=== PATIENT | male | born 1995 | race African-American/Black ===

== ENCOUNTER 2016-05-05 15:04 | Emergency (ER) | payer OTHER ==
[~2016-05-05] VITALS: Ht 172.7 cm; Wt 68.0 kg
[~2016-05-05 15:04] MED LIST: ALBU0.08 NEB; FOLI5CAP PO; HYDR500C2 PO; LORA-474 PO; NEBULIZER/ADULT1 KIT; PERC10TA27 PO; VENTAER INH; ZOLO100T PO
[2016-05-05 15:12] VITALS: BP 153/87; PULSE 63; RESP 15; TEMP 98.1; O2SAT 96
[2016-05-06] MEDS ORDERED: EXJA500T (00:07)
[2016-06-08] MEDS ORDERED: ZOLO100T PO (09:10)
[2016-06-08] MEDS ORDERED: EXJA500T PO (09:10)
[2016-06-08] MEDS ORDERED: ADVA250A INH (09:11)
[2016-06-08] MEDS ORDERED: [UNRECOGNIZED DRUG - REMARK] (14:04)
[2016-06-23] MEDS ORDERED: KETO60IN6 IM (14:56)
[2016-06-23] MEDS ORDERED: DIPH25CA PO (14:56)
[2016-06-23] MEDS ORDERED: DEXA4INJ9 IM (14:56)
[2016-07-07] MEDS ORDERED: [UNRECOGNIZED DRUG - REMARK] (16:24)
[2016-07-07] MEDS ORDERED: LIDO1PAD52 TOPICAL (16:25)
[2016-07-07] MEDS ORDERED: CYCL1TAB29 PO (16:28)
[2016-10-04] MEDS ORDERED: CYCL5TAB PO (15:50)
[2016-10-04] MEDS ORDERED: LIDO1PAD52 TOPICAL (15:50)
[2016-10-04] MEDS ORDERED: LORA-474 PO (15:57)
== END 2016-05-05 16:43 | disposition left against medical advice (07) ==
LOC: NED 15:04
DX: D57.1 Sickle-cell disease without crisis (principal)
CPT/HCPCS: 99281

== ENCOUNTER 2016-05-05 17:06 | Emergency (ER) | payer OTHER ==
[~2016-05-05] VITALS: Ht 172.7 cm; Wt 68.0 kg
[2016-05-05 17:50] VITALS: BP 141/88; PULSE 64; RESP 15; TEMP 98.2; O2SAT 96
[2016-05-06] MEDS ORDERED: EXJA500T (00:07)
[2016-05-06] MEDS ORDERED: SODIUM CHLOR 0.9% 1000 ML INJ 1,000 ML IV ONE ×2 (00:09→00:15)
[2016-05-06] MEDS ORDERED: SODIUM CHLORIDE 0.9% FLUSH 5 ML FLUSH IVF PRN (00:15)
[2016-05-06] MEDS ORDERED: HYDROmorphone HCL PF 1 MG/ML VIAL IVS ONE (00:15)
[2016-05-06] MEDS ORDERED: ONDANSETRON HCL 4 MG/2 ML VIAL IVP ONE (00:15)
--- NOTE | 2016-05-06 00:37 | PD ---
HPI Chief Complaint: Sickle Cell Time Seen by Provider: 00:04 Travel History International Travel<30 days: No Contact w/Intl Traveler<30days: No Traveled to known affect area: No History of Present Illness HPI Patient is a 20-year-old male with history of sickle cell disease, presents to emergency room with complaints of sickle cell crisis. Patient reports the pain started today, reports pain to his arm and his leg. Reports that his pain feels similar to his sickle cell pain the past. Patient reports cramping feeling, denies any trauma. Patient denies any chest pain or shortness of breath. Patient does follow-up with button machine operator at [place], reports that he is taking hydroxyurea as well as folic acid and exjade for his sickle cell disease. Reports that he has been complaint with his medications. Reports no fever/chills. Denies chest pain/sob. Reports that his pain is typical for his sickle cell crisis. NO other c/o. PFSH Past Medical History ADD: Yes ADHD: Yes Asthma: Yes Autoimmune Disease: No Blood Disorders: No Anxiety: No Depression: No Heart Rhythm Problems: No Cancer: No Cardiovascular Problems: Yes (sickle cell) Chemotherapy: No Chest Pain: Yes COPD: No Cerebrovascular Accident: Yes (TIA AT AGE 4) Cystic Fibrosis: No Developmental Delay: No Diminished Hearing: No Endocrine: No Gastrointestinal Disorders: Yes Genitourinary: No Headaches: Yes Hiatal Hernia: No Immune Disorder: No Implanted Vascular Access Dvce: Yes (RUC) Musculoskeletal: No Neurologic: Yes Psychiatric: No Reproductive: No Respiratory: Yes (ASTHMA) Immunizations Current: Yes Migraines: Yes Radiation Therapy: No Seizures: No Sickle Cell Disease: Yes Sleep Apnea: No Ulcer: No PNEUMOCCOCAL Vaccine (Year): 2 Past Surgical History Abdominal Surgery: Yes (hernia sx, splenectomy) AICD: No Appendectomy: No Arteriovenous Shunt: Yes Cardiac Surgery: No Cholecystectomy: Yes Ear Surgery: No Endocrine Surgery: No Eye Surgery: No Genitourinary Surgery: No Gynecologic Surgery: No Insulin Pump: No Joint Replacement: No Neurologic Surgery: No Oral Surgery: No Pacemaker: No Thoracic Surgery: No Tonsillectomy: Yes (adnoids) Tympanostomy Tube: Yes Other Surgery: Yes (PORT PLACEMENT AND REMOVAL) Social History Alcohol Use: No Tobacco Use: No Substance Use: No Allergies-Medications (Allergen,Severity, Reaction): Coded Allergies: No Known Allergies (Verified , 05/06/16) Reported Meds & Prescriptions Reported Meds & Active Scripts Active Percocet (Oxycodone-Acetaminophen) 10-325 mg Tab 1 Tab PO Q6H PRN Ventolin Hfa 18 GM Inh (Albuterol Sulfate) 90 Mcg/Act Aer 2 Puff INH Q6H PRN Albuterol Neb (Albuterol Sulfate) 2.5 Mg/3 Ml Neb 2.5 Mg NEB TID NEB PRN Reported Exjade (Deferasirox) 500 Mg Tab DAILY Do not chew/swallow tablets whole. Completely disperse tablets in water, orange or apple juice (use 3.5 ounces for total doses <1 g; 7 ounces for doses =1 g). Ativan (Lorazepam) 1 Mg Tab 1 Mg PO DAILY PRN Hydroxyurea 500 Mg Cap 1,000 Mg PO DAILY Folic Acid 5 Mg Cap 5 Mg PO DAILY Zoloft (Sertraline HCl) 100 Mg Tab 100 Mg PO DAILY Review of Systems General / Constitutional: No: Fever Eyes: No: Visual changes HENT: No: Headaches Cardiovascular: No: Chest Pain or Discomfort Respiratory: No: Shortness of Breath Gastrointestinal: No: Abdominal Pain Genitourinary: No: Dysuria Musculoskeletal: No: Pain Skin: No Rash Neurologic: No: Weakness Psychiatric: No: Depression Endocrine: No: Polydipsia Hematologic/Lymphatic: No: Easy Bruising Physical Exam Narrative GENERAL: No acute disease, nontoxic SKIN: Warm and dry. HEAD: Atraumatic. Normocephalic. EYES: Pupils equal and round. No scleral icterus. No injection or drainage. ENT: No nasal bleeding or discharge. Mucous membranes pink and moist. NECK: Trachea midline. No JVD. CARDIOVASCULAR: Regular rate and rhythm. No murmur appreciated. RESPIRATORY: No accessory muscle use. Clear to auscultation. Breath sounds equal bilaterally. GASTROINTESTINAL: Abdomen soft, non-tender, nondistended. Hepatic and splenic margins not palpable. MUSCULOSKELETAL: No obvious deformities. No clubbing. No cyanosis. No edema. NEUROLOGICAL: Awake and alert. No obvious cranial nerve deficits. Motor grossly within normal limits. Normal speech. PSYCHIATRIC: Appropriate mood and affect; insight and judgment normal. Data Data Last Documented VS Vital Signs Date Time Temp Pulse Resp B/P Pulse Ox O2 Delivery O2 Flow Rate FiO2 05/06/16 03:38 61 12 128/66 99 Room Air 05/05/16 17:50 98.2 Orders Complete Blood Count With Diff (05/06/16 00:09) Comprehensive Metabolic Panel (05/06/16 00:09) Retic Count (05/06/16 00:09) Urinalysis - C+S If Indicated (05/06/16 00:09) Ecg Monitoring (05/06/16 00:09) Iv Access Insert/Monitor (05/06/16 00:09) Oximetry (05/06/16 00:09) Ondansetron Inj (Zofran Inj) (05/06/16 00:15) Sodium Chloride 0.9% Flush (Ns Flush) (05/06/16 00:15) Sodium Chlor 0.9% 1000 Ml Inj (Ns 1000 M (05/06/16 00:09) Hydromorphone Pf Inj (Dilaudid Pf Inj) (05/06/16 00:15) Sodium Chlor 0.9% 1000 Ml Inj (Ns 1000 M (05/06/16 00:15) Diphenhydramine Inj (Benadryl Inj) (05/06/16 01:15) Hydromorphone Pf Inj (Dilaudid Pf Inj) (05/06/16 01:15) Diphenhydramine Inj (Benadryl Inj) (05/06/16 02:15) Hydromorphone Pf Inj (Dilaudid Pf Inj) (05/06/16 02:30) Labs Laboratory Tests Test 05/06/16 00:27 White Blood Count 13.9 TH/MM3 Red Blood Count 2.69 MIL/MM3 Hemoglobin 8.7 GM/DL Hematocrit 24.4 % Mean Corpuscular Volume 90.9 FL Mean Corpuscular Hemoglobin 32.3 PG Mean Corpuscular Hemoglobin 35.5 % Concent Red Cell Distribution Width 21.9 % Platelet Count 446 TH/MM3 Mean Platelet Volume 7.3 FL Neutrophils (%) (Auto) 58.4 % Lymphocytes (%) (Auto) 29.6 % Monocytes (%) (Auto) 10.5 % Eosinophils (%) (Auto) 1.0 % Basophils (%) (Auto) 0.5 % Neutrophils # (Auto) 8.1 TH/MM3 Lymphocytes # (Auto) 4.1 TH/MM3 Monocytes # (Auto) 1.5 TH/MM3 Eosinophils # (Auto) 0.1 TH/MM3 Basophils # (Auto) 0.1 TH/MM3 CBC Comment AUTO DIFF Reticulocyte Count 5.5 % Absolute Reticulocyte Count 146.7 MIL/L Sodium Level 141 MEQ/L Potassium Level 3.9 MEQ/L Chloride Level 108 MEQ/L Carbon Dioxide Level 26.5 MEQ/L Anion Gap 7 MEQ/L Blood Urea Nitrogen 6 MG/DL Creatinine 0.64 MG/DL Estimat Glomerular Filtration 190 ML/MIN Rate Random Glucose 89 MG/DL Calcium Level 9.0 MG/DL Total Bilirubin 5.8 MG/DL Aspartate Amino Transf 33 U/L (AST/SGOT) Alanine Aminotransferase 29 U/L (ALT/SGPT) Alkaline Phosphatase 85 U/L Total Protein 6.8 GM/DL Albumin 4.0 GM/DL MDM Medical Decision Making Medical Screen Exam Complete: Yes Emergency Medical Condition: Yes Interpretation(s) Vital Signs Date Time Temp Pulse Resp B/P Pulse Ox O2 Delivery O2 Flow Rate FiO2 05/05/16 17:50 98.2 64 15 141/88 96 Differential Diagnosis Sickle cell crisis Narrative Course 20-year-old male who presents to emergency room with sickle cell disease, presents to emergency room with complaints of sickle crisis. Patient reports pain to his arm and his leg, reports that this pain is typical for sickle cell disease. Patient with no chest pain or shortness of breath at this time. Plan to obtain IV, will obtain CBC, reticulocyte count, BMP, will give patient IV fluids as well as pain medication. Pt re-evaluated, pt reports pain now a 7/10 instead of an 8/10, plan to remedicate pt reviewed all studies with pt in detail Patient reevaluated, patient reports that he is feeling much better and would like to be discharged. Patient will follow up with his button machine operator return to ER as needed Diagnosis Primary Impression: Sickle cell anemia Qualified Code: D57.00 - Hb-SS disease with crisis Additional Impression: Vaso-occlusive sickle cell crisis Patient Instructions: Narcotic given in the ED, General Instructions Additional Instructions: Please follow-up with your primary care doctor as soon as possible Please stop the button machine operator as soon as possible Return to ER as needed Disposition: 01 DISCHARGE HOME Condition: Stable HuyLauren Payton DO May 06, 2016 00:37
[2016-05-06 00:41] LABS: AUTOMATED NEUTROPHIL # 8.1 TH/MM3 (1.8-7.7); BASOPHIL # 0.1 TH/MM3 (0-0.2); BASOPHIL % 0.5 % (0.0-2.0); EOSINOPHIL # 0.1 TH/MM3 (0-0.4); HEMATOCRIT 24.4 % (39.0-51.0); LYMPH % 29.6 % (9.0-44.0); LYMPHOCYTE # 4.1 TH/MM3 (1.0-4.8); MEAN CELL VOLUME 90.9 FL (80.0-100.0); MEAN CORPUSCULAR HEMOGLOBIN 32.3 PG (27.0-34.0); MEAN CORPUSCULAR HGB CONC 35.5 % (32.0-36.0); MONO % 10.5 % (0.0-8.0); NEUT % 58.4 % (16.0-70.0); PLATELET COUNT 446 TH/MM3 (150-450); RED BLOOD COUNT 2.69 MIL/MM3 (4.50-5.90); RED CELL DISTRIBUTION WIDTH 21.9 % (11.6-17.2); RETIC % 5.5 % (0.4-3.0); WHITE BLOOD COUNT 13.9 TH/MM3 (4.0-11.0)
[2016-05-06 00:44] LABS: HEMO FLAGS AUTO DIFF; REVIEW FLAG AUTO DIFF
[2016-05-06 01:09] LABS: ALKALINE PHOSPHATASE 85 U/L (45-117); ALT (GPT) 29 U/L (12-78); TOTAL BILIRUBIN ADULT 5.8 MG/DL (0.2-1.0)
[2016-05-06] MEDS ORDERED: HYDROmorphone HCL PF 1 MG/ML VIAL IV PUSH ONE ×2 (01:15→02:30)
[2016-05-06] MEDS ORDERED: diphenhydrAMINE HCL 50 MG/ML VIAL IV PUSH ONE (01:15)
[2016-05-06 01:27] LABS: ANION GAP 7 MEQ/L (5-15); AST (GOT) 33 U/L (15-37); BICARBONATE 26.5 MEQ/L (21.0-32.0); BLOOD UREA NITROGEN 6 MG/DL (7-18); CHLORIDE 108 MEQ/L (98-107); GLOMERULAR FILTRATION RATE 190 ML/MIN (>89); POTASSIUM 3.9 MEQ/L (3.5-5.1); SODIUM (NA) 141 MEQ/L (136-145)
[2016-05-06 01:30] VITALS: BP 128/74; PULSE 68; RESP 12; O2SAT 99
[2016-05-06] MEDS ORDERED: diphenhydrAMINE HCL 50 MG/ML VIAL IVP ONE (02:15)
[2016-05-06 02:22] VITALS: BP 134/78; PULSE 66; RESP 14; O2SAT 98
[2016-05-06 03:31] VITALS: BP 130/76; PULSE 62; RESP 12; O2SAT 99
[2016-05-06 03:38] VITALS: BP_SYST 128; BP_SYST 98; BP_DIAS 54; BP_DIAS 66; PULSE 61; RESP 12; O2SAT 99
[2016-05-06 04:30] VITALS: BP 133/68; PULSE 64; RESP 12; O2SAT 99
[2016-05-06] MEDS ORDERED: FAMOTIDINE 20 MG/2 ML VIAL IV PUSH SCH (04:30)
[2016-05-06 06:11] LABS: PLATELET ESTIMATE SMEAR HIGH (NORMAL); PLATELET MORPHOLOGY NORMAL (NORMAL); SCAN/DIFF AUTO DIFF CONFIRMED; SICKLE CELLS 1+ (NORMAL); TARGET CELLS 1+ (NORMAL)
[2016-06-08] MEDS ORDERED: EXJA500T PO (09:10)
[2016-06-08] MEDS ORDERED: ZOLO100T PO (09:10)
[2016-06-08] MEDS ORDERED: ADVA250A INH (09:11)
[2016-06-08] MEDS ORDERED: [UNRECOGNIZED DRUG - REMARK] (14:04)
[2016-06-23] MEDS ORDERED: DEXA4INJ9 IM (14:56)
[2016-06-23] MEDS ORDERED: KETO60IN6 IM (14:56)
[2016-06-23] MEDS ORDERED: DIPH25CA PO (14:56)
[2016-07-07] MEDS ORDERED: [UNRECOGNIZED DRUG - REMARK] (16:24)
[2016-07-07] MEDS ORDERED: LIDO1PAD52 TOPICAL (16:25)
[2016-07-07] MEDS ORDERED: CYCL1TAB29 PO (16:28)
[2016-10-04] MEDS ORDERED: CYCL5TAB PO (15:50)
[2016-10-04] MEDS ORDERED: LIDO1PAD52 TOPICAL (15:50)
[2016-10-04] MEDS ORDERED: LORA-474 PO (15:57)
== END 2016-05-06 04:49 | disposition home or self-care (01) ==
LOC: NEPE 17:06
DX: D57.1 Sickle-cell disease without crisis (principal); J45.909 Unspecified asthma, uncomplicated; Z86.73 Personal history of transient ischemic attack (TIA), and cerebral infarction without residual deficits
CPT/HCPCS: 80053; 85025; 85044; 96361; 96374; 96375; 96376; 99284; J1170; J1200; J2405; J7030

== ENCOUNTER 2016-06-23 15:40 | Emergency (ER) | payer OTHER ==
[~2016-06-23] VITALS: Ht 172.7 cm; Wt 68.0 kg
[~2016-06-23 15:40] MED LIST changes: +ADVA250A INH; +DEXA4INJ9 IM; +DIPH25CA PO; +EXJA500T PO; +KETO60IN6 IM; -NEBULIZER/ADULT1 KIT; +[UNRECOGNIZED DRUG - REMARK]
[2016-06-23 15:42] VITALS: BP 124/74; PULSE 75; RESP 18; TEMP 98.1; O2SAT 98
[2016-06-23] MEDS ORDERED: diphenhydrAMINE HCL 50 MG/ML VIAL IV PUSH ONE (17:00)
[2016-06-23] MEDS ORDERED: HYDROmorphone HCL PF 1 MG/ML VIAL IV PUSH ONE ×2 (17:00→18:15)
[2016-06-23] MEDS ORDERED: SODIUM CHLOR 0.9% 1000 ML INJ 1,000 ML IV ONE ×2 (17:00→20:45)
--- NOTE | 2016-06-23 17:09 | PD ---
HPI Chief Complaint: Sickle Cell Time Seen by Provider: 16:44 Travel History International Travel<30 days: No Contact w/Intl Traveler<30days: No Traveled to known affect area: No History of Present Illness HPI This is a 20-year-old gentleman with history of sickle cell disease, who presents today with complaints of sickle cell crisis. Patient reports pain in his back and his right leg. Patient also reports nausea vomiting. Patient denies any diarrhea. He does report that he's been urinating normally however he notes his urine may have been darker than normal. There is no ill contacts at home. He denies any fevers, chills. He states his symptoms started about 2 days ago. PFSH Past Medical History ADD: Yes ADHD: Yes Asthma: Yes Autoimmune Disease: No Blood Disorders: No Anxiety: No Depression: No Heart Rhythm Problems: No Cancer: No Cardiovascular Problems: Yes (sickle cell) Chemotherapy: No Chest Pain: Yes COPD: No Cerebrovascular Accident: Yes (TIA AT AGE 4) Cystic Fibrosis: No Developmental Delay: No Diminished Hearing: No Endocrine: No Gastrointestinal Disorders: Yes Genitourinary: No Headaches: Yes Hiatal Hernia: No Immune Disorder: No Implanted Vascular Access Dvce: Yes (RUC) Musculoskeletal: No Neurologic: Yes Psychiatric: No Reproductive: No Respiratory: Yes (ASTHMA) Immunizations Current: Yes Migraines: Yes Radiation Therapy: No Seizures: No Sickle Cell Disease: Yes Sleep Apnea: No Ulcer: No Tetanus Vaccination: < 5 Years PNEUMOCCOCAL Vaccine (Year): 2 Past Surgical History Abdominal Surgery: Yes (hernia sx, splenectomy) AICD: No Appendectomy: No Arteriovenous Shunt: Yes Cardiac Surgery: No Cholecystectomy: Yes Ear Surgery: No Endocrine Surgery: No Eye Surgery: No Genitourinary Surgery: No Gynecologic Surgery: No Insulin Pump: No Joint Replacement: No Neurologic Surgery: No Oral Surgery: No Pacemaker: No Thoracic Surgery: No Tonsillectomy: Yes (adnoids) Tympanostomy Tube: Yes Other Surgery: Yes (PORT PLACEMENT AND REMOVAL) Social History Alcohol Use: No Tobacco Use: No Substance Use: No Allergies-Medications (Allergen,Severity, Reaction): Coded Allergies: No Known Allergies (Verified , 06/23/16) Reported Meds & Prescriptions Reported Meds & Active Scripts Active [chiropractor] Advair Diskus Inh (Fluticasone-Salmeterol Inh) 250-50 Mcg/Blist Aer 1 Puff INH BID Rinse mouth after use. Exjade (Deferasirox) 500 Mg Tab 500 Mg PO DAILY Completely disperse tablets in water, orange or apple juice (use 3.5 ounces for total doses <1 g; 7 ounces for doses =1 g). Zoloft (Sertraline HCl) 100 Mg Tab 100 Mg PO DAILY Percocet (Oxycodone-Acetaminophen) 10-325 mg Tab 1 Tab PO Q6H PRN Ventolin Hfa 18 GM Inh (Albuterol Sulfate) 90 Mcg/Act Aer 2 Puff INH Q6H PRN Albuterol Neb (Albuterol Sulfate) 2.5 Mg/3 Ml Neb 2.5 Mg NEB TID NEB PRN Reported Ativan (Lorazepam) 1 Mg Tab 1 Mg PO DAILY PRN Hydroxyurea 500 Mg Cap 1,000 Mg PO DAILY Folic Acid 5 Mg Cap 5 Mg PO DAILY Review of Systems Except as stated in HPI: all other systems reviewed are Neg General / Constitutional: No: Fever, Chills HENT: No: Headaches, Lightheadedness Cardiovascular: No: Chest Pain or Discomfort, Palpitations Respiratory: No: Cough, Shortness of Breath Gastrointestinal: Positive: Nausea, Vomiting, No: Diarrhea, Abdominal Pain Genitourinary: Positive: Other (darker urine than normal.) Musculoskeletal: Positive: Pain (back pain and right leg pain) Neurologic: No: Weakness, Dizziness Physical Exam Narrative GENERAL: Developed well-nourished gentleman in no acute respiratory distress. SKIN: Warm and dry. HEAD: Atraumatic. Normocephalic. EYES: Pupils equal and round. No scleral icterus. No injection or drainage. ENT: [place] mucous membranes that are slightly dry. NECK: Trachea midline. Supple. CARDIOVASCULAR: Regular rate and rhythm. No murmur appreciated. RESPIRATORY: No accessory muscle use. Clear to auscultation. Breath sounds equal bilaterally. GASTROINTESTINAL: Abdomen soft, non-tender, nondistended. No rebound or guarding. MUSCULOSKELETAL: No obvious deformities. No edema. NEUROLOGICAL: Awake and alert. No obvious cranial nerve deficits. Motor grossly within normal limits. Normal speech. Data Data Last Documented VS Vital Signs Date Time Temp Pulse Resp B/P Pulse Ox O2 Delivery O2 Flow Rate FiO2 06/23/16 15:42 98.1 75 18 124/74 98 Orders Complete Blood Count With Diff (06/23/16 16:46) Comprehensive Metabolic Panel (06/23/16 16:46) Sodium Chlor 0.9% 1000 Ml Inj (Ns 1000 M (06/23/16 17:00) Diphenhydramine Inj (Benadryl Inj) (06/23/16 17:00) Hydromorphone Pf Inj (Dilaudid Pf Inj) (06/23/16 17:00) Retic Count (06/23/16 17:09) Urinalysis - C+S If Indicated (06/23/16 17:09) Chest, Single Ap (06/23/16 17:09) Hydromorphone Pf Inj (Dilaudid Pf Inj) (06/23/16 18:15) Ondansetron Inj (Zofran Inj) (06/23/16 18:15) Labs Laboratory Tests Test 06/23/16 18:00 White Blood Count 23.0 TH/MM3 Red Blood Count 2.73 MIL/MM3 Hemoglobin 8.5 GM/DL Hematocrit 24.4 % Mean Corpuscular Volume 89.6 FL Mean Corpuscular Hemoglobin 31.3 PG Mean Corpuscular Hemoglobin 34.9 % Concent Red Cell Distribution Width 20.8 % Platelet Count 347 TH/MM3 Mean Platelet Volume 7.5 FL Neutrophils (%) (Auto) 88.8 % Lymphocytes (%) (Auto) 4.9 % Monocytes (%) (Auto) 5.7 % Eosinophils (%) (Auto) 0.1 % Basophils (%) (Auto) 0.5 % Neutrophils # (Auto) 20.4 TH/MM3 Lymphocytes # (Auto) 1.1 TH/MM3 Monocytes # (Auto) 1.3 TH/MM3 Eosinophils # (Auto) 0.0 TH/MM3 Basophils # (Auto) 0.1 TH/MM3 CBC Comment AUTO DIFF Reticulocyte Count 9.5 % Absolute Reticulocyte Count 255.7 MIL/L Sodium Level 142 MEQ/L Potassium Level 4.6 MEQ/L Chloride Level 109 MEQ/L Carbon Dioxide Level 25.9 MEQ/L Anion Gap 7 MEQ/L Blood Urea Nitrogen 13 MG/DL Creatinine 1.13 MG/DL Estimat Glomerular Filtration 98 ML/MIN Rate Random Glucose 97 MG/DL Calcium Level 9.0 MG/DL Total Bilirubin 7.4 MG/DL Aspartate Amino Transf 93 U/L (AST/SGOT) Alanine Aminotransferase 37 U/L (ALT/SGPT) Alkaline Phosphatase 117 U/L Total Protein 7.6 GM/DL Albumin 4.8 GM/DL MDM Medical Decision Making Medical Screen Exam Complete: Yes Emergency Medical Condition: Yes Differential Diagnosis Sickle cell crisis versus pneumonia versus cystitis Narrative Course 20-year-old gentleman with a history of sickle cell disease, who presents here with reported sickle cell crisis. The patient is afebrile. He reports back and leg pain. He's been given 2 doses of IV pain medication. He's also been given one dose of Benadryl and 1 L of fluid. Laboratory tests show a hemoglobin of 8.5 with positive reticulocytes. Chest x-rays negative for acute process. Urine is pending at this time. He was signed out to Dr. Abram Leslie, physician replacing this physician, who will reevaluate and if he needs further medication will provide as needed. I anticipate he'll be discharged. Diagnosis Primary Impression: Sickle cell pain crisis Fabrice Zamudio MD Jun 23, 2016 17:08
--- NOTE | 2016-06-23 18:09 | RADRPT ---
EXAM DATE/TIME: 06/23/2016 17:24 [facility] COMPARISON: CHEST PA & LAT, March 11, 2016, 10:25. INDICATIONS : Sickle cell related chest pain and shortness of breath. MEDICAL HISTORY : Sickle Cell disease. SURGICAL HISTORY : None. ENCOUNTER: Initial ACUITY: 1 day PAIN SCORE: 10/10 LOCATION: Bilateral chest FINDINGS: No infiltrate, effusion or pneumothorax. Heart size stable, upper limits of normal. CONCLUSION: No evidence of acute cardiopulmonary disease. Borderline cardiomegaly. Twan Avila MD on June 23, 2016 at 18:07 Board Certified Radiologist. This report was verified electronically.
[2016-06-23] MEDS ORDERED: ONDANSETRON HCL 4 MG/2 ML VIAL IV PUSH ONE (18:15)
[2016-06-23 18:16] LABS: AUTOMATED NEUTROPHIL # 20.4 TH/MM3 (1.8-7.7); BASOPHIL # 0.1 TH/MM3 (0-0.2); BASOPHIL % 0.5 % (0.0-2.0); EOSINOPHIL % 0.1 % (0.0-4.0); HEMATOCRIT 24.4 % (39.0-51.0); LYMPH % 4.9 % (9.0-44.0); LYMPHOCYTE # 1.1 TH/MM3 (1.0-4.8); MEAN CELL VOLUME 89.6 FL (80.0-100.0); MEAN CORPUSCULAR HEMOGLOBIN 31.3 PG (27.0-34.0); MEAN CORPUSCULAR HGB CONC 34.9 % (32.0-36.0); MONO % 5.7 % (0.0-8.0); NEUT % 88.8 % (16.0-70.0); PLATELET COUNT 347 TH/MM3 (150-450); RED BLOOD COUNT 2.73 MIL/MM3 (4.50-5.90); RED CELL DISTRIBUTION WIDTH 20.8 % (11.6-17.2)
[2016-06-23 18:30] LABS: HEMO FLAGS AUTO DIFF
[2016-06-23 18:39] LABS: ALKALINE PHOSPHATASE 117 U/L (45-117); ALT (GPT) 37 U/L (12-78); ANION GAP 7 MEQ/L (5-15); AST (GOT) 93 U/L (15-37); BICARBONATE 25.9 MEQ/L (21.0-32.0); BLOOD UREA NITROGEN 13 MG/DL (7-18); CHLORIDE 109 MEQ/L (98-107); GLOMERULAR FILTRATION RATE 98 ML/MIN (>89); POTASSIUM 4.6 MEQ/L (3.5-5.1); SODIUM (NA) 142 MEQ/L (136-145); TOTAL BILIRUBIN ADULT 7.4 MG/DL (0.2-1.0)
[2016-06-23 18:40] LABS: RETIC % 9.5 % (0.4-3.0)
[2016-06-23 18:41] LABS: REVIEW FLAG FINAL
--- NOTE | 2016-06-23 19:06 | PD ---
Physical Exam Date Seen by Provider: Jun 23, 2016 Time Seen by Provider: 19:04 Narrative The patient is a 20-year-old male was initially evaluate by the previous physician, Dr. Zamudio. Please refer to the initial history, physical, diagnostic evaluation, and treatment modality plan. The patient was signed out at 7 PM with laboratory evaluation pending reevaluation for pain. Data Data Last Documented VS Vital Signs Date Time Temp Pulse Resp B/P Pulse Ox O2 Delivery O2 Flow Rate FiO2 06/23/16 19:13 98.5 72 16 136/74 97 Room Air Orders Complete Blood Count With Diff (06/23/16 16:46) Comprehensive Metabolic Panel (06/23/16 16:46) Sodium Chlor 0.9% 1000 Ml Inj (Ns 1000 M (06/23/16 17:00) Diphenhydramine Inj (Benadryl Inj) (06/23/16 17:00) Hydromorphone Pf Inj (Dilaudid Pf Inj) (06/23/16 17:00) Retic Count (06/23/16 17:09) Urinalysis - C+S If Indicated (06/23/16 17:09) Chest, Single Ap (06/23/16 17:09) Hydromorphone Pf Inj (Dilaudid Pf Inj) (06/23/16 18:15) Ondansetron Inj (Zofran Inj) (06/23/16 18:15) Hydromorphone Pf Inj (Dilaudid Pf Inj) (06/23/16 20:45) Ns (Bolus) Inj (06/23/16 20:45) Labs Laboratory Tests Test 06/23/16 06/23/16 18:00 19:20 White Blood Count 23.0 TH/MM3 Red Blood Count 2.73 MIL/MM3 Hemoglobin 8.5 GM/DL Hematocrit 24.4 % Mean Corpuscular Volume 89.6 FL Mean Corpuscular Hemoglobin 31.3 PG Mean Corpuscular Hemoglobin 34.9 % Concent Red Cell Distribution Width 20.8 % Platelet Count 347 TH/MM3 Mean Platelet Volume 7.5 FL Neutrophils (%) (Auto) 88.8 % Lymphocytes (%) (Auto) 4.9 % Monocytes (%) (Auto) 5.7 % Eosinophils (%) (Auto) 0.1 % Basophils (%) (Auto) 0.5 % Neutrophils # (Auto) 20.4 TH/MM3 Lymphocytes # (Auto) 1.1 TH/MM3 Monocytes # (Auto) 1.3 TH/MM3 Eosinophils # (Auto) 0.0 TH/MM3 Basophils # (Auto) 0.1 TH/MM3 CBC Comment AUTO DIFF Differential Total Cells 100 Counted Neutrophils % (Manual) 84 % Band Neutrophils % 1 % Lymphocytes % 10 % Monocytes % 3 % Basophils % 1 % Neutrophils # (Manual) 19.8 TH/MM3 Metamyelocytes 1 % Nucleated Red Blood Cells 4 /100 WBC Differential Comment FINAL DIFF MANUAL Platelet Estimate NORMAL Platelet Morphology Comment NORMAL Sickle Cells 2+ Tear Drop Cells 1+ Ovalocytes 1+ Keratocytes 1+ Reticulocyte Count 9.5 % Absolute Reticulocyte Count 255.7 MIL/L Sodium Level 142 MEQ/L Potassium Level 4.6 MEQ/L Chloride Level 109 MEQ/L Carbon Dioxide Level 25.9 MEQ/L Anion Gap 7 MEQ/L Blood Urea Nitrogen 13 MG/DL Creatinine 1.13 MG/DL Estimat Glomerular Filtration 98 ML/MIN Rate Random Glucose 97 MG/DL Calcium Level 9.0 MG/DL Total Bilirubin 7.4 MG/DL Aspartate Amino Transf 93 U/L (AST/SGOT) Alanine Aminotransferase 37 U/L (ALT/SGPT) Alkaline Phosphatase 117 U/L Total Protein 7.6 GM/DL Albumin 4.8 GM/DL Urine Color YELLOW Urine Turbidity CLEAR Urine pH 6.0 Urine Specific [place] 1.010 Urine Protein 100 mg/dL Urine Glucose (UA) NEG mg/dL Urine Ketones NEG mg/dL Urine Occult Blood SMALL Urine Nitrite NEG Urine Bilirubin NEG Urine Urobilinogen LESS THAN 2.0 MG/DL Urine Leukocyte Esterase NEG Urine WBC 1 /hpf Urine Squamous Epithelial <1 /hpf Cells Urine Hyaline Casts 1 /lpf Urine Granular Casts 9 /lpf Urine Mucus FEW /lpf Microscopic Urinalysis Comment CULT NOT INDICATED MDM Medical Record Reviewed: Yes Supervised Visit with RAQUEL: No Interpretation(s) Last Impressions Chest X-Ray 06/23/16 3468 Signed Impressions: Service Date/Time: Thursday, June 23, 2016 17:24 - CONCLUSION: No evidence of acute cardiopulmonary disease. Borderline cardiomegaly. Twan Avila MD Laboratory Tests Test 06/23/16 06/23/16 18:00 19:20 White Blood Count 23.0 TH/MM3 Red Blood Count 2.73 MIL/MM3 Hemoglobin 8.5 GM/DL Hematocrit 24.4 % Mean Corpuscular Volume 89.6 FL Mean Corpuscular Hemoglobin 31.3 PG Mean Corpuscular Hemoglobin 34.9 % Concent Red Cell Distribution Width 20.8 % Platelet Count 347 TH/MM3 Mean Platelet Volume 7.5 FL Neutrophils (%) (Auto) 88.8 % Lymphocytes (%) (Auto) 4.9 % Monocytes (%) (Auto) 5.7 % Eosinophils (%) (Auto) 0.1 % Basophils (%) (Auto) 0.5 % Neutrophils # (Auto) 20.4 TH/MM3 Lymphocytes # (Auto) 1.1 TH/MM3 Monocytes # (Auto) 1.3 TH/MM3 Eosinophils # (Auto) 0.0 TH/MM3 Basophils # (Auto) 0.1 TH/MM3 CBC Comment AUTO DIFF Differential Total Cells 100 Counted Neutrophils % (Manual) 84 % Band Neutrophils % 1 % Lymphocytes % 10 % Monocytes % 3 % Basophils % 1 % Neutrophils # (Manual) 19.8 TH/MM3 Metamyelocytes 1 % Nucleated Red Blood Cells 4 /100 WBC Differential Comment FINAL DIFF MANUAL Platelet Estimate NORMAL Platelet Morphology Comment NORMAL Sickle Cells 2+ Tear Drop Cells 1+ Ovalocytes 1+ Keratocytes 1+ Reticulocyte Count 9.5 % Absolute Reticulocyte Count 255.7 MIL/L Sodium Level 142 MEQ/L Potassium Level 4.6 MEQ/L Chloride Level 109 MEQ/L Carbon Dioxide Level 25.9 MEQ/L Anion Gap 7 MEQ/L Blood Urea Nitrogen 13 MG/DL Creatinine 1.13 MG/DL Estimat Glomerular Filtration 98 ML/MIN Rate Random Glucose 97 MG/DL Calcium Level 9.0 MG/DL Total Bilirubin 7.4 MG/DL Aspartate Amino Transf 93 U/L (AST/SGOT) Alanine Aminotransferase 37 U/L (ALT/SGPT) Alkaline Phosphatase 117 U/L Total Protein 7.6 GM/DL Albumin 4.8 GM/DL Urine Color YELLOW Urine Turbidity CLEAR Urine pH 6.0 Urine Specific [place] 1.010 Urine Protein 100 mg/dL Urine Glucose (UA) NEG mg/dL Urine Ketones NEG mg/dL Urine Occult Blood SMALL Urine Nitrite NEG Urine Bilirubin NEG Urine Urobilinogen LESS THAN 2.0 MG/DL Urine Leukocyte Esterase NEG Urine WBC 1 /hpf Urine Squamous Epithelial <1 /hpf Cells Urine Hyaline Casts 1 /lpf Urine Granular Casts 9 /lpf Urine Mucus FEW /lpf Microscopic Urinalysis Comment CULT NOT INDICATED Differential Diagnosis Differential diagnosis includes vaso-occlusive crisis, aplastic anemia, acute chest syndrome, sepsis, viral syndrome, influenza, dehydration, which led abnormality. Narrative Course The patient is a 20-year-old male was initially evaluated by Dr. Zamudio. Please refer to the initial history, physical, diagnostic evaluation, and treatment modality plan. The patient was signed out at 7 PM laboratory evaluation and reevaluation of pain pending. The patient's hemoglobin is at baseline, white count is elevated and retake count is elevated, but no evidence of infection. UA is negative. Chest x-rays negative. Patient is afebrile. Patient is reevaluated 8:30 PM, he was sleeping. I had to wake the patient up, he is requesting more pain medications and is requesting to be admitted. The patient states that his trades helper, Dr. Bell, right his Lortab, however, is unable to get his Lortab filled because it is too early. The patient is requesting to be admitted for the next week until he can fill his pain medications. The patient is resting comfortably, was sleeping when I came into the room, his heart rate is in the 70s. He is not tachycardic and appears comfortable. The patient was given 1 more dose of pain medications and IV fluids, and is advised to follow-up with his trades helper. There is no evidence of aplastic anemia, acute chest syndrome, or indications for acute transfusion therapy. Diagnosis Primary Impression: Vaso-occlusive sickle cell crisis Patient Instructions: General Instructions Additional Instruction: Follow-up with your trades helper. Fluids to stay hydrated. Disposition: 01 DISCHARGE HOME Condition: Stable Abram Leslie MD Jun 23, 2016 19:06
[2016-06-23 19:13] VITALS: BP 136/74; PULSE 72; RESP 16; TEMP 98.5; O2SAT 97
[2016-06-23 19:14] LABS: BANDS 1 % (0-6); BASOPHILS 1 % (0-2); CORRECTED NUCLEATED RBC 4 /100 WBC (0-0); METAMYELOCYTES 1 % (0-1); NEUTROPHIL # MANUAL DIFF 19.8 TH/MM3 (1.8-7.7); OVALOCYTES 1+ (NORMAL); POLYS (SEG NEUTROPHILS) 84 % (16-70); SICKLE CELLS 2+ (NORMAL); TEARDROP RBCS 1+ (NORMAL); WBC DIFF SAMPLE 100
[2016-06-23 19:17] LABS: PLATELET ESTIMATE SMEAR NORMAL (NORMAL); PLATELET MORPHOLOGY NORMAL (NORMAL)
[2016-06-23 19:18] LABS: KERATOCYTES 1+ (NORMAL); SCAN/DIFF FINAL DIFF MANUAL
[2016-06-23 19:41] LABS: BLOOD, URINE SMALL (NEG); COMMENT (UR) CULT NOT INDICATED; CULTURE IF INDICATED CULT NOT INDICATED; GLUCOSE,URINE NEG (NEG); GRANULAR CAST, URINE 9 /lpf; HYALINE CAST, URINE 1 /lpf (RARE); KETONE, URINE NEG (NEG); MUCUS URINE FEW /lpf (OCC); NITRITE,URINE NEG (NEG); SQUAMOUS EPITHELIAL CELL URINE <1 /hpf (0-5); URINE COLOR YELLOW (YELLW/STRAW)
[2016-06-23] MEDS ORDERED: HYDROmorphone HCL PF 2 MG/ML VIAL IV PUSH ONE (20:45)
[2016-06-23] MEDS ORDERED: DILA4TAB2 PO (21:09)
[2016-06-23 21:57] VITALS: BP 154/67; RESP 16; TEMP 98.6
[2016-07-07] MEDS ORDERED: [UNRECOGNIZED DRUG - REMARK] (16:24)
[2016-07-07] MEDS ORDERED: LIDO1PAD52 TOPICAL (16:25)
[2016-07-07] MEDS ORDERED: CYCL1TAB29 PO (16:28)
[2016-10-04] MEDS ORDERED: LIDO1PAD52 TOPICAL (15:50)
[2016-10-04] MEDS ORDERED: CYCL5TAB PO (15:50)
[2016-10-04] MEDS ORDERED: LORA-474 PO (15:57)
== END 2016-06-23 22:04 | disposition home or self-care (01) ==
LOC: NEPE 15:40
DX: D57.00 Hb-SS disease with crisis, unspecified (principal); R06.02 Shortness of breath
CPT/HCPCS: 71010; 80053; 81001; 85007; 85027; 85044; 96361; 96374; 96375; 96376; 99284; J1170; J1200; J2405; J7030

== ENCOUNTER 2016-08-31 11:41 | Emergency (ER) | payer OTHER ==
[~2016-08-31] VITALS: Ht 172.7 cm; Wt 71.0 kg
[~2016-08-31 11:41] MED LIST changes: +CYCL1TAB29 PO; -DEXA4INJ9 IM; +DILA4TAB2 PO; -DIPH25CA PO; -KETO60IN6 IM; +LIDO1PAD52 TOPICAL; -[UNRECOGNIZED DRUG - REMARK]
[2016-08-31 11:45] VITALS: BP 125/74; PULSE 91; RESP 17; TEMP 98.2; O2SAT 99
--- NOTE | 2016-08-31 11:50 | PD ---
Physical Exam Date Seen by Provider: August 31, 2016 Time Seen by Provider: 11:48 Narrative Pt is a 20 y/o male presenting to the ED with cc of sickle cell crisis. He c/o right leg pain that started this morning. Pain is a 7/10. Pt denies any N/V, fevers. Pt reports frequent crisis events. VSS. Awaiting bed placement. Data Data Last Documented VS Vital Signs Date Time Temp Pulse Resp B/P Pulse Ox O2 Delivery O2 Flow Rate FiO2 08/31/16 11:45 98.2 91 17 125/74 99 MDM Supervised Visit with RAQUEL: No Condition: Stable Laurie Elaine August 31, 2016 11:50
[2016-08-31] MEDS ORDERED: HYDR-3535 PO (12:04)
[2016-08-31] MEDS ORDERED: SODIUM CHLOR 0.9% 1000 ML INJ 1,000 ML IV ONE (12:05)
[2016-08-31] MEDS ORDERED: diphenhydrAMINE HCL 50 MG/ML VIAL IV ONE (12:15)
[2016-08-31] MEDS ORDERED: ONDANSETRON HCL 4 MG/2 ML VIAL IVP ONE (12:15)
[2016-08-31] MEDS ORDERED: HYDROmorphone HCL PF 1 MG/ML VIAL IVS ONE (12:15)
[2016-08-31 12:23] VITALS: O2SAT 99
[2016-08-31 12:24] LABS: AUTOMATED NEUTROPHIL # 9.5 TH/MM3 (1.8-7.7); BASOPHIL # 0.2 TH/MM3 (0-0.2); BASOPHIL % 1.3 % (0.0-2.0); EOSINOPHIL % 0.4 % (0.0-4.0); HEMATOCRIT 25.5 % (39.0-51.0); LYMPH % 16.4 % (9.0-44.0); LYMPHOCYTE # 2.1 TH/MM3 (1.0-4.8); MEAN CELL VOLUME 89.7 FL (80.0-100.0); MEAN CORPUSCULAR HEMOGLOBIN 31.3 PG (27.0-34.0); MEAN CORPUSCULAR HGB CONC 34.9 % (32.0-36.0); MONO % 9.3 % (0.0-8.0); NEUT % 72.6 % (16.0-70.0); PLATELET COUNT 323 TH/MM3 (150-450); RED BLOOD COUNT 2.84 MIL/MM3 (4.50-5.90); RED CELL DISTRIBUTION WIDTH 21.3 % (11.6-17.2); RETIC % 7.3 % (0.4-3.0); WHITE BLOOD COUNT 13.1 TH/MM3 (4.0-11.0)
[2016-08-31 12:25] LABS: HEMO FLAGS AUTO DIFF; REVIEW FLAG FINAL
[2016-08-31 12:40] LABS: ALT (GPT) 47 U/L (12-78); ANION GAP 6 MEQ/L (5-15); AST (GOT) 42 U/L (15-37); BLOOD UREA NITROGEN 11 MG/DL (7-18); CHLORIDE 108 MEQ/L (98-107); GLOMERULAR FILTRATION RATE 155 ML/MIN (>89); POTASSIUM 4.2 MEQ/L (3.5-5.1); SODIUM (NA) 140 MEQ/L (136-145)
--- NOTE | 2016-08-31 12:40 | PD ---
HPI Chief Complaint: Sickle Cell Time Seen by Provider: 12:37 Travel History International Travel<30 days: No Contact w/Intl Traveler<30days: No Traveled to known affect area: No History of Present Illness HPI 20-year-old male that presents to the ED for evaluation of sickle-cell pain. Per patient she's had pain in his right medial foot for the past day. Per patient he woke up with this. He denies any injuries or falls. Patient points to the medial aspect of the ankle and foot at the area of pain. He states that yesterday he had no symptoms. He has a history of sickle cell follows with Dr. Lim. He denies any recent fevers chills or sweats. No chest pain or shortness of breath. No allergies to medication. Per patient's his pain is 8 out of 10. Per patient he took Lortab for pain with minimal relief. Denies any headache. No cough or runny nose. No urinary or bowel movement issues. Pain does not radiate but stays in the medial aspect of the right ankle. PFSH Past Medical History ADD: Yes ADHD: Yes Asthma: Yes Autoimmune Disease: No Blood Disorders: No Anxiety: No Depression: No Heart Rhythm Problems: No Cancer: No Cardiovascular Problems: Yes (sickle cell) Chemotherapy: No Chest Pain: Yes COPD: No Cerebrovascular Accident: Yes (TIA AT AGE 4) Cystic Fibrosis: No Developmental Delay: No Diminished Hearing: No Endocrine: No Gastrointestinal Disorders: Yes Genitourinary: No Headaches: Yes Hiatal Hernia: No Immune Disorder: No Implanted Vascular Access Dvce: Yes (RUC) Musculoskeletal: No Neurologic: Yes Psychiatric: No Reproductive: No Respiratory: Yes (ASTHMA) Immunizations Current: Yes Migraines: Yes Radiation Therapy: No Seizures: No Sickle Cell Disease: Yes Sleep Apnea: No Ulcer: No PNEUMOCCOCAL Vaccine (Year): 2 Past Surgical History Abdominal Surgery: Yes (hernia sx, splenectomy) AICD: No Appendectomy: No Arteriovenous Shunt: Yes Cardiac Surgery: No Cholecystectomy: Yes Ear Surgery: No Endocrine Surgery: No Eye Surgery: No Genitourinary Surgery: No Gynecologic Surgery: No Insulin Pump: No Joint Replacement: No Neurologic Surgery: No Oral Surgery: No Pacemaker: No Thoracic Surgery: No Tonsillectomy: Yes (adnoids) Tympanostomy Tube: Yes Other Surgery: Yes (PORT PLACEMENT AND REMOVAL) Social History Alcohol Use: No Tobacco Use: No Substance Use: Yes Allergies-Medications (Allergen,Severity, Reaction): Coded Allergies: No Known Allergies (Verified , 08/31/16) Reported Meds & Prescriptions Reported Meds & Active Scripts Active Advair Diskus Inh (Fluticasone-Salmeterol Inh) 250-50 Mcg/Blist Aer 1 Puff INH BID Rinse mouth after use. Ventolin Hfa 18 GM Inh (Albuterol Sulfate) 90 Mcg/Act Aer 2 Puff INH Q6H PRN Albuterol Neb (Albuterol Sulfate) 2.5 Mg/3 Ml Neb 2.5 Mg NEB TID NEB PRN Reported Lortab (Hydrocodone-Acetaminophen) 10-325 Mg Tab 1 Tab PO Q4H PRN Ativan (Lorazepam) 1 Mg Tab 1 Mg PO DAILY PRN Hydroxyurea 500 Mg Cap 1,000 Mg PO DAILY Folic Acid 5 Mg Cap 5 Mg PO DAILY Review of Systems Except as stated in HPI: all other systems reviewed are Neg Physical Exam Narrative GENERAL: SKIN: Warm and dry. HEAD: Atraumatic. Normocephalic. EYES: Pupils equal and round. No scleral icterus. No injection or drainage. ENT: No nasal bleeding or discharge. Mucous membranes pink and moist. Tongue is midline. No uvula deviation. NECK: Trachea midline. No JVD. CARDIOVASCULAR: Regular rate and rhythm. No murmurs, S3, S4. RESPIRATORY: No accessory muscle use. Clear to auscultation. Breath sounds equal bilaterally. GASTROINTESTINAL: Abdomen soft, non-tender, nondistended. Hepatic and splenic margins not palpable. MUSCULOSKELETAL: Extremities without clubbing, cyanosis, or edema. No obvious deformities. Full range of motion of the upper and lower extremities bilaterally. 2+ pulses bilaterally. NEUROLOGICAL: Awake and alert. No obvious cranial nerve deficits. Motor grossly within normal limits. Five out of 5 muscle strength in the arms and legs. Normal speech. PSYCHIATRIC: Appropriate mood and affect; insight and judgment normal. Data Data Last Documented VS Vital Signs Date Time Temp Pulse Resp B/P Pulse Ox O2 Delivery O2 Flow Rate FiO2 08/31/16 12:23 99 Nasal Cannula 2 08/31/16 11:45 98.2 91 17 125/74 Orders Complete Blood Count With Diff (08/31/16 12:05) Comprehensive Metabolic Panel (08/31/16 12:05) Retic Count (08/31/16 12:05) Urinalysis - C+S If Indicated (08/31/16 12:05) Ecg Monitoring (08/31/16 12:05) Iv Access Insert/Monitor (08/31/16 12:05) Oximetry (08/31/16 12:05) Ondansetron Inj (Zofran Inj) (08/31/16 12:15) Sodium Chlor 0.9% 1000 Ml Inj (Ns 1000 M (08/31/16 12:05) Hydromorphone Pf Inj (Dilaudid Pf Inj) (08/31/16 12:15) Diphenhydramine Inj (Benadryl Inj) (08/31/16 12:15) Foot, Complete ([id number]) (08/31/16 ) Hydromorphone Pf Inj (Dilaudid Pf Inj) (08/31/16 13:45) Labs Laboratory Tests Test 08/31/16 12:09 White Blood Count 13.1 TH/MM3 Red Blood Count 2.84 MIL/MM3 Hemoglobin 8.9 GM/DL Hematocrit 25.5 % Mean Corpuscular Volume 89.7 FL Mean Corpuscular Hemoglobin 31.3 PG Mean Corpuscular Hemoglobin 34.9 % Concent Red Cell Distribution Width 21.3 % Platelet Count 323 TH/MM3 Mean Platelet Volume 7.5 FL Neutrophils (%) (Auto) 72.6 % Lymphocytes (%) (Auto) 16.4 % Monocytes (%) (Auto) 9.3 % Eosinophils (%) (Auto) 0.4 % Basophils (%) (Auto) 1.3 % Neutrophils # (Auto) 9.5 TH/MM3 Lymphocytes # (Auto) 2.1 TH/MM3 Monocytes # (Auto) 1.2 TH/MM3 Eosinophils # (Auto) 0.0 TH/MM3 Basophils # (Auto) 0.2 TH/MM3 CBC Comment AUTO DIFF Differential Total Cells 100 Counted Neutrophils % (Manual) 75 % Band Neutrophils % 1 % Lymphocytes % 15 % Monocytes % 9 % Neutrophils # (Manual) 10.0 TH/MM3 Nucleated Red Blood Cells 8 /100 WBC Differential Comment FINAL DIFF MANUAL Platelet Estimate NORMAL Platelet Morphology Comment NORMAL Polychromasia 2.0 % Sickle Cells 1+ Target Cells 1+ Red Cell Morphology Comment Reticulocyte Count 7.3 % Absolute Reticulocyte Count 206.1 MIL/L Sodium Level 140 MEQ/L Potassium Level 4.2 MEQ/L Chloride Level 108 MEQ/L Carbon Dioxide Level 26.0 MEQ/L Anion Gap 6 MEQ/L Blood Urea Nitrogen 11 MG/DL Creatinine 0.76 MG/DL Estimat Glomerular Filtration 155 ML/MIN Rate Random Glucose 103 MG/DL Calcium Level 9.0 MG/DL Total Bilirubin 7.4 MG/DL Aspartate Amino Transf 42 U/L (AST/SGOT) Alanine Aminotransferase 47 U/L (ALT/SGPT) Alkaline Phosphatase 120 U/L Total Protein 7.1 GM/DL Albumin 4.3 GM/DL [facility] Medical Decision Making Medical Screen Exam Complete: Yes Emergency Medical Condition: Yes Medical Record Reviewed: Yes Interpretation(s) CBC & BMP Diagram 08/31/16 12:09 Reticular count in the 200s LFTs within normal limits. xray of the right foot showed some possible bone infarcts but no acute disease Differential Diagnosis Foot pain versus chronic pain versus acute pain versus sickle cell crisis versus sickle cell anemia Narrative Course 20-year-old male that presents to the ED for evaluation of foot pain and possible sickle cell. Patient was properly examined and was found to have signs and symptoms consistent appears to be foot pain. Possible sickle cell pain. Labs were drawn. X-ray was done. Labs and x-rays were essentially unremarkable. At this time patient was given IV pain medications with some relief. Labs and imaging were essentially unremarkable. Patient did complain of more pain. Patient was given 1 more dose of pain medication here. Patient was told results. At this time case was discussed in my attending Dr. Elizabeth who agrees with plan. 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 Unfortunately there is not much we can do for the bone infarcts that he will have to follow with an orthopedic surgeon if needed. Follow with PCP. See ED worsening symptoms. He will be given a short prescription for pain medication. Diagnosis Primary Impression: Vaso-occlusive sickle cell crisis Patient Instructions: General Instructions, Narcotic given in the ED Departure Forms: Tests/Procedures, Work Release Enter return to work date: September 04, 2016 Additional Instructions: Take medications as prescribed. Follow-up with PCP. See ED for any worsening symptoms. Do not drink or drive while taking pain medication. Apply ice or heat as needed for pain Med/Other Pt SpecificInfo: Prescription(s) given Scripts Oxycodone-Acetaminophen (Percocet)5-325 mg Tab1 Tab PO Q6H PRN (PAIN) #10 TAB Ref 0 Prov:Genaro Elizabeth MD 08/31/16 Disposition: 01 DISCHARGE HOME Condition: Stable Joaquin Deleon August 31, 2016 12:40
[2016-08-31 12:42] LABS: ALKALINE PHOSPHATASE 120 U/L (45-117); TOTAL BILIRUBIN ADULT 7.4 MG/DL (0.2-1.0)
[2016-08-31 13:08] LABS: BANDS 1 % (0-6); CORRECTED NUCLEATED RBC 8 /100 WBC (0-0); PLATELET ESTIMATE SMEAR NORMAL (NORMAL); PLATELET MORPHOLOGY NORMAL (NORMAL); POLYS (SEG NEUTROPHILS) 75 % (16-70); SCAN/DIFF FINAL DIFF MANUAL; SICKLE CELLS 1+ (NORMAL); WBC DIFF SAMPLE 100
[2016-08-31 13:10] LABS: TARGET CELLS 1+ (NORMAL)
--- NOTE | 2016-08-31 13:39 | RADRPT ---
EXAM DATE/TIME: 08/31/2016 12:22 [facility] COMPARISON: No previous studies available for comparison. INDICATIONS : Right posterior foot pain, denies injury MEDICAL HISTORY : Sickle Cell disease. SURGICAL HISTORY : None. ENCOUNTER: Initial ACUITY: 1 day PAIN SCORE: 7/10 LOCATION: Right Foot FINDINGS: Three view examination of the right foot demonstrates no soft tissue swelling, dislocation, or fractu re. The tarsal bones appear intact. The interphalangeal and metatarsophalangeal joints are intact. The calcaneus is intact. Bony mineralization is normal. The ankle is partly included on the study. There appears to be some patchy sclerosis in the medullary space of the distal tibia, especially in the region of the physeal scar. CONCLUSION: Radiographic appearance of the right foot within normal limits. At the ankle, patchy sclerosis seen i n the distal tibia and small chronic bone infarcts would be conceivable. Twan Avila MD on August 31, 2016 at 13:35 Board Certified Radiologist. This report was verified electronically.
[2016-08-31] MEDS ORDERED: PERC5TAB12 PO (13:42)
[2016-08-31] MEDS ORDERED: HYDROmorphone HCL PF 1 MG/ML VIAL IV PUSH ONE (13:45)
[2016-08-31 15:30] VITALS: BP 120/72; PULSE 88; RESP 18; O2SAT 99
[2016-08-31] MEDS ORDERED: oxyCODONE/ACETAMINOPHEN 5 MG/325 MG TAB PO ONE (15:30)
[2016-10-04] MEDS ORDERED: CYCL5TAB PO (15:50)
[2016-10-04] MEDS ORDERED: LIDO1PAD52 TOPICAL (15:50)
[2016-10-04] MEDS ORDERED: LORA-474 PO (15:57)
== END 2016-08-31 16:12 | disposition home or self-care (01) ==
LOC: NEPE 11:41
DX: D57.00 Hb-SS disease with crisis, unspecified (principal); M25.571 Pain in right ankle and joints of right foot; Z86.73 Personal history of transient ischemic attack (TIA), and cerebral infarction without residual deficits; J45.909 Unspecified asthma, uncomplicated
CPT/HCPCS: 73630; 80053; 85007; 85027; 85044; 96361; 96374; 96375; 96376; 99284; J1170; J1200; J2405; J7030

== ENCOUNTER 2016-10-08 10:52 | Inpatient (IN) | payer OTHER ==
[~2016-10-08] VITALS: Ht 170.2 cm; Wt 70.1 kg
[~2016-10-08 10:52] MED LIST changes: -CYCL1TAB29 PO; +CYCL5TAB PO; -DILA4TAB2 PO; -EXJA500T PO; +HYDR-3535 PO; -PERC10TA27 PO; +PERC5TAB12 PO; -ZOLO100T PO
[2016-10-08 11:03] VITALS: O2SAT 97
[2016-10-08 11:05] VITALS: BP 132/75; PULSE 96; RESP 14; TEMP 98.1; O2SAT 97
[2016-10-08] MEDS ORDERED: HYDR500C PO (11:07)
--- NOTE | 2016-10-08 11:18 | PD ---
HPI Chief Complaint: Sickle Cell Time Seen by Provider: 11:17 Travel History International Travel<30 days: No Contact w/Intl Traveler<30days: No Traveled to known affect area: No History of Present Illness HPI 20 YO M with PMH of sickle cell disease presents to the ED for evaluation of ~ 12 hour history of low back pain. Gradual onset. Rated 10/10, described as tight , constant, worsened by certain movements. Patient can identify no acute injury. He denies fevers, chills, CP, palpitations, SOB, N/V, dysuria. He states that he treated with ibuprofen and 10 mg Lortab with no relief of symptoms. Last dose ~4AM. Followed by Dr. Bell, last visit "in August." [facility] Past Medical History ADD: Yes ADHD: Yes Asthma: Yes Autoimmune Disease: No Blood Disorders: No Anxiety: No Depression: No Heart Rhythm Problems: No Cancer: No Cardiovascular Problems: Yes (sickle cell) Chemotherapy: No Chest Pain: Yes COPD: No Cerebrovascular Accident: Yes (TIA AT AGE 4) Cystic Fibrosis: No Developmental Delay: No Diminished Hearing: No Endocrine: No Gastrointestinal Disorders: Yes Genitourinary: No Headaches: Yes Hiatal Hernia: No Immune Disorder: No Implanted Vascular Access Dvce: Yes (RUC) Musculoskeletal: No Neurologic: Yes Psychiatric: No Reproductive: No Respiratory: Yes (ASTHMA) Immunizations Current: Yes Migraines: Yes Radiation Therapy: No Seizures: No Sickle Cell Disease: Yes Sleep Apnea: No Ulcer: No PNEUMOCCOCAL Vaccine (Year): 2 Past Surgical History Abdominal Surgery: Yes (hernia sx, splenectomy) AICD: No Appendectomy: No Arteriovenous Shunt: Yes Cardiac Surgery: No Cholecystectomy: Yes Ear Surgery: No Endocrine Surgery: No Eye Surgery: No Genitourinary Surgery: No Gynecologic Surgery: No Insulin Pump: No Joint Replacement: No Neurologic Surgery: No Oral Surgery: No Pacemaker: No Thoracic Surgery: No Tonsillectomy: Yes (adnoids) Tympanostomy Tube: Yes Other Surgery: Yes (PORT PLACEMENT AND REMOVAL) Social History Alcohol Use: No Tobacco Use: No Substance Use: Yes Allergies-Medications (Allergen,Severity, Reaction): Coded Allergies: No Known Allergies (Verified , 10/04/16) Reported Meds & Prescriptions Reported Meds & Active Scripts Active Ativan (Lorazepam) 1 Mg Tab 1 Mg PO DAILY PRN Lidocaine Patch 12 HR (Lidocaine) 5 % Patch 1 Patch TOPICAL DAILY Remove patch after 12 hours Advair Diskus Inh (Fluticasone-Salmeterol Inh) 250-50 Mcg/Blist Aer 1 Puff INH BID Rinse mouth after use. Ventolin Hfa 18 GM Inh (Albuterol Sulfate) 90 Mcg/Act Aer 2 Puff INH Q6H PRN Albuterol Neb (Albuterol Sulfate) 2.5 Mg/3 Ml Neb 2.5 Mg NEB TID NEB PRN Reported Hydrea (Hydroxyurea) 500 Mg Cap 1,500 Mg PO DAILY Lortab (Hydrocodone-Acetaminophen) 10-325 Mg Tab 1 Tab PO Q4H PRN Review of Systems Except as stated in HPI: all other systems reviewed are Neg Physical Exam Narrative GENERAL: Well-nourished, well-developed thin black male in no acute distress. SKIN: Focused skin assessment warm/dry. HEAD: Normocephalic. EYES: No scleral icterus. No injection or drainage. NECK: Supple, trachea midline. No JVD or lymphadenopathy. CARDIOVASCULAR: Regular rate and rhythm without murmurs, gallops, or rubs. RESPIRATORY: Breath sounds clear and equal bilaterally. No accessory muscle use. GASTROINTESTINAL: Abdomen soft, non-tender, nondistended. Active bowel sounds MUSCULOSKELETAL: No cyanosis, or edema. Patient moves the extremities spontaneously. BACK: No obvious deformity. ++ Midline TTP in the lumbar area. ++ TTP of the lumbar paraspinal musculature. ++ CVA tenderness. Data Data Last Documented VS Vital Signs Date Time Temp Pulse Resp B/P Pulse Ox O2 Delivery O2 Flow Rate FiO2 10/08/16 11:05 98.1 96 14 132/75 97 Room Air 10/08/16 11:03 2 Orders Complete Blood Count With Diff (10/08/16 11:25) Comprehensive Metabolic Panel (10/08/16 11:25) Retic Count (10/08/16 11:25) Urinalysis - C+S If Indicated (10/08/16 11:25) Chest, Single Ap (10/08/16 11:25) Ecg Monitoring (10/08/16 11:25) Iv Access Insert/Monitor (10/08/16 11:25) Oximetry (10/08/16 11:25) Hydromorphone Pf Inj (Dilaudid Pf Inj) (10/08/16 11:30) Ondansetron Inj (Zofran Inj) (10/08/16 11:30) Sodium Chloride 0.9% Flush (Ns Flush) (10/08/16 11:30) Sodium Chlor 0.9% 1000 Ml Inj (Ns 1000 M (10/08/16 11:25) Diphenhydramine Inj (Benadryl Inj) (10/08/16 11:30) Spine, Lumbar - Ltd (Ap & Lat) (10/08/16 11:25) Type And Screen (10/08/16 13:09) Admit Order (Ed Use Only) (10/08/16 13:14) Hydromorphone Pf Inj (Dilaudid Pf Inj) (10/08/16 13:30) Labs Laboratory Tests Test 10/08/16 12:10 White Blood Count 18.7 TH/MM3 Red Blood Count 2.44 MIL/MM3 Hemoglobin 7.6 GM/DL Hematocrit 22.5 % Mean Corpuscular Volume 92.4 FL Mean Corpuscular Hemoglobin 31.3 PG Mean Corpuscular Hemoglobin 33.8 % Concent Red Cell Distribution Width 23.5 % Platelet Count 412 TH/MM3 Mean Platelet Volume 7.8 FL Neutrophils (%) (Auto) 67.7 % Lymphocytes (%) (Auto) 23.3 % Monocytes (%) (Auto) 8.0 % Eosinophils (%) (Auto) 0.4 % Basophils (%) (Auto) 0.6 % Neutrophils # (Auto) 12.7 TH/MM3 Lymphocytes # (Auto) 4.3 TH/MM3 Monocytes # (Auto) 1.5 TH/MM3 Eosinophils # (Auto) 0.1 TH/MM3 Basophils # (Auto) 0.1 TH/MM3 CBC Comment AUTO DIFF Reticulocyte Count 11.2 % Absolute Reticulocyte Count 272.5 MIL/L Sodium Level 142 MEQ/L Potassium Level 4.0 MEQ/L Chloride Level 111 MEQ/L Carbon Dioxide Level 23.1 MEQ/L Anion Gap 8 MEQ/L Blood Urea Nitrogen 8 MG/DL Creatinine 0.80 MG/DL Estimat Glomerular Filtration 147 ML/MIN Rate Random Glucose 84 MG/DL Calcium Level 8.8 MG/DL Total Bilirubin 4.3 MG/DL Aspartate Amino Transf 50 U/L (AST/SGOT) Alanine Aminotransferase 41 U/L (ALT/SGPT) Alkaline Phosphatase 105 U/L Total Protein 7.0 GM/DL Albumin 4.0 GM/DL [facility] Medical Decision Making Medical Screen Exam Complete: Yes Emergency Medical Condition: Yes Differential Diagnosis Vaso-occlusive crisis versus musculoskeletal pain versus aplastic anemia versus intractable pain versus other Narrative Course 20 YO M with PMH of sickle cell disease presents to the ED for evaluation of ~ 12 hour history of 10/10 tight, constant low back pain. Gradual onset, worsened by certain movements. He denies acute injury, fevers, chills, CP, palpitations, SOB, N/V, dysuria. He treated with ibuprofen and 10 mg Lortab x 2 with no relief. Last dose ~4AM. Followed by Dr. Bell, last visit "in August." Patient is afebrile, respiratory rate 14, O2 saturation 97% on room air on presentation. Physical exam reveals a thin black male in NAD. Chest CTAB, no extra work of breathing. Abdomen soft, nontender, active bowel sounds. Positive midline and paraspinal muscular tenderness in the lumbar area. ++ CVA tenderness. Patient was administered 1LNS, 1mg Dilaudid, 4mg Zofran, 25mg Benadryl IV. CBC: WBC 18.7. RBCs 2.44. Hemoglobin 7.6. Hematocrit 22.5 CMP: Bilirubin 4.3, AST 50 Retic count: 11.2 absolute count: 272.5 UA: Pending CXR: Prominent cardiac silhouette, otherwise normal per radiology read. Lumbar spine XR: Negative for acute process per radiology read. On recheck the patient reports his pain 7/10. He was administered 0.5mg Dilaudid IV. Discussed the results of the workup with the patient who is agreeable to admission. Patient was discussed with Dr. Zamudio. We'll admit the patient to the medicine service for further evaluation and treatment of hemolytic anemia secondary to sickle cell crisis. Please see medicine notes for disposition. Bernie Culver Oct 08, 2016 11:18
[2016-10-08] MEDS ORDERED: SODIUM CHLOR 0.9% 1000 ML INJ 1,000 ML IV ONE (11:25)
[2016-10-08] MEDS ORDERED: SODIUM CHLORIDE 0.9% FLUSH 10 ML FLUSH IVF PRN (11:30)
[2016-10-08] MEDS ORDERED: HYDROmorphone HCL PF 2 MG/ML VIAL IVS ONE (11:30)
[2016-10-08] MEDS ORDERED: ONDANSETRON HCL 4 MG/2 ML VIAL IVP ONE (11:30)
[2016-10-08] MEDS ORDERED: diphenhydrAMINE HCL 50 MG/ML VIAL IV ONE (11:30)
--- NOTE | 2016-10-08 12:01 | RADRPT ---
EXAM DATE/TIME: 10/08/2016 11:40 [facility] COMPARISON: SPINE LUMBAR LTD (AP & LAT), March 11, 2016, 10:08. INDICATIONS : Lower pain. MEDICAL HISTORY : Sickle Cell disease. SURGICAL HISTORY : None. ENCOUNTER: Initial ACUITY: 1 day PAIN SCORE: 7/10 LOCATION: lumbar spine. FINDINGS: Sclerosis and endplate deformity consistent with sickle cell disease. Two view examination was perfo rmed. There are five non-rib bearing vertebral bodies. The vertebral bodies are in normal alignment without evidence of subluxation or scoliosis. The disc spaces are maintained. The pedicles are int act. Bony mineralization is normal. No fracture is identified. CONCLUSION: Negative for an acute process. Norberto Kerns MD FACR on October 08, 2016 at 11:56 Board Certified Radiologist. This report was verified electronically.
--- NOTE | 2016-10-08 12:02 | RADRPT ---
EXAM DATE/TIME: 10/08/2016 11:41 [facility] COMPARISON: CHEST SINGLE AP, June 23, 2016, 17:24. INDICATIONS : Pain. MEDICAL HISTORY : Sickle Cell disease. SURGICAL HISTORY : None. ENCOUNTER: Initial ACUITY: 1 day PAIN SCORE: 7/10 LOCATION: Bilateral chest FINDINGS: The heart is minimally enlarged consistent with sickle cell. There is no alveolar consolidation, ple ural effusion or pneumothorax. Portion of bony skeleton visualized is unremarkable. CONCLUSION: Prominent cardiac silhouette. Otherwise, negative. Norberto Kerns MD FACR on October 08, 2016 at 11:59 Board Certified Radiologist. This report was verified electronically.
[2016-10-08 12:30] LABS: AUTOMATED NEUTROPHIL # 12.7 TH/MM3 (1.8-7.7); BASOPHIL # 0.1 TH/MM3 (0-0.2); BASOPHIL % 0.6 % (0.0-2.0); EOSINOPHIL # 0.1 TH/MM3 (0-0.4); EOSINOPHIL % 0.4 % (0.0-4.0); HEMATOCRIT 22.5 % (39.0-51.0); LYMPH % 23.3 % (9.0-44.0); LYMPHOCYTE # 4.3 TH/MM3 (1.0-4.8); MEAN CELL VOLUME 92.4 FL (80.0-100.0); MEAN CORPUSCULAR HEMOGLOBIN 31.3 PG (27.0-34.0); MEAN CORPUSCULAR HGB CONC 33.8 % (32.0-36.0); NEUT % 67.7 % (16.0-70.0); PLATELET COUNT 412 TH/MM3 (150-450); RED BLOOD COUNT 2.44 MIL/MM3 (4.50-5.90); RED CELL DISTRIBUTION WIDTH 23.5 % (11.6-17.2); RETIC % 11.2 % (0.4-3.0); WHITE BLOOD COUNT 18.7 TH/MM3 (4.0-11.0)
[2016-10-08 12:31] LABS: HEMO FLAGS AUTO DIFF; REVIEW FLAG FINAL
[2016-10-08 12:53] LABS: ALKALINE PHOSPHATASE 105 U/L (45-117); TOTAL BILIRUBIN ADULT 4.3 MG/DL (0.2-1.0)
[2016-10-08 12:54] LABS: ALT (GPT) 41 U/L (12-78); ANION GAP 8 MEQ/L (5-15); AST (GOT) 50 U/L (15-37); BICARBONATE 23.1 MEQ/L (21.0-32.0); BLOOD UREA NITROGEN 8 MG/DL (7-18); CHLORIDE 111 MEQ/L (98-107); GLOMERULAR FILTRATION RATE 147 ML/MIN (>89); SODIUM (NA) 142 MEQ/L (136-145)
[2016-10-08 13:26] LABS: BANDS 3 % (0-6); CORRECTED NUCLEATED RBC 16 /100 WBC (0-0); POLYS (SEG NEUTROPHILS) 61 % (16-70); SICKLE CELLS 1+ (NORMAL); TARGET CELLS 1+ (NORMAL); WBC DIFF SAMPLE 100
[2016-10-08 13:27] LABS: PLATELET ESTIMATE SMEAR NORMAL (NORMAL); PLATELET MORPHOLOGY NORMAL (NORMAL); POLYCHROMASIA 3.3 % (0.0-1.9); SCAN/DIFF FINAL DIFF MANUAL
[2016-10-08] MEDS ORDERED: HYDROmorphone HCL PF 1 MG/ML VIAL IV PUSH ONE (13:30)
--- NOTE | 2016-10-08 13:31 | HHI.HP ---
[facility] Service Family Medicine Primary Care Physician Scottie Orellana MD Admission Diagnosis sickle cell crisis Diagnoses: International Travel<30 Days: No Contact w/Intl Traveler<30days: No Known Affected Area: No History of Present Illness 20 year old male here with sickle cell pain crisis. Symptoms started yesterday and are located in his lower back and legs. The pain is 8/10 currently. He had some chest tightness last night. He has some mild coughing. No fevers or chills. No nausea or vomiting. No abdominal pain. He is followed by Dr. Bell, radiographer mammographer. (Kristian Bautista MD R2) Review of Systems Constitutional: DENIES: Diaphoretic episodes, Fatigue, Fever, Weight gain, Weight loss, Chills, Change in appetite Endocrine: DENIES: Polyuria, Polyphagia Eyes: DENIES: Blurred vision, Double Vision Ears, nose, mouth, throat: DENIES: Vertigo, Throat pain, Running Nose Respiratory: COMPLAINS OF: Cough, Sputum production, DENIES: Wheezing, Hemoptysis, Shortness of breath Cardiovascular: COMPLAINS OF: Chest pain, DENIES: Palpitations, Syncope, Lower Extremity Edema Gastrointestinal: DENIES: Abdominal pain, Black stools, Bloody stools, Diarrhea , Nausea, Vomiting Genitourinary: DENIES: Testicular Pain, Testicular Swelling Musculoskeletal: COMPLAINS OF: Stiffness, Back pain, DENIES: Joint Swelling, Neck pain Integumentary: DENIES: Rash Hematologic/lymphatic: DENIES: Lymphadenopathy Immunologic/allergic: DENIES: Eczema Neurologic: DENIES: Headache Psychiatric: DENIES: Confusion (Kristian Bautista MD R2) Past Family Social History Past Medical History Past Medical History Sickle Cell disease Asthma Past Surgical History Splenectomy Cholecystectomy Tonsillectomy Bone removed in right foot Left chest port insertion and removal Allergies: Coded Allergies: No Known Allergies (Verified , 03/10/16) Family History Mom - Asthma, sickle cell trait Dad - Sickle cell trait Siblings - 2 older sisters have trait Social History Prefers being addressed as "AJ". Lives with mother. Working 2 jobs. 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 Smoking - Denies Alcohol - Denies Drugs - Marijuana Sexually active. A few partners. H/o Chlamydia infection. (Kristian Bautista MD R2 ) Allergies: Coded Allergies: No Known Allergies (Verified , 10/04/16) Physical Exam Vital Signs Vital Signs Date Time Temp Pulse Resp B/P Pulse Ox O2 Delivery O2 Flow Rate FiO2 10/08/16 11:05 98.1 96 14 132/75 97 Room Air 10/08/16 11:03 97 Nasal Cannula 2 10/08/16 11:03 17 Room Air Physical Exam GENERAL: In obvious pain, holding his lower back SKIN: No rashes or lesions HEAD: Atraumatic. Normocephalic. No temporal or scalp tenderness. EYES: Pupils equal round and reactive. Extraocular motions intact. No scleral icterus. No injection or drainage. ENT: Nose without bleeding, purulent drainage or septal hematoma. Throat without erythema, tonsillar hypertrophy or exudate. Uvula midline. Airway patent. NECK: Trachea midline. No JVD or lymphadenopathy. Supple, nontender, no meningeal signs. CARDIOVASCULAR: Systolic flow murmur, regular rate and rhythm. RESPIRATORY: Clear to auscultation. Breath sounds equal bilaterally. No wheezes , rales, or rhonchi. GASTROINTESTINAL: Abdomen soft, non-tender, nondistended. No hepato-splenomegaly , or palpable masses. No guarding. MUSCULOSKELETAL: Lower back and thighs tender to palpation. NEUROLOGICAL: Awake and alert. Cranial nerves II through XII intact. Motor and sensory grossly within normal limits. Five out of 5 muscle strength in all muscle groups. Normal speech. Laboratory Laboratory Tests Test 10/08/16 12:10 White Blood Count 18.7 Red Blood Count 2.44 Hemoglobin 7.6 Hematocrit 22.5 Mean Corpuscular Volume 92.4 Mean Corpuscular Hemoglobin 31.3 Mean Corpuscular Hemoglobin 33.8 Concent Red Cell Distribution Width 23.5 Platelet Count 412 Mean Platelet Volume 7.8 Neutrophils (%) (Auto) 67.7 Lymphocytes (%) (Auto) 23.3 Monocytes (%) (Auto) 8.0 Eosinophils (%) (Auto) 0.4 Basophils (%) (Auto) 0.6 Neutrophils # (Auto) 12.7 Lymphocytes # (Auto) 4.3 Monocytes # (Auto) 1.5 Eosinophils # (Auto) 0.1 Basophils # (Auto) 0.1 CBC Comment AUTO DIFF Differential Total Cells 100 Counted Neutrophils % (Manual) 61 Band Neutrophils % 3 Lymphocytes % 27 Monocytes % 9 Neutrophils # (Manual) 12.0 Nucleated Red Blood Cells 16 Differential Comment FINAL DIFF MANUAL Platelet Estimate NORMAL Platelet Morphology Comment NORMAL Polychromasia 3.3 Sickle Cells 1+ Target Cells 1+ Reticulocyte Count 11.2 Absolute Reticulocyte Count 272.5 Sodium Level 142 Potassium Level 4.0 Chloride Level 111 Carbon Dioxide Level 23.1 Anion Gap 8 Blood Urea Nitrogen 8 Creatinine 0.80 Estimat Glomerular Filtration 147 Rate Random Glucose 84 Calcium Level 8.8 Total Bilirubin 4.3 Aspartate Amino Transf 50 (AST/SGOT) Alanine Aminotransferase 41 (ALT/SGPT) Alkaline Phosphatase 105 Total Protein 7.0 Albumin 4.0 (Kristian Bautista MD R2) Result Diagram: 10/08/16 1210 10/08/16 1210 Imaging Last 72 hours Impressions Lumbar Spine X-Ray 10/08/16 1125 Signed Impressions: Service Date/Time: Saturday, October 08, 2016 11:40 - CONCLUSION: Negative for an acute process. Norberto Kerns MD FACR (Kristian Bautista MD R2) Septic Shock Reassessment Heart: Regular rate and rhythm Lungs: Clear Skin: Warm Capillary Refill: <2 seconds (Kristian Bautista MD R2) Assessment and Plan Assessment and Plan 20 year old male here with sickle cell pain crisis. Code Status FULL CODE Discussed Condition With Seen and discussed with Dr. Isidro Ramos (Kristian Bautista MD R2) Attending Attestation Patient seen and examined. Case reviewed and discussed with the resident team. Agree with plan of care as discussed with me and documented in the resident note. (Neli Palomares MD) Problem List: (1) Sickle cell crisis Status: Acute Plan: Hgb 7.6, about his baseline. Retic count elevated. T. bili 4.3. Pain in thighs in lower back, 8/10 pain, appears uncomfortable. Chest x-ray negative, has some mild coughing. No fevers. - IVF with D5 1/2 NS at 110 mls/hr with 20 meQ potassium - Dilaudid 2 mg every 4 hours, titrate as needed. If not effective, consider SOX ANALYST pump. - Continue folic acid, hydroxyurea - Aspirin 81 mg daily - Monitor closely for acute chest syndrome - Consult hematology (2) Asthma, chronic Status: Chronic Plan: - Continue albuterol PRN, symbicort (3) No contraindication to deep vein thrombosis (DVT) prophylaxis Status: Acute Plan: Lovenox 40 mg daily (4) Nutrition, metabolism, and development symptoms Status: Acute Plan: - IVF with D5 1/2 NS at 110 mls/hr with 20 meQ potassium - Regular diet (Kristian Bautista MD R2) Physician Certification 2 Midnight Certification Type: Admission for Inpatient Services Order for Inpatient Services The services are ordered in accordance with Medicare regulations or non- Medicare payer requirements, as applicable. In the case of services not specified as inpatient-only, they are appropriately provided as inpatient services in accordance with the 2-midnight benchmark. Estimated LOS (days): 3 days is the estimated time the patient will need to remain in the hospital, assuming treatment plan goals are met and no additional complications. Post-Hospital Plan: Home (Kristian Bautista MD R2) Kristian Bautista MD R2 Oct 08, 2016 13:30 Neli Palomares MD Oct 08, 2016 14:41
--- NOTE | 2016-10-08 13:38 | HHI.FPPN ---
Subjective Remarks Pt. seen, examined and discussed with Drs. Bautista and Isidro. Objective Vitals Vital Signs Date Time Temp Pulse Resp B/P Pulse Ox O2 Delivery O2 Flow Rate FiO2 10/08/16 11:05 98.1 96 14 132/75 97 Room Air 10/08/16 11:03 97 Nasal Cannula 2 10/08/16 11:03 17 Room Air Result Diagram: 10/08/16 1210 10/08/16 1210 Neli Palomares MD Oct 08, 2016 13:38
[2016-10-08] MEDS ORDERED: ALBUTEROL SULFATE 90 MCG/ACT HFA 8 GM INHALER INH PRN (13:45)
[2016-10-08] MEDS ORDERED: RESP: ALBUTEROL 2.5 MG/3 ML NEB (PRN) NEB (13:45)
[2016-10-08] MEDS ORDERED: HEPARIN SODIUM - SQ 10,000 UNITS/ML VIAL SQ SCH (14:00)
--- NOTE | 2016-10-08 14:35 | HHI.FPPN ---
Subjective Remarks Patient seen, examined and discussed with the medicine team. This is a 20 year-old -[place] male with known sickle cell disease who is here with severe lumbar pain. He reports his pain is 7 or 8 out of 10 at this point. He normally takes Dilaudid from a range of 0.5-2 mg while he is hospitalized every 4 hours. He has had multiple previous hospitalizations for this condition. Please see history and physical examination for this admission for additional historical details including past, family and social history. Review of systems is difficult to obtain today because of his level of pain but he reports pain primarily in his low back, a little bit of shortness of breath and a cough which is productive of white sputum, occasional leg pain but no other headache, vomiting, or abdominal pain. Objective Vitals Vital Signs Date Time Temp Pulse Resp B/P Pulse Ox O2 Delivery O2 Flow Rate FiO2 10/08/16 11:05 98.1 96 14 132/75 97 Room Air 10/08/16 11:03 97 Nasal Cannula 2 10/08/16 11:03 17 Room Air Result Diagram: 10/08/16 1210 10/08/16 1210 Other Results Laboratory Tests Test 10/08/16 12:10 White Blood Count 18.7 TH/MM3 Red Blood Count 2.44 MIL/MM3 Hemoglobin 7.6 GM/DL Hematocrit 22.5 % Red Cell Distribution Width 23.5 % Neutrophils # (Auto) 12.7 TH/MM3 Monocytes # (Auto) 1.5 TH/MM3 Monocytes % 9 % Neutrophils # (Manual) 12.0 TH/MM3 Nucleated Red Blood Cells 16 /100 WBC Polychromasia 3.3 % Sickle Cells 1+ Target Cells 1+ Reticulocyte Count 11.2 % Absolute Reticulocyte Count 272.5 MIL/L Chloride Level 111 MEQ/L Total Bilirubin 4.3 MG/DL Aspartate Amino Transf 50 U/L (AST/SGOT) Imaging Last Impressions Lumbar Spine X-Ray 10/08/16 1125 Signed Impressions: Service Date/Time: Saturday, October 08, 2016 11:40 - CONCLUSION: Negative for an acute process. Norberto Kerns MD FACR Chest X-Ray 10/08/16 1125 Signed Impressions: Service Date/Time: Saturday, October 08, 2016 11:41 - CONCLUSION: Prominent cardiac silhouette. Otherwise, negative. Norberto Kerns MD FACR Objective Remarks O. CONSTITUTIONAL/GEN: normally nourished, in acute distress with back pain, writhing with discomfort.. EYES: conjunctiva normal, PERRLA, EOMI. ENT: Mouth and pharynx normal. NECK: No mass LUNGS: clear A-P, respiratory effort is normal. CARDIOVASCULAR: RR without murmur or gallop. No significant edema. GI/ABD: soft without masses, without organomegaly. NEURO: No focal deficits. SKIN: color normal, no rashes noted. Multiple tattoos HEME/LYMPH: no bruising, petechia or significant adenopathy MUSC: back is normal in appearance. Extremities are normal in appearance. PSYCH/MENTAL STATUS: Alert and oriented x 3. A/P Assessment and Plan 20 year old male here with sickle cell pain crisis. Attending Attestation Patient seen and examined. Case reviewed and discussed with the resident team. Agree with plan of care as discussed with me and documented in the resident note. Problem List: (1) Sickle cell crisis Status: Acute Plan: Hgb 7.6, about his baseline. Retic count elevated. T. bili 4.3. Pain in thighs in lower back, 8/10 pain, appears uncomfortable. Chest x-ray negative, has some mild coughing. No fevers. - IVF with D5 1/2 NS at 110 mls/hr with 20 meQ potassium - Dilaudid 2 mg every 4 hours, titrate as needed. If not effective, consider ROBOTICS TECHNOLOGIST pump. - Continue folic acid, hydroxyurea - Aspirin 81 mg daily - Monitor closely for acute chest syndrome - Consult hematology (2) Asthma, chronic Status: Chronic Plan: - Continue albuterol PRN, symbicort (3) No contraindication to deep vein thrombosis (DVT) prophylaxis Status: Acute Plan: Lovenox 40 mg daily (4) Nutrition, metabolism, and development symptoms Status: Acute Plan: - IVF with D5 1/2 NS at 110 mls/hr with 20 meQ potassium - Regular diet Neli Palomares MD Oct 08, 2016 14:35
[2016-10-08 14:55] VITALS: BP 113/65; PULSE 84; RESP 19; TEMP 98.3; O2SAT 94
[2016-10-08] MEDS: D5-1/2 NS + KCL 20 MEQ INJ 1,000 ML IV SCH ×2 (15:08→19:44)
[2016-10-08] MEDS: ENOXAPARIN SODIUM 40 MG/0.4 ML SYRINGE SQ SCH (15:08)
[2016-10-08] MEDS: HYDROmorphone HCL PF 1 MG/ML VIAL IV PUSH SCH ×2 (15:37→19:43)
[2016-10-08] MEDS: BUDESONIDE-FORMOTEROL 160/4.5 MCG INHALER INH SCH ×2 (18:44→19:44)
[2016-10-08] MEDS: DOCUSATE SODIUM 50 MG/SENNA 8.6 MG TAB PO SCH (19:44)
[2016-10-08 20:00] VITALS: BP 124/57; PULSE 85; RESP 18; TEMP 98.4; O2SAT 96
[2016-10-08] MEDS: LORazepam 1 MG TAB PO PRN (21:30)
[2016-10-08] MEDS ORDERED: HYDROmorphone HCL PF 1 MG/ML VIAL IV PUSH PRN (22:45)
[2016-10-08] MEDS: KETOROLAC TROMETHAMINE 30 MG/ML (IVP) VIAL IV PUSH PRN (22:57)
[2016-10-09] VITALS (9 sets, daily range): BP systolic 113–125; BP diastolic 57–73; PULSE 84–113; RESP 17–20; TEMP 98.2–99.7; O2SAT 92–97
[2016-10-09] MEDS: HYDROmorphone HCL PF 1 MG/ML VIAL IV PUSH SCH ×3 (00:07→08:15)
[2016-10-09 04:41] LABS: BLOOD, URINE NEG (NEG); GLUCOSE,URINE NEG (NEG); KETONE, URINE NEG (NEG); MUCUS URINE FEW /lpf (OCC); NITRITE,URINE NEG (NEG); PH, URINE 5.5 (5.0-8.5); SQUAMOUS EPITHELIAL CELL URINE <1 /hpf (0-5); URINE COLOR YELLOW (YELLW/STRAW)
[2016-10-09 04:45] LABS: COMMENT (UR) CULT NOT INDICATED; CULTURE IF INDICATED CULT NOT INDICATED
[2016-10-09 06:43] LABS: AUTOMATED NEUTROPHIL # 9.9 TH/MM3 (1.8-7.7); BASOPHIL # 0.1 TH/MM3 (0-0.2); BASOPHIL % 0.5 % (0.0-2.0); EOSINOPHIL # 0.1 TH/MM3 (0-0.4); EOSINOPHIL % 0.8 % (0.0-4.0); LYMPH % 15.9 % (9.0-44.0); LYMPHOCYTE # 2.3 TH/MM3 (1.0-4.8); MEAN CELL VOLUME 90.8 FL (80.0-100.0); MEAN CORPUSCULAR HEMOGLOBIN 32.3 PG (27.0-34.0); MEAN CORPUSCULAR HGB CONC 35.5 % (32.0-36.0); MONO % 12.9 % (0.0-8.0); NEUT % 69.9 % (16.0-70.0); PLATELET COUNT 375 TH/MM3 (150-450); RED BLOOD COUNT 2.17 MIL/MM3 (4.50-5.90); WHITE BLOOD COUNT 14.1 TH/MM3 (4.0-11.0)
[2016-10-09 06:46] LABS: RETIC % 9.4 % (0.4-3.0)
--- NOTE | 2016-10-09 06:50 | MB ---
cc: ELIJAH SHAW M.D. DATE OF CONSULTATION 10/08/2016 REASON FOR CONSULTATION Consult requested by family practice resident for evaluation of sickle cell painful crisis. HISTORY OF PRESENT ILLNESS Carmine is a pleasant 20-year-old male. He has sickle-cell disease with multiple painful crises. He is under the care of my associate Dr. Bell. The patient came to the emergency room complaining of severe back pain and leg pain. He has been taking Lortab as an outpatient. It was not able to control his pain. He is now admitted to the hospital. I have been asked to see him for further evaluation. The patient has been complaining of severe back pain and leg pains. He thinks that this is one of his painful crises. He denies any fevers. He denies any nausea or vomiting. His appetite is good. The rest of the review of system is not reliable as the patient does not want to participate in questioning as she is in severe pain. PAST MEDICAL HISTORY Sickle-cell disease with multiple painful crises. PAST SURGICAL HISTORY 1. Splenectomy. 2. Cholecystectomy. 3. Tonsillectomy. 4. [id number] placement and subsequently it was removed. ALLERGIES None. MEDICATIONS Please see EMR. FAMILY HISTORY Both his parents have sickle-cell trait. He has two sisters both have trait as well. SOCIAL HISTORY The patient does not smoke cigarettes, does not drink alcohol. 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 PHYSICAL EXAMINATION GENERAL: This is a well-developed, well-nourished, Afro-[place] male in moderate distress due to the pain. VITAL SIGNS: Temperature 98.3, heart rate is 84, blood pressure 113/65. HEENT: PERRLA, EOMI. Sclerae deeply icteric. Oral mucosa is dry. NECK: No lymphadenopathy noted. LUNGS: Clear. No wheezing, rhonchi or rales. HEART: Regular rate and rhythm. ABDOMEN: Soft, nontender. No hepatosplenomegaly. EXTREMITIES: No pedal edema. NEUROLOGY: Awake, alert, oriented x 3. SKIN: No significant lesions noted. ASSESSMENT 1. Sickle cell painful crisis. 2. No evidence of acute chest syndrome. PLAN I have reviewed his available records and I have discussed with the patient regarding his painful crisis. He denies any chest pains or shortness of breath. He is complaining of severe low back pain and leg pain. His pain he states is on pain scale 8/10. The patient has been getting narcotic, Dilaudid 2 mg every 4 hours. He is also getting Toradol p.r.n. q. 6. The patient's hemoglobin is 7.6 and he does not require any blood transfusion. Recommend to monitor the CBC and if the hemoglobin drops below 6.5, then recommend to give him 1 unit of blood transfusion. The patient does not have any fevers so he does not require any antibiotics. I recommend to continue Hydrea and folic acid. He is also on Lovenox 40 mg once a day for prophylaxis. Continue hydration and oxygen. There is no evidence of acute chest syndrome noted. I will have his toggle press operator, Dr. Bell, to see him tomorrow. Further recommendations based on his hospital stay. Thank you for asking my opinion. Salima Shaw MD /SSB /2:06 AM /6:43 AM
[2016-10-09 06:53] LABS: HEMO FLAGS AUTO DIFF; REVIEW FLAG FINAL
[2016-10-09 06:55] LABS: HEMATOCRIT 19.7 % (39.0-51.0)
[2016-10-09 07:03] LABS: ALKALINE PHOSPHATASE 104 U/L (45-117); ALT (GPT) 32 U/L (12-78); ANION GAP 9 MEQ/L (5-15); AST (GOT) 47 U/L (15-37); BICARBONATE 24.1 MEQ/L (21.0-32.0); BLOOD UREA NITROGEN 5 MG/DL (7-18); CHLORIDE 107 MEQ/L (98-107); GLOMERULAR FILTRATION RATE 208 ML/MIN (>89); POTASSIUM 3.8 MEQ/L (3.5-5.1); SODIUM (NA) 140 MEQ/L (136-145); TOTAL BILIRUBIN ADULT 5.3 MG/DL (0.2-1.0)
[2016-10-09 08:09] LABS: BASOPHILS 1 % (0-2); CORRECTED NUCLEATED RBC 16 /100 WBC (0-0); METAMYELOCYTES 3 % (0-1); MYELOCYTES 2 % (0-0); NEUTROPHIL # MANUAL DIFF 9.4 TH/MM3 (1.8-7.7); POLYS (SEG NEUTROPHILS) 62 % (16-70); WBC DIFF SAMPLE 100
[2016-10-09 08:12] LABS: KERATOCYTES 1+ (NORMAL); SICKLE CELLS 2+ (NORMAL)
[2016-10-09 08:14] LABS: ACANTHOCYTES OCC (NORMAL); TOXIC GRANULATION 1+ (NORMAL); TOXIC VACUOLATION PRESENT (NONE SEEN)
[2016-10-09] MEDS: DOCUSATE SODIUM 50 MG/SENNA 8.6 MG TAB PO SCH ×2 (08:14→21:09)
[2016-10-09] MEDS: ASPIRIN 81 MG CHEW TAB CHEW SCH (08:14)
[2016-10-09] MEDS: FOLIC ACID 1 MG TAB PO SCH (08:14)
[2016-10-09 08:15] LABS: TARGET CELLS 1+ (NORMAL)
[2016-10-09 08:16] LABS: SCAN/DIFF FINAL DIFF MANUAL
[2016-10-09] MEDS: BUDESONIDE-FORMOTEROL 160/4.5 MCG INHALER INH SCH ×2 (08:18→21:10)
[2016-10-09 08:19] LABS: PLATELET ESTIMATE SMEAR NORMAL (NORMAL); PLATELET MORPHOLOGY NORMAL (NORMAL)
[2016-10-09] MEDS: D5-1/2 NS + KCL 20 MEQ INJ 1,000 ML IV SCH (08:22)
[2016-10-09] MEDS: KETOROLAC TROMETHAMINE 30 MG/ML (IVP) VIAL IV PUSH PRN (08:23)
--- NOTE | 2016-10-09 08:41 | PD.ONC.PN ---
Subjective Subjective Remarks Patient seen and examined, the Bence of the week and review, labs, medications and imaging studies also reviewed. Subjectively: Patient reports pain in his lower back with radiation down his legs. He tells me the most effective pain medication is the hydromorphone which he gets every 4 hours. Objective Data Date Time Temp Pulse Resp B/P Pulse Ox O2 Delivery O2 Flow Rate FiO2 10/09/16 07:30 98.8 96 20 118/73 97 10/09/16 04:00 99.1 85 20 125/67 92 10/09/16 00:00 99.7 84 19 121/64 92 10/08/16 20:00 98.4 85 18 124/57 96 10/08/16 19:42 96 Nasal Cannula 2.00 10/08/16 14:55 98.3 84 19 113/65 94 10/08/16 11:05 98.1 96 14 132/75 97 Room Air 10/08/16 11:03 97 Nasal Cannula 2 10/08/16 11:03 17 Room Air Result Diagram: 10/09/16 0533 10/09/16 0533 Laboratory Results Laboratory Tests Test 10/08/16 10/08/16 10/09/16 10/09/16 12:10 13:30 04:20 05:33 White Blood Count 18.7 TH/MM3 14.1 TH/MM3 Red Blood Count 2.44 MIL/MM3 2.17 MIL/MM3 Hemoglobin 7.6 GM/DL 7.0 GM/DL Hematocrit 22.5 % 19.7 % Mean Corpuscular Volume 92.4 FL 90.8 FL Mean Corpuscular Hemoglobin 31.3 PG 32.3 PG Mean Corpuscular Hemoglobin 33.8 % 35.5 % Concent Red Cell Distribution Width 23.5 % 23.0 % Platelet Count 412 TH/MM3 375 TH/MM3 Mean Platelet Volume 7.8 FL 7.6 FL Neutrophils (%) (Auto) 67.7 % 69.9 % Lymphocytes (%) (Auto) 23.3 % 15.9 % Monocytes (%) (Auto) 8.0 % 12.9 % Eosinophils (%) (Auto) 0.4 % 0.8 % Basophils (%) (Auto) 0.6 % 0.5 % Neutrophils # (Auto) 12.7 TH/MM3 9.9 TH/MM3 Lymphocytes # (Auto) 4.3 TH/MM3 2.3 TH/MM3 Monocytes # (Auto) 1.5 TH/MM3 1.8 TH/MM3 Eosinophils # (Auto) 0.1 TH/MM3 0.1 TH/MM3 Basophils # (Auto) 0.1 TH/MM3 0.1 TH/MM3 CBC Comment AUTO DIFF AUTO DIFF Differential Total Cells 100 100 Counted Neutrophils % (Manual) 61 % 62 % Band Neutrophils % 3 % Lymphocytes % 27 % 23 % Monocytes % 9 % 9 % Neutrophils # (Manual) 12.0 TH/MM3 9.4 TH/MM3 Nucleated Red Blood Cells 16 /100 WBC 16 /100 WBC Differential Comment FINAL DIFF FINAL DIFF MANUAL MANUAL Platelet Estimate NORMAL NORMAL Platelet Morphology Comment NORMAL NORMAL Polychromasia 3.3 % Sickle Cells 1+ 2+ Target Cells 1+ 1+ Reticulocyte Count 11.2 % 9.4 % Absolute Reticulocyte Count 272.5 MIL/L 202.2 MIL/L Sodium Level 142 MEQ/L 140 MEQ/L Potassium Level 4.0 MEQ/L 3.8 MEQ/L Chloride Level 111 MEQ/L 107 MEQ/L Carbon Dioxide Level 23.1 MEQ/L 24.1 MEQ/L Anion Gap 8 MEQ/L 9 MEQ/L Blood Urea Nitrogen 8 MG/DL 5 MG/DL Creatinine 0.80 MG/DL 0.59 MG/DL Estimat Glomerular Filtration 147 ML/MIN 208 ML/MIN Rate Random Glucose 84 MG/DL 102 MG/DL Calcium Level 8.8 MG/DL 8.3 MG/DL Total Bilirubin 4.3 MG/DL 5.3 MG/DL Aspartate Amino Transf 50 U/L 47 U/L (AST/SGOT) Alanine Aminotransferase 41 U/L 32 U/L (ALT/SGPT) Alkaline Phosphatase 105 U/L 104 U/L Total Protein 7.0 GM/DL 6.1 GM/DL Albumin 4.0 GM/DL 3.4 GM/DL Blood Type O NEGATIVE Antibody Screen NEGATIVE Urine Color YELLOW Urine Turbidity CLEAR Urine pH 5.5 Urine Specific [place] 1.009 Urine Protein TRACE mg/dL Urine Glucose (UA) NEG mg/dL Urine Ketones NEG mg/dL Urine Occult Blood NEG Urine Nitrite NEG Urine Bilirubin NEG Urine Urobilinogen LESS THAN 2.0 MG/DL Urine Leukocyte Esterase NEG Urine RBC LESS THAN 1 /hpf Urine WBC 1 /hpf Urine Squamous Epithelial <1 /hpf Cells Urine Mucus FEW /lpf Microscopic Urinalysis Comment CULT NOT INDICATED Basophils % 1 % Metamyelocytes 3 % Myelocytes 2 % Toxic Granulation 1+ Toxic Vacuolation PRESENT Acanthocytes OCC Keratocytes 1+ Culture Results Microbiology Date/Time Procedure Status Source Growth 10/08/16 16:30 Aerobic Blood Culture Received Blood Peripheral Pending 10/08/16 16:30 Anaerobic Blood Culture Received Blood Peripheral Pending 10/08/16 16:38 Aerobic Blood Culture Received Blood Peripheral Pending 10/08/16 16:38 Anaerobic Blood Culture Received Blood Peripheral Pending Imaging Studies Last 24 hours Impressions Lumbar Spine X-Ray 10/08/16 1125 Signed Impressions: Service Date/Time: Saturday, October 08, 2016 11:40 - CONCLUSION: Negative for an acute process. Norberto Kerns MD FACR Chest X-Ray 10/08/161124 Signed Impressions: Service Date/Time: Saturday, October 08, 2016 11:41 - CONCLUSION: Prominent cardiac silhouette. Otherwise, negative. Norberto Kerns MD FACR Administered Medications Medications (Trade) Dose Ordered Sig/Kerri Route PRN Reason Start Time Stop Time Status Last Admin Dose Admin Aspirin (Aspirin Chew) 81 mg DAILY CHEW 10/09/16 09:00 10/09/16 08:14 Enoxaparin Sodium (Lovenox Inj) 40 mg Q24H SQ 10/08/16 14:00 10/08/16 15:08 Lorazepam (Ativan) 1 mg DAILY PRN PO ANXIETY AND/OR AGITATION 10/08/16 13:45 10/08/16 21:30 Budesonide/ Formoterol Fumarate (Symbicort 160-4.5 Inh) 2 puff BID INH 10/08/16 14:00 10/09/16 08:18 Hydromorphone HCl (Dilaudid Pf Inj) 2 mg Q4HR IV PUSH 10/08/16 16:00 10/09/16 08:15 Senna/Docusate Sodium (Hayde-Colace) 2 tab BID PO 10/08/16 21:00 10/09/16 08:14 Ketorolac Tromethamine (Toradol Inj) 30 mg Q6H PRN IV PUSH PAIN SCALE 7 TO 10 10/08/16 22:45 10/13/16 22:44 10/09/16 08:23 Folic Acid (Folate) 1 mg DAILY PO 10/09/16 09:00 10/09/16 08:14 Objective Remarks GENERAL: Young male, laying in bed, appears to be in pain. SKIN: Warm and dry. HEAD: Normocephalic. EYES: Have scleral icterus and conjunctival pallor. No injection or drainage. NECK: Supple, trachea midline. No JVD or lymphadenopathy. LYMPHATIC: No adenopathy. CARDIOVASCULAR: Tachycardic, regular, S1 and S2. RESPIRATORY: Good air movement bilaterally without any added breath sounds. GASTROINTESTINAL: Abdomen soft, non-tender, nondistended. No organ enlargement noted, voluntary guarding. EXTREMITIES: No cyanosis, or edema. MUSCULOSKELETAL: Adequate muscle tone. NEUROLOGICAL: No obvious focal deficit. Awake, alert, and oriented x3. PSYCHIATRIC: Appropriate mood and affect; insight and judgment normal. 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 At baseline however he takes very little opioids or pain medications. His managed in the outpatient setting with hydroxyurea between 1500 - 2000 mg daily. Presents with an uncomplicated pain crisis ( uncomplicated by acute chest syndrome, acute stroke, venous embolism, priapism, hypoxic respiratory failure). Would recommend continued supportive care with hydration using a hypotonic formulation such as half-normal saline. Incentive spirometry. Opioid analgesics with nonsteroidal anti-inflammatories. Heating pad for back pain. Hold Red cell transfusion at this point unless his hemoglobin drops down farther or should he develop one of the above-noted complications relating to the sickle cell crisis. Marco A Bell MD Oct 09, 2016 08:41
[2016-10-09] MEDS: SODIUM CHLOR 0.45% 1000 ML INJ 1,000 ML IV SCH ×2 (09:00→18:07)
[2016-10-09] MEDS ORDERED: HYDROXYUREA 500 MG CAP PO SCH (09:00)
[2016-10-09] MEDS: HYDROmorphone HCL PF 2 MG/ML VIAL IV PUSH SCH ×4 (11:58→21:09)
--- NOTE | 2016-10-09 12:21 | HHI.FPPN ---
Subjective Remarks Patient seen and examined this morning by medical team. No acute events overnight with vital signs stable. Patient reports pain has been mildly reduced stating that the pain was more generalized yesterday and today he is more focused on his lower back. He states that the Dilaudid and Toradol have helped, however he is unable to go the full 4 hours between the Dilaudid medication before needing another dose. We discussed increasing the frequency of the medication which the patient was agreeable to. He also reports that he had difficulty sleeping last night likely secondary to pain. Otherwise he denies any fevers, chills, shortness of breath, chest pain, NVD, abdominal pain, or calf tenderness. (Brian Felix MD R1) Objective Vitals Vital Signs Date Time Temp Pulse Resp B/P Pulse Ox O2 Delivery O2 Flow Rate FiO2 10/09/16 08:10 Nasal Cannula 2.00 10/09/16 07:30 98.8 96 20 118/73 97 10/09/16 04:00 99.1 85 20 125/67 92 10/09/16 00:00 99.7 84 19 121/64 92 10/08/16 20:00 98.4 85 18 124/57 96 10/08/16 19:42 96 Nasal Cannula 2.00 10/08/16 14:55 98.3 84 19 113/65 94 I/O 10/08/16 10/08/16 10/08/16 10/09/16 10/09/16 10/09/16 06:59 14:59 22:59 06:59 14:59 22:59 Intake Total 712 ml 1116 ml Output Total 950 ml 1200 ml Balance -238 ml -84 ml Intake Oral 240 ml 240 ml IV Total 472 ml 876 ml Output Urine Total 950 ml 1200 ml # Bowel Movements 0 0 (Brian Felix MD R1) Result Diagram: 10/09/1653210/09/16532 Objective Remarks GENERAL: Well-nourished, well-developed patient 20-year-old male lying in bed in mild distress from pain. SKIN: Warm and dry. No rash. HEENT: Atraumatic, normocephalic with EOMI. No scleral icterus. MMM. No JVD or LAD appreciated. No rhinorrhea. CARDIOVASCULAR: Regular rate and rhythm without obvious murmurs, gallops, or rubs. RESPIRATORY: Clear to auscultation bilaterally with no CRW. No increased work of breathing. GASTROINTESTINAL: Abdomen soft, non-tender, nondistended with positive bowel sounds. No masses appreciated. MUSCULOSKELETAL: No cyanosis or edema. Strength grossly WNL. BACK: Nontender without obvious deformity. No CVA tenderness. NEURO/PSYCH: Afocal. Awake, alert, and oriented x3. Normal speech with appropriate interaction with examiners. (Brian Felix MD R1) A/P Assessment and Plan Mr. Breaux is a 20-year-old male presenting with sickle cell pain crisis. Discharge Planning Pending pain control and hydration status. (Brian Felix MD R1) Attending Attestation Patient seen and examined. Case reviewed and discussed with the resident team. Agree with plan of care as discussed with me and documented in the resident note. (Neli Palomares MD) Problem List: (1) Sickle cell crisis Status: Acute Plan: Hgb 7.6, about his baseline on admission. Retic count elevated. T. bili 4.3. Pain in thighs in lower back, 8/10 pain, appears uncomfortable. Chest x- ray negative, has some mild coughing. No fevers. - IVF with D5 1/2 NS at 110 mls/hr with 20 meQ potassium - Increase to Dilaudid 2 mg every 3 hours, titrate as needed. If not effective, consider RESOURCE ECONOMIST pump. - Toradol 30 mg every 6 hours - Continue folic acid, hydroxyurea - Aspirin 81 mg daily - Monitor closely for acute chest syndrome - Consult hematology Transfuse 1 unit PRBC if hemoglobin less than 6.5 Continue further medical management (2) Asthma, chronic Status: Chronic Plan: - Continue albuterol PRN, symbicort (3) No contraindication to deep vein thrombosis (DVT) prophylaxis Status: Acute Plan: Lovenox 40 mg daily (4) Nutrition, metabolism, and development symptoms Status: Acute Plan: - IVF with D5 1/2 NS at 110 mls/hr with 20 meQ potassium - Regular diet with orders for Gatorade - Prophylaxis: Hydroxyzine 50 mg daily at bedtime for insomnia, Ativan 1 mg daily when necessary anxiety/agitation, K thermia pads and ice packs when necessary for pain (Brian Felix MD R1) Brian Felix MD R1 Oct 09, 2016 12:21 Neli Palomares MD Oct 09, 2016 13:48
[2016-10-09] MEDS: KETOROLAC TROMETHAMINE 30 MG/ML (IVP) VIAL IV PUSH SCH ×2 (14:57→21:09)
[2016-10-09] MEDS: ENOXAPARIN SODIUM 40 MG/0.4 ML SYRINGE SQ SCH (14:58)
[2016-10-09] MEDS: ONDANSETRON HCL 4 MG/2 ML VIAL IV PUSH PRN (18:03)
[2016-10-10] VITALS (11 sets, daily range): BP systolic 103–121; BP diastolic 45–79; PULSE 80–100; RESP 16–18; TEMP 97.1–100.5; O2SAT 93–100
[2016-10-10] MEDS: HYDROmorphone HCL PF 2 MG/ML VIAL IV PUSH SCH ×8 (00:07→21:12)
[2016-10-10] MEDS: ONDANSETRON HCL 4 MG/2 ML VIAL IV PUSH PRN ×4 (00:07→18:23)
[2016-10-10] MEDS: CARBOXYMETHYLCELLULOSE EACH EYE PRN ×2 (00:36→06:22)
[2016-10-10] MEDS: KETOROLAC TROMETHAMINE 30 MG/ML (IVP) VIAL IV PUSH SCH ×4 (03:14→21:11)
[2016-10-10 04:56] LABS: BICARBONATE 23.7 MEQ/L (21.0-32.0); POTASSIUM 3.8 MEQ/L (3.5-5.1)
[2016-10-10 05:03] LABS: AUTOMATED NEUTROPHIL # 6.7 TH/MM3 (1.8-7.7); BASOPHIL # 0.1 TH/MM3 (0-0.2); BASOPHIL % 0.7 % (0.0-2.0); EOSINOPHIL # 0.1 TH/MM3 (0-0.4); EOSINOPHIL % 0.6 % (0.0-4.0); LYMPH % 19.1 % (9.0-44.0); LYMPHOCYTE # 1.9 TH/MM3 (1.0-4.8); MEAN CELL VOLUME 92.3 FL (80.0-100.0); MEAN CORPUSCULAR HEMOGLOBIN 31.2 PG (27.0-34.0); MEAN CORPUSCULAR HGB CONC 33.9 % (32.0-36.0); MONO % 14.2 % (0.0-8.0); NEUT % 65.4 % (16.0-70.0); PLATELET COUNT 341 TH/MM3 (150-450); RED BLOOD COUNT 1.94 MIL/MM3 (4.50-5.90); RED CELL DISTRIBUTION WIDTH 20.3 % (11.6-17.2); RETIC % 7.3 % (0.4-3.0); WHITE BLOOD COUNT 10.2 TH/MM3 (4.0-11.0)
[2016-10-10 05:05] LABS: HEMO FLAGS AUTO DIFF; REVIEW FLAG AUTO DIFF
[2016-10-10 05:07] LABS: HEMATOCRIT 17.9 % (39.0-51.0)
[2016-10-10] MEDS: SODIUM CHLOR 0.45% 1000 ML INJ 1,000 ML IV SCH (06:27)
[2016-10-10] MEDS ORDERED: diphenhydrAMINE HCL 25 MG CAP PO PRN (06:30)
[2016-10-10] MEDS ORDERED: ACETAMINOPHEN 325 MG TAB PO PRN ×2 (06:30→22:30)
[2016-10-10] MEDS ORDERED: SODIUM CHLOR 0.9% 250 ML INJ 250 ML IV ONE (06:30)
[2016-10-10 06:45] LABS: BANDS 6 % (0-6); CORRECTED NUCLEATED RBC 20 /100 WBC (0-0); EOSINOPHILS 1 % (0-4); NEUTROPHIL # MANUAL DIFF 7.4 TH/MM3 (1.8-7.7); POLYS (SEG NEUTROPHILS) 67 % (16-70); WBC DIFF SAMPLE 100
[2016-10-10 06:47] LABS: POLYCHROMASIA 2.2 % (0.0-1.9)
[2016-10-10 06:48] LABS: SICKLE CELLS 1+ (NORMAL); TARGET CELLS 1+ (NORMAL)
[2016-10-10 06:49] LABS: KERATOCYTES OCC (NORMAL); PLATELET ESTIMATE SMEAR NORMAL (NORMAL); PLATELET MORPHOLOGY NORMAL (NORMAL)
[2016-10-10 06:51] LABS: HOWELL-JOLLY BODIES PRESENT (NONE SEEN); SCAN/DIFF FINAL DIFF MANUAL
--- NOTE | 2016-10-10 08:36 | PD.ONC.PN ---
Subjective Subjective Remarks Patient seen and examined, vital signs, blood work, medications reviewed. Subjectively; he feels better today than he did yesterday. He specifically feels the pain is less today. Hemoglobin down from 7.1 g/dL down to 6 g/dL over the past 24 hours. Complaining of dryness and discharge from the eyes. Asking for Gatorade with his meal trays for extra hydration. Objective Data Date Time Temp Pulse Resp B/P Pulse Ox O2 Delivery O2 Flow Rate FiO2 10/10/16 04:00 97.1 86 17 103/79 93 10/10/16 00:13 99.6 100 18 118/47 100 10/09/16 20:35 95 Nasal Cannula 2.00 10/09/16 19:00 99.4 113 17 119/58 95 10/09/16 15:55 98.9 86 20 118/64 95 10/09/16 11:05 98.2 84 20 113/57 94 10/09/16 09:08 93 Nasal Cannula 2.00 10/10/16 10/10/16 10/10/16 07:00 15:00 23:00 Intake Total 1325 ml Balance 1325 ml Result Diagram: 10/10/16 0410 10/10/16 0410 Laboratory Results Laboratory Tests Test 10/10/16 10/10/16 04:10 06:53 White Blood Count 10.2 TH/MM3 Red Blood Count 1.94 MIL/MM3 Hemoglobin 6.1 GM/DL Hematocrit 17.9 % Mean Corpuscular Volume 92.3 FL Mean Corpuscular Hemoglobin 31.2 PG Mean Corpuscular Hemoglobin 33.9 % Concent Red Cell Distribution Width 20.3 % Platelet Count 341 TH/MM3 Mean Platelet Volume 7.6 FL Neutrophils (%) (Auto) 65.4 % Lymphocytes (%) (Auto) 19.1 % Monocytes (%) (Auto) 14.2 % Eosinophils (%) (Auto) 0.6 % Basophils (%) (Auto) 0.7 % Neutrophils # (Auto) 6.7 TH/MM3 Lymphocytes # (Auto) 1.9 TH/MM3 Monocytes # (Auto) 1.4 TH/MM3 Eosinophils # (Auto) 0.1 TH/MM3 Basophils # (Auto) 0.1 TH/MM3 CBC Comment AUTO DIFF Differential Total Cells 100 Counted Neutrophils % (Manual) 67 % Band Neutrophils % 6 % Lymphocytes % 22 % Monocytes % 4 % Eosinophils % 1 % Neutrophils # (Manual) 7.4 TH/MM3 Nucleated Red Blood Cells 20 /100 WBC Differential Comment FINAL DIFF MANUAL Platelet Estimate NORMAL Platelet Morphology Comment NORMAL Polychromasia 2.2 % Sickle Cells 1+ Target Cells 1+ Bee-Onley Bodies PRESENT Keratocytes OCC Reticulocyte Count 7.3 % Absolute Reticulocyte Count 141.2 MIL/L Sodium Level 139 MEQ/L Potassium Level 3.8 MEQ/L Chloride Level 106 MEQ/L Carbon Dioxide Level 23.7 MEQ/L Anion Gap 9 MEQ/L Blood Urea Nitrogen 7 MG/DL Creatinine 0.60 MG/DL Estimat Glomerular Filtration 204 ML/MIN Rate Random Glucose 93 MG/DL Calcium Level 8.3 MG/DL Blood Type O NEGATIVE Crossmatch Leukocyte-Reduced Red Blood Cells Blood Bank Comment Culture Results Microbiology Date/Time Procedure Status Source Growth 10/08/16 16:30 Aerobic Blood Culture - Preliminary Resulted Blood Peripheral NO GROWTH IN 1 DAY 10/08/16 16:30 Anaerobic Blood Culture - Preliminary Resulted Blood Peripheral NO GROWTH IN 1 DAY 10/08/16 16:38 Aerobic Blood Culture - Preliminary Resulted Blood Peripheral NO GROWTH IN 1 DAY 10/08/16 16:38 Anaerobic Blood Culture - Preliminary Resulted Blood Peripheral NO GROWTH IN 1 DAY Administered Medications Medications (Trade) Dose Ordered Sig/Kerri Route PRN Reason Start Time Stop Time Status Last Admin Dose Admin Aspirin (Aspirin Chew) 81 mg DAILY CHEW 10/09/16 09:00 10/09/16 08:14 Enoxaparin Sodium (Lovenox Inj) 40 mg Q24H SQ 10/08/16 14:00 10/09/16 14:58 Lorazepam (Ativan) 1 mg DAILY PRN PO ANXIETY AND/OR AGITATION 10/08/16 13:45 10/08/16 21:30 Budesonide/ Formoterol Fumarate (Symbicort 160-4.5 Inh) 2 puff BID INH 10/08/16 14:00 10/09/16 08:18 Senna/Docusate Sodium (Hayde-Colace) 2 tab BID PO 10/08/16 21:00 10/09/16 21:09 Folic Acid 1 mg 1 mg DAILY PO 10/09/16 09:00 10/09/16 08:14 Sodium Chloride (1/2 NS 1000 ml Inj) 1,000 ml @ 100 mls/hr Q10H IV 10/09/16 09:00 10/10/16 06:27 Ketorolac Tromethamine (Toradol Inj) 30 mg Q6H IV PUSH 10/09/16 14:30 10/13/16 22:00 10/10/16 03:14 Hydroxyzine Pamoate (Vistaril) 50 mg HS PO 10/09/16 21:00 10/09/16 21:09 Ondansetron HCl (Zofran Inj) 4 mg Q6HR PRN IV PUSH NAUSEA/VOMITING 10/09/16 17:45 10/10/16 06:21 Carboxymethylcellulose Sodium (Genteal Gel Drops) 1 drop QID PRN EACH EYE DRY EYES 10/09/16 18:45 10/10/16 06:22 Hydromorphone HCl (Dilaudid Pf Inj) 2 mg Q3H IV PUSH 10/10/16 00:00 10/10/16 06:22 Objective Remarks GENERAL: Young male, laying in bed, appears to be in pain. SKIN: Warm and dry. HEAD: Normocephalic. EYES: Have scleral icterus and conjunctival pallor. No injection or drainage. NECK: Supple, trachea midline. No JVD or lymphadenopathy. LYMPHATIC: No adenopathy. CARDIOVASCULAR: Tachycardic, regular, S1 and S2. RESPIRATORY: Good air movement bilaterally without any added breath sounds. GASTROINTESTINAL: Abdomen soft, non-tender, nondistended. No organ enlargement noted, voluntary guarding. EXTREMITIES: No cyanosis, or edema. MUSCULOSKELETAL: Adequate muscle tone. NEUROLOGICAL: No obvious focal deficit. Awake, alert, and oriented x3. PSYCHIATRIC: Appropriate mood and affect; insight and judgment normal. 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 At baseline however he takes very little opioids or pain medications. His managed in the outpatient setting with hydroxyurea between 1500 - 2000 mg daily (he alternates the dosing based on how he feels). Presents with an uncomplicated pain crisis (uncomplicated at present by acute chest syndrome, acute stroke, venous embolism, priapism, hypoxic respiratory failure). Would recommend continued supportive care with hydration using a hypotonic formulation such as half-normal saline. Incentive spirometry. Opioid analgesics with nonsteroidal anti-inflammatories. Heating pad for back pain. Hold Red cell transfusion at this point unless his hemoglobin drops down farther or should he develop one of the above-noted complications relating to the sickle cell crisis, monitor clinically, if his pain worsens I would advise transfusing him 1 unit packed red blood cells. Marco A Bell MD Oct 10, 2016 08:36
[2016-10-10] MEDS ORDERED: HYPROMELLOSE 0.3 % OPTH GEL 10 GM (0.34 FL OZ) TUBE EACH EYE PRN (08:45)
[2016-10-10] MEDS: DOCUSATE SODIUM 50 MG/SENNA 8.6 MG TAB PO SCH ×2 (09:15→21:11)
[2016-10-10] MEDS: ASPIRIN 81 MG CHEW TAB CHEW SCH (09:15)
[2016-10-10] MEDS: FOLIC ACID 1 MG TAB PO SCH (09:15)
[2016-10-10] MEDS: BUDESONIDE-FORMOTEROL 160/4.5 MCG INHALER INH SCH ×2 (09:16→21:12)
--- NOTE | 2016-10-10 09:27 | HHI.FPPN ---
Subjective Remarks No acute events. Hemoglobin dropped from 7.0 to 6.1, retic count 7.3, abs retic 141.2. Feels a lot better. Pain is much improved. Does not feel lightheaded. He is complaining of dry eyes. Minimal chest pain, no shortness of breath. No fevers recorded overnight. No abdominal pain. Has not had a bowel movement. Getting PeriColace 2 tabs bid. (Kristian Bautista MD R2) Objective Vitals Vital Signs Date Time Temp Pulse Resp B/P Pulse Ox O2 Delivery O2 Flow Rate FiO2 10/10/16 07:29 99.6 89 16 121/45 93 10/10/16 04:00 97.1 86 17 103/79 93 10/10/16 00:13 99.6 100 18 118/47 100 10/09/16 20:35 95 Nasal Cannula 2.00 10/09/16 19:00 99.4 113 17 119/58 95 10/09/16 15:55 98.9 86 20 118/64 95 10/09/16 11:05 98.2 84 20 113/57 94 I/O 10/09/16 10/09/16 10/09/16 10/10/16 10/10/16 10/10/16 07:00 15:00 23:00 07:00 15:00 23:00 Intake Total 1116 ml 1585 ml 1132 ml 1325 ml Output Total 1200 ml Balance -84 ml 1585 ml 1132 ml 1325 ml Intake Oral 240 ml 480 ml 480 ml 480 ml IV Total 876 ml 1105 ml 652 ml 845 ml Output Urine Total 1200 ml # Voids 2 2 2 # Bowel Movements 0 0 0 0 (Kristian Bautista MD R2) Result Diagram: 10/10/16 0410 10/10/16 0410 Imaging Last 72 hours Impressions Lumbar Spine X-Ray 10/08/16 1125 Signed Impressions: Service Date/Time: Saturday, October 08, 2016 11:40 - CONCLUSION: Negative for an acute process. Norberto Kerns MD FACR Chest X-Ray 10/08/16 1125 Signed Impressions: Service Date/Time: Saturday, October 08, 2016 11:41 - CONCLUSION: Prominent cardiac silhouette. Otherwise, negative. Norberto Kerns MD FACR Objective Remarks GENERAL: No distress, comfortable, appears much better. SKIN: Warm and dry. No rash. HEENT: Atraumatic, normocephalic with EOMI. Significant scleral icterus. MMM. No JVD or LAD appreciated. No rhinorrhea. Pale mucosa. Eyes dry, mildly erythematous, no purulent discharge. CARDIOVASCULAR: Regular rate and rhythm with flow murmur present RESPIRATORY: Clear to auscultation bilaterally with no CRW. No increased work of breathing. GASTROINTESTINAL: Abdomen soft, non-tender, nondistended with positive bowel sounds. No masses appreciated. MUSCULOSKELETAL: No cyanosis or edema. Strength grossly WNL. BACK: Nontender without obvious deformity. No CVA tenderness. HEME: scleral icterus, pale palms and mucosa, pale conjunctiva NEURO/PSYCH: Afocal. Awake, alert, and oriented x3. Normal speech with appropriate interaction with examiners. (Kristian Bautista MD R2) A/P Assessment and Plan Mr. Breaux is a 20-year-old male presenting with sickle cell pain crisis. Discharge Planning Pending pain control and hydration status. (Kristian Bautista MD R2) Attending Attestation Patient seen and examined. Case reviewed and discussed with the resident team. Agree with plan of care as discussed with me and documented in the resident note. (Neli Palomares MD) Problem List: (1) Sickle cell crisis Status: Acute Plan: Hgb 6.1, baseline of 7-8. Retic count 7.3, abs retic 141. Pain improving. Chest x-ray negative. No fevers. - IVF with D5 1/2 NS at 100 mls/hr with 20 meQ potassium - Dilaudid 2 mg every 3 hours, wean as tolerated. If not effective, consider INFERTILITY MEDICAL ASSISTANT pump. - Toradol 30 mg every 6 hours - Continue folic acid, hydroxyurea - Aspirin 81 mg daily - Monitor closely for acute chest syndrome - Hematology on board - Transfuse for symptomatic anemia, acute chest, neurological changes, priapism , or precipitous drop in hemoglobin. (2) Asthma, chronic Status: Chronic Plan: - Continue albuterol PRN, symbicort (3) No contraindication to deep vein thrombosis (DVT) prophylaxis Status: Acute Plan: Lovenox 40 mg daily (4) Nutrition, metabolism, and development symptoms Status: Acute Plan: - IVF with D5 1/2 NS at 100 mls/hr with 20 meQ potassium - Regular diet with orders for Gatorade - Prophylaxis: Hydroxyzine 50 mg daily at bedtime for insomnia, Ativan 1 mg daily when necessary anxiety/agitation, K thermia pads and ice packs when necessary for pain (Kristian Bautista MD R2) Kristian Bautista MD R2 Oct 10, 2016 09:27 Neli Palomares MD Oct 10, 2016 16:25
[2016-10-10] MEDS: D5-1/2 NS + KCL 20 MEQ INJ 1,000 ML IV SCH ×2 (09:49→18:26)
[2016-10-10] MEDS: ENOXAPARIN SODIUM 40 MG/0.4 ML SYRINGE SQ SCH (15:16)
[2016-10-10] MEDS: HYPROMELLOSE 0.3 % OPTH GEL 10 GM (0.34 FL OZ) TUBE EACH EYE SCH ×2 (15:17→21:13)
--- NOTE | 2016-10-10 19:22 | RADRPT ---
EXAM DATE/TIME: 10/10/2016 18:28 [facility] COMPARISON: CHEST SINGLE AP, October 08, 2016, 11:41. INDICATIONS : Shortness of breath and fever. MEDICAL HISTORY : Sickle Cell disease. Asthma. TIA. SURGICAL HISTORY : Tonsillectomy. ENCOUNTER: Subsequent ACUITY: 2 days PAIN SCORE: 0/10 LOCATION: Bilateral chest FINDINGS: Mild infiltrates seen medial left lung base, appears to be in the lower lobe. Right lung clear. No pl eural effusion or pneumothorax. Heart size stable, upper limits of normal. CONCLUSION: Mild left base infiltrate. Twan Avila MD on October 10, 2016 at 19:19 Board Certified Radiologist. This report was verified electronically.
--- NOTE | 2016-10-10 22:42 | HHI.FPPN ---
Addendum to progress note ADDENDUM Reason for addendum: Additonal documentation Additional information Paged regarding patient having a fever of 100.5F. Per RN report, patient had no complaints of chest pain, SOB, increasing O2 requirement, worsening cough, or worsening or new pain. CXR was ordered which shows a mild left base infiltrate. Patient was seen and examined. Patient was in NAD, lying comfortably in bed. POx was obtained which read 95% with patient on room air. Patient denied any SOB or worsening cough. He did state he had had a cough for about one week prior to admission that has sometimes been productive of phlegm which has remained unchanged. Denies chest pain. GENERAL: NAD, comfortable SKIN: Warm and dry CARDIOVASCULAR: Regular rate and rhythm with flow murmur present RESPIRATORY: Faint bibasilar crackles. Upper and mid lung reina are clear bilaterally. No rhonchi or wheezing. No increased work of breathing. MUSCULOSKELETAL: No cyanosis or edema. Strength grossly WNL. BACK: Nontender without obvious deformity. NEURO/PSYCH: Afocal. Awake, alert, and oriented x3. Normal speech. A/P: 20 year old male admitted with sickle cell pain crisis. Patient having low- grade fevers and CXR showing a mild left base infiltrate. - Suspect this may be due to atelectasis as patient has faint bibasilar crackles without any SOB, worsening cough, or increasing oxygen requirement - Patient O2 sats at 95% on room air - Fever may be related to vasoocclusive pain episodes - Will treat empirically with Rocephin 1gm IV q24h and azithromycin 500mg po daily until reevaluated in the AM - Continue with current pain control regimen and IVF hydration - Encouraged use of IS - Will reevaluate patient if any report from RN especially of worsening fever, desaturations, SOB, CP Malik Vora MD R1 Oct 10, 2016 22:42
[2016-10-10] MEDS: cefTRIAXone INJ 1,000 MG in SODIUM CHLORIDE 0.9% INJ 100 ML IV SCH (22:50)
[2016-10-10] MEDS: AZITHROMYCIN 250 MG TAB PO SCH (22:50)
[2016-10-11] VITALS (12 sets, daily range): BP systolic 108–127; BP diastolic 55–60; PULSE 65–87; RESP 14–18; TEMP 97.6–99.7; O2SAT 93–98
[2016-10-11] MEDS: HYDROmorphone HCL PF 2 MG/ML VIAL IV PUSH SCH ×8 (00:18→21:15)
[2016-10-11] MEDS: LORazepam 1 MG TAB PO PRN (00:49)
[2016-10-11] MEDS: KETOROLAC TROMETHAMINE 30 MG/ML (IVP) VIAL IV PUSH SCH ×4 (03:34→20:01)
[2016-10-11] MEDS: HYPROMELLOSE 0.3 % OPTH GEL 10 GM (0.34 FL OZ) TUBE EACH EYE SCH ×3 (03:41→08:00)
[2016-10-11] MEDS: D5-1/2 NS + KCL 20 MEQ INJ 1,000 ML IV SCH ×3 (06:15→20:06)
[2016-10-11] MEDS ORDERED: SODIUM CHLOR 0.9% 250 ML INJ 250 ML IV ONE ×2 (07:00→11:15)
[2016-10-11] MEDS ORDERED: diphenhydrAMINE HCL 25 MG CAP PO PRN ×2 (07:00→10:45)
[2016-10-11] MEDS ORDERED: ACETAMINOPHEN 325 MG TAB PO PRN (07:00)
[2016-10-11 07:24] LABS: AUTOMATED NEUTROPHIL # 4.9 TH/MM3 (1.8-7.7); BASOPHIL % 0.4 % (0.0-2.0); EOSINOPHIL # 0.1 TH/MM3 (0-0.4); EOSINOPHIL % 1.1 % (0.0-4.0); LYMPH % 34.5 % (9.0-44.0); LYMPHOCYTE # 3.2 TH/MM3 (1.0-4.8); MEAN CELL VOLUME 89.8 FL (80.0-100.0); MEAN CORPUSCULAR HEMOGLOBIN 31.2 PG (27.0-34.0); MEAN CORPUSCULAR HGB CONC 34.7 % (32.0-36.0); MONO % 12.3 % (0.0-8.0); NEUT % 51.7 % (16.0-70.0); PLATELET COUNT 387 TH/MM3 (150-450); RED BLOOD COUNT 1.86 MIL/MM3 (4.50-5.90); RED CELL DISTRIBUTION WIDTH 20.9 % (11.6-17.2); RETIC % 6.2 % (0.4-3.0); WHITE BLOOD COUNT 9.4 TH/MM3 (4.0-11.0)
[2016-10-11 07:28] LABS: HEMO FLAGS AUTO DIFF; REVIEW FLAG FINAL
[2016-10-11 07:30] LABS: HEMATOCRIT 16.7 % (39.0-51.0)
[2016-10-11 07:46] LABS: ANION GAP 8 MEQ/L (5-15); AST (GOT) 61 U/L (15-37); BICARBONATE 24.4 MEQ/L (21.0-32.0); BLOOD UREA NITROGEN 5 MG/DL (7-18); CHLORIDE 108 MEQ/L (98-107); GLOMERULAR FILTRATION RATE 212 ML/MIN (>89); POTASSIUM 3.8 MEQ/L (3.5-5.1); SODIUM (NA) 140 MEQ/L (136-145)
[2016-10-11 07:47] LABS: ALT (GPT) 58 U/L (12-78)
[2016-10-11 08:03] LABS: ALKALINE PHOSPHATASE 133 U/L (45-117); FERRITIN 3278 NG/ML (26-388); TOTAL BILIRUBIN ADULT 6.7 MG/DL (0.2-1.0)
--- NOTE | 2016-10-11 08:05 | PD.ONC.PN ---
Subjective Subjective Remarks Patient seen and examined, vital signs, labs and x-ray images from last night were reviewed. Medications ulcer reviewed. He had a temperature of 100.4F last night, was started on azithromycin and ceftriaxone and a chest x-ray was also done. Hemoglobin is down to 5.8 g/dL today, 1 unit packed red blood cells as been ordered. Subjectively: Patient reports less pain today, tells me his breathing is better, but continues to complain of dryness in the eyes as well as discharge. Objective Data Date Time Temp Pulse Resp B/P Pulse Ox O2 Delivery O2 Flow Rate FiO2 10/11/16 06:19 98.3 10/11/16 04:16 97.6 72 16 112/59 94 10/11/16 02:16 98.1 10/11/16 00:16 99.7 84 18 108/59 94 10/10/16 22:16 99.3 10/10/16 20:42 100.4 10/10/16 20:15 100.4 80 18 106/56 95 10/10/16 18:21 99.3 10/10/16 17:41 96 Nasal Cannula 1.00 10/10/16 16:01 100.5 85 16 109/45 94 10/10/16 11:35 100.0 83 16 105/50 93 10/10/16 10:08 93 Nasal Cannula 2.00 10/10/16 09:10 Room Air 10/11/16 10/11/16 10/11/16 07:00 15:00 23:00 Intake Total 1241 ml Balance 1241 ml Result Diagram: 10/11/16 0640 10/11/16 0640 Laboratory Results Laboratory Tests Test 10/11/16 06:40 White Blood Count 9.4 TH/MM3 Red Blood Count 1.86 MIL/MM3 Hemoglobin 5.8 GM/DL Hematocrit 16.7 % Mean Corpuscular Volume 89.8 FL Mean Corpuscular Hemoglobin 31.2 PG Mean Corpuscular Hemoglobin 34.7 % Concent Red Cell Distribution Width 20.9 % Platelet Count 387 TH/MM3 Mean Platelet Volume 7.7 FL Neutrophils (%) (Auto) 51.7 % Lymphocytes (%) (Auto) 34.5 % Monocytes (%) (Auto) 12.3 % Eosinophils (%) (Auto) 1.1 % Basophils (%) (Auto) 0.4 % Neutrophils # (Auto) 4.9 TH/MM3 Lymphocytes # (Auto) 3.2 TH/MM3 Monocytes # (Auto) 1.2 TH/MM3 Eosinophils # (Auto) 0.1 TH/MM3 Basophils # (Auto) 0.0 TH/MM3 CBC Comment AUTO DIFF Reticulocyte Count 6.2 % Absolute Reticulocyte Count 115.8 MIL/L Sodium Level 140 MEQ/L Potassium Level 3.8 MEQ/L Chloride Level 108 MEQ/L Carbon Dioxide Level 24.4 MEQ/L Anion Gap 8 MEQ/L Blood Urea Nitrogen 5 MG/DL Creatinine 0.58 MG/DL Estimat Glomerular Filtration 212 ML/MIN Rate Random Glucose 96 MG/DL Calcium Level 8.3 MG/DL Aspartate Amino Transf 61 U/L (AST/SGOT) Alanine Aminotransferase 58 U/L (ALT/SGPT) Albumin 3.1 GM/DL Culture Results Microbiology Date/Time Procedure Status Source Growth 10/08/16 16:30 Aerobic Blood Culture - Preliminary Resulted Blood Peripheral NO GROWTH IN 2 DAYS 10/08/16 16:30 Anaerobic Blood Culture - Preliminary Resulted Blood Peripheral NO GROWTH IN 2 DAYS 10/08/16 16:38 Aerobic Blood Culture - Preliminary Resulted Blood Peripheral NO GROWTH IN 2 DAYS 10/08/16 16:38 Anaerobic Blood Culture - Preliminary Resulted Blood Peripheral NO GROWTH IN 2 DAYS Administered Medications Medications (Trade) Dose Ordered Sig/Kerri Route PRN Reason Start Time Stop Time Status Last Admin Dose Admin Aspirin (Aspirin Chew) 81 mg DAILY CHEW 10/09/16 09:00 10/10/16 09:15 Enoxaparin Sodium (Lovenox Inj) 40 mg Q24H SQ 10/08/16 14:00 10/10/16 15:16 Lorazepam (Ativan) 1 mg DAILY PRN PO ANXIETY AND/OR AGITATION 10/08/16 13:45 10/11/16 00:49 Budesonide/ Formoterol Fumarate (Symbicort 160-4.5 Inh) 2 puff BID INH 10/08/16 14:00 10/10/16 09:16 Senna/Docusate Sodium (Hayde-Colace) 2 tab BID PO 10/08/16 21:00 10/10/16 21:11 Folic Acid (Folate) 1 mg DAILY PO 10/09/16 09:00 10/10/16 09:15 Ketorolac Tromethamine (Toradol Inj) 30 mg Q6H IV PUSH 10/09/16 14:30 10/13/16 22:00 10/11/16 03:34 Hydroxyzine Pamoate (Vistaril) 50 mg HS PO 10/09/16 21:00 10/10/16 21:11 Ondansetron HCl (Zofran Inj) 4 mg Q6HR PRN IV PUSH NAUSEA/VOMITING 10/09/16 17:45 10/10/16 18:23 Hydromorphone HCl 2 mg 2 mg Q3H IV PUSH 10/10/16 00:00 10/11/16 06:16 Potassium Chloride/Dextrose/ Sod Cl (D5-1/2 NS + KCl 20 Meq Inj) 1,000 ml @ 100 mls/hr Q10H IV 10/10/16 09:30 10/11/16 06:15 Hypromellose 2 drop 2 drop Q4HR EACH EYE 10/10/16 16:00 10/11/16 03:41 Ceftriaxone Sodium/Sodium Chloride (Rocephin Inj/NS Inj) 100 ml @ 200 mls/hr Q24H IV 10/10/16 22:30 10/10/16 22:50 Azithromycin (Zithromax) 500 mg DAILY PO 10/10/16 22:30 10/10/16 22:50 Objective Remarks GENERAL: Young male, laying in bed, appears to be in pain. SKIN: Warm and dry. HEAD: Normocephalic. EYES: Have scleral icterus and conjunctival pallor. Purulent drainage from both eyes. NECK: Supple, trachea midline. No JVD or lymphadenopathy. LYMPHATIC: No adenopathy. CARDIOVASCULAR: Tachycardic, regular, S1 and S2. RESPIRATORY: Good air movement bilaterally without any added breath sounds. GASTROINTESTINAL: Abdomen soft, non-tender, nondistended. No organ enlargement noted, voluntary guarding. EXTREMITIES: No cyanosis, or edema. MUSCULOSKELETAL: Adequate muscle tone. NEUROLOGICAL: No obvious focal deficit. Awake, alert, and oriented x3. PSYCHIATRIC: Appropriate mood and affect; insight and judgment normal. 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 At baseline however he takes very little opioids or pain medications. His managed in the outpatient setting with hydroxyurea between 1500 - 2000 mg daily (he alternates the dosing based on how he feels). Presents with an uncomplicated pain crisis (uncomplicated at present by acute chest syndrome, acute stroke, venous embolism, priapism, hypoxic respiratory failure). Would recommend continued supportive care with hydration using a hypotonic formulation such as half-normal saline. Incentive spirometry. Opioid analgesics with nonsteroidal anti-inflammatories. Heating pad for back pain. Agree with 1 unit packed red blood cell transfusion today. Empiric antibiotics are reasonable at this point. I will start him on an antibiotic/corticosteroid eyedrops for what I suspect his conjunctivitis. Marco A Bell MD Oct 11, 2016 08:05
[2016-10-11 08:10] LABS: CORRECTED NUCLEATED RBC 7 /100 WBC (0-0); EOSINOPHILS 1 % (0-4); NEUTROPHIL # MANUAL DIFF 5.5 TH/MM3 (1.8-7.7); POLYS (SEG NEUTROPHILS) 58 % (16-70); SICKLE CELLS 1+ (NORMAL); TARGET CELLS 1+ (NORMAL); WBC DIFF SAMPLE 100
[2016-10-11 08:11] LABS: HOWELL-JOLLY BODIES PRESENT (NONE SEEN); SCAN/DIFF FINAL DIFF MANUAL
[2016-10-11] MEDS: AZITHROMYCIN 250 MG TAB PO SCH (08:28)
[2016-10-11] MEDS: ASPIRIN 81 MG CHEW TAB CHEW SCH (08:28)
[2016-10-11] MEDS: FOLIC ACID 1 MG TAB PO SCH (08:28)
[2016-10-11] MEDS: DOCUSATE SODIUM 50 MG/SENNA 8.6 MG TAB PO SCH ×2 (08:29→20:05)
[2016-10-11] MEDS: BUDESONIDE-FORMOTEROL 160/4.5 MCG INHALER INH SCH ×2 (08:29→20:06)
[2016-10-11] MEDS: CIPROFLOXACIN 0.3% OPTH SOLN 2.5 ML BTL EACH EYE SCH ×4 (09:00→20:05)
--- NOTE | 2016-10-11 10:44 | HHI.FPPN ---
Subjective Remarks Patient with 100.5 temperature overnight with mild left base infiltrate. Maintaining good O2 saturation, on 1L O2 currently. Has had mild coughing since admission, no increase in coughing. Did not feel feverish. Pain symptoms much improved since admission. Hgb is 5.8 from 6.1 yesterday. Getting more jaundiced , dark urine. No neurological complaints. Continues to have dry red eyes bilaterally. Had one bowel movement. (Kristian Bautista MD R2) Objective Vitals Vital Signs Date Time Temp Pulse Resp B/P Pulse Ox O2 Delivery O2 Flow Rate FiO2 10/11/16 10:00 98.6 10/11/16 08:00 98.8 75 15 116/56 98 10/11/16 06:19 98.3 10/11/16 04:16 97.6 72 16 112/59 94 10/11/16 02:16 98.1 10/11/16 00:16 99.7 84 18 108/59 94 10/10/16 22:16 99.3 10/10/16 20:42 100.4 10/10/16 20:15 100.4 80 18 106/56 95 10/10/16 18:21 99.3 10/10/16 17:41 96 Nasal Cannula 1.00 10/10/16 16:01 100.5 85 16 109/45 94 10/10/16 11:35 100.0 83 16 105/50 93 I/O 10/10/16 10/10/16 10/10/16 10/11/16 10/11/16 10/11/16 07:00 15:00 23:00 07:00 15:00 23:00 Intake Total 1325 ml 1699 ml 722 ml 1241 ml Balance 1325 ml 1699 ml 722 ml 1241 ml Intake Oral 480 ml 960 ml 480 ml IV Total 845 ml 739 ml 722 ml 761 ml # Voids 2 4 1 # Bowel Movements 0 1 0 (Kristian Bautista MD R2) Result Diagram: 10/11/16 0640 10/11/16 0640 Objective Remarks GENERAL: No distress, comfortable, appears much better. SKIN: Warm and dry. No rash. HEENT: Atraumatic, normocephalic with EOMI. Significant scleral icterus. MMM. No JVD or LAD appreciated. No rhinorrhea. Pale mucosa. Eyes dry, mildly erythematous, no purulent discharge. CARDIOVASCULAR: Regular rate and rhythm with flow murmur present RESPIRATORY: Clear to auscultation bilaterally with no CRW. No increased work of breathing. 1L nasal cannula. GASTROINTESTINAL: Abdomen soft, non-tender, nondistended with positive bowel sounds. No masses appreciated. MUSCULOSKELETAL: No cyanosis or edema. Strength grossly WNL. BACK: Nontender without obvious deformity. No CVA tenderness. HEME: scleral icterus, pale palms and mucosa, pale conjunctiva NEURO/PSYCH: Afocal. Awake, alert, and oriented x3. Normal speech with appropriate interaction with examiners. (Kristian Bautista MD R2) A/P Assessment and Plan Mr. Breaux is a 20-year-old male presenting with sickle cell pain crisis. Discharge Planning Pending pain control and hydration status. (Kristian Bautista MD R2) Attending Attestation Patient seen and examined. Case reviewed and discussed with the resident team. Agree with plan of care as discussed with me and documented in the resident note. (Neli Palomares MD) Problem List: (1) Sickle cell crisis Status: Acute Plan: Hgb 5.8, baseline of 7-8. Retic count 6.2, abs retic 116. Pain improving. - IVF with D5 1/2 NS at 100 mls/hr with 20 meQ potassium - Dilaudid 2 mg every 3 hours, wean as tolerated. - Toradol 30 mg every 6 hours - Continue folic acid, hydroxyurea - Aspirin 81 mg daily - Hematology on board (2) Lung infiltrate Status: Acute Plan: Mild left base lung infiltrate with temperature of 100.5 overnight. No increase in oxygen requirements. No respiratory difficulties. Chest pain improving from admission. Has mild cough and sputum production since admission. Unlikely to be acute chest syndrome but want to be cautious. - Started on Ceftriaxone and Azithromycin 10/10/16 - Transfuse one unit hemoglobin today - Continue IV fluids and pain management - Encourage incentive spirometry - Breathing treatments as needed - Continue supplemental oxygen - Discussed above plan with Dr. Bell, site safety coordinator (3) Asthma, chronic Status: Chronic Plan: - Continue albuterol PRN, symbicort (4) No contraindication to deep vein thrombosis (DVT) prophylaxis Status: Acute Plan: Lovenox 40 mg daily (5) Nutrition, metabolism, and development symptoms Status: Acute Plan: - IVF with D5 1/2 NS at 100 mls/hr with 20 meQ potassium - Regular diet with orders for Gatorade - Prophylaxis: Hydroxyzine 50 mg daily at bedtime for insomnia, Ativan 1 mg daily when necessary anxiety/agitation, K thermia pads and ice packs when necessary for pain (Kristian Bautista MD R2) Kristian Bautista MD R2 Oct 11, 2016 10:44 Neli Palomares MD Oct 11, 2016 11:57
[2016-10-11] MEDS ORDERED: HYPROMELLOSE 0.3 % OPTH GEL 10 GM (0.34 FL OZ) TUBE EACH EYE PRN (12:00)
[2016-10-11] MEDS: ENOXAPARIN SODIUM 40 MG/0.4 ML SYRINGE SQ SCH (14:20)
[2016-10-11] MEDS: ONDANSETRON HCL 4 MG/2 ML VIAL IV PUSH PRN (20:01)
[2016-10-11] MEDS: cefTRIAXone INJ 1,000 MG in SODIUM CHLORIDE 0.9% INJ 100 ML IV SCH (21:14)
[2016-10-12] MEDS: HYDROmorphone HCL PF 2 MG/ML VIAL IV PUSH SCH ×6 (00:05→15:22)
[2016-10-12] MEDS: CIPROFLOXACIN 0.3% OPTH SOLN 2.5 ML BTL EACH EYE SCH ×4 (00:05→12:28)
[2016-10-12] MEDS: LORazepam 1 MG TAB PO PRN (00:06)
[2016-10-12 00:19] LABS: REVIEW FLAG FINAL
[2016-10-12 00:20] VITALS: BP 116/56; PULSE 74; RESP 17; TEMP 99.4; O2SAT 96
[2016-10-12 00:22] LABS: HEMATOCRIT 18.8 % (39.0-51.0)
[2016-10-12 02:00] VITALS: TEMP 98.9
[2016-10-12] MEDS: KETOROLAC TROMETHAMINE 30 MG/ML (IVP) VIAL IV PUSH SCH ×3 (02:04→15:23)
[2016-10-12 04:00] VITALS: BP 128/61; PULSE 77; RESP 16; TEMP 98.8; O2SAT 98
[2016-10-12 07:00] VITALS: BP 135/54; PULSE 74; RESP 20; TEMP 98.8; O2SAT 93
[2016-10-12 08:05] LABS: REVIEW FLAG FINAL
[2016-10-12 08:09] LABS: MEAN CELL VOLUME 87.6 FL (80.0-100.0); MEAN CORPUSCULAR HGB CONC 35.4 % (32.0-36.0); PLATELET COUNT 404 TH/MM3 (150-450); RED BLOOD COUNT 2.05 MIL/MM3 (4.50-5.90); WHITE BLOOD COUNT 7.7 TH/MM3 (4.0-11.0)
[2016-10-12 08:11] LABS: REVIEW FLAG FINAL
[2016-10-12] MEDS: AZITHROMYCIN 250 MG TAB PO SCH (08:44)
[2016-10-12] MEDS: DOCUSATE SODIUM 50 MG/SENNA 8.6 MG TAB PO SCH (08:44)
[2016-10-12] MEDS: ASPIRIN 81 MG CHEW TAB CHEW SCH (08:44)
[2016-10-12] MEDS: FOLIC ACID 1 MG TAB PO SCH (08:44)
[2016-10-12] MEDS: BUDESONIDE-FORMOTEROL 160/4.5 MCG INHALER INH SCH (08:45)
--- NOTE | 2016-10-12 10:50 | HHI.FPPN ---
Subjective Remarks Pt seen and examined this morning. No acute events overnight. Pt has been afebrile. He denies chest pain, shortness of breath, abdominal pain, lower extremity pain. Pain has been well controlled. He is concerned about eye dryness and discharge. Pt frequently rubbing eyes and applied eye ointment several times during exam. He feels significantly improved compared to when he was admitted. He has no other acute complaints at this time. (Tona Carmona MD R2) Objective Vitals Vital Signs Date Time Temp Pulse Resp B/P Pulse Ox O2 Delivery O2 Flow Rate FiO2 10/12/16 10:26 1.00 10/12/16 07:00 98.8 74 20 135/54 93 10/12/16 04:00 98.8 77 16 128/61 98 10/12/16 02:00 98.9 10/12/16 00:20 99.4 74 17 116/56 96 10/11/16 21:00 98.9 10/11/16 19:00 98.9 65 18 127/60 97 10/11/16 15:30 98.7 87 15 116/55 93 10/11/16 15:30 99.4 80 16 116/55 96 10/11/16 15:15 99.4 80 16 116/55 96 10/11/16 15:15 99.5 81 17 115/57 97 10/11/16 15:00 99.3 72 14 117/56 96 10/11/16 15:00 99.3 72 14 117/56 96 10/11/16 12:00 98.1 83 16 113/60 97 I/O 10/11/16 10/11/16 10/11/16 10/12/16 10/12/16 10/12/16 07:00 15:00 23:00 07:00 15:00 23:00 Intake Total 1241 ml 1440 ml 748 ml 2254 ml Output Total 1600 ml Balance 1241 ml -160 ml 748 ml 2254 ml Intake Oral 480 ml 1440 ml 1230 ml IV Total 761 ml 748 ml 1024 ml Output Urine Total 1600 ml # Voids 1 4 6 # Bowel Movements 0 1 0 (Tona Carmona MD R2) Result Diagram: 10/12/16 0718 10/11/16 0640 Objective Remarks GENERAL: WN, WD patient, in no distress, comfortably resting in bed. SKIN: Warm and dry. No rash, multiple tattoos. HEENT: Atraumatic, normocephalic with EOMI. Significant scleral icterus. MMM. No JVD or LAD appreciated. No rhinorrhea. Pale mucosa. Eyes dry, mildly muddy sclera, no purulent discharge. Dry skin surrounding eyes. CARDIOVASCULAR: Regular rate and rhythm with flow murmur present RESPIRATORY: Clear to auscultation bilaterally with no wheezes, rales or rhonchi. No increased work of breathing. 1L nasal cannula. GASTROINTESTINAL: Abdomen soft, non-tender, nondistended with positive bowel sounds. No masses appreciated. MUSCULOSKELETAL: No cyanosis or edema. Strength grossly WNL. BACK: Nontender without obvious deformity. No CVA tenderness. HEME: mild scleral icterus, slightly pale palms and mucosa, pale conjunctiva NEURO/PSYCH: Afocal. Awake, alert, and oriented x3. Normal speech with appropriate interaction with examiners. (Tona Carmona MD R2) A/P Assessment and Plan Mr. Breaux is a 20-year-old male presenting with sickle cell pain crisis. Discharge Planning Pending pain control and hydration status, clearance from hematology. Likely later today or tomorrow. sdw Dr. Felix wdw Dr. Palomares (Tona Carmona MD R2) Attending Attestation Patient seen and examined. Case reviewed and discussed with the resident team. Agree with plan of care as discussed with me and documented in the resident note. (Neli Palomares MD) Problem List: (1) Sickle cell crisis Status: Acute Plan: Hgb 6.4 this morning, baseline of 7-8. Retic count 4.0, abs retic 83.9. Pain improving. - Hematology consulted, pt known to Dr. Bell, appreciate recommendations - IVF with D5 1/2 NS at 100 mls/hr with 20 meQ potassium - Dilaudid 2 mg every 3 hours, wean as tolerated. - Toradol 30 mg every 6 hours - Will transition to oral pain medications at time of discharge. - Continue folic acid, hydroxyurea - Aspirin 81 mg daily (2) Lung infiltrate Status: Acute Plan: Mild left base lung infiltrate on CXR, pt has been afebrile overnight. No increase in oxygen requirements. No respiratory difficulties. Chest pain improving from admission. Has mild cough and sputum production since admission. Unlikely to be acute chest syndrome based on clinical presentation, but will be cautious and treat with antibiotics. - Continue Ceftriaxone and Azithromycin (10/10- ) - Encourage incentive spirometry - Breathing treatments as needed - Continue supplemental oxygen (3) Asthma, chronic Status: Chronic Plan: - Continue albuterol PRN, symbicort (4) No contraindication to deep vein thrombosis (DVT) prophylaxis Status: Acute Plan: Lovenox 40 mg daily, to be discontinued at time of discharge (5) Nutrition, metabolism, and development symptoms Status: Acute Plan: - IVF with D5 1/2 NS at 100 mls/hr with 20 meQ potassium - Regular diet with orders for Gatorade - Hydroxyzine 50 mg daily at bedtime for insomnia - Ativan 1 mg daily when necessary anxiety/agitation - K thermia pads and ice packs when necessary for pain (Tona Carmona MD R2) Tona Carmona MD R2 Oct 12, 2016 10:50 Neli Palomares MD Oct 13, 2016 08:08
[2016-10-12 12:00] VITALS: BP 126/59; PULSE 63; RESP 20; TEMP 99.3; O2SAT 99
[2016-10-12] MEDS: ENOXAPARIN SODIUM 40 MG/0.4 ML SYRINGE SQ SCH (12:27)
[2016-10-12] MEDS: D5-1/2 NS + KCL 20 MEQ INJ 1,000 ML IV SCH (12:28)
[2016-10-12 13:40] LABS: BICARBONATE 25.2 MEQ/L (21.0-32.0); POTASSIUM 4.1 MEQ/L (3.5-5.1)
[2016-10-12] MEDS: ONDANSETRON HCL 4 MG/2 ML VIAL IV PUSH PRN (15:22)
--- NOTE | 2016-10-12 15:49 | HHI.DCPOC ---
Discharge Care Plan Diagnosis: (1) Sickle cell pain crisis Goals to Promote Your Health * To prevent worsening of your condition and complications * To maintain your health at the optimal level Directions to Meet Your Goals Take your medications as prescribed Follow your dietary instruction Follow activity as directed Keep your appointments as scheduled Take your immunizations and boosters as scheduled If your symptoms worsen call your PCP, if no PCP go to Urgent Care Center or Emergency Room Smoking is Dangerous to Your Health. Avoid second hand smoke Call the 24-hour hour crisis hotline for domestic abuse at Brian Felix MD R1 Oct 12, 2016 15:49
[2016-10-12] MEDS ORDERED: ARTIDRO EACH EYE (16:12)
--- NOTE | 2016-10-19 13:44 | HHI.DS ---
Discharge Summary Admission Date Oct 08, 2016 at 13:18 Discharge Date: Oct 13, 2016 Admitting Diagnosis sickle cell crisis (1) Sickle cell crisis Diagnosis: Principal Plan: Hgb 6.4 this morning, baseline of 7-8. Retic count 4.0, abs retic 83.9. Pain improving. - Hematology consulted, pt known to Dr. Bell, appreciate recommendations - IVF with D5 1/2 NS at 100 mls/hr with 20 meQ potassium - Dilaudid 2 mg every 3 hours, wean as tolerated. - Toradol 30 mg every 6 hours - Will transition to oral pain medications at time of discharge. - Continue folic acid, hydroxyurea - Aspirin 81 mg daily (2) Lung infiltrate Diagnosis: Principal Plan: Mild left base lung infiltrate on CXR, pt has been afebrile overnight. No increase in oxygen requirements. No respiratory difficulties. Chest pain improving from admission. Has mild cough and sputum production since admission. Unlikely to be acute chest syndrome based on clinical presentation, but will be cautious and treat with antibiotics. - Continue Ceftriaxone and Azithromycin (10/10- ) - Encourage incentive spirometry - Breathing treatments as needed - Continue supplemental oxygen (3) Asthma, chronic Diagnosis: Secondary Plan: - Continue albuterol PRN, symbicort (4) No contraindication to deep vein thrombosis (DVT) prophylaxis Diagnosis: Principal Plan: Lovenox 40 mg daily, to be discontinued at time of discharge (5) Nutrition, metabolism, and development symptoms Diagnosis: Principal Plan: - IVF with D5 1/2 NS at 100 mls/hr with 20 meQ potassium - Regular diet with orders for Gatorade - Hydroxyzine 50 mg daily at bedtime for insomnia - Ativan 1 mg daily when necessary anxiety/agitation - K thermia pads and ice packs when necessary for pain Brief History 20 year old male here with sickle cell pain crisis. Symptoms started yesterday and are located in his lower back and legs. The pain is 8/10 currently. He had some chest tightness last night. He has some mild coughing. No fevers or chills. No nausea or vomiting. No abdominal pain. He is followed by Dr. Bell, senior education specialist. PE at Discharge GENERAL: WN, WD patient, in no distress, comfortably resting in bed. SKIN: Warm and dry. No rash, multiple tattoos. HEENT: Atraumatic, normocephalic with EOMI. Significant scleral icterus. MMM. No JVD or LAD appreciated. No rhinorrhea. Pale mucosa. Eyes dry, mildly muddy sclera, no purulent discharge. Dry skin surrounding eyes. CARDIOVASCULAR: Regular rate and rhythm with flow murmur present RESPIRATORY: Clear to auscultation bilaterally with no wheezes, rales or rhonchi. No increased work of breathing. 1L nasal cannula. GASTROINTESTINAL: Abdomen soft, non-tender, nondistended with positive bowel sounds. No masses appreciated. MUSCULOSKELETAL: No cyanosis or edema. Strength grossly WNL. BACK: Nontender without obvious deformity. No CVA tenderness. HEME: mild scleral icterus, slightly pale palms and mucosa, pale conjunctiva NEURO/PSYCH: Afocal. Awake, alert, and oriented x3. Normal speech with appropriate interaction with examiners. Hospital Course Patient was admitted for sickle cell pain crisis. He was given IV fluids at maintenance with Dilaudid and Toradol for pain control. His home medications of folic acid and hydroxyurea were continued and hematology was consulted. On hospital day, patient's hemoglobin dropped to 6.1 and was then transfused 2 units. Later that evening patient ran a fever of 100.5 with chest x-ray showing possible left basilar infiltrate. At that time he was started on ceftriaxone and azithromycin for possible pneumonia. The patient also complained of bilateral eye irritation and was started on artificial tears and ciprofloxacin eyedrops for possible conjunctivitis. On hospital day 4 the patient's hemoglobin was stable at 6.4. After discussion with hematology, the patient was discharged home without antibiotics as the possible infiltrate on x- ray was most likely atelectasis due to poor inspiratory effort. The patient was discharged home on his home medications of Lortab, Ativan, lidocaine patch, and hydroxyurea. He was given a prescription for artificial tears due to continued iron patient. He was advised to follow-up with hematology and his primary care doctor within 1 week. Pt Condition on Discharge: Stable Discharge Disposition: Discharge Home Discharge Instructions DIET: Follow Instructions for: As Tolerated, No Restrictions Activities you can perform: Regular-No Restrictions Follow up Referrals: Hematology - 1 Week PCP Follow-up - 1 Week New Medications: Propylene Glycol-Glycerin Opth Drops (Artificial Tears Opth Drops) 1-0.3% Drops 1-2 DROP EACH EYE PRN PRN DRY EYE #15 Ref 0 ML Continued Medications: Albuterol 18 GM Inh (Ventolin Hfa 18 GM Inh) 90 Mcg/Act Aer 2 PUFF INH Q6H PRN SHORTNESS OF BREATH #1 Ref 6 INHALER Albuterol Neb (Albuterol Neb) 2.5 Mg/3 Ml Neb 2.5 MG NEB TID NEB PRN SHORTNESS OF BREATH #25 Ref 6 ML Fluticasone-Salmeterol Inh (Advair Diskus Inh) 250-50 Mcg/Blist Aer 1 PUFF INH BID Rinse mouth after use. #1 Ref 5 INHALER Hydrocodone-Acetaminophen (Lortab) 10-325 Mg Tab 1 TAB PO Q4H PRN PAIN Ref 0 TAB Hydroxyurea (Hydrea) 500 Mg Cap 1500 MG PO DAILY Ref 0 CAP Lidocaine Patch 12 HR (Lidocaine Patch 12 HR) 5 % Patch 1 PATCH TOPICAL DAILY Remove patch after 12 hours Pain Management #1 Ref 5 BOX Lorazepam (Ativan) 1 Mg Tab 1 MG PO DAILY PRN ANXIETY AND/OR AGITATION #30 Ref 2 TAB Brian Felix MD R1 Oct 19, 2016 13:44
== END 2016-10-12 17:14 | disposition home or self-care (01) | DRG 812 ==
LOC: NEPE 10:52 → NEDA 13:18 → N06B 14:19
PROVIDERS: ADMIT Family Medicine; ATTEND Family Medicine
PROC: 30233N1 Transfusion of Nonautologous Red Blood Cells into Peripheral Vein, Percutaneous Approach (ICD-10-PCS; principal; 2016-10-11)
DX: D57.00 Hb-SS disease with crisis, unspecified (principal); F90.9 Attention-deficit hyperactivity disorder, unspecified type; J45.909 Unspecified asthma, uncomplicated; Z86.73 Personal history of transient ischemic attack (TIA), and cerebral infarction without residual deficits; Z79.82 Long term (current) use of aspirin
CPT/HCPCS: 36430; 71010; 72100; 80048; 80053; 81001; 82728; 85007; 85014; 85018; 85027; 85044; 85660; 86850; 86900; 86901; 86920; 87040; 94150; 96361; 96374; 96375; J0696; J1170; J1200; J1650; J1885; J2405; J3480; J7030; J7050; P9016

== ENCOUNTER 2016-10-29 07:35 | Emergency (ER) | payer OTHER ==
[~2016-10-29] VITALS: Ht 170.2 cm; Wt 68.0 kg
[~2016-10-29 07:35] MED LIST changes: +ARTIDRO EACH EYE; -CYCL5TAB PO; -FOLI5CAP PO; +HYDR500C PO; -HYDR500C2 PO; -PERC5TAB12 PO
[2016-10-29 07:38] VITALS: BP 139/94; PULSE 72; RESP 20; TEMP 97.8; O2SAT 97
[2016-10-29 08:01] VITALS: BP 138/81; PULSE 66; RESP 18; O2SAT 98
[2016-10-29] MEDS ORDERED: SODIUM CHLORIDE 0.9% FLUSH 10 ML FLUSH IVF PRN (09:15)
[2016-10-29] MEDS ORDERED: HYDROmorphone HCL PF 2 MG/ML VIAL IVS ONE ×2 (09:15→10:30)
[2016-10-29] MEDS ORDERED: ONDANSETRON HCL 4 MG/2 ML VIAL IVP ONE (09:15)
[2016-10-29] MEDS ORDERED: SODIUM CHLOR 0.9% 1000 ML INJ 1,000 ML IV ONE (09:15)
--- NOTE | 2016-10-29 09:15 | PD ---
HPI Chief Complaint: Sickle Cell Time Seen by Provider: 09:02 Travel History International Travel<30 days: No Contact w/Intl Traveler<30days: No Traveled to known affect area: No History of Present Illness HPI This patient complains of sickle pain. Primarily complains of pain in the right arm. No injury to it. No fever. Symptoms severity is moderate. No alleviating factors. Duration one day. Patient is belligerent and yelling and swearing and demanding immediate attention. PFSH Past Medical History ADD: Yes ADHD: Yes Asthma: Yes Autoimmune Disease: No Blood Disorders: No Anxiety: No Depression: No Heart Rhythm Problems: No Cancer: No Cardiovascular Problems: Yes (sickle cell) Chemotherapy: No Chest Pain: Yes COPD: No Cerebrovascular Accident: Yes (TIA AT AGE 4) Cystic Fibrosis: No Developmental Delay: No Diabetes: No Diminished Hearing: No Endocrine: No Gastrointestinal Disorders: Yes Genitourinary: No Headaches: Yes Hiatal Hernia: No Immune Disorder: No Implanted Vascular Access Dvce: Yes (RUC) Musculoskeletal: No Neurologic: Yes Psychiatric: No Reproductive: No Respiratory: Yes (ASTHMA) Immunizations Current: Yes Migraines: Yes Radiation Therapy: No Seizures: No Sickle Cell Disease: Yes Sleep Apnea: No Ulcer: No Tetanus Vaccination: < 5 Years Influenza Vaccination: Yes PNEUMOCCOCAL Vaccine (Year): 2 Past Surgical History Abdominal Surgery: Yes (hernia sx, splenectomy) AICD: No Appendectomy: No Arteriovenous Shunt: Yes Cardiac Surgery: No Cholecystectomy: Yes Ear Surgery: No Endocrine Surgery: No Eye Surgery: No Genitourinary Surgery: No Gynecologic Surgery: No Insulin Pump: No Joint Replacement: No Neurologic Surgery: No Oral Surgery: No Pacemaker: No Thoracic Surgery: No Tonsillectomy: Yes (adnoids) Tympanostomy Tube: Yes Other Surgery: Yes (PORT PLACEMENT AND REMOVAL) Social History Alcohol Use: No Tobacco Use: No Substance Use: No Allergies-Medications (Allergen,Severity, Reaction): Coded Allergies: No Known Allergies (Verified , 10/04/16) Reported Meds & Prescriptions Reported Meds & Active Scripts Active Artificial Tears Opth Drops (Propylene Glycol-Glycerin Opth Drops) 1-0.3% Drops 1-2 Drop EACH EYE PRN PRN Ativan (Lorazepam) 1 Mg Tab 1 Mg PO DAILY PRN Lidocaine Patch 12 HR (Lidocaine) 5 % Patch 1 Patch TOPICAL DAILY Remove patch after 12 hours Advair Diskus Inh (Fluticasone-Salmeterol Inh) 250-50 Mcg/Blist Aer 1 Puff INH BID Rinse mouth after use. Ventolin Hfa 18 GM Inh (Albuterol Sulfate) 90 Mcg/Act Aer 2 Puff INH Q6H PRN Albuterol Neb (Albuterol Sulfate) 2.5 Mg/3 Ml Neb 2.5 Mg NEB TID NEB PRN Reported Hydrea (Hydroxyurea) 500 Mg Cap 1,500 Mg PO DAILY Lortab (Hydrocodone-Acetaminophen) 10-325 Mg Tab 1 Tab PO Q4H PRN Review of Systems General / Constitutional: No: Fever Eyes: No: Visual changes HENT: No: Headaches Cardiovascular: No: Chest Pain or Discomfort Respiratory: No: Shortness of Breath Gastrointestinal: No: Abdominal Pain Genitourinary: No: Dysuria Musculoskeletal: Positive: Pain Skin: No Rash Neurologic: No: Weakness Psychiatric: No: Depression Endocrine: No: Polydipsia Hematologic/Lymphatic: No: Easy Bruising Physical Exam Narrative GENERAL: Well-nourished, well-developed patient complaining of sickle pain . SKIN: Focused skin assessment reveals no rash and nodules. Skin is Warm and dry. HEAD: Atraumatic. Normocephalic. EYES: Pupils equal and round. No scleral icterus. No injection or drainage. ENT: No nasal bleeding or discharge. Mucous membranes pink and moist. NECK: Trachea midline. No JVD. CARDIOVASCULAR: Regular rate and rhythm. No murmur appreciated. RESPIRATORY: No accessory muscle use. Clear to auscultation. Breath sounds equal bilaterally. GASTROINTESTINAL: Abdomen soft, non-tender, nondistended. Hepatic and splenic margins not palpable. MUSCULOSKELETAL: No obvious deformities. No clubbing. No cyanosis. No edema. Right arm neurovascularly intact without any objective findings NEUROLOGICAL: Awake and alert. No obvious cranial nerve deficits. Motor grossly within normal limits. Normal speech. PSYCHIATRIC: Appropriate mood and affect; insight and judgment normal. Data Data Last Documented VS Vital Signs Date Time Temp Pulse Resp B/P Pulse Ox O2 Delivery O2 Flow Rate FiO2 10/29/16 10:45 18 10/29/16 08:01 66 138/81 98 Room Air 10/29/16 07:38 97.8 Orders Basic Metabolic Panel (Bmp) (10/29/16 09:09) Complete Blood Count With Diff (10/29/16 09:09) Iv Access Insert/Monitor (10/29/16 09:09) Hydromorphone Pf Inj (Dilaudid Pf Inj) (10/29/16 09:15) Ondansetron Inj (Zofran Inj) (10/29/16 09:15) Sodium Chloride 0.9% Flush (Ns Flush) (10/29/16 09:15) Sodium Chlor 0.9% 1000 Ml Inj (Ns 1000 M (10/29/16 09:15) Ketorolac Inj (Toradol Inj) (10/29/16 10:00) Hydromorphone Pf Inj (Dilaudid Pf Inj) (10/29/16 10:30) Sodium Chlorid 0.9% 500 Ml Inj (Ns 500 M (10/29/16 10:30) Labs Laboratory Tests Test 10/29/16 08:00 White Blood Count 11.4 TH/MM3 Red Blood Count 3.14 MIL/MM3 Hemoglobin 9.3 GM/DL Hematocrit 26.8 % Mean Corpuscular Volume 85.2 FL Mean Corpuscular Hemoglobin 29.5 PG Mean Corpuscular Hemoglobin 34.6 % Concent Red Cell Distribution Width 23.2 % Platelet Count 632 TH/MM3 Mean Platelet Volume 7.6 FL Neutrophils (%) (Auto) 54.2 % Lymphocytes (%) (Auto) 31.9 % Monocytes (%) (Auto) 9.7 % Eosinophils (%) (Auto) 2.8 % Basophils (%) (Auto) 1.4 % Neutrophils # (Auto) 6.2 TH/MM3 Lymphocytes # (Auto) 3.6 TH/MM3 Monocytes # (Auto) 1.1 TH/MM3 Eosinophils # (Auto) 0.3 TH/MM3 Basophils # (Auto) 0.2 TH/MM3 CBC Comment AUTO DIFF Differential Total Cells 100 Counted Neutrophils % (Manual) 49 % Lymphocytes % 36 % Monocytes % 10 % Eosinophils % 3 % Basophils % 2 % Neutrophils # (Manual) 5.6 TH/MM3 Nucleated Red Blood Cells 3 /100 WBC Differential Comment FINAL DIFF MANUAL Platelet Estimate HIGH Platelet Morphology Comment NORMAL Polychromasia 2.5 % Sickle Cells 1+ Target Cells 1+ Ovalocytes Sodium Level 139 MEQ/L Potassium Level 4.1 MEQ/L Chloride Level 107 MEQ/L Carbon Dioxide Level 26.0 MEQ/L Anion Gap 6 MEQ/L Blood Urea Nitrogen 9 MG/DL Creatinine 0.63 MG/DL Estimat Glomerular Filtration 193 ML/MIN Rate Random Glucose 96 MG/DL Calcium Level 9.0 MG/DL MDM Medical Decision Making Medical Screen Exam Complete: Yes Emergency Medical Condition: Yes Medical Record Reviewed: Yes Differential Diagnosis Sickle cell pain, sickle crisis, narcotic seeking behavior, narcotic withdrawal Narrative Course I have reviewed the patient's electronic medical record. Reviewed his discharge summary from September 2016 as well as hematology consultation IV placed I gave him a dose of IV Dilaudid and IV Zofran and 1 L normal saline IV Vital signs are normal No objective findings on exam CBC shows hemoglobin of 9.3 which is the highest he's had in the last full year Metabolic profile is normal I gave him a second dose of IV pain medicine in addition to some Toradol that he had requested Is now stable for outpatient hematology follow-up Diagnosis Primary Impression: Sickle cell anemia with pain Additional Instructions: The patient was advised to follow up with their physician and return if they worsen. Med/Other Pt SpecificInfo: Other Disposition: 01 DISCHARGE HOME Condition: Stable Georges Jaramillo MD Oct 29, 2016 09:15
[2016-10-29 09:30] LABS: AUTOMATED NEUTROPHIL # 6.2 TH/MM3 (1.8-7.7); BASOPHIL # 0.2 TH/MM3 (0-0.2); BASOPHIL % 1.4 % (0.0-2.0); EOSINOPHIL # 0.3 TH/MM3 (0-0.4); EOSINOPHIL % 2.8 % (0.0-4.0); HEMATOCRIT 26.8 % (39.0-51.0); LYMPH % 31.9 % (9.0-44.0); LYMPHOCYTE # 3.6 TH/MM3 (1.0-4.8); MEAN CELL VOLUME 85.2 FL (80.0-100.0); MEAN CORPUSCULAR HEMOGLOBIN 29.5 PG (27.0-34.0); MEAN CORPUSCULAR HGB CONC 34.6 % (32.0-36.0); MONO % 9.7 % (0.0-8.0); NEUT % 54.2 % (16.0-70.0); PLATELET COUNT 632 TH/MM3 (150-450); RED BLOOD COUNT 3.14 MIL/MM3 (4.50-5.90); RED CELL DISTRIBUTION WIDTH 23.2 % (11.6-17.2); WHITE BLOOD COUNT 11.4 TH/MM3 (4.0-11.0)
[2016-10-29 09:37] LABS: HEMO FLAGS AUTO DIFF
[2016-10-29 09:49] LABS: POTASSIUM 4.1 MEQ/L (3.5-5.1)
[2016-10-29] MEDS ORDERED: KETOROLAC TROMETHAMINE 30 MG/ML (IVP) VIAL IVP ONE (10:00)
[2016-10-29 10:14] LABS: BASOPHILS 2 % (0-2); CORRECTED NUCLEATED RBC 3 /100 WBC (0-0); EOSINOPHILS 3 % (0-4); NEUTROPHIL # MANUAL DIFF 5.6 TH/MM3 (1.8-7.7); POLYCHROMASIA 2.5 % (0.0-1.9); POLYS (SEG NEUTROPHILS) 49 % (16-70); WBC DIFF SAMPLE 100
[2016-10-29 10:15] LABS: PLATELET ESTIMATE SMEAR HIGH (NORMAL); PLATELET MORPHOLOGY NORMAL (NORMAL); SCAN/DIFF FINAL DIFF MANUAL; SICKLE CELLS 1+ (NORMAL); TARGET CELLS 1+ (NORMAL)
[2016-10-29] MEDS ORDERED: SODIUM CHLORID 0.9% 500 ML INJ 500 ML IV SCH (10:30)
[2016-10-29 10:45] VITALS: RESP 18
== END 2016-10-29 11:39 | disposition home or self-care (01) ==
LOC: NEPC 07:35
DX: D57.00 Hb-SS disease with crisis, unspecified (principal)
CPT/HCPCS: 80048; 85007; 85027; 96361; 96374; 96375; 99284; J1170; J1885; J2405; J7030; J7040

== ENCOUNTER 2016-12-31 18:42 | Inpatient (IN) | payer OTHER ==
[~2016-12-31] VITALS: Ht 172.7 cm; Wt 67.6 kg
[~2016-12-31 18:42] MED LIST changes: +CYCL1TAB29 PO
[2016-12-31 18:47] VITALS: BP 109/59; PULSE 97; RESP 16; TEMP 98.4; O2SAT 99
[2016-12-31] MEDS ORDERED: SODIUM CHLOR 0.9% 1000 ML INJ 1,000 ML IV ONE ×2 (19:19→20:30)
--- NOTE | 2016-12-31 19:24 | PD ---
HPI Chief Complaint: Sickle Cell Time Seen by Provider: 19:17 Travel History International Travel<30 days: No Contact w/Intl Traveler<30days: No Traveled to known affect area: No History of Present Illness HPI 21-year-old Afro-[place] male with history of sickle cell anemia and frequent crisis comes in with complaints of pain in the lower extremities, upper extremities, and back. He denies shortness of breath or chest pain. He denies abdominal pain at this time. Patient states his symptoms started a couple of days ago. Patient was last seen here on October 29 of this past year. He denies fever or other symptoms. Pain is 10 out of 10 in the lower extremities. He has no open wounds. He has no known drug allergies. PFS Past Medical History ADD: Yes ADHD: Yes Asthma: Yes Autoimmune Disease: No Blood Disorders: No Anxiety: No Depression: No Heart Rhythm Problems: No Cancer: No Cardiovascular Problems: Yes (sickle cell) Chemotherapy: No Chest Pain: Yes COPD: No Cerebrovascular Accident: Yes (TIA AT AGE 4) Cystic Fibrosis: No Developmental Delay: No Diabetes: No Diminished Hearing: No Endocrine: No Gastrointestinal Disorders: Yes Genitourinary: No Headaches: Yes Hiatal Hernia: No Immune Disorder: No Implanted Vascular Access Dvce: Yes (RUC) Musculoskeletal: No Neurologic: Yes Psychiatric: No Reproductive: No Respiratory: Yes (ASTHMA) Immunizations Current: Yes Migraines: Yes Radiation Therapy: No Seizures: No Sickle Cell Disease: Yes Sleep Apnea: No Ulcer: No PNEUMOCCOCAL Vaccine (Year): 2 Past Surgical History Abdominal Surgery: Yes (hernia sx, splenectomy) AICD: No Appendectomy: No Arteriovenous Shunt: Yes Cardiac Surgery: No Cholecystectomy: Yes Ear Surgery: No Endocrine Surgery: No Eye Surgery: No Genitourinary Surgery: No Gynecologic Surgery: No Insulin Pump: No Joint Replacement: No Neurologic Surgery: No Oral Surgery: No Pacemaker: No Thoracic Surgery: No Tonsillectomy: Yes (adnoids) Tympanostomy Tube: Yes Other Surgery: Yes (PORT PLACEMENT AND REMOVAL) Social History Alcohol Use: No Tobacco Use: No Substance Use: No Allergies-Medications (Allergen,Severity, Reaction): Coded Allergies: No Known Allergies (Verified , 12/31/16) Reported Meds & Prescriptions Reported Meds & Active Scripts Active Hydrea (Hydroxyurea) 500 Mg Cap 1,500 Mg PO DAILY Flexeril (Cyclobenzaprine HCl) 10 Mg Tab 10 Mg PO TID Artificial Tears Opth Drops (Propylene Glycol-Glycerin Opth Drops) 1-0.3% Drops 1-2 Drop EACH EYE PRN PRN Ativan (Lorazepam) 1 Mg Tab 1 Mg PO DAILY PRN Lidocaine Patch 12 HR (Lidocaine) 5 % Patch 1 Patch TOPICAL DAILY Remove patch after 12 hours Advair Diskus Inh (Fluticasone-Salmeterol Inh) 250-50 Mcg/Blist Aer 1 Puff INH BID Rinse mouth after use. Ventolin Hfa 18 GM Inh (Albuterol Sulfate) 90 Mcg/Act Aer 2 Puff INH Q6H PRN Albuterol Neb (Albuterol Sulfate) 2.5 Mg/3 Ml Neb 2.5 Mg NEB TID NEB PRN Reported Lortab (Hydrocodone-Acetaminophen) 10-325 Mg Tab 1 Tab PO Q4H PRN Review of Systems Except as stated in HPI: all other systems reviewed are Neg General / Constitutional: No: Fever Eyes: No: Visual changes HENT: No: Headaches Cardiovascular: No: Chest Pain or Discomfort Respiratory: No: Shortness of Breath Gastrointestinal: No: Abdominal Pain Genitourinary: No: Dysuria Musculoskeletal: Positive: Myalgias, Pain (see history present illness.) Skin: No Rash Neurologic: No: Weakness Psychiatric: No: Depression Endocrine: No: Polydipsia Hematologic/Lymphatic: No: Easy Bruising Physical Exam Narrative GENERAL: Patient appears in moderate distress. SKIN: Warm and dry. Normal color. Normal turgor. No wounds or rash HEAD: Atraumatic. Normocephalic. EYES: Pupils equal and round. No scleral icterus. No injection or drainage. ENT: No nasal bleeding or discharge. Mucous membranes pink and moist. Pharynx is clear. Airway is patent. NECK: Trachea midline. Supple nontender. CARDIOVASCULAR: Tachycardic rate and normal rhythm. No murmurs gallops or rubs appreciated. RESPIRATORY: No accessory muscle use. Clear to auscultation. Breath sounds equal bilaterally. GASTROINTESTINAL: Abdomen soft, non-tender, nondistended. Hepatic and splenic margins not palpable. MUSCULOSKELETAL: Extremities without clubbing, cyanosis, or edema. No obvious deformities. Patient has pain with palpation of both the upper and lower extremities in the soft tissues. There is otherwise no significant findings. NEUROLOGICAL: Awake and alert. No obvious cranial nerve deficits. Motor grossly within normal limits. Five out of 5 muscle strength in the arms and legs. Normal speech. PSYCHIATRIC: Appropriate mood and affect; insight and judgment normal. Data Data Last Documented VS Vital Signs Date Time Temp Pulse Resp B/P (MAP) Pulse Ox O2 Delivery O2 Flow Rate FiO2 12/31/16 21:59 Nasal Cannula 2.00 12/31/16 20:04 83 20 115/52 (73) 99 12/31/16 18:47 98.4 Orders Orders Complete Blood Count With Diff (12/31/16 19:19) Comprehensive Metabolic Panel (12/31/16 19:19) Retic Count (12/31/16 19:19) Ecg Monitoring (12/31/16 19:19) Iv Access Insert/Monitor (12/31/16 19:19) Oximetry (12/31/16 19:19) Ketorolac Inj (Toradol Inj) (12/31/16 19:30) Sodium Chloride 0.9% Flush (Ns Flush) (12/31/16 19:30) Sodium Chlor 0.9% 1000 Ml Inj (Ns 1000 M (12/31/16 19:19) Hydromorphone Pf Inj (Dilaudid Pf Inj) (12/31/16 19:30) Hydromorphone Pf Inj (Dilaudid Pf Inj) (12/31/16 19:45) Urinalysis - C+S If Indicated (12/31/16 20:29) Chest, Single Ap (12/31/16 20:29) Sodium Chlor 0.9% 1000 Ml Inj (Ns 1000 M (12/31/16 20:30) Electrocardiogram (12/31/16 19:20) Hydromorphone Pf Inj (Dilaudid Pf Inj) (12/31/16 21:45) Admit Order (Ed Use Only) (12/31/16 22:11) Labs Laboratory Tests Test 12/31/16 19:30 12/31/16 20:50 White Blood Count 19.7 TH/MM3 Red Blood Count 2.84 MIL/MM3 Hemoglobin 9.1 GM/DL Hematocrit 25.7 % Mean Corpuscular Volume 90.7 FL Mean Corpuscular Hemoglobin 32.2 PG Mean Corpuscular Hemoglobin Concent 35.5 % Red Cell Distribution Width 22.1 % Platelet Count 447 TH/MM3 Mean Platelet Volume 6.9 FL Neutrophils (%) (Auto) 86.6 % Lymphocytes (%) (Auto) 6.5 % Monocytes (%) (Auto) 5.9 % Eosinophils (%) (Auto) 0.1 % Basophils (%) (Auto) 0.9 % Neutrophils # (Auto) 17.1 TH/MM3 Lymphocytes # (Auto) 1.3 TH/MM3 Monocytes # (Auto) 1.2 TH/MM3 Eosinophils # (Auto) 0.0 TH/MM3 Basophils # (Auto) 0.2 TH/MM3 CBC Comment AUTO DIFF Differential Total Cells Counted 100 Neutrophils % (Manual) 81 % Lymphocytes % 9 % Monocytes % 10 % Neutrophils # (Manual) 16.0 TH/MM3 Nucleated Red Blood Cells 4 /100 WBC Differential Comment FINAL DIFF MANUAL Platelet Estimate HIGH Platelet Morphology Comment NORMAL Sickle Cells 1+ Target Cells 1+ Ovalocytes 1+ Bee-[place] Bodies PRESENT Reticulocyte Count 6.8 % Absolute Reticulocyte Count 193.6 MIL/L Blood Urea Nitrogen 10 MG/DL Creatinine 0.79 MG/DL Random Glucose 106 MG/DL Total Protein 7.4 GM/DL Albumin 4.3 GM/DL Calcium Level 9.0 MG/DL Alkaline Phosphatase 151 U/L Aspartate Amino Transf (AST/SGOT) 61 U/L Alanine Aminotransferase (ALT/SGPT) 47 U/L Total Bilirubin 4.8 MG/DL Sodium Level 138 MEQ/L Potassium Level 4.3 MEQ/L Chloride Level 106 MEQ/L Carbon Dioxide Level 25.1 MEQ/L Anion Gap 7 MEQ/L Estimat Glomerular Filtration Rate 147 ML/MIN Urine Color YELLOW Urine Turbidity CLEAR Urine pH 6.0 Urine Specific [place] 1.011 Urine Protein TRACE mg/dL Urine Glucose (UA) NEG mg/dL Urine Ketones NEG mg/dL Urine Occult Blood NEG Urine Nitrite NEG Urine Bilirubin NEG Urine Urobilinogen LESS THAN 2.0 MG/DL Urine Leukocyte Esterase TRACE Urine RBC LESS THAN 1 /hpf Urine WBC 1 /hpf Microscopic Urinalysis Comment CULT NOT INDICATED MDM Medical Decision Making Medical Screen Exam Complete: Yes Emergency Medical Condition: Yes Medical Record Reviewed: Yes Differential Diagnosis Upper and lower extremity pain. Sickle cell crisis. History of sickle cell anemia. Narrative Course Patient is in pain and felt to be medically stable at time of exam. Labs ordered including CBC, CMP, and reticulocyte count. IV access is obtained patient is given 30 mg Toradol IV as well as 1 mg hydromorphone IV. Patient is given a 1000 mL normal saline bolus. CBC shows leukocytosis of 19.7. Hemoglobin is 9.1. His good for this patient. Hematocrit is 25.7. Platelet count is 22.1, Absolute reticulocyte count is 193.6. CMP unremarkable except for an elevated bilirubin of 4.8, AST is 61, ALT is 47, alkaline phosphatase is 151 Chest x-ray is unremarkable. Urinalysis is unremarkable. Patient is given a second and third dose of hydromorphone during his stay. Patient discussed with Dr. Davis who feels he should be admitted for observation at least overnight to ensure improvement. Patient is discussed with the residents as the patient has a family practice patient. They agreed to admit to observation. Diagnosis Primary Impression: Sickle cell pain crisis Admitting Information Admitting Physician Requests: Observation Condition: Stable Juan J Leos Dec 31, 2016 19:24
[2016-12-31 19:30] VITALS: O2SAT 100
[2016-12-31] MEDS ORDERED: KETOROLAC TROMETHAMINE 30 MG/ML (IVP) VIAL IVP ONE (19:30)
[2016-12-31] MEDS ORDERED: SODIUM CHLORIDE 0.9% FLUSH 10 ML FLUSH IVF PRN (19:30)
[2016-12-31] MEDS ORDERED: HYDROmorphone HCL PF 1 MG/ML VIAL IVS ONE (19:30)
[2016-12-31] MEDS ORDERED: HYDROmorphone HCL PF 1 MG/ML VIAL IV PUSH ONE ×2 (19:45→21:45)
[2016-12-31 19:55] LABS: AUTOMATED NEUTROPHIL # 17.1 TH/MM3 (1.8-7.7); BASOPHIL # 0.2 TH/MM3 (0-0.2); BASOPHIL % 0.9 % (0.0-2.0); EOSINOPHIL % 0.1 % (0.0-4.0); HEMATOCRIT 25.7 % (39.0-51.0); LYMPH % 6.5 % (9.0-44.0); LYMPHOCYTE # 1.3 TH/MM3 (1.0-4.8); MEAN CELL VOLUME 90.7 FL (80.0-100.0); MEAN CORPUSCULAR HEMOGLOBIN 32.2 PG (27.0-34.0); MEAN CORPUSCULAR HGB CONC 35.5 % (32.0-36.0); MONO % 5.9 % (0.0-8.0); NEUT % 86.6 % (16.0-70.0); PLATELET COUNT 447 TH/MM3 (150-450); RED BLOOD COUNT 2.84 MIL/MM3 (4.50-5.90); RED CELL DISTRIBUTION WIDTH 22.1 % (11.6-17.2); RETIC % 6.8 % (0.4-3.0); WHITE BLOOD COUNT 19.7 TH/MM3 (4.0-11.0)
[2016-12-31 20:03] VITALS: BP 115/52; PULSE 80; O2SAT 99
[2016-12-31 20:04] VITALS: BP 115/52; PULSE 83; RESP 20; O2SAT 99
[2016-12-31 20:08] LABS: ALT (GPT) 47 U/L (12-78)
[2016-12-31 20:09] LABS: HEMO FLAGS AUTO DIFF; REVIEW FLAG AUTO DIFF
[2016-12-31 20:10] LABS: ANION GAP 7 MEQ/L (5-15); AST (GOT) 61 U/L (15-37); BICARBONATE 25.1 MEQ/L (21.0-32.0); BLOOD UREA NITROGEN 10 MG/DL (7-18); CHLORIDE 106 MEQ/L (98-107); GLOMERULAR FILTRATION RATE 147 ML/MIN (>89); POTASSIUM 4.3 MEQ/L (3.5-5.1); SODIUM (NA) 138 MEQ/L (136-145)
[2016-12-31 20:11] LABS: ALKALINE PHOSPHATASE 151 U/L (45-117); TOTAL BILIRUBIN ADULT 4.8 MG/DL (0.2-1.0)
[2016-12-31 20:49] LABS: CORRECTED NUCLEATED RBC 4 /100 WBC (0-0); POLYS (SEG NEUTROPHILS) 81 % (16-70); WBC DIFF SAMPLE 100
[2016-12-31 20:50] LABS: OVALOCYTES 1+ (NORMAL); SICKLE CELLS 1+ (NORMAL); TARGET CELLS 1+ (NORMAL)
[2016-12-31 20:51] LABS: HOWELL-JOLLY BODIES PRESENT (NONE SEEN); PLATELET ESTIMATE SMEAR HIGH (NORMAL); PLATELET MORPHOLOGY NORMAL (NORMAL); SCAN/DIFF FINAL DIFF MANUAL
--- NOTE | 2016-12-31 20:51 | RADRPT ---
EXAM DATE/TIME: 12/31/2016 20:43 [facility] COMPARISON: CHEST SINGLE AP, October 10, 2016, 18:28. INDICATIONS : Shortness of breath. MEDICAL HISTORY : Sickle Cell disease. Asthma. TIA. SURGICAL HISTORY : None. ENCOUNTER: Initial ACUITY: 1 day PAIN SCORE: 0/10 LOCATION: Bilateral chest FINDINGS: A single view of the chest demonstrates the lungs to be symmetrically aerated without evidence of mas s, infiltrate or effusion. The cardiomediastinal contours are unremarkable. Osseous structures are intact. CONCLUSION: No acute disease. Kristian Starr MD on December 31, 2016 at 20:49 Board Certified Radiologist. This report was verified electronically.
[2016-12-31 20:59] LABS: BLOOD, URINE NEG (NEG); GLUCOSE,URINE NEG (NEG); KETONE, URINE NEG (NEG); NITRITE,URINE NEG (NEG); URINE COLOR YELLOW (YELLW/STRAW)
[2016-12-31 21:09] LABS: COMMENT (UR) CULT NOT INDICATED; CULTURE IF INDICATED CULT NOT INDICATED
[2016-12-31] MEDS ORDERED: SODIUM CHLORIDE 0.9% FLUSH 10 ML FLUSH IV FLUSH PRN (22:15)
[2016-12-31] MEDS ORDERED: KETOROLAC TROMETHAMINE 30 MG/ML (IVP) VIAL IV PUSH PRN (22:30)
[2016-12-31] MEDS ORDERED: HYDROmorphone HCL PF 1 MG/ML VIAL IV PUSH PRN ×2 (22:30)
[2016-12-31] MEDS ORDERED: diphenhydrAMINE HCL 50 MG/ML VIAL IV PUSH ONE (23:00)
--- NOTE | 2016-12-31 23:05 | HHI.HP ---
[facility] Service Family Medicine Primary Care Physician Anoop Rodriguez MD Admission Diagnosis Sickle Cell Crisis/Intractable pain Diagnoses: International Travel<30 Days: No Contact w/Intl Traveler<30days: No Known Affected Area: No History of Present Illness Patient is a 21-year-old male with history of sickle cell disease who presents with severe "hammer-like" left knee pain 1 day. Patient states that his left knee started aching around 12 PM on Sunday. Patient reports gradual worsening of the knee pain over the next few hours. He also has pain in his back and upper extremities. He denies chest pain, shortness of breath, and abdominal pain. He has not had fevers. Patient denies trauma. Patient denies fever or chills. Of note, patient saw milk deliverer on , who was satisfied with how he was doing. Review of Systems Constitutional: COMPLAINS OF: Dizziness, DENIES: Fever, Chills Eyes: DENIES: Blurred vision, Vision loss Ears, nose, mouth, throat: DENIES: Nasal discharge, Running Nose Respiratory: DENIES: Cough, Shortness of breath Cardiovascular: DENIES: Chest pain, Syncope Gastrointestinal: DENIES: Abdominal pain, Nausea, Vomiting Genitourinary: DENIES: Urinary frequency, Dysuria Musculoskeletal: COMPLAINS OF: Joint pain, Muscle aches Integumentary: DENIES: Pruritus, Rash Neurologic: COMPLAINS OF: Headache Psychiatric: DENIES: Confusion Past Family Social History Past Medical History Sickle cell disease Asthma Past Surgical History Splenectomy Cholecystectomy Tonsillectomy Bone removed in right foot Left chest port insertion and removal Reported Medications Reported Meds & Active Scripts Active Hydrea (Hydroxyurea) 500 Mg Cap 1,500 Mg PO DAILY Flexeril (Cyclobenzaprine HCl) 10 Mg Tab 10 Mg PO TID Artificial Tears Opth Drops (Propylene Glycol-Glycerin Opth Drops) 1-0.3% Drops 1-2 Drop EACH EYE PRN PRN Ativan (Lorazepam) 1 Mg Tab 1 Mg PO DAILY PRN Lidocaine Patch 12 HR (Lidocaine) 5 % Patch 1 Patch TOPICAL DAILY Remove patch after 12 hours Advair Diskus Inh (Fluticasone-Salmeterol Inh) 250-50 Mcg/Blist Aer 1 Puff INH BID Rinse mouth after use. Ventolin Hfa 18 GM Inh (Albuterol Sulfate) 90 Mcg/Act Aer 2 Puff INH Q6H PRN Albuterol Neb (Albuterol Sulfate) 2.5 Mg/3 Ml Neb 2.5 Mg NEB TID NEB PRN Reported Lortab (Hydrocodone-Acetaminophen) 10-325 Mg Tab 1 Tab PO Q4H PRN Allergies: Coded Allergies: No Known Allergies (Verified , 12/31/16) Active Ordered Medications Active Medications Cyclobenzaprine HCl (Flexeril) 10 mg TID PO; Start 01/01/17 at 09:00 Diphenhydramine HCl (Benadryl Inj) 25 mg ONCE ONCE IV PUSH Last administered on 12/31/16 23:14; Admin Dose 25 MG; Start 12/31/16 at 23:00; Stop 12/31/16 at 23: 01; Status DC Diphenhydramine HCl (Benadryl) 50 mg Q6H PRN PO; Start 12/31/16 at 23:15 Enoxaparin Sodium (Lovenox Inj) 40 mg Q24H SQ Last administered on 01/01/17 01: 01; Admin Dose 40 MG; Start 01/01/17 at 01:00 Folic Acid (Folate) 1 mg DAILY PO; Start 01/01/17 at 09:00 Hydromorphone HCl (Dilaudid Pf Inj) 1 mg ONCE ONCE IV PUSH Last administered on 12/31/16 19:56; Admin Dose 1 MG; Start 12/31/16 at 19:45; Stop 12/31/16 at 19: 46; Status DC Hydromorphone HCl (Dilaudid Pf Inj) 1 mg ONCE ONCE IV PUSH Last administered on 12/31/16 21:57; Admin Dose 1 MG; Start 12/31/16 at 21:45; Stop 12/31/16 at 21: 46; Status DC Hydromorphone HCl (Dilaudid Pf Inj) 1 mg ONCE ONCE IVS Last administered on 12/31 19:30; Admin Dose 1 MG; Start 12/31/16 at 19:30; Stop 12/31/16 at 19:31; Status DC Hydromorphone HCl (Dilaudid Pf Inj) 1 mg Q2HR PRN IV PUSH Last administered on 01/01/17 00:30; Admin Dose 1 MG; Start 01/01/17 at 00:14 Hydromorphone HCl (Dilaudid Pf Inj) 1 mg Q3HR PRN IV PUSH; Start 12/31/16 at 22: 30; Stop 01/01/17 at 00:18; Status DC Hydromorphone HCl (Dilaudid Pf Inj) 1 mg Q4H PRN IV PUSH; Start 12/31/16 at 22: 30; Stop 01/01/17 at 00:18; Status DC Hydromorphone HCl (Dilaudid Pf Inj) 2 mg Q4H PRN IV PUSH Last administered on 03:01; Admin Dose 2 MG; Start 01/01/17 at 02:30 Hydroxyurea (Hydrea) 1,500 mg DAILY PO; Start 01/01/17 at 09:00 Influenza Virus Vaccine (Flu (Quadrivalent) Vaccine Inj) 0.5 ml ONCE ONCE IM; Start 01/02/17 at 10:00; Stop 01/02/17 at 10:01 Ketorolac Tromethamine (Toradol Inj) 30 mg ONCE ONCE IVP Last administered on 19:29; Admin Dose 30 MG; Start 12/31/16 at 19:30; Stop 12/31/16 at 19:31; Status DC Ketorolac Tromethamine (Toradol Inj) 30 mg Q6H PRN IV PUSH; Start 12/31/16 at 22 :30; Stop 01/05/17 at 22:29 Lorazepam (Ativan) 1 mg DAILY PRN PO; Start 01/01/17 at 00:30 Sodium Chloride 1,000 ml @ 150 mls/hr Q6H40M IV Last administered on 12/31/16 23:14; Admin Dose 150 MLS/HR; Start 12/31/16 at 22:15 Sodium Chloride 1,000 ml @ 999 mls/hr BOLUS ONCE IV Last administered on 20:35; Admin Dose 999 MLS/HR; Start 12/31/16 at 20:30; Stop 12/31/16 at 21:30 ; Status DC Sodium Chloride 1,000 ml @ 1,000 mls/hr Q1H ONCE IV Last administered on 19:30; Admin Dose 1,000 MLS/HR; Start 12/31/16 at 19:19; Stop 12/31/16 at 20: 18; Status DC Sodium Chloride (NS Flush) 2 ml BID IV FLUSH; Start 01/01/17 at 09:00 Sodium Chloride (NS Flush) 2 ml UNSCH PRN IV FLUSH; Start 12/31/16 at 22:15 Sodium Chloride (NS Flush) 2 ml UNSCH PRN IVF; Start 12/31/16 at 19:30; Stop 12/31/16 at 22:23; Status DC Family History Mom - Asthma, sickle cell trait Dad - Sickle cell trait Siblings - two older sisters have sickle cell trait Social History Prefers being addressed as "AJ". Lives with mother. Alcohol: Denies Tobacco: Denies Illicit drugs: Marijuana History of chlamydia infection. Physical Exam Vital Signs Vital Signs Date Time Temp Pulse Resp B/P (MAP) Pulse Ox O2 Delivery O2 Flow Rate FiO2 12/31/16 21:59 Nasal Cannula 2.00 12/31/16 20:04 83 20 115/52 (73) 99 Nasal Cannula 2.00 12/31/16 20:03 80 115/52 (73) 99 Nasal Cannula 12/31/16 19:30 100 Nasal Cannula 2.00 12/31/16 18:47 98.4 97 16 109/59 (76) 99 Physical Exam GENERAL: This is a well-nourished, well-developed patient, in apparent distress. SKIN: No rashes, ecchymoses or lesions. Cool and dry. HEAD: Atraumatic. Normocephalic. No temporal or scalp tenderness. EYES: Pupils equal round and reactive. Extraocular motions intact. No scleral icterus. No injection or drainage. ENT: Nose without bleeding, purulent drainage or septal hematoma. Throat without erythema, tonsillar hypertrophy or exudate. Uvula midline. Airway patent. NECK: Trachea midline. No JVD or lymphadenopathy. Supple, nontender, no meningeal signs. CARDIOVASCULAR: Regular rate and rhythm without murmurs, gallops, or rubs. RESPIRATORY: Clear to auscultation. Breath sounds equal bilaterally. No wheezes , rales, or rhonchi. GASTROINTESTINAL: Abdomen soft, non-tender, nondistended. No hepato-splenomegaly , or palpable masses. No guarding. MUSCULOSKELETAL: Extremities without clubbing, cyanosis, or edema. Right knee tenderness upon palpation. Minimal right knee edema. No calf tenderness. NEUROLOGICAL: Awake and alert. Cranial nerves II through XII intact. Motor grossly within normal limits. Five out of 5 muscle strength in all muscle groups. Normal speech. Laboratory Laboratory Tests Test 12/31/16 19:30 12/31/16 20:50 White Blood Count 19.7 Red Blood Count 2.84 Hemoglobin 9.1 Hematocrit 25.7 Mean Corpuscular Volume 90.7 Mean Corpuscular Hemoglobin 32.2 Mean Corpuscular Hemoglobin Concent 35.5 Red Cell Distribution Width 22.1 Platelet Count 447 Mean Platelet Volume 6.9 Neutrophils (%) (Auto) 86.6 Lymphocytes (%) (Auto) 6.5 Monocytes (%) (Auto) 5.9 Eosinophils (%) (Auto) 0.1 Basophils (%) (Auto) 0.9 Neutrophils # (Auto) 17.1 Lymphocytes # (Auto) 1.3 Monocytes # (Auto) 1.2 Eosinophils # (Auto) 0.0 Basophils # (Auto) 0.2 CBC Comment AUTO DIFF Differential Total Cells Counted 100 Neutrophils % (Manual) 81 Lymphocytes % 9 Monocytes % 10 Neutrophils # (Manual) 16.0 Nucleated Red Blood Cells 4 Differential Comment FINAL DIFF MANUAL Platelet Estimate HIGH Platelet Morphology Comment NORMAL Sickle Cells 1+ Target Cells 1+ Ovalocytes 1+ Bee-[place] Bodies PRESENT Reticulocyte Count 6.8 Absolute Reticulocyte Count 193.6 Blood Urea Nitrogen 10 Creatinine 0.79 Random Glucose 106 Total Protein 7.4 Albumin 4.3 Calcium Level 9.0 Alkaline Phosphatase 151 Aspartate Amino Transf (AST/SGOT) 61 Alanine Aminotransferase (ALT/SGPT) 47 Total Bilirubin 4.8 Sodium Level 138 Potassium Level 4.3 Chloride Level 106 Carbon Dioxide Level 25.1 Anion Gap 7 Estimat Glomerular Filtration Rate 147 Urine Color YELLOW Urine Turbidity CLEAR Urine pH 6.0 Urine Specific [place] 1.011 Urine Protein TRACE Urine Glucose (UA) NEG Urine Ketones NEG Urine Occult Blood NEG Urine Nitrite NEG Urine Bilirubin NEG Urine Urobilinogen LESS THAN 2.0 Urine Leukocyte Esterase TRACE Urine RBC LESS THAN 1 Urine WBC 1 Microscopic Urinalysis Comment CULT NOT INDICATED Result Diagram: 12/31/16192912/31/161929 Imaging Last Impressions Chest X-Ray 12/31/162028 Signed Impressions: Service Date/Time: Saturday, December 31, 2016 20:43 - CONCLUSION: No acute disease. Kristian Starr MD Septic Shock Reassessment Heart: Regular rate and rhythm Lungs: Clear Skin: Warm Caprini VTE Risk Assessment Caprini VTE Risk Assessment: Mod/High Risk (score >= 2) Caprini Risk Assessment Model Point Value = 1 Point Value = 2 Point Value = 3 Point Value = 5 Age 41-60 Minor surgery BMI > 25 kg/m2 Swollen legs Varicose veins or History of unexplained or recurrent spontaneous Oral contraceptives or hormone replacement Sepsis (< 1 month) Serious lung disease, including pneumonia (< 1 month) Abnormal pulmonary function Acute myocardial infarction Congestive heart failure (< 1 month) History of inflammatory bowel disease Medical patient at bed rest Age 61-74 Arthroscopic surgery Major open surgery (> 45 min) Laparoscopic surgery (> 45 min) Malignancy Confined to bed (> 72 hours) Immobilizing plaster cast Central venous access Age >= 75 History of VTE Family history of VTE Factor V Leiden Prothrombin [id number] Lupus anticoagulant Anticardiolipin antibodies Elevated serum homocysteine Heparin-induced thrombocytopenia Other congenital or acquired thrombophilia Stroke (< 1 month) Elective arthroplasty Hip, pelvis, or leg fracture Acute spinal cord injury (< 1 month) Prophylaxis Regimen Total Risk Factor Score Risk Level Prophylaxis Regimen 0-1 Low Early ambulation 2 Moderate Order ONE of the following: *Sequential Compression Device (SCD) *Heparin 5000 units SQ BID 3-4 Higher Order ONE of the following medications: *Heparin 5000 units SQ TID *Enoxaparin/Lovenox 40 mg SQ daily (WT < 150 kg, CrCl > 30 mL/min) *Enoxaparin/Lovenox 30 mg SQ daily (WT < 150 kg, CrCl > 10-29 mL/min) *Enoxaparin/Lovenox 30 mg SQ BID (WT < 150 kg, CrCl > 30 mL/min) AND/OR *Sequential Compression Device (SCD) 5 or more Highest Order ONE of the following medications: *Heparin 5000 units SQ TID (Preferred with Epidurals) *Enoxaparin/Lovenox 40 mg SQ daily (WT < 150 kg, CrCl > 30 mL/min) *Enoxaparin/Lovenox 30 mg SQ daily (WT < 150 kg, CrCl > 10-29 mL/min) *Enoxaparin/Lovenox 30 mg SQ BID (WT < 150 kg, CrCl > 30 mL/min) AND *Sequential Compression Device (SCD) Assessment and Plan Assessment and Plan Patient is a 21-year-old male with history of sickle cell disease who presents with severe left knee pain 1 day. The pain has gradually increased in severity over past few hours. Patient meets inpatient criteria for sickle cell crisis. Code Status Full code. Discussed Condition With Dr. Sotelo Problem List: (1) Sickle cell anemia with pain ICD Codes: D57.00 - Hb-SS disease with crisis, unspecified Status: Acute Plan: Afebrile. Pain in right knee. Hgb 9.1. Reticulocyte count elevated. Total bili 4.8. Chest x-ray negative. * Admit to inpatient. * Consult hematology. * In ED, received fluid bolus x1. * IV maintenance fluid. * Continue hydroxyurea. Start folic acid. * Pain control: Toradol 30 mg q6hr, Dilaudid 2 mg every 4 hours PRN for pain 1- 10, Dilaudid 1 mg every 2 hours PRN for breakthrough pain. * Monitor closely for acute chest syndrome. (2) Asthma, chronic ICD Codes: J45.909 - Asthma, chronic Status: Chronic Plan: * Continue home medications. (3) Fluid, electrolytes, nutrition and prophylaxis Plan: Fluids: * In ED, received fluid bolus x1. * IV maintenance fluid. Electrolytes: * Monitor and replete as necessary. Nutrition: * Regular diet. DVT Prophylaxis: * Lovenox 40 mg Q24H SQ. Karyna Rivero MD R2 Dec 31, 2016 23:05
[2016-12-31] MEDS: SODIUM CHLOR 0.9% 1000 ML INJ 1,000 ML IV SCH (23:14)
[2016-12-31] MEDS ORDERED: diphenhydrAMINE HCL 50 MG CAP PO PRN (23:15)
[2016-12-31 23:59] VITALS: BP 140/56; PULSE 97; RESP 18; TEMP 98.9; O2SAT 97
[2017-01-01] VITALS (8 sets, daily range): BP systolic 123–136; BP diastolic 56–68; PULSE 63–91; RESP 18–22; TEMP 96.8–98.4; O2SAT 92–98
[2017-01-01] MEDS: HYDROmorphone HCL PF 1 MG/ML VIAL IV PUSH PRN ×12 (00:30→22:13)
[2017-01-01] MEDS ORDERED: LORazepam 1 MG TAB PO PRN (00:30)
[2017-01-01] MEDS: ENOXAPARIN SODIUM 40 MG/0.4 ML SYRINGE SQ SCH ×2 (01:01→22:13)
[2017-01-01] MEDS ORDERED: ALBUTEROL SULFATE 90 MCG/ACT HFA 8 GM INHALER INH PRN (03:30)
[2017-01-01] MEDS ORDERED: RESP: ALBUTEROL 2.5 MG/3 ML NEB (PRN) NEB (03:30)
[2017-01-01] MEDS: KETOROLAC TROMETHAMINE 30 MG/ML (IVP) VIAL IV PUSH SCH ×4 (03:49→22:12)
[2017-01-01] MEDS: SODIUM CHLOR 0.9% 1000 ML INJ 1,000 ML IV SCH (05:43)
[2017-01-01] MEDS: FOLIC ACID 1 MG TAB PO SCH (07:42)
[2017-01-01] MEDS: CYCLOBENZAPRINE HCL 10 MG TAB PO SCH ×3 (07:44→17:17)
[2017-01-01] MEDS: HYDROXYUREA 500 MG CAP PO SCH (07:44)
[2017-01-01] MEDS: SODIUM CHLORIDE 0.9% FLUSH 10 ML FLUSH IV FLUSH SCH ×2 (07:44→21:00)
[2017-01-01] MEDS: BUDESONIDE-FORMOTEROL 160/4.5 MCG INHALER INH SCH ×2 (09:00→21:00)
--- NOTE | 2017-01-01 10:23 | HHI.FPPN ---
Subjective Remarks Patient with continued severe pain in his left knee this morning. He notes itching and nausea from the pain medication. He denies any chest pain, shortness of breath, fever, or chills. (Bouchra Alaniz MD, R3) Objective Vitals Vital Signs Date Time Temp Pulse Resp B/P (MAP) Pulse Ox O2 Delivery O2 Flow Rate FiO2 01/01/17 08:00 97.2 88 22 136/68 (90) 93 01/01/17 06:48 98.4 67 18 128/68 (88) 97 01/01/17 03:53 98.1 78 18 135/65 (88) 98 01/01/17 03:44 19 01/01/17 01:02 17 12/31/16 23:59 98.9 97 18 140/56 (84) 97 12/31/16 21:59 Nasal Cannula 2.00 12/31/16 20:04 83 20 115/52 (73) 99 Nasal Cannula 2.00 12/31/16 20:03 80 115/52 (73) 99 Nasal Cannula 12/31/16 19:30 100 Nasal Cannula 2.00 12/31/16 18:47 98.4 97 16 109/59 (76) 99 I/O 12/31/16 12/31/16 12/31/16 01/01/17 01/01/17 01/01/17 07:00 15:00 23:00 07:00 15:00 23:00 Intake Total 2000 ml 1198 ml Output Total 700 ml Balance 2000 ml 498 ml Intake Oral 480 ml IV Total 2000 ml 718 ml Output Urine Total 700 ml (Bouchra Alaniz MD, R3) Result Diagram: 12/31/16192912/31/161929 Imaging Last Impressions Chest X-Ray 12/31/162028 Signed Impressions: Service Date/Time: Saturday, December 31, 2016 20:43 - CONCLUSION: No acute disease. Kristian Starr MD Objective Remarks GENERAL: Well-nourished, well-developed male patient who appears in pain. SKIN: Warm and dry. No rashes or lesions present. EYES: No scleral icterus. No conjunctival injection or drainage. Pupils equal, round, reactive to light and accommodation. Extraocular movements intact. THROAT: Moist mucous membranes. NECK: Supple, trachea midline. CARDIOVASCULAR: Regular rate and rhythm with 2/6 KEREN, no gallops or rubs. Strong radial and pedal pulses. CHEST: Symmetric chest expansion with respiration. RESPIRATORY: Breath sounds clear to auscultation bilaterally. No accessory muscle use. No wheezes, rhonchi or rales. GASTROINTESTINAL: Abdomen soft, non-tender, nondistended. No masses or hernias. No hepatosplenomegaly. Bowel sounds present. MUSCULOSKELETAL: No cyanosis or edema. No nail changes. NEURO: Cranial nerves II through XII grossly intact. Good muscle tone. PSYCH: Normal mood and affect. Good eye contact. Good insight and judgment. Normal speech. (Bouchra Alaniz MD, R3) A/P Assessment and Plan Patient is a 21-year-old male with history of sickle cell disease who presented with severe left knee pain and was admitted for sickle cell crisis. Discharge Planning Pending improvement in pain in the next 1-2 days. (Bouchra Alaniz MD, R3) Attending Attestation Patient seen and examined. Case reviewed and discussed with the resident team. Agree with plan of care as discussed with me and documented in the resident note. he is doing well today compared to admission with his pain. he requested a heating pad and gatorade. he vomited earlier today but has done well with zofran and is drinking fluids well. (Eula Guo MD) Problem List: (1) Sickle cell anemia with pain ICD Codes: D57.00 - Hb-SS disease with crisis, unspecified Status: Acute Plan: Severe left knee pain. CXR wnl 01/01 BCx x 2 pending Plan: - Consult hematology. - IV maintenance fluid. - Continue hydroxyurea. Start folic acid. - Pain control: Toradol 30 mg q6hr, Dilaudid 2 mg every 4 hours PRN for pain 1- 10, Dilaudid 1 mg every 2 hours PRN for breakthrough pain. - Benadryl PRN itching, Zofran PRN nausea - Monitor closely for acute chest syndrome. (2) Asthma, chronic ICD Codes: J45.909 - Asthma, chronic Status: Chronic Plan: Continue home albuterol and Symbicort (3) Fluid, electrolytes, nutrition and prophylaxis Plan: Fluids: Maintenance fluids, NS @ 110ml/hr Electrolytes: wnl, monitor and replete as necessary. Nutrition: Regular diet. DVT Prophylaxis: Lovenox 40 mg Q24H SQ. dw Dr. Guo (Bouchra Alaniz MD, R3) Problem Qualifiers (1) Asthma, chronic: Bouchra Alaniz MD, R3 Jan 01, 2017 10:23 Eula Guo MD Jan 01, 2017 18:20
[2017-01-01] MEDS ORDERED: PROMETHAZINE INJ 25 MG/ML VIAL IM PRN (11:00)
[2017-01-01] MEDS: ONDANSETRON HCL 4 MG/2 ML VIAL IV PRN ×3 (11:17→22:12)
[2017-01-01] MEDS: SODIUM CHLOR 0.45% 1000 ML INJ 1,000 ML IV SCH ×2 (11:17→18:27)
[2017-01-01] MEDS: diphenhydrAMINE HCL 25 MG CAP PO PRN ×3 (11:20→21:07)
--- NOTE | 2017-01-01 11:29 | MB ---
cc: SUZAN GARCIA MD DATE OF CONSULTATION: 01/01/2017 DATE OF : 1995 CONSULTING PHYSICIAN Hospitalist service. REASON FOR CONSULTATION Sickle-cell pain crisis. CHIEF COMPLAINT The patient reports severe pain in his left knee. He also reports feeling dizzy and feverish. HISTORY OF PRESENT ILLNESS Mr. Breaux is a 21-year-old man who is known to me from my outpatient practice. He has a diagnosis of hemoglobin sickle-cell disease and has been on disease modifying therapy with hydroxyurea at a dose of 2000 mg once daily. He tells me he has been adherent to this dosing schedule and that it had been helping manage his pain as of late. The patient in addition to hydroxyurea is on oral iron chelator; previously with Exjade and now with an alternative agent. The patient was last seen by me about 4 days ago and at that time was doing well. 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 He tried to rest and hydrate but tried to work through his shift. However, the pain worsened and he had to come into the emergency department later last night. In the emergency department he did not respond to IV pain medications and was subsequently admitted to the hospital. The patient tells me the pain seems to be somewhat better with the pain medications he has been getting but he tells me the pain medication has been causing nausea and seems only to take "the edge off" but does not completely take care of the pain. He denies chest pain, difficulty breathing or priapism. PAST MEDICAL HISTORY 1. Hemoglobin sickle-cell disease. 2. History of acute chest syndrome. 3. AV fistula in the right groin. 4. Priapism. 5. Ischemic stroke at the age of 4. PAST SURGICAL HISTORY 1. Cholecystectomy. 2. Splenectomy. 3. Tonsillectomy. ALLERGIES NO KNOWN DRUG ALLERGIES. FAMILY HISTORY Parents both with sickle cell trait. MEDICATIONS Current inpatient medications: 1. Normal saline 100 cc/hour. 2. Albuterol HFA inhaler two puffs every 6 hours. 3. Symbicort 2 puffs b.i.d. 4. Flexeril 10 mg p.o. t.i.d. 5. Diphenhydramine 25 mg p.o. q. 4 hours as needed for itching. 6. Lovenox 40 mg subcu once daily. 7. Folic acid 1 mg once daily. 8. Dilaudid 1 mg IV every 2 hours as needed for breakthrough pain. 9. Dilaudid 2 mg every 4 hours as needed for severe pain. 10. Hydroxyurea 1500 mg once a day. 11. Ketorolac 30 mg every 6 hours as needed. REVIEW OF SYSTEMS 13-point review of systems was obtained, the following are the pertinent positives: CONSTITUTIONAL: He denies fevers, chills, reports hot flashes, reports good appetite. Denies weight loss. HEENT: Denies headaches, blurry vision, difficulty swallowing or soreness in the throat. RESPIRATORY: Denies shortness of breath, cough, pleuritic chest pain, hemoptysis. CARDIOVASCULAR: Denies angina-like chest pain, PND, orthopnea, lower extremity swelling. GI: Denies diarrhea, hematochezia or melena. He does report having had some nausea and vomiting with pain medications. : No complaints. BLOCK CABLEMAN: No focal sensory motor deficits. MUSCULOSKELETAL: Severe pain in the left knee. No other complaints. PHYSICAL EXAMINATION VITAL SIGNS: Temperature 97.2 degrees Fahrenheit, heart rate 88 beats minute, respiratory rate 22, blood pressure 136/68, O2 sats 93% on 2 liters nasal cannula. GENERAL PHYSICAL APPEARANCE: Carmine is a young male, he is sitting up in bed, appears to be in pain. He is constantly scratching himself. He is holding his left knee. HEENT: Head atraumatic, normocephalic, conjunctivae are pale, sclerae are mildly icteric, EOMI, PERRLA. ORAL EXAM: No pharyngeal erythema. NECK: No palpable cervical or supraclavicular lymphadenopathy. RESPIRATORY: Good air movement bilaterally. No added breath sounds. CARDIOVASCULAR: Regular rate and rhythm, S1-S2. No obvious murmurs, rubs, gallops. ABDOMEN: Thin belly, soft and nontender, nondistended, no palpable organ enlargement. LOWER EXTREMITIES: No pretibial edema or calf tenderness. BLOCK CABLEMAN: No focal sensory or motor deficits. SKIN: No abnormalities noted, he is heavily tattooed. MUSCULOSKELETAL: Pain and tenderness of the left knee just behind the patella mostly localized in the superior aspect of the tibia anteriorly. LABORATORY FINDINGS Blood work dated 12/31/2016: WBC count 19.7, hemoglobin 9.1 gm/dl, hematocrit 25.7%, platelet count 447, absolute neutrophil count 17.1. Chemistries: Sodium 138, potassium 4.3, chloride 106, bicarb 25, BUN 10, creatinine 0.8, glucose 106, calcium 9, total bilirubin 4.8, AST 61, ALT 47, alkaline phosphatase 151, albumin 4.3. IMAGING STUDIES Chest x-ray dated 12/31/2016 indicates no acute findings. ASSESSMENT Mr. Breaux is a 21-year-old man with a diagnosis a hemoglobin sickle-cell disease, coming in with a uncomplicated pain crisis focused mostly in his left lower extremity at the level of the proximal left tibia. 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 He tried to control the pain with hydration but because he was at work he was unable to take oral pain medications. He came into the emergency department and by that time the pain had become even more severe and he was unable to achieve pain control with IV pain medications. He was therefore admitted to the hospital. His hemoglobin and hematocrit are close to his baseline and perhaps even a little bit better than his baseline, likely secondary to hemoconcentration. He has no evidence of acute chest syndrome, acute ischemic stroke or priapism. RECOMMENDATIONS 1. Hemoglobin sickle-cell disease with uncomplicated crisis: Continue IV fluid hydration, I will change the normal saline to a hypotonic saline solution IV half normal saline. Continue oral and IV pain medications. Continue hydroxyurea. Try to avoid red cell transfusions unless he has significant worsening of his hemoglobin and hematocrit or unless he displays signs of an acute stroke, acute chest crisis or priapism or avascular necrosis. 2. Continue DVT prophylaxis with Lovenox. 3. I will add on an incentive spirometer as well. MD PARKER Mullins/ANTHONY /10:38 AM /10:53 AM
[2017-01-01 15:51] LABS: MEAN CELL VOLUME 90.8 FL (80.0-100.0); MEAN CORPUSCULAR HEMOGLOBIN 33.5 PG (27.0-34.0); PLATELET COUNT 390 TH/MM3 (150-450); RED BLOOD COUNT 2.53 MIL/MM3 (4.50-5.90); RED CELL DISTRIBUTION WIDTH 20.7 % (11.6-17.2); WHITE BLOOD COUNT 14.8 TH/MM3 (4.0-11.0)
[2017-01-01 15:57] LABS: MEAN CORPUSCULAR HGB CONC 36.9 % (32.0-36.0); REVIEW FLAG FINAL
[2017-01-01 16:06] LABS: ALT (GPT) 36 U/L (12-78); ANION GAP 7 MEQ/L (5-15); AST (GOT) 36 U/L (15-37); BICARBONATE 26.5 MEQ/L (21.0-32.0); BLOOD UREA NITROGEN 12 MG/DL (7-18); CHLORIDE 106 MEQ/L (98-107); GLOMERULAR FILTRATION RATE 106 ML/MIN (>89); POTASSIUM 4.4 MEQ/L (3.5-5.1); SODIUM (NA) 139 MEQ/L (136-145)
[2017-01-01 16:09] LABS: ALKALINE PHOSPHATASE 127 U/L (45-117); TOTAL BILIRUBIN ADULT 6.8 MG/DL (0.2-1.0)
--- NOTE | 2017-01-01 20:10 | EKG ---
Date Performed: 12/31/2016 Time Performed: 19:20:09 PTAGE: 21 years EKG: Sinus rhythm POSSIBLE RIGHT VENTRICULAR CONDUCTION DELAY VOLTAGE CRITERIA FOR LVH ABNORMAL ECG PREVIOUS TRACING : 04/14/2008 17.36 DOCTOR: Elijah Knight Interpretating Date/Time 01/01/2017 20:06:11
[2017-01-02] VITALS (9 sets, daily range): BP systolic 112–146; BP diastolic 53–69; PULSE 65–90; RESP 16–18; TEMP 97–98.6; O2SAT 91–98
[2017-01-02] MEDS: HYDROmorphone HCL PF 1 MG/ML VIAL IV PUSH PRN ×9 (00:39→21:12)
[2017-01-02] MEDS: diphenhydrAMINE HCL 25 MG CAP PO PRN ×3 (00:55→19:06)
[2017-01-02] MEDS: SODIUM CHLOR 0.45% 1000 ML INJ 1,000 ML IV SCH ×3 (02:29→21:14)
[2017-01-02] MEDS: KETOROLAC TROMETHAMINE 30 MG/ML (IVP) VIAL IV PUSH SCH ×4 (04:49→21:11)
[2017-01-02 07:59] LABS: AUTOMATED NEUTROPHIL # 7.3 TH/MM3 (1.8-7.7); BASOPHIL # 0.1 TH/MM3 (0-0.2); BASOPHIL % 0.4 % (0.0-2.0); EOSINOPHIL # 0.2 TH/MM3 (0-0.4); EOSINOPHIL % 1.7 % (0.0-4.0); HEMATOCRIT 22.7 % (39.0-51.0); LYMPH % 26.3 % (9.0-44.0); LYMPHOCYTE # 3.1 TH/MM3 (1.0-4.8); MEAN CORPUSCULAR HGB CONC 35.5 % (32.0-36.0); MONO % 9.9 % (0.0-8.0); NEUT % 61.7 % (16.0-70.0); PLATELET COUNT 357 TH/MM3 (150-450); RED BLOOD COUNT 2.52 MIL/MM3 (4.50-5.90); RED CELL DISTRIBUTION WIDTH 20.6 % (11.6-17.2); WHITE BLOOD COUNT 11.8 TH/MM3 (4.0-11.0)
[2017-01-02 08:01] LABS: HEMO FLAGS AUTO DIFF
[2017-01-02 08:21] LABS: ALT (GPT) 35 U/L (12-78); ANION GAP 6 MEQ/L (5-15); AST (GOT) 35 U/L (15-37); BICARBONATE 26.7 MEQ/L (21.0-32.0); BLOOD UREA NITROGEN 11 MG/DL (7-18); CHLORIDE 104 MEQ/L (98-107); GLOMERULAR FILTRATION RATE 128 ML/MIN (>89); POTASSIUM 3.9 MEQ/L (3.5-5.1); SODIUM (NA) 137 MEQ/L (136-145)
--- NOTE | 2017-01-02 08:21 | PD.ONC.PN ---
Subjective Subjective Remarks Patient feels his left knee pain is improved today, he denies fevers or chills, denies difficulty breathing, denies chest pain, denies focal sensorimotor deficits. And denies overt bleeding. There were no acute cardiopulmonary events overnight. His O2 sats 10 to be lower after he receives pain medications i.e. in the low 90s. He will be transferred to [address] [place] [address] later this morning. Objective Data Date Time Temp Pulse Resp B/P (MAP) Pulse Ox O2 Delivery O2 Flow Rate FiO2 01/02/17 08:09 120/64 (82) 01/02/17 07:23 16 01/02/17 06:03 16 01/02/17 04:00 98.2 76 18 112/53 (72) 91 01/02/17 03:56 16 01/02/17 00:00 97.0 80 18 128/58 (81) 98 01/01/17 21:02 98 Nasal Cannula 3.00 01/01/17 20:00 98.1 76 18 127/60 (82) 98 01/01/17 16:33 98.4 91 20 128/60 (82) 92 01/01/17 12:19 96.8 63 20 123/56 (78) 93 01/02/17 01/02/17 01/02/17 06:59 14:59 22:59 Output Total 500 ml Balance -500 ml Result Diagram: 01/02/17 0737 01/01/17 1458 Laboratory Results Laboratory Tests Test 01/01/17 14:58 01/02/17 07:37 White Blood Count 14.8 TH/MM3 11.8 TH/MM3 Red Blood Count 2.53 MIL/MM3 2.52 MIL/MM3 Hemoglobin 8.5 GM/DL 8.1 GM/DL Hematocrit 23.0 % 22.7 % Mean Corpuscular Volume 90.8 FL 90.0 FL Mean Corpuscular Hemoglobin 33.5 PG 32.0 PG Mean Corpuscular Hemoglobin Concent 36.9 % 35.5 % Red Cell Distribution Width 20.7 % 20.6 % Platelet Count 390 TH/MM3 357 TH/MM3 Mean Platelet Volume 7.2 FL 6.7 FL Blood Urea Nitrogen 12 MG/DL Creatinine 1.05 MG/DL Random Glucose 90 MG/DL Total Protein 6.9 GM/DL Albumin 4.2 GM/DL Calcium Level 8.5 MG/DL Alkaline Phosphatase 127 U/L Aspartate Amino Transf (AST/SGOT) 36 U/L Alanine Aminotransferase (ALT/SGPT) 36 U/L Total Bilirubin 6.8 MG/DL Sodium Level 139 MEQ/L Potassium Level 4.4 MEQ/L Chloride Level 106 MEQ/L Carbon Dioxide Level 26.5 MEQ/L Anion Gap 7 MEQ/L Estimat Glomerular Filtration Rate 106 ML/MIN Neutrophils (%) (Auto) 61.7 % Lymphocytes (%) (Auto) 26.3 % Monocytes (%) (Auto) 9.9 % Eosinophils (%) (Auto) 1.7 % Basophils (%) (Auto) 0.4 % Neutrophils # (Auto) 7.3 TH/MM3 Lymphocytes # (Auto) 3.1 TH/MM3 Monocytes # (Auto) 1.2 TH/MM3 Eosinophils # (Auto) 0.2 TH/MM3 Basophils # (Auto) 0.1 TH/MM3 CBC Comment AUTO DIFF Culture Results Microbiology Date/Time Source Procedure Growth Status 01/01/17 01:39 Blood Peripheral Aerobic Blood Culture Pending Received 01/01/17 01:39 Blood Peripheral Anaerobic Blood Culture Pending Received 01/01/17 01:30 Blood Peripheral Aerobic Blood Culture Pending Received 01/01/17 01:30 Blood Peripheral Anaerobic Blood Culture Pending Received Administered Medications Medications (Trade) Dose Ordered Sig/Kerri Route PRN Reason Start Time Stop Time Status Last Admin Dose Admin Sodium Chloride (NS Flush) 2 ml BID IV FLUSH 01/01/17 09:00 01/01/17 07:44 Cyclobenzaprine HCl (Flexeril) 10 mg TID PO 01/01/17 09:00 01/01/17 17:17 Hydroxyurea (Hydrea) 1,500 mg DAILY PO 01/01/17 09:00 01/01/17 07:44 Hydromorphone HCl (Dilaudid Pf Inj) 1 mg Q2HR PRN IV PUSH BREAKTHROUGH PAIN 01/01/17 00:14 01/02/17 08:11 Hydromorphone HCl (Dilaudid Pf Inj) 2 mg Q4H PRN IV PUSH PAIN 1-10 01/01/17 02:30 01/02/17 06:28 Enoxaparin Sodium (Lovenox Inj) 40 mg Q24H SQ 01/01/17 01:00 01/01/17 22:13 Folic Acid (Folate) 1 mg DAILY PO 01/01/17 09:00 01/01/17 07:42 Ketorolac Tromethamine (Toradol Inj) 30 mg Q6H IV PUSH 01/01/17 04:00 01/05/17 03:59 01/02/17 04:49 Ondansetron HCl (Zofran Inj) 4 mg Q6H PRN IV NAUSEA 01/01/17 11:00 01/01/17 22:12 Diphenhydramine HCl (Benadryl) 25 mg Q4H PRN PO ITCHING 01/01/17 11:00 01/02/17 08:10 Sodium Chloride 1,000 ml @ 125 mls/hr Q8H IV 01/01/17 11:00 01/02/17 02:29 Objective Remarks GENERAL PHYSICAL APPEARANCE: Carmine is a young male, he is sitting up in bed, appears to be in pain. He is constantly scratching himself. He is holding his left knee. HEENT: Head atraumatic, normocephalic, conjunctivae are pale, sclerae are mildly icteric, EOMI, PERRLA. ORAL EXAM: No pharyngeal erythema. NECK: No palpable cervical or supraclavicular lymphadenopathy. RESPIRATORY: Good air movement bilaterally. No added breath sounds. CARDIOVASCULAR: Regular rate and rhythm, S1-S2. No obvious murmurs, rubs, gallops. ABDOMEN: Thin belly, soft and nontender, nondistended, no palpable organ enlargement. LOWER EXTREMITIES: No pretibial edema or calf tenderness. CORE SHAPER TOP: No focal sensory or motor deficits. SKIN: No abnormalities noted, he is heavily tattooed. MUSCULOSKELETAL: Pain and tenderness of the left knee just behind the patella mostly localized in the superior aspect of the tibia anteriorly. Assessment/Plan Assessment Mr. Breaux is a 21-year-old man with a diagnosis a hemoglobin sickle-cell disease, coming in with a uncomplicated pain crisis focused mostly in his left lower extremity at the level of the proximal left tibia. 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 He tried to control the pain with hydration but because he was at work he was unable to take oral pain medications. He came into the emergency department and by that time the pain had become even more severe and he was unable to achieve pain control with IV pain medications. He was therefore admitted to the hospital. His hemoglobin and hematocrit are close to his baseline and perhaps even a little bit better than his baseline, likely secondary to hemoconcentration. He has no evidence of acute chest syndrome, acute ischemic stroke or priapism. Plan 1. Sickle cell pain crisis complicated by acute chest syndrome, preoperative, avascular necrosis, ischemic stroke or other catastrophic or impending catastrophic complications. Continue management with IV fluid hydration with a hypotonic saline, continue pain control with IV and oral pain medications. Transition to oral pain medications soon is he is able to tolerate this. Continue incentive spirometry. DVT prophylaxis, folic acid and hydroxyurea. He will bring in his oral iron chelating agent. Once he brings within he may presume this treatment with pharmacy filling his home med. Discharge when pain is controlled. Marco A Bell MD Jan 02, 2017 08:21
[2017-01-02 08:24] LABS: ALKALINE PHOSPHATASE 123 U/L (45-117); TOTAL BILIRUBIN ADULT 6.1 MG/DL (0.2-1.0)
[2017-01-02] MEDS: HYDROXYUREA 500 MG CAP PO SCH (09:00)
[2017-01-02 09:27] LABS: CORRECTED NUCLEATED RBC 2 /100 WBC (0-0); EOSINOPHILS 2 % (0-4); NEUTROPHIL # MANUAL DIFF 8.3 TH/MM3 (1.8-7.7); POLYS (SEG NEUTROPHILS) 70 % (16-70); WBC DIFF SAMPLE 100
[2017-01-02 09:28] LABS: OVALOCYTES 1+ (NORMAL); SICKLE CELLS 2+ (NORMAL); TARGET CELLS 1+ (NORMAL)
[2017-01-02 09:29] LABS: PLATELET ESTIMATE SMEAR HIGH (NORMAL); PLATELET MORPHOLOGY NORMAL (NORMAL); SCAN/DIFF FINAL DIFF MANUAL
[2017-01-02] MEDS ORDERED: INFLUENZA VIRUS VACCINE (QUADRIVALENT) 0.5 ML SYR IM ONE (10:00)
[2017-01-02] MEDS: FOLIC ACID 1 MG TAB PO SCH (10:26)
[2017-01-02] MEDS: CYCLOBENZAPRINE HCL 10 MG TAB PO SCH ×3 (10:26→17:03)
[2017-01-02] MEDS: SODIUM CHLORIDE 0.9% FLUSH 10 ML FLUSH IV FLUSH SCH ×2 (10:26→21:43)
--- NOTE | 2017-01-02 10:43 | HHI.FPPN ---
Subjective Remarks No acute issues overnight. Vitals are stable, patient remains afebrile. His left leg pain is improving and he feels like he has greater range of motion of his leg. He is using a heating pad with some relief in addition to the IV pain medications. He denies any chest pain, shortness of breath, fever, chills, nausea or vomiting. He is tolerating by mouth and having good urine output. (Bouchra Alaniz MD, R3) Objective Vitals Vital Signs Date Time Temp Pulse Resp B/P (MAP) Pulse Ox O2 Delivery O2 Flow Rate FiO2 01/02/17 09:30 98.0 65 16 138/58 (84) 92 01/02/17 08:09 120/64 (82) 01/02/17 07:23 16 01/02/17 06:03 16 01/02/17 04:00 98.2 76 18 112/53 (72) 91 01/02/17 03:56 16 01/02/17 00:00 97.0 80 18 128/58 (81) 98 01/01/17 21:02 98 Nasal Cannula 3.00 01/01/17 20:00 98.1 76 18 127/60 (82) 98 01/01/17 16:33 98.4 91 20 128/60 (82) 92 01/01/17 12:19 96.8 63 20 123/56 (78) 93 I/O 01/01/17 01/01/17 01/01/17 01/02/17 01/02/17 01/02/17 07:00 15:00 23:00 07:00 15:00 23:00 Intake Total 1198 ml 2175 ml Output Total 700 ml 575 ml 575 ml 500 ml Balance 498 ml 1600 ml -575 ml -500 ml Intake Oral 480 ml IV Total 718 ml 2175 ml Output Urine Total 700 ml 575 ml 575 ml 500 ml (Bouchra Alaniz MD, R3) Result Diagram: 01/02/1737 01/02/17736 Imaging Last Impressions Chest X-Ray 12/31/162028 Signed Impressions: Service Date/Time: Saturday, December 31, 2016 20:43 - CONCLUSION: No acute disease. Kristian Starr MD Objective Remarks GENERAL: Well-nourished, well-developed male patient who appears comfortable. SKIN: Warm and dry. No rashes or lesions present. EYES: No scleral icterus. No conjunctival injection or drainage. Extraocular movements intact. THROAT: Moist mucous membranes. NECK: Supple, trachea midline. CARDIOVASCULAR: Regular rate and rhythm with 2/6 KEREN, no gallops or rubs. Strong radial and pedal pulses. CHEST: Symmetric chest expansion with respiration. RESPIRATORY: Breath sounds clear to auscultation bilaterally. No accessory muscle use. No wheezes, rhonchi or rales. GASTROINTESTINAL: Abdomen soft, non-tender, nondistended. No masses or hernias. No hepatosplenomegaly. Bowel sounds present. MUSCULOSKELETAL: No cyanosis or edema. No nail changes. Bilateral knees nontender to palpation. Knees with full ROM bilaterally. No edema or erythema on knees bilaterally. Knees appear symmetric. NEURO: Cranial nerves II through XII grossly intact. Good muscle tone. PSYCH: Normal mood and affect. Good eye contact. Good insight and judgment. Normal speech. (Bouchra Alaniz MD, R3) A/P Assessment and Plan Patient is a 21-year-old male with history of sickle cell disease who presented with severe left knee pain and was admitted for sickle cell crisis. Discharge Planning Pending improvement in pain in the next 1-2 days. (Bouchra Alaniz MD, R3) Attending Attestation Patient seen and examined. Case reviewed and discussed with the resident team. Agree with plan of care as discussed with me and documented in the resident note. he is slowly making improvement. he still is not ready to leave the hospital but has less pain (Eula Guo MD) Problem List: (1) Sickle cell anemia with pain ICD Codes: D57.00 - Hb-SS disease with crisis, unspecified Status: Acute Plan: Severe left knee pain, improving. CXR wnl 01/01 BCx x 2 pending Plan: - Consult hematology. - 1/2 NS @ 125ml/hr - Continue hydroxyurea, folic acid. - Pain control: Toradol 30 mg q6hr, Dilaudid 2 mg every 4 hours PRN for pain 1- 10, Dilaudid 1 mg every 2 hours PRN for breakthrough pain. - Benadryl PRN itching, Zofran PRN nausea - Monitor closely for acute chest syndrome. (2) Asthma, chronic ICD Codes: J45.909 - Asthma, chronic Status: Chronic Plan: Continue home albuterol and Symbicort (3) Fluid, electrolytes, nutrition and prophylaxis Plan: Fluids: 1/2 NS @ 125ml/hr Electrolytes: wnl, monitor and replete as necessary. Nutrition: Regular diet. DVT Prophylaxis: Lovenox 40 mg Q24H SQ. dw Dr. Guo (Bouchra Alaniz MD, R3) Problem Qualifiers (1) Asthma, chronic: Bouchra Alaniz MD, R3 Jan 02, 2017 10:43 Eula Guo MD Jan 02, 2017 15:47
[2017-01-02] MEDS: BUDESONIDE-FORMOTEROL 160/4.5 MCG INHALER INH SCH ×2 (11:36→21:42)
[2017-01-02] MEDS: ONDANSETRON HCL 4 MG/2 ML VIAL IV PRN (13:58)
[2017-01-03 01:15] VITALS: BP 135/69; PULSE 71; RESP 16; TEMP 98.1; O2SAT 92
[2017-01-03] MEDS: ENOXAPARIN SODIUM 40 MG/0.4 ML SYRINGE SQ SCH (01:28)
[2017-01-03] MEDS: SODIUM CHLOR 0.45% 1000 ML INJ 1,000 ML IV SCH ×2 (03:00→11:00)
[2017-01-03] MEDS ORDERED: HYDROmorphone HCL PF 1 MG/ML VIAL IM PRN ×2 (03:30→06:30)
[2017-01-03] MEDS: KETOROLAC TROMETHAMINE 30 MG/ML (IVP) VIAL IV PUSH SCH (04:00)
[2017-01-03] MEDS: HYDROmorphone HCL PF 2 MG/ML VIAL IM PRN ×3 (04:29→14:00)
[2017-01-03] MEDS ORDERED: HYDROmorphone HCL PF 2 MG/ML VIAL IM PRN (04:30)
[2017-01-03 08:00] VITALS: BP 131/69; PULSE 82; RESP 16; TEMP 98; O2SAT 97
[2017-01-03] MEDS: CYCLOBENZAPRINE HCL 10 MG TAB PO SCH ×2 (08:33→11:57)
[2017-01-03] MEDS: FOLIC ACID 1 MG TAB PO SCH (08:33)
[2017-01-03] MEDS: HYDROXYUREA 500 MG CAP PO SCH (08:40)
[2017-01-03] MEDS: SODIUM CHLORIDE 0.9% FLUSH 10 ML FLUSH IV FLUSH SCH (08:41)
[2017-01-03] MEDS: BUDESONIDE-FORMOTEROL 160/4.5 MCG INHALER INH SCH (08:42)
[2017-01-03] MEDS ORDERED: ONDANSETRON ODT 4 MG TAB PO PRN (09:00)
--- NOTE | 2017-01-03 10:18 | HHI.FPPN ---
Subjective Remarks Patient had difficulty with IV site last night and multiple attempts were made to reestablish IV but were unsuccessful. Patient states that he did not receive any pain medication overnight once his IV site was lost. He is frustrated this morning that his pain was not controlled overnight. He has since received Dilaudid 2 mg IM. He denies any chest pain, shortness of breath , fever, chills, nausea or vomiting. His left leg pain continues to slowly improve, however he does not feel that he is ready to go home on oral medications yet. (Bouchra Alaniz MD, R3) Objective Vitals Vital Signs Date Time Temp Pulse Resp B/P (MAP) Pulse Ox O2 Delivery O2 Flow Rate FiO2 01/03/17 01:15 98.1 71 16 135/69 (91) 92 01/02/17 22:11 18 01/02/17 22:11 18 01/02/17 21:08 93 01/02/17 20:00 97.6 90 16 146/69 (94) 94 01/02/17 19:36 18 01/02/17 16:00 98.6 74 16 138/56 (83) 94 01/02/17 15:26 92 21 I/O 01/02/17 01/02/17 01/02/17 01/03/17 01/03/17 01/03/17 07:00 15:00 23:00 07:00 15:00 23:00 Intake Total 600 ml 480 ml 240 ml Output Total 500 ml 700 ml Balance -500 ml -100 ml 480 ml 240 ml Intake Oral 600 ml 480 ml 240 ml Output Urine Total 500 ml 700 ml # Voids 2 1 # Bowel Movements 0 0 0 (Bouchra Alaniz MD, R3) Result Diagram: 01/02/1773601/02/17736 Imaging Last Impressions Chest X-Ray 12/31/162028 Signed Impressions: Service Date/Time: Saturday, December 31, 2016 20:43 - CONCLUSION: No acute disease. Kristian Starr MD Objective Remarks GENERAL: Well-nourished, well-developed male patient who appears comfortable. SKIN: Warm and dry. No rashes or lesions present. EYES: No scleral icterus. No conjunctival injection or drainage. Extraocular movements intact. THROAT: Moist mucous membranes. NECK: Supple, trachea midline. CARDIOVASCULAR: Regular rate and rhythm with 2/6 KEREN, no gallops or rubs. Strong radial and pedal pulses. CHEST: Symmetric chest expansion with respiration. RESPIRATORY: Breath sounds clear to auscultation bilaterally. No accessory muscle use. No wheezes, rhonchi or rales. GASTROINTESTINAL: Abdomen soft, non-tender, nondistended. No masses or hernias. No hepatosplenomegaly. Bowel sounds present. MUSCULOSKELETAL: No cyanosis or edema. No nail changes. Bilateral knees nontender to palpation. Knees with full ROM bilaterally. No edema or erythema on knees bilaterally. Knees appear symmetric. NEURO: Cranial nerves II through XII grossly intact. Good muscle tone. PSYCH: Normal mood and affect. Good eye contact. Good insight and judgment. Normal speech. (Bouchra Alaniz MD, R3) A/P Assessment and Plan Patient is a 21-year-old male with history of sickle cell disease who presented with severe left knee pain and was admitted for sickle cell crisis. Discharge Planning Pending improvement in pain in the next 1-2 days. (Bouchra Alaniz MD, R3) Attending Attestation Patient seen and examined. Case reviewed and discussed with the resident team. Agree with plan of care as discussed with me and documented in the resident note. on discussion with him, he wanted to go home as long as his pain control was fine with po meds. he was on dilaudid in the past and asked for some po dilaudid. I gave him one 4 mg pill in the hospital to try and he wanted to go home as long as that worked well. Gave him a script of 4 mg dilaudid po #30 no refills. I also wrote a note for his work (Eula Guo MD) Problem List: (1) Sickle cell anemia with pain ICD Codes: D57.00 - Hb-SS disease with crisis, unspecified Status: Acute Plan: Severe left knee pain, improving. CXR wnl 01/01 BCx x 2 pending Plan: - Consult hematology- appreciate recommendations. - Continue hydroxyurea, folic acid. - Pain control: Toradol 30 mg q6hr, Dilaudid 2 mg every 4 hours PRN for pain 1- 10, Dilaudid 1 mg every 2 hours PRN for breakthrough pain. - Benadryl PRN itching, Zofran PRN nausea - Monitor closely for acute chest syndrome. (2) Asthma, chronic ICD Codes: J45.909 - Asthma, chronic Status: Chronic Plan: Continue home albuterol and Symbicort (3) Fluid, electrolytes, nutrition and prophylaxis Plan: Fluids: Tolerating by mouth Electrolytes: wnl, monitor and replete as necessary. Nutrition: Regular diet. DVT Prophylaxis: Lovenox 40 mg Q24H SQ. dw Dr. Guo (Bouchra Alaniz MD, R3) Problem Qualifiers (1) Asthma, chronic: Bouchra Alaniz MD, R3 Jan 03, 2017 10:18 Eula Guo MD Jan 03, 2017 16:23
--- NOTE | 2017-01-03 10:38 | HHI.DCPOC ---
Discharge Care Plan Diagnosis: (1) Sickle cell pain crisis Goals to Promote Your Health * To prevent worsening of your condition and complications * To maintain your health at the optimal level Directions to Meet Your Goals Take your medications as prescribed Follow your dietary instruction Follow activity as directed Keep your appointments as scheduled Take your immunizations and boosters as scheduled If your symptoms worsen call your PCP, if no PCP go to Urgent Care Center or Emergency Room Smoking is Dangerous to Your Health. Avoid second hand smoke Call the 24-hour hour crisis hotline for domestic abuse at Bouchra Alaniz MD, R3 Jan 03, 2017 10:38
[2017-01-03] MEDS ORDERED: HYDR-3535 PO (10:40)
[2017-01-03 12:00] VITALS: BP 114/57; PULSE 73; RESP 16; TEMP 98.8; O2SAT 93
[2017-01-03] MEDS ORDERED: HYDROmorphone HCL 4 MG TAB PO ONE (12:00)
[2017-01-03] MEDS ORDERED: KETOROLAC TROMETHAMINE 30 MG/ML (IVP) VIAL IM SCH (12:00)
--- NOTE | 2017-01-03 13:50 | HHI.DS ---
Discharge Summary Admission Date Jan 01, 2017 at 00:02 Discharge Date: Jan 03, 2017 Admitting Diagnosis Sickle Cell Crisis/Intractable pain (1) Sickle cell anemia with pain Diagnosis: Principal Plan: Severe left knee pain, improving. CXR wnl 01/01 BCx x 2 pending Plan: - Consult hematology- appreciate recommendations. - Continue hydroxyurea, folic acid. - Pain control: Toradol 30 mg q6hr, Dilaudid 2 mg every 4 hours PRN for pain 1- 10, Dilaudid 1 mg every 2 hours PRN for breakthrough pain. - Benadryl PRN itching, Zofran PRN nausea - Monitor closely for acute chest syndrome. ICD Codes: D57.00 - Hb-SS disease with crisis, unspecified Status: Acute (2) Asthma, chronic Plan: Continue home albuterol and Symbicort ICD Codes: J45.909 - Asthma, chronic Status: Chronic (3) Fluid, electrolytes, nutrition and prophylaxis Plan: Fluids: Tolerating by mouth Electrolytes: wnl, monitor and replete as necessary. Nutrition: Regular diet. DVT Prophylaxis: Lovenox [address] dw Dr. [facility] Brief History On Admission: Patient is a 21-year-old male with history of sickle cell disease who presents with severe "hammer-like" left knee pain 1 day. Patient states that his left knee started aching around 12 PM on Sunday. Patient reports gradual worsening of the knee pain over the next few hours. He also has pain in his back and upper extremities. He denies chest pain, shortness of breath, and abdominal pain. He has not had fevers. Patient denies trauma. Patient denies fever or chills. Of note, patient saw holter scanning technician on , who was satisfied with how he was doing. CBC/BMP: 01/02/17 0737 01/02/17 0737 Significant Findings Laboratory Tests Test 12/31/16 19:30 12/31/16 20:50 01/01/17 14:58 01/02/17 07:37 White Blood Count 19.7 TH/MM3 (4.0-11.0) 14.8 TH/MM3 (4.0-11.0) 11.8 TH/MM3 (4.0-11.0) Red Blood Count 2.84 MIL/MM3 (4.50-5.90) 2.53 MIL/MM3 (4.50-5.90) 2.52 MIL/MM3 (4.50-5.90) Hemoglobin 9.1 GM/DL (13.0-17.0) 8.5 GM/DL (13.0-17.0) 8.1 GM/DL (13.0-17.0) Hematocrit 25.7 % (39.0-51.0) 23.0 % (39.0-51.0) 22.7 % (39.0-51.0) Red Cell Distribution Width 22.1 % (11.6-17.2) 20.7 % (11.6-17.2) 20.6 % (11.6-17.2) Mean Platelet Volume 6.9 FL (7.0-11.0) 6.7 FL (7.0-11.0) Neutrophils (%) (Auto) 86.6 % (16.0-70.0) Lymphocytes (%) (Auto) 6.5 % (9.0-44.0) Neutrophils # (Auto) 17.1 TH/MM3 (1.8-7.7) Monocytes # (Auto) 1.2 TH/MM3 (0-0.9) 1.2 TH/MM3 (0-0.9) Neutrophils % (Manual) 81 % (16-70) Monocytes % 10 % (0-8) 9 % (0-8) Neutrophils # (Manual) 16.0 TH/MM3 (1.8-7.7) 8.3 TH/MM3 (1.8-7.7) Nucleated Red Blood Cells 4 /100 WBC (0-0) 2 /100 WBC (0-0) Platelet Estimate HIGH (NORMAL) HIGH (NORMAL) Sickle Cells 1+ (NORMAL) 2+ (NORMAL) Target Cells 1+ (NORMAL) 1+ (NORMAL) Ovalocytes 1+ (NORMAL) 1+ (NORMAL) Reticulocyte Count 6.8 % (0.4-3.0) Absolute Reticulocyte Count 193.6 MIL/L (20.0-150.0) Alkaline Phosphatase 151 U/L (45-117) 127 U/L (45-117) 123 U/L (45-117) Aspartate Amino Transf (AST/SGOT) 61 U/L (15-37) Total Bilirubin 4.8 MG/DL (0.2-1.0) 6.8 MG/DL (0.2-1.0) 6.1 MG/DL (0.2-1.0) Urine Leukocyte Esterase TRACE (NEG) Mean Corpuscular Hemoglobin Concent 36.9 % (32.0-36.0) Monocytes (%) (Auto) 9.9 % (0.0-8.0) Imaging Last Impressions Chest X-Ray 12/31/162028 Signed Impressions: Service Date/Time: Saturday, December 31, 2016 20:43 - CONCLUSION: No acute disease. Kristian Starr MD PE at Discharge GENERAL: Well-nourished, well-developed male patient who appears comfortable. SKIN: Warm and dry. No rashes or lesions present. EYES: No scleral icterus. No conjunctival injection or drainage. Extraocular movements intact. THROAT: Moist mucous membranes. NECK: Supple, trachea midline. CARDIOVASCULAR: Regular rate and rhythm with 2/6 KEREN, no gallops or rubs. Strong radial and pedal pulses. CHEST: Symmetric chest expansion with respiration. RESPIRATORY: Breath sounds clear to auscultation bilaterally. No accessory muscle use. No wheezes, rhonchi or rales. GASTROINTESTINAL: Abdomen soft, non-tender, nondistended. No masses or hernias. No hepatosplenomegaly. Bowel sounds present. MUSCULOSKELETAL: No cyanosis or edema. No nail changes. Bilateral knees nontender to palpation. Knees with full ROM bilaterally. No edema or erythema on knees bilaterally. Knees appear symmetric. NEURO: Cranial nerves II through XII grossly intact. Good muscle tone. PSYCH: Normal mood and affect. Good eye contact. Good insight and judgment. Normal speech. Hospital Course Patient is a 21-year-old male with a past medical history significant for sickle cell disease who presented with severe left knee pain and was admitted for sickle cell crisis. Pain was controlled with IV Toradol and Dilaudid and his home medication of hydroxyurea and folic acid were continued. He exhibited no signs of acute chest syndrome or sepsis during his hospital stay. His pain slowly improved by hospital day 3, and he felt ready for discharge home on by mouth Lortab. He will follow-up with Parking Station Attendant, Dr. Bell and PCP, Dr. Palomares. Pt Condition on Discharge: Stable Discharge Disposition: Discharge Home Discharge Instructions DIET: Follow Instructions for: As Tolerated, No Restrictions Activities you can perform: Regular-No Restrictions Follow up Referrals: Hematology - 1 Week PCP Follow-up - 1 Week Continued Medications: Albuterol 18 GM Inh (Ventolin Hfa 18 GM Inh) 90 Mcg/Act Aer 2 PUFF INH Q6H PRN for SHORTNESS OF BREATH, #1 INHALER 6 Refills Albuterol Neb (Albuterol Neb) 2.5 Mg/3 Ml Neb 2.5 MG NEB TID NEB PRN for SHORTNESS OF BREATH, #25 ML 6 Refills Cyclobenzaprine (Flexeril) 10 Mg Tab 10 MG PO TID for Muscle Spasm, #90 TAB 0 Refills Fluticasone-Salmeterol Inh (Advair Diskus Inh) 250-50 Mcg/Blist Aer 1 PUFF INH BID, #1 INHALER 5 Refills Rinse mouth after use. Hydrocodone-Acetaminophen (Lortab) 10-325 Mg Tab 1 TAB PO Q4H PRN for PAIN, #30 TAB 0 Refills (This prescription has been renewed ) Hydroxyurea (Hydrea) 500 Mg Cap 1500 MG PO DAILY, #60 CAP 3 Refills Lidocaine Patch 12 HR (Lidocaine Patch 12 HR) 5 % Patch 1 PATCH TOPICAL DAILY for Pain Management, #1 BOX 5 Refills Remove patch after 12 hours Lorazepam (Ativan) 1 Mg Tab 1 MG PO DAILY PRN for ANXIETY AND/OR AGITATION, #30 TAB 2 Refills Propylene Glycol-Glycerin Opth Drops (Artificial Tears Opth Drops) 1-0.3% Drops 1-2 DROP EACH EYE PRN PRN for DRY EYE, #15 ML 0 Refills Bouchra Alaniz MD, R3 Jan 03, 2017 13:50
[2017-01-10] MEDS ORDERED: HYDR-3535 PO (10:43)
[2017-01-10] MEDS ORDERED: HYDR500C PO (10:46)
== END 2017-01-03 14:40 | disposition home or self-care (01) | DRG 812 ==
LOC: NEPC 18:42 → NEDA 22:13 → NEPFCDU 23:46 → OBSVTOIN 01-01 00:02 → HOCB 01-01 04:20 → N06A 01-02 08:40
PROVIDERS: ADMIT Family Medicine; ATTEND Family Medicine
DX: D57.00 Hb-SS disease with crisis, unspecified (principal); F12.90 Cannabis use, unspecified, uncomplicated; J45.909 Unspecified asthma, uncomplicated; Z90.81 Acquired absence of spleen; Z86.73 Personal history of transient ischemic attack (TIA), and cerebral infarction without residual deficits; L29.9 Pruritus, unspecified; R11.0 Nausea; T50.995A Adverse effect of other drugs, medicaments and biological substances, initial encounter; Y92.230 Patient room in hospital as the place of occurrence of the external cause
CPT/HCPCS: 71010; 76937; 80053; 81001; 85007; 85027; 85044; 87040; 90471; 90686; 93005; 94150; 96361; 96374; 96375; 96376; G0008; G0378; J1170; J1200; J1650; J1885; J2405; J7030; Q0163; Q2038

== ENCOUNTER 2017-08-21 02:21 | Inpatient (IN) | payer OTHER ==
[~2017-08-21] VITALS: Ht 170.2 cm; Wt 76.2 kg
[2017-08-21] VITALS (9 sets, daily range): BP systolic 113–176; BP diastolic 63–107; PULSE 72–103; RESP 16–20; TEMP 97.5–99.2; O2SAT 90–100
[~2017-08-21 02:21] MED LIST changes: +CYCL10TA PO; -CYCL1TAB29 PO; +FOLI800T PO
[2017-08-21] MEDS ORDERED: SODIUM CHLOR 0.9% 1000 ML INJ 1,000 ML IV ONE ×3 (02:52→06:15)
[2017-08-21] MEDS ORDERED: ONDANSETRON HCL 4 MG/2 ML VIAL IVP ONE (03:00)
[2017-08-21] MEDS ORDERED: HYDROmorphone HCL PF 2 MG/ML VIAL IVS ONE (03:00)
[2017-08-21] MEDS ORDERED: SODIUM CHLORIDE 0.9% FLUSH 10 ML FLUSH IVF PRN (03:00)
[2017-08-21 03:06] LABS: AUTOMATED NEUTROPHIL # 8.4 TH/MM3 (1.8-7.7); BASOPHIL # 0.1 TH/MM3 (0-0.2); BASOPHIL % 0.8 % (0.0-2.0); EOSINOPHIL # 0.5 TH/MM3 (0-0.4); EOSINOPHIL % 2.8 % (0.0-4.0); HEMATOCRIT 26.8 % (39.0-51.0); HEMOGLOBIN 9.5 GM/DL (13.0-17.0); LYMPH % 37.8 % (9.0-44.0); LYMPHOCYTE # 6.3 TH/MM3 (1.0-4.8); MEAN CELL VOLUME 90.1 FL (80.0-100.0); MEAN CORPUSCULAR HEMOGLOBIN 32.1 PG (27.0-34.0); MEAN CORPUSCULAR HGB CONC 35.6 % (32.0-36.0); MEAN PLATELET VOLUME 7.4 FL (7.0-11.0); MONO % 7.7 % (0.0-8.0); MONOCYTE # 1.3 TH/MM3 (0-0.9); NEUT % 50.9 % (16.0-70.0); PLATELET COUNT 432 TH/MM3 (150-450); RED BLOOD COUNT 2.98 MIL/MM3 (4.50-5.90); RED CELL DISTRIBUTION WIDTH 21.3 % (11.6-17.2); RETIC # 298.3 MIL/L (20.0-150.0); WHITE BLOOD COUNT 16.5 TH/MM3 (4.0-11.0)
--- NOTE | 2017-08-21 03:22 | PD ---
HPI Chief Complaint: Sickle Cell Time Seen by Provider: 02:41 Travel History International Travel<30 days: No Contact w/Intl Traveler<30days: No Traveled to known affect area: No History of Present Illness HPI The patient is a 21 year old male who presents to the [facility] emergency department with a history of low back pain and bilateral knee pain that he reports began around 10 PM last night. The patient reports that the pain is similar to his prior sickle cell pain crises. He reports that he tried taking a Lortab 30-40 minutes ago without relief. He reports that he also used a heating pad without relief. He denies having any swelling or redness associated with this. He denies having any fevers, however he has had chills. He denies having any cough or congestion. He denies having any chest pain, chest pressure, or shortness of breath. The patient denies having any recent vomiting or diarrhea. Otherwise on review of systems, he denies having any neck pain, abdominal pain, urinary symptoms, or neurologic symptoms. FOR[facility]LY [facility] Past Medical History Narrative Medical The patient's past medical history is significant for sickle cell anemia, history of ischemic stroke at 4 years of age and in 2012, asthma, chest syndrome complicated by respiratory failure requiring intubation in 2012, history of priapism. 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 Shaw. ADD: Yes ADHD: Yes Asthma: Yes Autoimmune Disease: No Blood Disorders: Yes (SICKLE CELL ) Anxiety: Yes (PRN ATIVAN AT HOME) Depression: No Heart Rhythm Problems: Yes (MURMUR) Cancer: No Cardiovascular Problems: Yes (SICKLE CELL) High Cholesterol: No Chemotherapy: No Chest Pain: No Congestive Heart Failure: No COPD: No Cerebrovascular Accident: Yes (TIA AT AGE 4) Cystic Fibrosis: No Developmental Delay: No Diabetes: No Diminished Hearing: No Endocrine: No Gastrointestinal Disorders: Yes ( ) Genitourinary: Yes (PRIAPISM) Headaches: Yes Hiatal Hernia: No Immune Disorder: No Implanted Vascular Access Dvce: Yes (RUC) Musculoskeletal: No Neurologic: Yes (TIA IN EARLY TEENS) Psychiatric: No Reproductive: No Respiratory: Yes (ASTHMA) Immunizations Current: Yes Migraines: Yes Radiation Therapy: No Seizures: No Sickle Cell Disease: Yes Sleep Apnea: No Thyroid Disease: No Ulcer: No PNEUMOCCOCAL Vaccine (Year): 2 Past Surgical History Narrative Surgical The patient's past surgical history is significant for a cholecystectomy, right groin AV fistula repair, splenectomy, tonsillectomy Abdominal Surgery: Yes (hernia sx, splenectomy) AICD: No Appendectomy: No Arteriovenous Shunt: Yes Body Medical Devices: PORT REMOVED Cardiac Surgery: No Cholecystectomy: Yes Ear Surgery: No Endocrine Surgery: No Eye Surgery: No Genitourinary Surgery: No Gynecologic Surgery: No Insulin Pump: No Joint Replacement: No Neurologic Surgery: No Oral Surgery: No Pacemaker: No Thoracic Surgery: No Tonsillectomy: Yes (adnoids) Tympanostomy Tube: Yes Other Surgery: Yes (PORT PLACEMENT AND REMOVAL, GALLBLADD, TONSILS, ADENOIDS, SPLEAN) Social History Alcohol Use: No Tobacco Use: No Substance Use: No Allergies-Medications (Allergen,Severity, Reaction): Coded Allergies: No Known Allergies (Verified Adverse Reaction, Unknown, 08/21/17) Reported Meds & Prescriptions Reported Meds & Active Scripts Active Folic Acid 0.8 Mg Tab 800 Mcg PO DAILY Flexeril (Cyclobenzaprine HCl) 10 Mg Tab 10 Mg PO TID Hydrea (Hydroxyurea) 500 Mg Cap 1,500 Mg PO DAILY Lortab (Hydrocodone-Acetaminophen) 10-325 Mg Tab 1 Tab PO Q4H PRN Artificial Tears Opth Drops (Propylene Glycol-Glycerin Opth Drops) 1-0.3% Drops 1-2 Drop EACH EYE PRN PRN Ativan (Lorazepam) 1 Mg Tab 1 Mg PO DAILY PRN Lidocaine Patch 12 HR (Lidocaine) 5 % Patch 1 Patch TOPICAL DAILY Remove patch after 12 hours Advair Diskus Inh (Fluticasone-Salmeterol Inh) 250-50 Mcg/Blist Aer 1 Puff INH BID Rinse mouth after use. Ventolin Hfa 18 GM Inh (Albuterol Sulfate) 90 Mcg/Act Aer 2 Puff INH Q6H PRN Albuterol Neb (Albuterol Sulfate) 2.5 Mg/3 Ml Neb 2.5 Mg NEB TID NEB PRN Review of Systems Except as stated in HPI: all other systems reviewed are Neg General / Constitutional: Positive: Chills, No: Fever Eyes: No: Visual changes HENT: No: Headaches Cardiovascular: No: Chest Pain or Discomfort, Dyspnea on exertion Respiratory: No: Shortness of Breath Gastrointestinal: No: Abdominal Pain Genitourinary: No: Dysuria Musculoskeletal: Positive: Myalgias, Arthralgias, Pain, No: Edema Skin: No Rash Neurologic: No: Weakness Psychiatric: No: Depression Endocrine: No: Polydipsia Hematologic/Lymphatic: No: Easy Bruising Physical Exam Narrative General: The patient is a well-developed well-nourished male, uncomfortable appearing on arrival, however otherwise in no acute medical distress. Head and Neck exam: Head is normocephalic atraumatic. Eyes: EOMI, pupils are equal round and reactive to light. Nose: Midline septum with pink mucous membranes Mouth: Dentition unremarkable. Moist mucus membranes. Posterior oropharynx is not erythematous. No tonsillar hypertrophy. Uvula midline. Airway patent. Neck: No palpable lymphadenopathy. No nuchal rigidity. No thyromegaly. Cardiovascular: Regular rate and rhythm without murmurs, gallops, or rubs. No pulse deficit to the extremities on simultaneous auscultation and palpation of his radial artery. Lungs: Clear to auscultation bilaterally. No wheezes, rhonchi, or rales. Abdomen: Soft, without tenderness to palpation in all 4 quadrants of the abdomen. No guarding, rebound, or rigidity. Normal bowel sounds are audible. No tenderness on palpation of McBurney's point. Extremities: No clubbing, cyanosis, or edema. 2+ pulses in all 4 extremities. No calf tenderness on palpation. No joint erythema or edema. The patient has full range of motion of his extremities. Back: No spinous process tenderness to palpation. The patient reports having right- sided CVA tenderness on palpation. Neurologic Exam: Grossly nonfocal. Skin Exam: No rash noted. Intact skin that is warm and dry. Data Data Last Documented VS Vital Signs Date Time Temp Pulse Resp B/P (MAP) Pulse Ox O2 Delivery O2 Flow Rate FiO2 08/21/17 02:55 100 Room Air 08/21/17 02:42 18 08/21/17 02:33 98.4 72 Orders Orders C-Reactive Protein (Crp) (08/21/17 02:52) Complete Blood Count With Diff (08/21/17 02:52) Comprehensive Metabolic Panel (08/21/17 02:52) Retic Count (08/21/17 02:52) Urinalysis - C+S If Indicated (08/21/17 02:52) Ecg Monitoring (08/21/17 02:52) Iv Access Insert/Monitor (08/21/17 02:52) Oximetry (08/21/17 02:52) Oxygen Administration (08/21/17 02:52) Hydromorphone Pf Inj (Dilaudid Pf Inj) (08/21/17 03:00) Ondansetron Inj (Zofran Inj) (08/21/17 03:00) Sodium Chloride 0.9% Flush (Ns Flush) (08/21/17 03:00) Sodium Chlor 0.9% 1000 Ml Inj (Ns 1000 M (08/21/17 02:52) Ketorolac Inj (Toradol Inj) (08/21/17 04:00) Hydromorphone Pf Inj (Dilaudid Pf Inj) (08/21/17 04:00) Ondansetron Inj (Zofran Inj) (08/21/17 04:00) Sodium Chlor 0.9% 1000 Ml Inj (Ns 1000 M (08/21/17 04:00) Admit Order (Ed Use Only) (08/21/17 04:32) Labs Laboratory Tests Test 08/21/17 02:57 08/21/17 04:32 White Blood Count 16.5 TH/MM3 Red Blood Count 2.98 MIL/MM3 Hemoglobin 9.5 GM/DL Hematocrit 26.8 % Mean Corpuscular Volume 90.1 FL Mean Corpuscular Hemoglobin 32.1 PG Mean Corpuscular Hemoglobin Concent 35.6 % Red Cell Distribution Width 21.3 % Platelet Count 432 TH/MM3 Mean Platelet Volume 7.4 FL Neutrophils (%) (Auto) 50.9 % Lymphocytes (%) (Auto) 37.8 % Monocytes (%) (Auto) 7.7 % Eosinophils (%) (Auto) 2.8 % Basophils (%) (Auto) 0.8 % Neutrophils # (Auto) 8.4 TH/MM3 Lymphocytes # (Auto) 6.3 TH/MM3 Monocytes # (Auto) 1.3 TH/MM3 Eosinophils # (Auto) 0.5 TH/MM3 Basophils # (Auto) 0.1 TH/MM3 CBC Comment AUTO DIFF Differential Total Cells Counted 100 Neutrophils % (Manual) 54 % Lymphocytes % 33 % Monocytes % 6 % Eosinophils % 7 % Neutrophils # (Manual) 8.9 TH/MM3 Nucleated Red Blood Cells 5 /100 WBC Differential Comment FINAL DIFF MANUAL Platelet Estimate HIGH Platelet Morphology Comment NORMAL Sickle Cells 1+ Ovalocytes 1+ Keratocytes 1+ Reticulocyte Count 10.0 % Absolute Reticulocyte Count 298.3 MIL/L Blood Urea Nitrogen 9 MG/DL Creatinine 0.81 MG/DL Random Glucose 86 MG/DL Total Protein 7.4 GM/DL Albumin 4.4 GM/DL Calcium Level 8.8 MG/DL Alkaline Phosphatase 135 U/L Aspartate Amino Transf (AST/SGOT) 55 U/L Alanine Aminotransferase (ALT/SGPT) 37 U/L Total Bilirubin 5.8 MG/DL Sodium Level 140 MEQ/L Potassium Level 4.5 MEQ/L Chloride Level 106 MEQ/L Carbon Dioxide Level 27.0 MEQ/L Anion Gap 7 MEQ/L Estimat Glomerular Filtration Rate 143 ML/MIN C-Reactive Protein 0.58 MG/DL Urine Color LIGHT-YELLOW Urine Turbidity CLEAR Urine pH 6.5 Urine Specific Galliano 1.009 Urine Protein 100 mg/dL Urine Glucose (UA) NEG mg/dL Urine Ketones NEG mg/dL Urine Occult Blood SMALL Urine Nitrite NEG Urine Bilirubin NEG Urine Urobilinogen 2.0 MG/DL Urine Leukocyte Esterase NEG Urine RBC LESS THAN 1 /hpf Urine WBC 1 /hpf Urine Squamous Epithelial Cells <1 /hpf Urine Hyaline Casts 2 /lpf Microscopic Urinalysis Comment CULT NOT INDICATED MDM Medical Decision Making Medical Screen Exam Complete: Yes Emergency Medical Condition: Yes Medical Record Reviewed: Yes Differential Diagnosis Sickle cell pain crisis, versus pyelonephritis, versus arthralgias, versus arthritis Narrative Course During the course of the patient's emergency department visit, the patient's history, examination, and differential diagnosis were reviewed with the patient. The patient was placed on a cardiac catheterization technician with oximetry and frequent blood pressure monitoring. IV access obtained and blood work sent for analysis. The patient was initially provided normal saline 1 L IV fluid bolus, nasal cannula O2 at 2 L, hydromorphone 1 mg IV for pain, Zofran 4 mg IV for nausea. The patient's laboratory studies were reviewed and remarkable for a white count of 16.5, hemoglobin 9.5, platelets 432 with a differential remarkable for 7 eosinophils, reticulocyte count 10. CMP is remarkable for a total bilirubin of 5.8, AST 55, alk phos 135, C-reactive protein 0.58, urinalysis shows 100 protein small occult blood otherwise unremarkable. The patient on reexamination reports continued severe pain. The patient was given Toradol 15 mg IV, hydromorphone 1 mg IV, repeat dose of Zofran 4 mg IV. The patient on repeat assessment reports that the pain is slightly improved, however continues to be in his estimation severe. The patient was given an additional 1 L IV fluid bolus. The patient will be admitted to the hospital for sickle cell pain crisis The patient's results were discussed with the patient, including the plan of care. I explained that further testing and/ or monitoring is indicated based on the patient's history, examination, and/ or laboratory findings. Therefore, I recommended admission for additional evaluation. The patient expressed understanding and was agreeable with this plan. The patient was admitted to the hospital in stable condition and sent to a bed under the care of the [facility] service per Physician Communication Physician Communication The patient's case including history, pertinent physical examination findings, and laboratory studies were discussed with Dr. Villela. It was agreed that the patient would be admitted to the [facility] service. Diagnosis Primary Impression: Sickle cell pain crisis Admitting Information Admitting Physician Requests: Observation Thao Meraz MD Aug 21, 2017 03:22
[2017-08-21 03:24] LABS: ALBUMIN 4.4 GM/DL (3.4-5.0); ALKALINE PHOSPHATASE 135 U/L (45-117); ALT (GPT) 37 U/L (12-78); AST (GOT) 55 U/L (15-37); BLOOD UREA NITROGEN 9 MG/DL (7-18); C-REACTIVE PROTEIN 0.58 MG/DL (0.00-0.30); CALCIUM 8.8 MG/DL (8.5-10.1); CHLORIDE 106 MEQ/L (98-107); CREATININE 0.81 MG/DL (0.60-1.30); GLOMERULAR FILTRATION RATE 143 ML/MIN (>89); GLUCOSE,RANDOM 86 MG/DL (74-106); SODIUM (NA) 140 MEQ/L (136-145); TOTAL PROTEIN 7.4 GM/DL (6.4-8.2)
[2017-08-21 03:25] LABS: TOTAL BILIRUBIN ADULT 5.8 MG/DL (0.2-1.0)
[2017-08-21 03:35] LABS: CORRECTED NUCLEATED RBC 5 /100 WBC (0-0); KERATOCYTES 1+ (NORMAL); LYMPHOCYTES 33 % (9-44); MONOCYTES 6 % (0-8); NEUTROPHIL # MANUAL DIFF 8.9 TH/MM3 (1.8-7.7); NUCLEATED RED BLOOD CELL 5 (0-0); OVALOCYTES 1+ (NORMAL); POLYS (SEG NEUTROPHILS) 54 % (16-70); SICKLE CELLS 1+ (NORMAL)
[2017-08-21] MEDS ORDERED: ONDANSETRON HCL 4 MG/2 ML VIAL IV PUSH ONE (04:00)
[2017-08-21] MEDS ORDERED: KETOROLAC TROMETHAMINE 30 MG/ML (IVP) VIAL IV PUSH ONE (04:00)
[2017-08-21] MEDS ORDERED: HYDROmorphone HCL PF 2 MG/ML VIAL IV PUSH ONE ×2 (04:00→06:30)
[2017-08-21] MEDS ORDERED: diphenhydrAMINE HCL 25 MG CAP PO ONE (04:30)
[2017-08-21] MEDS ORDERED: BISACODYL 10 MG SUPP RECTAL PRN (04:45)
[2017-08-21] MEDS ORDERED: LACTULOSE SYRUP 20 GM/30 ML CUP PO PRN (04:45)
[2017-08-21] MEDS ORDERED: NALOXONE HCL 0.4 MG/ML AMP IV PUSH PRN (04:45)
[2017-08-21] MEDS ORDERED: MAGNESIUM HYDROXIDE SUSP 30 ML CUP PO PRN (04:45)
[2017-08-21] MEDS ORDERED: HYDROmorphone HCL PF 1 MG/ML VIAL IV PUSH PRN (04:45)
[2017-08-21] MEDS ORDERED: SENNOSIDES 8.6 MG TAB PO PRN (04:45)
[2017-08-21 05:03] LABS: BILIRUBIN, URINE NEG (NEG); BLOOD, URINE SMALL (NEG); GLUCOSE,URINE NEG (NEG); HYALINE CAST, URINE 2 /lpf (RARE); KETONE, URINE NEG (NEG); NITRITE,URINE NEG (NEG); PH, URINE 6.5 (5.0-8.5); SQUAMOUS EPITHELIAL CELL URINE <1 /hpf (0-5); URINE COLOR LIGHT-YELLOW (YELLW/STRAW); URINE LEUKOCYTE ESTERASE NEG (NEG)
--- NOTE | 2017-08-21 05:13 | HHI.HP ---
[facility] Service [place] [facility] Primary Care Physician Marco A Bell MD Admission Diagnosis Sickle Cell Pain Crisis Diagnoses: Travel History International Travel<30 Days: No Contact w/Intl Traveler <30 Da: No Traveled to Known Affected Are: No History of Present Illness 21-year-old male with past medical history significant for asthma and sickle cell disease presents the emergency department for evaluation of a pain crisis. The patient reports he has pain in his bilateral knees and right lower extremity. He states the pain is typical all of his pain crises. He denies any chest pain or shortness of breath. No fevers/chills. No abdominal pain. No nausea/vomiting/diarrhea. No weakness. Review of Systems Except as stated in HPI: all other systems reviewed are Neg Past Family Social History Past Medical History Asthma Sickle cell disease Past Surgical History Cholecystectomy Splenectomy Tonsillectomy Right foot surgery Port placement and removal Priapism surgery 2 Reported Medications Reported Meds & Active Scripts Active Folic Acid 0.8 Mg Tab 800 Mcg PO DAILY Flexeril (Cyclobenzaprine HCl) 10 Mg Tab 10 Mg PO TID Hydrea (Hydroxyurea) 500 Mg Cap 1,500 Mg PO DAILY Lortab (Hydrocodone-Acetaminophen) 10-325 Mg Tab 1 Tab PO Q4H PRN Artificial Tears Opth Drops (Propylene Glycol-Glycerin Opth Drops) 1-0.3% Drops 1-2 Drop EACH EYE PRN PRN Ativan (Lorazepam) 1 Mg Tab 1 Mg PO DAILY PRN Lidocaine Patch 12 HR (Lidocaine) 5 % Patch 1 Patch TOPICAL DAILY Remove patch after 12 hours Advair Diskus Inh (Fluticasone-Salmeterol Inh) 250-50 Mcg/Blist Aer 1 Puff INH BID Rinse mouth after use. Ventolin Hfa 18 GM Inh (Albuterol Sulfate) 90 Mcg/Act Aer 2 Puff INH Q6H PRN Albuterol Neb (Albuterol Sulfate) 2.5 Mg/3 Ml Neb 2.5 Mg NEB TID NEB PRN Allergies: Coded Allergies: No Known Allergies (Verified Adverse Reaction, Unknown, 08/21/17) Family History Negative for CAD/DM Social History Occasional alcohol. Denies tobacco and illicit drugs. Physical Exam Vital Signs Vital Signs Date Time Temp Pulse Resp B/P (MAP) Pulse Ox O2 Delivery O2 Flow Rate FiO2 08/21/17 02:55 100 Room Air 08/21/17 02:55 100 Room Air 08/21/17 02:42 18 176/107 (130) Room Air 08/21/17 02:33 98.4 72 18 120/91 (101) 95 Physical Exam GENERAL: -Wallisian male lying in bed, writhing in pain SKIN: No rashes, ecchymoses or lesions. Cool and dry. HEAD: Atraumatic. Normocephalic. No temporal or scalp tenderness. EYES: Pupils equal round and reactive. Extraocular motions intact. No scleral icterus. No injection or drainage. ENT: Nose without bleeding, purulent drainage or septal hematoma. Throat without erythema, tonsillar hypertrophy or exudate. Uvula midline. Airway patent. NECK: Trachea midline. No JVD or lymphadenopathy. Supple, nontender, no meningeal signs. CARDIOVASCULAR: Regular rate and rhythm without murmurs, gallops, or rubs. RESPIRATORY: Clear to auscultation. Breath sounds equal bilaterally. No wheezes , rales, or rhonchi. GASTROINTESTINAL: Abdomen soft, non-tender, nondistended. No hepato-splenomegaly , or palpable masses. No guarding. MUSCULOSKELETAL: Extremities without clubbing, cyanosis, or edema. No joint tenderness, effusion, or edema noted. No calf tenderness. NEUROLOGICAL: Awake and alert. Cranial nerves II through XII intact. Motor and sensory grossly within normal limits. Normal speech. Laboratory Laboratory Tests Test 08/21/17 02:57 08/21/17 04:32 White Blood Count 16.5 Red Blood Count 2.98 Hemoglobin 9.5 Hematocrit 26.8 Mean Corpuscular Volume 90.1 Mean Corpuscular Hemoglobin 32.1 Mean Corpuscular Hemoglobin Concent 35.6 Red Cell Distribution Width 21.3 Platelet Count 432 Mean Platelet Volume 7.4 Neutrophils (%) (Auto) 50.9 Lymphocytes (%) (Auto) 37.8 Monocytes (%) (Auto) 7.7 Eosinophils (%) (Auto) 2.8 Basophils (%) (Auto) 0.8 Neutrophils # (Auto) 8.4 Lymphocytes # (Auto) 6.3 Monocytes # (Auto) 1.3 Eosinophils # (Auto) 0.5 Basophils # (Auto) 0.1 CBC Comment AUTO DIFF Differential Total Cells Counted 100 Neutrophils % (Manual) 54 Lymphocytes % 33 Monocytes % 6 Eosinophils % 7 Neutrophils # (Manual) 8.9 Nucleated Red Blood Cells 5 Differential Comment FINAL DIFF MANUAL Platelet Estimate HIGH Platelet Morphology Comment NORMAL Sickle Cells 1+ Ovalocytes 1+ Keratocytes 1+ Reticulocyte Count 10.0 Absolute Reticulocyte Count 298.3 Blood Urea Nitrogen 9 Creatinine 0.81 Random Glucose 86 Total Protein 7.4 Albumin 4.4 Calcium Level 8.8 Alkaline Phosphatase 135 Aspartate Amino Transf (AST/SGOT) 55 Alanine Aminotransferase (ALT/SGPT) 37 Total Bilirubin 5.8 Sodium Level 140 Potassium Level 4.5 Chloride Level 106 Carbon Dioxide Level 27.0 Anion Gap 7 Estimat Glomerular Filtration Rate 143 C-Reactive Protein 0.58 Urine Color LIGHT-YELLOW Urine Turbidity CLEAR Urine pH 6.5 Urine Specific [place] 1.009 Urine Protein 100 Urine Glucose (UA) NEG Urine Ketones NEG Urine Occult Blood SMALL Urine Nitrite NEG Urine Bilirubin NEG Urine Urobilinogen 2.0 Urine Leukocyte Esterase NEG Urine RBC LESS THAN 1 Urine WBC 1 Urine Squamous Epithelial Cells <1 Urine Hyaline Casts 2 Microscopic Urinalysis Comment CULT NOT INDICATED Result Diagram: 08/21/1725608/21/17256 Caprini VTE Risk Assessment Caprini VTE Risk Assessment: No/Low Risk (score <= 1) Caprini Risk Assessment Model Point Value = 1 Point Value = 2 Point Value = 3 Point Value = 5 Age 41-60 Minor surgery BMI > 25 kg/m2 Swollen legs Varicose veins or History of unexplained or recurrent spontaneous Oral contraceptives or hormone replacement Sepsis (< 1 month) Serious lung disease, including pneumonia (< 1 month) Abnormal pulmonary function Acute myocardial infarction Congestive heart failure (< 1 month) History of inflammatory bowel disease Medical patient at bed rest Age 61-74 Arthroscopic surgery Major open surgery (> 45 min) Laparoscopic surgery (> 45 min) Malignancy Confined to bed (> 72 hours) Immobilizing plaster cast Central venous access Age >= 75 History of VTE Family history of VTE Factor V Leiden Prothrombin [id number] Lupus anticoagulant Anticardiolipin antibodies Elevated serum homocysteine Heparin-induced thrombocytopenia Other congenital or acquired thrombophilia Stroke (< 1 month) Elective arthroplasty Hip, pelvis, or leg fracture Acute spinal cord injury (< 1 month) Prophylaxis Regimen Total Risk Factor Score Risk Level Prophylaxis Regimen 0-1 Low Early ambulation 2 Moderate Order ONE of the following: *Sequential Compression Device (SCD) *Heparin 5000 units SQ BID 3-4 Higher Order ONE of the following medications: *Heparin 5000 units SQ TID *Enoxaparin/Lovenox 40 mg SQ daily (WT < 150 kg, CrCl > 30 mL/min) *Enoxaparin/Lovenox 30 mg SQ daily (WT < 150 kg, CrCl > 10-29 mL/min) *Enoxaparin/Lovenox 30 mg SQ BID (WT < 150 kg, CrCl > 30 mL/min) AND/OR *Sequential Compression Device (SCD) 5 or more Highest Order ONE of the following medications: *Heparin 5000 units SQ TID (Preferred with Epidurals) *Enoxaparin/Lovenox 40 mg SQ daily (WT < 150 kg, CrCl > 30 mL/min) *Enoxaparin/Lovenox 30 mg SQ daily (WT < 150 kg, CrCl > 10-29 mL/min) *Enoxaparin/Lovenox 30 mg SQ BID (WT < 150 kg, CrCl > 30 mL/min) AND *Sequential Compression Device (SCD) Assessment and Plan Assessment and Plan Assessment/plan: 1. Sickle cell pain crisis Dilaudid for pain IV fluid hydration 2. Asthma Patient has not needed his rescue inhaler quite some time Monitor FEN Regular diet Electrolytes: monitor and replete prn NS at 100 cc/hr Lauren Villela MD Aug 21, 2017 05:13
[2017-08-21] MEDS: SODIUM CHLOR 0.9% 1000 ML INJ 1,000 ML IV SCH ×2 (05:57→08:54)
[2017-08-21] MEDS ORDERED: PHENYLEPHRINE 500 MCG/1 ML NS in SYRINGE I-CAVITARY ONE (06:00)
[2017-08-21] MEDS: HYDROmorphone HCL PF 2 MG/ML VIAL IV PRN ×6 (06:18→21:58)
[2017-08-21] MEDS ORDERED: PSEUDOEPHEDRINE HCL 30 MG TAB PO ONE (06:30)
[2017-08-21] MEDS: SODIUM CHLORIDE 0.9% FLUSH 10 ML FLUSH IV FLUSH SCH ×2 (08:48→21:00)
[2017-08-21] MEDS: DOCUSATE SODIUM 50 MG/SENNA 8.6 MG TAB PO SCH ×2 (08:48→21:18)
[2017-08-21] MEDS: ONDANSETRON HCL 4 MG/2 ML VIAL IVP PRN (12:17)
--- NOTE | 2017-08-21 15:58 | HHI.PR ---
Addendum to Inpatient Note Addendum Reason: Additional Documentation Additional Information Priapism has resolved. Patient complaining of severe low back and bilateral knee pain. He denies any chest pain or shortness of breath. He denies any fever or chills. He denies any N/V or abdominal pain. He follows with Dr. Bell of hematology. Will consult Dr. Bell, appreciate assistance Add supplemental oxygen 4LNC Increase Dilaudid for pain management Continue IVF Heparin sq Stacy Albarado Aug 21, 2017 15:58
--- NOTE | 2017-08-21 16:45 | RADRPT ---
EXAM DATE/TIME: 08/21/2017 16:04 [facility] COMPARISON: CHEST SINGLE AP, December 31, 2016, 20:43. INDICATIONS : Short of breath, Sickle Cell crisis, evaluate infiltrates MEDICAL HISTORY : Sickle Cell disease. asthma, TIA SURGICAL HISTORY : None. ENCOUNTER: Initial ACUITY: 1 day PAIN SCORE: 10/10 LOCATION: Left chest FINDINGS: A single view of the chest demonstrates the lungs to be symmetrically aerated without evidence of mas s, infiltrate or effusion. Heart size is borderline prominent but well compensated. Osseous structur es are intact. CONCLUSION: No acute cardiopulmonary process. Leon Eisenberg MD on August 21, 2017 at 16:42 Board Certified Radiologist. This report was verified electronically.
[2017-08-21] MEDS: HEPARIN SODIUM - SQ 10,000 UNITS/ML VIAL SQ SCH (17:25)
--- NOTE | 2017-08-21 21:15 | PD.CONS ---
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 Primary Care Physician Marco A Bell MD Diagnoses: (1) Sickle cell anemia with pain History of Present Illness Chief Complaint: Severe pain involving the knees and the legs, symptoms started late last night. History of presenting illness: Mr. Breaux is a 21-year-old male who is known to me from my outpatient practice as well as from multiple previous hospitalizations. 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 The patient's pain crises are often complicated by priapism. The patient reports being in his usual fair state of health up until last week, he began to notice a pain crisis with pain in his lower back and in his knees. 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 The patient reports his symptoms improved transiently. Last night he reports developing sudden onset severe pain in his knees bilaterally, the pain also involves his legs. He reports trying various methods to control the pain including warm compresses and oral analgesics. He tells me he took 2 Percocets initially to help relieve the pain, this did not work so he took 2 more about 3 hours later he tried hydrate himself but the pain did not improve but in fact worsened. He came into the ER here at [facility] and has been placed under observation status in the clinical decision-making unit. At the time I saw the patient at 6 PM he was almost writhing in pain in his room. He tells me the opioid analgesics he is receiving seem not to affect his pain much at all. He denies fevers or chills, he denies cough, phlegm production or difficulty breathing. Review of Systems Constitutional: DENIES: Diaphoretic episodes, Fatigue, Fever, Weight gain, Weight loss, Chills, Dizziness, Change in appetite, Night Sweats Endocrine: DENIES: Heat/cold intolerance, Polydipsia, Polyuria, Polyphagia Eyes: DENIES: Blurred vision, Diplopia, Eye inflammation, Eye pain, Vision loss , Photosensitivity, Double Vision Ears, nose, mouth, throat: DENIES: Tinnitus, Hearing loss, Vertigo, Nasal discharge, Oral lesions, Throat pain, Hoarseness, Ear Pain, Running Nose, Epistaxis, Sinus Pain, Toothache, Odynophagia Respiratory: COMPLAINS OF: Shortness of breath, DENIES: Apneas, Cough, Snoring , Wheezing, Hemoptysis, Sputum production Cardiovascular: COMPLAINS OF: Syncope, Dyspnea on Exertion, DENIES: Chest pain , Palpitations, PND, Lower Extremity Edema, Orthopnea, Claudication Gastrointestinal: DENIES: Abdominal pain, Black stools, Bloody stools, Constipation, Diarrhea, Nausea, Vomiting, Difficulty Swallowing, Anorexia Genitourinary: DENIES: Sexual dysfunction, Urinary frequency, Urinary incontinence, Urgency, Hematuria, Dysuria, Nocturia, Penile Discharge, Testicular Pain, Testicular Swelling Musculoskeletal: COMPLAINS OF: Joint pain, Muscle aches, Stiffness, Back pain, DENIES: Joint Swelling, Neck pain Integumentary: DENIES: Abnormal pigmentation, Nail changes, Pruritus, Rash Hematologic/lymphatic: DENIES: Bruising, Lymphadenopathy Immunologic/allergic: DENIES: Eczema, Urticaria Psychiatric: COMPLAINS OF: Anxiety, DENIES: Confusion, Mood changes, Depression , Hallucinations, Agitation, Suicidal Ideation, Homicidal Ideation, Delusions Pain in the legs. Priapism. Past Family Social History Allergies: Coded Allergies: No Known Allergies (Verified Allergy, Unknown, 08/21/17) Past Medical History Hemoglobin sickle cell disease Frequent vaso-occlusive pain crises. 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 every 4 hours needed for fever Dulcolax suppository 10 mg per rectal as needed for constipation Diphenhydramine 25 mg p.o. 1 Hayde-Colace 1 tablet p.o. twice daily Heparin 5000 units subcu every 8 hours Hydromorphone 2 mg IV every 2 hours as needed for severe pain Morphine sulfate extended release 30 mg p.o. every 12 hours. Magnesium hydroxide liquid 30 mL's p.o. every 12 hours as needed for constipation Zofran 4 mg IV every 6 hours needed for nausea and vomiting Pseudoephedrine 60 mg p.o. 1 Family History Both parents with sickle cell trait. Both parents are living. No known oncologic diagnoses in the family. 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 He reports smoking, denies alcohol abuse. Physical Exam Vital Signs Vital Signs Date Time Temp Pulse Resp B/P (MAP) Pulse Ox O2 Delivery O2 Flow Rate FiO2 08/21/17 20:22 99.2 100 16 152/74 (100) 96 08/21/17 18:03 22 08/21/17 16:16 98.5 93 18 113/68 (83) 90 08/21/17 14:00 20 08/21/17 13:00 97.5 87 19 130/63 (85) 96 08/21/17 08:32 98.0 103 20 131/86 (101) 92 08/21/17 05:31 98.7 94 18 122/80 (94) 92 08/21/17 02:55 100 Room Air 08/21/17 02:55 100 Room Air 08/21/17 02:42 18 176/107 (130) Room Air 08/21/17 02:33 98.4 72 18 120/91 (101) 95 Physical Exam General appearance: Young male laying in bed, is curled up into the position, he is in acute distress he is crying, his mother is at bedside. He is of muscular build. SKIN: No rashes, ecchymoses or lesions. Cool and dry. HEAD: Atraumatic. Normocephalic. No temporal or scalp tenderness. EYES: Pupils equal round and reactive. Extraocular motions intact. No scleral icterus. No injection or drainage. ENT: Nose without bleeding, purulent drainage or septal hematoma. Throat without erythema, tonsillar hypertrophy or exudate. Uvula midline. Airway patent. NECK: Trachea midline. No JVD or lymphadenopathy. Supple, nontender, no meningeal signs. CARDIOVASCULAR: Tachycardic, regular, S1-S2 no obvious murmurs rubs or gallops. RESPIRATORY: Clear to auscultation. Breath sounds equal bilaterally. No wheezes , rales, or rhonchi. GASTROINTESTINAL: Abdomen with voluntary guarding, no obvious organ MUSCULOSKELETAL: Extremities without clubbing, cyanosis, or edema. No joint tenderness, effusion, or edema noted. No calf tenderness. Negative Homans sign bilaterally. NEUROLOGICAL: Awake and alert. Cranial nerves II through XII intact. Motor and sensory grossly within normal limits. Five out of 5 muscle strength in all muscle groups. Normal speech. Psychiatric: In acute distress secondary to pain. Laboratory Laboratory Tests Test 08/21/17 02:57 08/21/17 04:32 White Blood Count 16.5 Red Blood Count 2.98 Hemoglobin 9.5 Hematocrit 26.8 Mean Corpuscular Volume 90.1 Mean Corpuscular Hemoglobin 32.1 Mean Corpuscular Hemoglobin Concent 35.6 Red Cell Distribution Width 21.3 Platelet Count 432 Mean Platelet Volume 7.4 Neutrophils (%) (Auto) 50.9 Lymphocytes (%) (Auto) 37.8 Monocytes (%) (Auto) 7.7 Eosinophils (%) (Auto) 2.8 Basophils (%) (Auto) 0.8 Neutrophils # (Auto) 8.4 Lymphocytes # (Auto) 6.3 Monocytes # (Auto) 1.3 Eosinophils # (Auto) 0.5 Basophils # (Auto) 0.1 CBC Comment AUTO DIFF Differential Total Cells Counted 100 Neutrophils % (Manual) 54 Lymphocytes % 33 Monocytes % 6 Eosinophils % 7 Neutrophils # (Manual) 8.9 Nucleated Red Blood Cells 5 Differential Comment FINAL DIFF MANUAL Platelet Estimate HIGH Platelet Morphology Comment NORMAL Sickle Cells 1+ Ovalocytes 1+ Keratocytes 1+ Reticulocyte Count 10.0 Absolute Reticulocyte Count 298.3 Blood Urea Nitrogen 9 Creatinine 0.81 Random Glucose 86 Total Protein 7.4 Albumin 4.4 Calcium Level 8.8 Alkaline Phosphatase 135 Aspartate Amino Transf (AST/SGOT) 55 Alanine Aminotransferase (ALT/SGPT) 37 Total Bilirubin 5.8 Sodium Level 140 Potassium Level 4.5 Chloride Level 106 Carbon Dioxide Level 27.0 Anion Gap 7 Estimat Glomerular Filtration Rate 143 C-Reactive Protein 0.58 Urine Color LIGHT-YELLOW Urine Turbidity CLEAR Urine pH 6.5 Urine Specific [place] 1.009 Urine Protein 100 Urine Glucose (UA) NEG Urine Ketones NEG Urine Occult Blood SMALL Urine Nitrite NEG Urine Bilirubin NEG Urine Urobilinogen 2.0 Urine Leukocyte Esterase NEG Urine RBC LESS THAN 1 Urine WBC 1 Urine Squamous Epithelial Cells <1 Urine Hyaline Casts 2 Microscopic Urinalysis Comment CULT NOT INDICATED Result Diagram: 08/21/1725608/21/17256 Imaging Chest x-ray dated 08/20/2017: No acute disease, infiltrates or lesions noted. Assessment and Plan Assessment and Plan Mr. 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 In the past he has had several episodes of acute chest syndrome at least one of which has resulted in hypoxic respiratory failure requiring mechanical ventilation and emergency red cell exchange transfusion. His pain crises are often complicated by priapism. The patient is on outpatient disease modifying therapy with hydroxyurea 2000 mg once daily, dosing schedule he reportedly adheres to on an almost daily basis. He also has a history of iron overload secondary to multiple red cell transfusions over the course of his life and has been on oral iron chelating therapy with Jadenu. The patient presents to this hospital with a 24-hour history of uncontrolled skeletal pain involving his knees and lower extremities bilaterally. Plan: 1. Hemoglobin sickle cell disease related vaso-occlusive pain crisis and complicated by acute chest syndrome, acute stroke or avascular necrosis: I would recommend best supportive care at this point with hypertonic saline infusion, oxygen supplementation, short acting opioid analgesics intravenously and long-acting/slow release morphine sulfate 30 mg p.o. every 12 hours. Incentive spirometry will also be added. Repeat CBC in the morning, monitor electrolytes and replace accordingly. 2. Priapism: Sudafed and ice packs, if his erections do not resolve he may need to be evaluated by urology for needle aspiration. Discussed Condition With Patient's nurse at bedside. Patient's mother. Marco A Bell MD Aug 21, 2017 21:15
[2017-08-21] MEDS: SODIUM CHLOR 0.45% 1000 ML INJ 1,000 ML IV SCH (21:17)
[2017-08-21] MEDS: MORPHINE SULFATE 30 MG CONTROLLED RELEASE TAB PO SCH (21:18)
[2017-08-22] VITALS (11 sets, daily range): BP systolic 125–158; BP diastolic 64–96; PULSE 91–118; RESP 16–20; TEMP 97.6–102.1; O2SAT 94–99
[2017-08-22] MEDS: SODIUM CHLOR 0.9% 1000 ML INJ 1,000 ML IV SCH (00:30)
[2017-08-22] MEDS: SODIUM CHLOR 0.45% 1000 ML INJ 1,000 ML IV SCH ×3 (02:30→18:30)
[2017-08-22] MEDS: HEPARIN SODIUM - SQ 10,000 UNITS/ML VIAL SQ SCH ×3 (02:45→15:09)
[2017-08-22] MEDS: HYDROmorphone HCL PF 2 MG/ML VIAL IV PRN ×8 (02:46→21:51)
[2017-08-22 04:44] LABS: AUTOMATED NEUTROPHIL # 17.7 TH/MM3 (1.8-7.7); BASOPHIL # 0.1 TH/MM3 (0-0.2); BASOPHIL % 0.5 % (0.0-2.0); EOSINOPHIL % 0.1 % (0.0-4.0); HEMATOCRIT 22.6 % (39.0-51.0); LYMPH % 9.5 % (9.0-44.0); MEAN CELL VOLUME 90.8 FL (80.0-100.0); MEAN CORPUSCULAR HEMOGLOBIN 32.3 PG (27.0-34.0); MEAN CORPUSCULAR HGB CONC 35.6 % (32.0-36.0); MEAN PLATELET VOLUME 7.2 FL (7.0-11.0); MONOCYTE # 1.5 TH/MM3 (0-0.9); NEUT % 82.9 % (16.0-70.0); PLATELET COUNT 274 TH/MM3 (150-450); RED BLOOD COUNT 2.49 MIL/MM3 (4.50-5.90); RED CELL DISTRIBUTION WIDTH 20.4 % (11.6-17.2); WHITE BLOOD COUNT 21.4 TH/MM3 (4.0-11.0)
[2017-08-22 05:12] LABS: BICARBONATE 23.6 MEQ/L (21.0-32.0); CALCIUM 8.5 MG/DL (8.5-10.1); CREATININE 0.88 MG/DL (0.60-1.30)
[2017-08-22 06:51] LABS: BANDS 6 % (0-6); CORRECTED NUCLEATED RBC 21 /100 WBC (0-0); LYMPHOCYTES 7 % (9-44); MONOCYTES 4 % (0-8); MYELOCYTES 1 % (0-0); NUCLEATED RED BLOOD CELL 21 (0-0); POLYS (SEG NEUTROPHILS) 82 % (16-70)
[2017-08-22 06:52] LABS: SICKLE CELLS 1+ (NORMAL); STOMATOCYTES 1+ (NORMAL)
[2017-08-22 06:53] LABS: TARGET CELLS 1+ (NORMAL)
[2017-08-22] MEDS: SODIUM CHLORIDE 0.9% FLUSH 10 ML FLUSH IV FLUSH SCH ×2 (08:05→19:46)
[2017-08-22] MEDS: DOCUSATE SODIUM 50 MG/SENNA 8.6 MG TAB PO SCH ×2 (09:07→19:46)
[2017-08-22] MEDS: MORPHINE SULFATE 30 MG CONTROLLED RELEASE TAB PO SCH ×2 (09:07→19:46)
[2017-08-22] MEDS: SODIUM CHLORIDE 0.9% FLUSH 10 ML FLUSH IV FLUSH PRN ×3 (10:34→15:09)
[2017-08-22] MEDS: ONDANSETRON HCL 4 MG/2 ML VIAL IVP PRN (12:36)
--- NOTE | 2017-08-22 14:01 | HHI.PR ---
Subjective Remarks The patient said that his pain was poorly controlled. He was taking Benadryl and said that made him sleepy. He wanted to know what his pain regimen was. Objective Vitals Vital Signs Date Time Temp Pulse Resp B/P (MAP) Pulse Ox O2 Delivery O2 Flow Rate FiO2 08/22/17 12:26 97.8 91 18 148/79 (102) 94 08/22/17 12:00 96 08/22/17 08:10 118 08/22/17 08:00 Nasal Cannula 4.00 08/22/17 07:58 98.8 109 20 158/96 (116) 94 08/22/17 07:28 96 Nasal Cannula 2.00 08/22/17 03:41 99.3 96 16 151/79 (103) 94 08/22/17 00:49 100.0 102 16 141/89 (106) 99 08/21/17 22:19 100 Nasal Cannula 2.00 08/21/17 20:22 99.2 100 16 152/74 (100) 96 08/21/17 18:03 22 08/21/17 16:16 98.5 93 18 113/68 (83) 90 08/21/17 14:00 20 I/O 08/21/17 08/21/17 08/21/17 08/22/17 08/22/17 08/22/17 07:00 15:00 23:00 07:00 15:00 23:00 Intake Total 2000 ml 1000 ml 1000 ml Output Total 1600 ml Balance 2000 ml 1000 ml -600 ml Intake IV Total 2000 ml 1000 ml 1000 ml Output Urine Total 1600 ml Result Diagram: 08/22/17 0412 08/22/17 0410 Imaging Last Impressions Chest X-Ray 08/21/17 0000 Signed Impressions: Service Date/Time: Monday, August 21, 2017 16:04 - CONCLUSION: No acute cardiopulmonary process. Leon Eisenberg MD Objective Remarks GENERAL: Writhing in pain. SKIN: No rashes, ecchymoses or lesions. Cool and dry. HEAD: Atraumatic. Normocephalic. No temporal or scalp tenderness. EYES: Pupils equal round and reactive. Extraocular motions intact. No scleral icterus. No injection or drainage. ENT: Nose without bleeding, purulent drainage or septal hematoma. Throat without erythema, tonsillar hypertrophy or exudate. Uvula midline. Airway patent. NECK: Trachea midline. No JVD or lymphadenopathy. Supple, nontender, no meningeal signs. CARDIOVASCULAR: Regular rate and rhythm without murmurs, gallops, or rubs. RESPIRATORY: Clear to auscultation. Breath sounds equal bilaterally. No wheezes , rales, or rhonchi. GASTROINTESTINAL: Abdomen soft, non-tender, nondistended. No hepato-splenomegaly , or palpable masses. No guarding. MUSCULOSKELETAL: Extremities without clubbing, cyanosis, or edema. No joint tenderness, effusion, or edema noted. NEUROLOGICAL: Awake and alert. Cranial nerves II through XII intact. Motor and sensory grossly within normal limits. Normal speech. Medications and IVs Current Medications Medications (Trade) Dose Ordered Sig/Kerri Route Start Time Stop Time Status Last Admin (NS Flush) 2 ml UNSCH PRN IV FLUSH 08/21/17 04:45 08/22/17 12:36 (NS Flush) 2 ml BID IV FLUSH 08/21/17 09:00 08/22/17 08:05 (Tylenol) 650 mg Q4H PRN PO 08/21/17 04:45 (Zofran Inj) 4 mg Q6H PRN IVP 08/21/17 04:45 08/22/17 12:36 (Narcan Inj) 0.4 mg UNSCH PRN IV PUSH 08/21/17 04:45 (Hayde-Colace) 1 tab BID PO 08/21/17 09:00 08/22/17 09:07 (Milk Of Magnesia Liq) 30 ml Q12H PRN PO 08/21/17 04:45 (Senokot) 17.2 mg Q12H PRN PO 08/21/17 04:45 (Dulcolax Supp) 10 mg DAILY PRN RECTAL 08/21/17 04:45 (Lactulose Liq) 30 ml DAILY PRN PO 08/21/17 04:45 Sodium Chloride 1,000 ml @ 100 mls/hr Q10H IV 08/21/17 04:30 08/21/17 08:54 (Heparin Inj) 5,000 units Q8H SQ 08/21/17 16:00 08/22/17 08:05 (Dilaudid Pf Inj) 2 mg Q2HR PRN IV 08/21/17 18:30 08/22/17 12:36 (Oramorph Sr) 30 mg Q12HR PO 08/21/17 21:00 08/22/17 09:07 Sodium Chloride 1,000 ml @ 125 mls/hr Q8H IV 08/21/17 18:30 08/22/17 12:36 A/P Assessment and Plan Sickle cell pain crisis Consulted Dr. Bell, appreciate assistance. - Add supplemental oxygen 4LNC. - IV Dilaudid and PO morphine for pain management - Continue IVF. - Heparin sq. - incentive spirometry. Asthma Patient has not needed his rescue inhaler quite some time. - nebs as needed. Priapism The patient developed priapism. Phenylephrine injections were ordered however the patient refused. He was treated with Sudafed. Seems resolved. - supportive care. Leukocytosis Likely a stress reaction s/t above. - check blood cultures. PPx: Heparin Kristian Beatty DO Aug 22, 2017 14:01
[2017-08-22] MEDS: ACETAMINOPHEN 325 MG TAB PO PRN (21:05)
[2017-08-22] MEDS ORDERED: LORazepam 0.5 MG TAB PO ONE (21:45)
[2017-08-23] VITALS (7 sets, daily range): BP systolic 105–126; BP diastolic 55–69; PULSE 82–115; RESP 16–18; TEMP 99–102.4; O2SAT 90–98
[2017-08-23] MEDS: HEPARIN SODIUM - SQ 10,000 UNITS/ML VIAL SQ SCH ×3 (00:33→15:44)
[2017-08-23] MEDS: SODIUM CHLOR 0.45% 1000 ML INJ 1,000 ML IV SCH ×3 (01:24→17:25)
[2017-08-23] MEDS: HYDROmorphone HCL PF 2 MG/ML VIAL IV PRN ×3 (01:25→07:46)
[2017-08-23] MEDS: ACETAMINOPHEN 325 MG TAB PO PRN (07:46)
[2017-08-23] MEDS: DOCUSATE SODIUM 50 MG/SENNA 8.6 MG TAB PO SCH ×2 (07:46→20:06)
[2017-08-23] MEDS: MORPHINE SULFATE 30 MG CONTROLLED RELEASE TAB PO SCH ×2 (07:46→20:06)
[2017-08-23] MEDS: SODIUM CHLORIDE 0.9% FLUSH 10 ML FLUSH IV FLUSH SCH ×2 (07:47→20:58)
[2017-08-23] MEDS ORDERED: HYDROmorphone HCL PF 2 MG/ML VIAL IV PRN (09:15)
--- NOTE | 2017-08-23 09:17 | HHI.PR ---
Subjective Remarks Follow-up sickle cell crisis August 23, 2017-patient seen and examined, complains of back pain however denies any chest pain. Currently afebrile. T-max 102.4 August 24, 2017-patient seen and examined, now complains of left anterior chest pain. Still spiking fevers with T-max 102 Objective Vitals Vital Signs Date Time Temp Pulse Resp B/P (MAP) Pulse Ox O2 Delivery O2 Flow Rate FiO2 08/23/17 08:00 102.4 115 18 118/59 (78) 90 08/23/17 07:39 Nasal Cannula 4.00 08/23/17 00:48 101.6 102 16 105/69 (81) 96 08/22/17 23:13 101.0 08/22/17 19:54 102.1 101 18 133/64 (87) 95 08/22/17 19:48 4.00 08/22/17 16:27 97.6 107 18 125/75 (92) 97 08/22/17 15:04 98 08/22/17 12:26 97.8 91 18 148/79 (102) 94 08/22/17 12:00 96 I/O 08/22/17 08/22/17 08/22/17 08/23/17 08/23/17 08/23/17 06:59 14:59 22:59 06:59 14:59 22:59 Intake Total 1000 ml Output Total 1600 ml Balance -600 ml Intake IV Total 1000 ml Output Urine Total 1600 ml Result Diagram: 08/22/17 0412 08/22/17 0410 Imaging Last Impressions Chest X-Ray 08/21/17 0000 Signed Impressions: Service Date/Time: Monday, August 21, 2017 16:04 - CONCLUSION: No acute cardiopulmonary process. Leon Eisenberg MD Objective Remarks GENERAL: NAD SKIN: Warm and dry. HEAD: Normocephalic. EYES: No scleral icterus. No injection or drainage. NECK: Supple, trachea midline. No JVD or lymphadenopathy. CARDIOVASCULAR: Regular rate and rhythm without murmurs, gallops, or rubs. RESPIRATORY: Breath sounds equal bilaterally. No accessory muscle use. GASTROINTESTINAL: Abdomen soft, non-tender, nondistended. MUSCULOSKELETAL: No cyanosis, or edema. BACK: Nontender without obvious deformity. No CVA tenderness. A/P Problem List: (1) Sickle cell pain crisis ICD Code: D57.00 - Sickle cell pain crisis Status: Acute (2) Asthma, chronic ICD Code: J45.909 - Asthma, chronic Status: Chronic (3) Leukocytosis ICD Code: D72.829 - Leukocytosis Status: Acute (4) Sickle cell anemia ICD Code: D57.1 - Sickle-cell disease without crisis Status: Chronic Assessment and Plan 21-year-old man with Sickle cell pain crisis -Appreciate input from hematology - Continue supplemental oxygen 4LNC. -Continue IV Dilaudid 3 mg every 4 as needed and PO morphine for pain management - Continue IVF. - Heparin sq. - incentive spirometry. Sickle cell anemia -Transfuse 1 unit packed red blood cells and monitor H&H Asthma -No exacerbation - nebs as needed. Priapism The patient developed priapism. Phenylephrine injections were ordered however the patient refused. He was treated with Sudafed. Seems resolved. - supportive care. Bacteremia -Repeat blood culture-NTD -Currently on vancomycin IV and Cefepime -Appreciate infectious disease specialist -Patient still spiking fevers, will check Chest CT and consider Abdomen/pelvis CT PPx: Israel Chatterjee MD Aug 23, 2017 09:17
[2017-08-23] MEDS: HYDROmorphone HCL PF 4 MG/ML VIAL IV PUSH PRN ×4 (09:45→21:01)
[2017-08-23] MEDS: ONDANSETRON HCL 4 MG/2 ML VIAL IVP PRN ×2 (09:49→17:26)
[2017-08-23] MEDS ORDERED: Vancomycin Consult Pharmacy 1 EA OTHER SCH (13:45)
[2017-08-23] MEDS: VANCOMYCIN INJ 1,250 MG in SODIUM CHLOR 0.9% 250 ML INJ 250 ML IV SCH (15:45)
--- NOTE | 2017-08-23 19:43 | PD.ID.CON ---
History of Present Illness Service ID Consult Requested By Reason for Consult Evaluation and Mment of bacteremia in patient with sickle cell crisis. Primary Care Physician Marco A Bell MD Diagnoses: History of Present Illness Mr. 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 The patient's pain crises are often complicated by priapism. Patient reports seeing Dr.Zafar Bell as outpatient. He reports he has been to [facility] for vasc cath related complications. His last crisis needing hospitalization was 4 months back. He reports going to office for minor crisis situations and often gets IVF for hydration as outpatient in such times. With this background patient reports being in his usual fair state of health up until last week, he began to notice a pain crisis with pain in his lower back and in his knees. 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 The patient reports his symptoms improved transiently with subsequent worsening with pain in back and bilateral knees down to his legs. After presentation to the hospital he has developed fevers. Continues to be in pain. He reports he used to have a port and currently has no mcc IV access. He had sepsis workup on admission BCX 1 out of 4 positive for GPC ID pending. ID consulted for bacteremia in a sickler. Review of Systems Constitutional: COMPLAINS OF: Fever, Chills, DENIES: Diaphoretic episodes, Fatigue, Weight gain, Weight loss, Dizziness, Change in appetite, Night Sweats Endocrine: DENIES: Heat/cold intolerance, Polydipsia, Polyuria, Polyphagia Eyes: DENIES: Blurred vision, Diplopia, Eye inflammation, Eye pain, Vision loss , Photosensitivity, Double Vision Ears, nose, mouth, throat: DENIES: Tinnitus, Hearing loss, Vertigo, Nasal discharge, Oral lesions, Throat pain, Hoarseness, Ear Pain, Running Nose, Epistaxis, Sinus Pain, Toothache, Odynophagia Respiratory: DENIES: Apneas, Cough, Snoring, Wheezing, Hemoptysis, Sputum production, Shortness of breath Cardiovascular: DENIES: Chest pain, Palpitations, Syncope, Dyspnea on Exertion , PND, Lower Extremity Edema, Orthopnea, Claudication Gastrointestinal: DENIES: Abdominal pain, Black stools, Bloody stools, Constipation, Diarrhea, Nausea, Vomiting, Difficulty Swallowing, Anorexia Genitourinary: DENIES: Sexual dysfunction, Urinary frequency, Urinary incontinence, Urgency, Hematuria, Dysuria, Nocturia, Penile Discharge, Testicular Pain, Testicular Swelling Musculoskeletal: COMPLAINS OF: Joint pain, Joint Swelling, Back pain, DENIES: Muscle aches, Stiffness, Neck pain Integumentary: DENIES: Abnormal pigmentation, Nail changes, Pruritus, Rash Hematologic/lymphatic: DENIES: Bruising, Lymphadenopathy Immunologic/allergic: DENIES: Eczema, Urticaria Neurologic: DENIES: Abnormal gait, Headache, Localized weakness, Paresthesias, Seizures, Speech Problems, Tremor, Poor Balance Psychiatric: DENIES: Anxiety, Confusion, Mood changes, Depression, Hallucinations, Agitation, Suicidal Ideation, Homicidal Ideation, Delusions Past Family Social History Allergies: Coded Allergies: No Known Allergies (Verified Allergy, Unknown, 08/21/17) Past Medical History Hemoglobin sickle cell disease Frequent vaso-occlusive pain crises. 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 Reported history of an ischemic stroke History of Acute chest syndrome > 30 units pRBC transfusion Iron overload Past Surgical History Cholecystectomy Right groin AV fistula repair Splenectomy Tonsillectomy Reported Medications Reported Meds & Active Scripts Active Folic Acid 0.8 Mg Tab 800 Mcg PO DAILY Flexeril (Cyclobenzaprine HCl) 10 Mg Tab 10 Mg PO TID Hydrea (Hydroxyurea) 500 Mg Cap 1,500 Mg PO DAILY Lortab (Hydrocodone-Acetaminophen) 10-325 Mg Tab 1 Tab PO Q4H PRN Artificial Tears Opth Drops (Propylene Glycol-Glycerin Opth Drops) 1-0.3% Drops 1-2 Drop EACH EYE PRN PRN Ativan (Lorazepam) 1 Mg Tab 1 Mg PO DAILY PRN Lidocaine Patch 12 HR (Lidocaine) 5 % Patch 1 Patch TOPICAL DAILY Remove patch after 12 hours Advair Diskus Inh (Fluticasone-Salmeterol Inh) 250-50 Mcg/Blist Aer 1 Puff INH BID Rinse mouth after use. Ventolin Hfa 18 GM Inh (Albuterol Sulfate) 90 Mcg/Act Aer 2 Puff INH Q6H PRN Albuterol Neb (Albuterol Sulfate) 2.5 Mg/3 Ml Neb 2.5 Mg NEB TID NEB PRN Active Ordered Medications Current Medications Medications (Trade) Dose Ordered Sig/Kerri Route Start Time Stop Time Status Last Admin (NS Flush) 2 ml UNSCH PRN IV FLUSH 08/21/17 04:45 08/22/17 15:09 (NS Flush) 2 ml BID IV FLUSH 08/21/17 09:00 08/22/17 08:05 (Tylenol) 650 mg Q4H PRN PO 08/21/17 04:45 08/23/17 07:46 (Zofran Inj) 4 mg Q6H PRN IVP 08/21/17 04:45 08/23/17 17:26 (Narcan Inj) 0.4 mg UNSCH PRN IV PUSH 08/21/17 04:45 (Hayde-Colace) 1 tab BID PO 08/21/17 09:00 08/23/17 20:06 (Milk Of Magnesia Liq) 30 ml Q12H PRN PO 08/21/17 04:45 (Senokot) 17.2 mg Q12H PRN PO 08/21/17 04:45 (Dulcolax Supp) 10 mg DAILY PRN RECTAL 08/21/17 04:45 (Lactulose Liq) 30 ml DAILY PRN PO 08/21/17 04:45 (Heparin Inj) 5,000 units Q8H SQ 08/21/17 16:00 08/24/17 00:10 (Oramorph Sr) 30 mg Q12HR PO 08/21/17 21:00 08/23/17 20:06 Sodium Chloride 1,000 ml @ 125 mls/hr Q8H IV 08/21/17 18:30 08/23/17 17:25 (Dilaudid Pf Inj) 3 mg Q4HR PRN IV PUSH 08/23/17 09:45 08/24/17 00:10 Pharmacy Profile Note 0 ml @ 0 mls/hr UNSCH OTHER 08/23/17 13:45 Vancomycin HCl 1250 mg/Sodium Chloride 262.5 ml @ 262.5 mls/ hr Q8H IV 08/23/17 16:00 08/24/17 00:10 Miscellaneous Information SPECIFIC LAB TO BE DRAWN:VANCOMYCIN TROUGH DATE TO... ONCE ONCE .XX 08/24/17 15:45 08/24/17 15:46 (Genteal Severe Dry Eye Relief 0.3% Opth Gel) 2 drop Q6H PRN EACH EYE 08/23/17 20:00 08/23/17 22:39 Cefepime HCl 2000 mg/Sodium Chloride 100 ml @ 200 mls/hr Q8H IV 08/23/17 21:00 08/23/17 21:01 Family History Both parents with sickle cell trait. Both parents are living. No known oncologic diagnoses in the family. 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 He reports smoking, denies alcohol abuse. Several siblings with trait. He is only child with SS disease. Physical Exam Vital Signs Vital Signs Date Time Temp Pulse Resp B/P (MAP) Pulse Ox O2 Delivery O2 Flow Rate FiO2 08/23/17 16:00 99.0 88 18 126/60 (82) 98 08/23/17 12:01 99.0 82 18 114/55 (74) 94 08/23/17 09:07 92 21 08/23/17 08:00 102.4 115 18 118/59 (78) 90 08/23/17 07:39 Nasal Cannula 4.00 08/23/17 00:48 101.6 102 16 105/69 (81) 96 08/22/17 23:13 101.0 08/22/17 19:54 102.1 101 18 133/64 (87) 95 08/22/17 19:48 4.00 Physical Exam GENERAL: This is a well-nourished, well-developed patient, in distress secondary to pain. SKIN: No rashes, ecchymoses or lesions. Cool and dry. HEAD: Atraumatic. Normocephalic. No temporal or scalp tenderness. EYES: Pupils equal round and reactive. Extraocular motions intact. No scleral icterus. No injection or drainage. ENT: Nose without bleeding, purulent drainage or septal hematoma. Throat without erythema, tonsillar hypertrophy or exudate. Uvula midline. Airway patent. NECK: Trachea midline. Supple, nontender, no meningeal signs. CARDIOVASCULAR: Regular rate and rhythm without murmurs, gallops, or rubs. RESPIRATORY: Clear to auscultation. Breath sounds equal bilaterally. No wheezes , rales, or rhonchi. GASTROINTESTINAL: Abdomen soft, non-tender, nondistended. MUSCULOSKELETAL: Extremities without clubbing, cyanosis, or edema. No joint effusion, or edema noted. No calf tenderness. Negative Homans sign bilaterally. NEUROLOGICAL: Awake and alert. Cranial nerves II through XII intact. Motor and sensory grossly within normal limits. Five out of 5 muscle strength in all muscle groups. Normal speech. psych anxious IV line sites ok. Laboratory Date/Time Source Procedure Growth Status 08/22/17 14:50 Blood Peripheral Aerobic Blood Culture - Preliminary NO GROWTH IN 1 DAY Resulted 08/22/17 14:50 Blood Peripheral Anaerobic Blood Culture - Preliminary NO GROWTH IN 1 DAY Resulted Result Diagram: 08/22/17 0412 08/22/17 0410 Imaging Last Impressions Chest X-Ray 08/23/17 0000 Signed Impressions: Service Date/Time: , August 23, 2017 20:00 - CONCLUSION: Mild airspace disease on the left. Twan Avila MD Assessment and Plan Assessment and Plan Gram positive bacteremia ? Pneumonia. Sickle cell crisis back pain and LE pain ? sickle cell disease related ? avascular necrosis of hip. Recs: Supportive care for SS disease. Continue Vanco IV Start Cefepime IV CXR now (post hydration may show infiltrate) Follow cultures Follow clinically. [facility] covers for al 08/24 to 08/26/17 Tessa Deal MD Aug 23, 2017 19:43
[2017-08-23] MEDS ORDERED: HYPROMELLOSE 0.3 % OPTH GEL 10 GM (0.34 FL OZ) TUBE EACH EYE PRN (20:00)
--- NOTE | 2017-08-23 20:22 | RADRPT ---
EXAM DATE/TIME: 08/23/2017 20:00 [facility] COMPARISON: No previous studies available for comparison. INDICATIONS : Evaluate for pneumonia MEDICAL HISTORY : Sickle Cell disease. asthma, TIA SURGICAL HISTORY : None. ENCOUNTER: Subsequent ACUITY: 2 days PAIN SCORE: 0/10 LOCATION: Bilateral chest FINDINGS: Mild hazy infiltrate of the left lung again noted. There is mild left-sided volume loss. No pleural e ffusion. No pneumothorax. Cardiomediastinal silhouette within normal limits. CONCLUSION: Mild airspace disease on the left. Twan Avila MD on August 23, 2017 at 20:18 Board Certified Radiologist. This report was verified electronically.
[2017-08-23] MEDS: CEFEPIME INJ 2,000 MG in SODIUM CHLORIDE 0.9% INJ 100 ML IV SCH (21:01)
[2017-08-24] VITALS (8 sets, daily range): BP systolic 105–119; BP diastolic 49–58; PULSE 77–105; RESP 18; TEMP 98.1–102.3; O2SAT 93–100
[2017-08-24] MEDS: VANCOMYCIN INJ 1,250 MG in SODIUM CHLOR 0.9% 250 ML INJ 250 ML IV SCH ×4 (00:10→21:38)
[2017-08-24] MEDS: HEPARIN SODIUM - SQ 10,000 UNITS/ML VIAL SQ SCH ×3 (00:10→17:25)
[2017-08-24] MEDS: HYDROmorphone HCL PF 4 MG/ML VIAL IV PUSH PRN ×9 (00:10→23:22)
[2017-08-24] MEDS: SODIUM CHLOR 0.45% 1000 ML INJ 1,000 ML IV SCH ×3 (02:03→19:07)
[2017-08-24] MEDS: CEFEPIME INJ 2,000 MG in SODIUM CHLORIDE 0.9% INJ 100 ML IV SCH ×3 (03:56→20:20)
[2017-08-24] MEDS: MORPHINE SULFATE 30 MG CONTROLLED RELEASE TAB PO SCH ×2 (07:56→20:21)
[2017-08-24] MEDS: SODIUM CHLORIDE 0.9% FLUSH 10 ML FLUSH IV FLUSH SCH ×2 (07:56→20:21)
[2017-08-24] MEDS: ACETAMINOPHEN 325 MG TAB PO PRN ×2 (07:57→16:59)
[2017-08-24] MEDS: DOCUSATE SODIUM 50 MG/SENNA 8.6 MG TAB PO SCH ×2 (07:57→20:20)
--- NOTE | 2017-08-24 08:41 | PD.ONC.PN ---
Subjective Subjective Remarks Patient seen and examined, vital signs, labs and medications reviewed. He has been having fevers of up to 102F. One set of blood cultures was positive for gram-positive cocci, repeat blood cultures have been drawn and the results are pending. He has been initiated on broad-spectrum antibiotic coverage with cefepime and vancomycin. Subjectively; he reports persistent pain mostly now localized in his lower back , the knee pain is slightly improved. He tells me the time interval between his hydromorphone dosing is longer than he is comfortable with. He is requesting that once every 2 hour dosing. He tells me his breathing is comfortable, with deep inspiration he tells me he has some pain in the left upper chest. He reports a poor appetite and is requesting Ensure supplements and Gatorade supplements with each tray. Objective Data Date Time Temp Pulse Resp B/P (MAP) Pulse Ox O2 Delivery O2 Flow Rate FiO2 08/24/17 04:00 102.0 105 18 119/51 (73) 95 08/24/17 00:00 101.0 94 18 119/58 (78) 100 08/23/17 21:53 110 08/23/17 20:25 Nasal Cannula 3.00 08/23/17 20:15 96 4.00 08/23/17 20:00 100.0 87 18 118/56 (76) 96 08/23/17 16:00 99.0 88 18 126/60 (82) 98 08/23/17 12:01 99.0 82 18 114/55 (74) 94 08/23/17 09:07 92 21 08/24/17 08/24/17 08/24/17 07:00 15:00 23:00 Intake Total 480 ml Output Total 700 ml Balance -220 ml Result Diagram: 08/22/17 0412 08/22/17 0410 Culture Results Microbiology Date/Time Source Procedure Growth Status 08/23/17 21:50 Blood Peripheral Aerobic Blood Culture Pending Received 08/23/17 21:50 Blood Peripheral Anaerobic Blood Culture Pending Received 08/23/17 21:45 Blood Peripheral Aerobic Blood Culture Pending Received 08/23/17 21:45 Blood Peripheral Anaerobic Blood Culture Pending Received 08/22/17 14:50 Blood Peripheral Aerobic Blood Culture - Preliminary NO GROWTH IN 1 DAY Resulted 08/22/17 14:50 Blood Peripheral Anaerobic Blood Culture - Preliminary NO GROWTH IN 1 DAY Resulted 08/22/17 14:45 Blood Peripheral Aerobic Blood Culture - Preliminary Gram Positive Cocci Resulted 08/22/17 14:45 Blood Peripheral Anaerobic Blood Culture - Preliminary NO GROWTH IN 1 DAY Resulted Administered Medications Medications (Trade) Dose Ordered Sig/Kerri Route PRN Reason Start Time Stop Time Status Last Admin Dose Admin Sodium Chloride (NS Flush) 2 ml UNSCH PRN IV FLUSH FLUSH AFTER USING IV ACCESS 08/21/17 04:45 08/22/17 15:09 Sodium Chloride (NS Flush) 2 ml BID IV FLUSH 08/21/17 09:00 08/22/17 08:05 Acetaminophen (Tylenol) 650 mg Q4H PRN PO TEMP > 100.4 08/21/17 04:45 08/24/17 07:57 Ondansetron HCl (Zofran Inj) 4 mg Q6H PRN IVP NAUSEA OR VOMITING 08/21/17 04:45 08/23/17 17:26 Senna/Docusate Sodium (Hayde-Colace) 1 tab BID PO 08/21/17 09:00 08/24/17 07:57 Heparin Sodium (Porcine) (Heparin Inj) 5,000 units Q8H SQ 08/21/17 16:00 08/24/17 07:56 Morphine Sulfate (Oramorph Sr) 30 mg Q12HR PO 08/21/17 21:00 08/24/17 07:56 Sodium Chloride 1,000 ml @ 125 mls/hr Q8H IV 08/21/17 18:30 08/23/17 17:25 Hydromorphone HCl (Dilaudid Pf Inj) 3 mg Q4HR PRN IV PUSH PAIN GREATER THAN 5 08/23/17 09:45 08/24/17 07:57 Vancomycin HCl 1250 mg/Sodium Chloride 262.5 ml @ 262.5 mls/ hr Q8H IV 08/23/17 16:00 08/24/17 07:55 Hypromellose (Genteal Severe Dry Eye Relief 0.3% Opth Gel) 2 drop Q6H PRN EACH EYE DRY EYE 08/23/17 20:00 08/23/17 22:39 Cefepime HCl 2000 mg/Sodium Chloride 100 ml @ 200 mls/hr Q8H IV 08/23/17 21:00 08/24/17 03:56 Objective Remarks General appearance: Young male laying in bed, he appears more comfortable this morning but is still in obvious pain, he speaks to me in full sentences. SKIN: Skin is wet and warm. He appears to have just broken out in a sweat. HEAD: Atraumatic. Normocephalic. No temporal or scalp tenderness. EYES: Pupils equal round and reactive. Extraocular motions intact. No scleral icterus. No injection or drainage. ENT: Nose without bleeding, purulent drainage or septal hematoma. Throat without erythema, tonsillar hypertrophy or exudate. Uvula midline. Airway patent. NECK: Trachea midline. No JVD or lymphadenopathy. Supple, nontender, no meningeal signs. CARDIOVASCULAR: Tachycardic, regular, S1-S2 no obvious murmurs rubs or gallops. RESPIRATORY: Clear to auscultation. Breath sounds equal bilaterally. No wheezes , rales, or rhonchi. GASTROINTESTINAL: Abdomen with voluntary guarding, no obvious organ MUSCULOSKELETAL: Extremities without clubbing, cyanosis, or edema. No joint tenderness, effusion, or edema noted. No calf tenderness. Negative Homans sign bilaterally. NEUROLOGICAL: Awake and alert. Cranial nerves II through XII intact. Motor and sensory grossly within normal limits. Five out of 5 muscle strength in all muscle groups. Normal speech. Psychiatric: Alert and oriented 3, mildly anxious. Assessment/Plan Assessment Mr. 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 In the past he has had several episodes of acute chest syndrome at least one of which has resulted in hypoxic respiratory failure requiring mechanical ventilation and emergency red cell exchange transfusion. His pain crises are often complicated by priapism. The patient is on outpatient disease modifying therapy with hydroxyurea 2000 mg once daily, dosing schedule he reportedly adheres to on an almost daily basis. He also has a history of iron overload secondary to multiple red cell transfusions over the course of his life and has been on oral iron chelating therapy with Jadenu. The patient presents to this hospital with a 24-hour history of uncontrolled skeletal pain involving his knees and lower extremities bilaterally. Plan 1. Sickle cell pain crisis: Continue hydration with hypotonic saline, continue long and short acting opioids. I have modified his hydromorphone dosing slightly. He is at low risk for respiratory suppression. CBC drawn today, await results. 2. Gram-positive cocci in 1 set of blood cultures: Repeat blood cultures were drawn and results are pending, further characterization of the gram-positive cocci is also pending. He is on broad-spectrum antibiotic coverage with vancomycin cefepime. 3. Encourage incentive spirometry usage. 4. I have ordered Gatorade with each tray so he can keep himself orally hydrated as well. Hematology service to follow along with you. Continue supportive care and empiric antibiotic therapy. Marco A Bell MD Aug 24, 2017 08:41
[2017-08-24] MEDS: ONDANSETRON HCL 4 MG/2 ML VIAL IVP PRN (09:15)
[2017-08-24] MEDS: CIPROFLOXACIN 0.3% OPTH SOLN 2.5 ML BTL EACH EYE SCH ×3 (11:53→20:21)
[2017-08-24 15:00] LABS: AUTOMATED NEUTROPHIL # 8.4 TH/MM3 (1.8-7.7); BASOPHIL # 0.1 TH/MM3 (0-0.2); BASOPHIL % 0.6 % (0.0-2.0); EOSINOPHIL % 0.4 % (0.0-4.0); LYMPH % 6.8 % (9.0-44.0); LYMPHOCYTE # 0.8 TH/MM3 (1.0-4.8); MEAN CELL VOLUME 87.4 FL (80.0-100.0); MEAN CORPUSCULAR HGB CONC 35.4 % (32.0-36.0); MEAN PLATELET VOLUME 7.6 FL (7.0-11.0); MONO % 24.2 % (0.0-8.0); PLATELET COUNT 222 TH/MM3 (150-450); RED BLOOD COUNT 1.97 MIL/MM3 (4.50-5.90); RED CELL DISTRIBUTION WIDTH 18.7 % (11.6-17.2); WHITE BLOOD COUNT 12.3 TH/MM3 (4.0-11.0)
[2017-08-24 15:23] LABS: ALBUMIN 3.1 GM/DL (3.4-5.0); ALKALINE PHOSPHATASE 161 U/L (45-117); ALT (GPT) 38 U/L (12-78); AST (GOT) 41 U/L (15-37); BICARBONATE 27.9 MEQ/L (21.0-32.0); BLOOD UREA NITROGEN 11 MG/DL (7-18); CALCIUM 8.4 MG/DL (8.5-10.1); CHLORIDE 105 MEQ/L (98-107); CREATININE 0.65 MG/DL (0.60-1.30); GLOMERULAR FILTRATION RATE 185 ML/MIN (>89); GLUCOSE,RANDOM 91 MG/DL (74-106); SODIUM (NA) 139 MEQ/L (136-145); TOTAL BILIRUBIN ADULT 5.7 MG/DL (0.2-1.0); TOTAL PROTEIN 6.4 GM/DL (6.4-8.2); VANCOMYCIN TROUGH 12.2 MCG/ML (5.0-10.0)
[2017-08-24 15:32] LABS: HEMATOCRIT 17.2 % (39.0-51.0); HEMOGLOBIN 6.1 GM/DL (13.0-17.0)
[2017-08-24] MEDS ORDERED: PHARMACY ORDERED LAB ONE (15:45)
[2017-08-24] MEDS ORDERED: ACETAMINOPHEN 325 MG TAB PO PRN (16:00)
[2017-08-24] MEDS ORDERED: SODIUM CHLOR 0.9% 250 ML INJ 250 ML IV ONE (16:00)
[2017-08-24 16:51] LABS: BASOPHILS 2 % (0-2); CORRECTED NUCLEATED RBC 13 /100 WBC (0-0); LYMPHOCYTES 14 % (9-44); MONOCYTES 20 % (0-8); NEUTROPHIL # MANUAL DIFF 7.7 TH/MM3 (1.8-7.7); NUCLEATED RED BLOOD CELL 13 (0-0); POLYS (SEG NEUTROPHILS) 63 % (16-70)
[2017-08-24 16:54] LABS: OVALOCYTES 1+ (NORMAL); SICKLE CELLS 2+ (NORMAL); TARGET CELLS 2+ (NORMAL)
[2017-08-24 16:55] LABS: STOMATOCYTES 1+ (NORMAL)
[2017-08-24 17:12] LABS: HEMOGLOBIN 5.8 GM/DL (13.0-17.0)
[2017-08-24] MEDS: diphenhydrAMINE HCL 25 MG CAP PO PRN (23:38)
[2017-08-25] VITALS (12 sets, daily range): BP systolic 105–118; BP diastolic 43–56; PULSE 0–105; RESP 18–20; TEMP 99.4–101.6; O2SAT 94–99
[2017-08-25] MEDS: CIPROFLOXACIN 0.3% OPTH SOLN 2.5 ML BTL EACH EYE SCH ×6 (01:21→22:42)
[2017-08-25] MEDS: HEPARIN SODIUM - SQ 10,000 UNITS/ML VIAL SQ SCH ×4 (01:21→23:57)
[2017-08-25] MEDS: HYDROmorphone HCL PF 4 MG/ML VIAL IV PUSH PRN ×11 (01:21→23:56)
[2017-08-25] MEDS: SODIUM CHLOR 0.45% 1000 ML INJ 1,000 ML IV SCH ×2 (02:30→10:24)
[2017-08-25] MEDS: VANCOMYCIN INJ 1,250 MG in SODIUM CHLOR 0.9% 250 ML INJ 250 ML IV SCH ×3 (03:22→18:34)
[2017-08-25] MEDS: CEFEPIME INJ 2,000 MG in SODIUM CHLORIDE 0.9% INJ 100 ML IV SCH ×3 (05:46→21:21)
[2017-08-25 06:12] LABS: AUTOMATED NEUTROPHIL # 6.8 TH/MM3 (1.8-7.7); BASOPHIL # 0.2 TH/MM3 (0-0.2); BASOPHIL % 1.5 % (0.0-2.0); EOSINOPHIL # 0.1 TH/MM3 (0-0.4); EOSINOPHIL % 0.9 % (0.0-4.0); LYMPH % 18.1 % (9.0-44.0); LYMPHOCYTE # 1.9 TH/MM3 (1.0-4.8); MEAN CELL VOLUME 87.4 FL (80.0-100.0); MEAN CORPUSCULAR HEMOGLOBIN 31.3 PG (27.0-34.0); MEAN CORPUSCULAR HGB CONC 35.8 % (32.0-36.0); MEAN PLATELET VOLUME 7.5 FL (7.0-11.0); MONO % 13.8 % (0.0-8.0); MONOCYTE # 1.4 TH/MM3 (0-0.9); NEUT % 65.7 % (16.0-70.0); PLATELET COUNT 223 TH/MM3 (150-450); RED BLOOD COUNT 1.99 MIL/MM3 (4.50-5.90); RED CELL DISTRIBUTION WIDTH 18.1 % (11.6-17.2); WHITE BLOOD COUNT 10.4 TH/MM3 (4.0-11.0)
[2017-08-25 06:22] LABS: HEMATOCRIT 17.4 % (39.0-51.0); HEMOGLOBIN 6.2 GM/DL (13.0-17.0)
[2017-08-25] MEDS: SODIUM CHLORIDE 0.9% FLUSH 10 ML FLUSH IV FLUSH SCH ×2 (08:15→21:00)
[2017-08-25] MEDS: DOCUSATE SODIUM 50 MG/SENNA 8.6 MG TAB PO SCH ×2 (09:00→21:22)
[2017-08-25] MEDS: MORPHINE SULFATE 30 MG CONTROLLED RELEASE TAB PO SCH ×2 (09:08→21:23)
[2017-08-25] MEDS ORDERED: ACETAMINOPHEN 325 MG TAB PO PRN (09:15)
[2017-08-25] MEDS ORDERED: SODIUM CHLOR 0.9% 250 ML INJ 250 ML IV ONE (09:15)
[2017-08-25] MEDS ORDERED: diphenhydrAMINE HCL 25 MG CAP PO PRN (09:15)
[2017-08-25] MEDS ORDERED: PHARMACY ORDERED LAB ONE (09:45)
[2017-08-25 09:53] LABS: BANDS 2 % (0-6); CORRECTED NUCLEATED RBC 6 /100 WBC (0-0); LYMPHOCYTES 21 % (9-44); MONOCYTES 6 % (0-8); NEUTROPHIL # MANUAL DIFF 7.6 TH/MM3 (1.8-7.7); NUCLEATED RED BLOOD CELL 6 (0-0); POLYS (SEG NEUTROPHILS) 71 % (16-70)
[2017-08-25 09:54] LABS: OVALOCYTES 1+ (NORMAL); TARGET CELLS 1+ (NORMAL)
[2017-08-25 09:55] LABS: HOWELL-JOLLY BODIES PRESENT (NONE SEEN)
--- NOTE | 2017-08-25 10:06 | PD.ONC.PN ---
Subjective Subjective Remarks Tmax 99.8 overnight. Patient resting in bed. Complaining of continued pain in his knees and back. He also reports light headedness with moving around and overall fatigue. Objective Data Date Time Temp Pulse Resp B/P (MAP) Pulse Ox O2 Delivery O2 Flow Rate FiO2 08/25/17 08:52 17 08/25/17 07:17 99.8 78 18 105/47 (66) 94 08/25/17 03:15 99.6 81 18 114/43 96 08/25/17 01:15 99.4 97 18 109/53 98 08/25/17 00:52 99.5 90 18 108/50 98 08/25/17 00:10 100.3 105 18 110/46 94 08/25/17 00:00 0 08/24/17 20:55 Nasal Cannula 2.00 08/24/17 20:30 85 08/24/17 20:25 Room Air 08/24/17 19:51 100.6 77 18 114/49 (70) 96 08/24/17 16:00 102.3 100 18 105/51 (69) 93 08/24/17 14:06 100 Nasal Cannula 2.00 08/24/17 12:00 98.1 82 18 105/55 (72) 98 08/25/17 08/25/17 08/25/17 07:00 15:00 23:00 Intake Total 995 ml Output Total 1500 ml Balance -505 ml Result Diagram: 08/25/17 0532 08/24/17 1421 Laboratory Results Laboratory Tests Test 08/24/17 14:21 08/24/17 16:19 08/25/17 05:32 White Blood Count 12.3 TH/MM3 10.4 TH/MM3 Red Blood Count 1.97 MIL/MM3 1.99 MIL/MM3 Hemoglobin 6.1 GM/DL 5.8 GM/DL 6.2 GM/DL Hematocrit 17.2 % 16.0 % 17.4 % Mean Corpuscular Volume 87.4 FL 87.4 FL Mean Corpuscular Hemoglobin 31.0 PG 31.3 PG Mean Corpuscular Hemoglobin Concent 35.4 % 35.8 % Red Cell Distribution Width 18.7 % 18.1 % Platelet Count 222 TH/MM3 223 TH/MM3 Mean Platelet Volume 7.6 FL 7.5 FL Neutrophils (%) (Auto) 68.0 % 65.7 % Lymphocytes (%) (Auto) 6.8 % 18.1 % Monocytes (%) (Auto) 24.2 % 13.8 % Eosinophils (%) (Auto) 0.4 % 0.9 % Basophils (%) (Auto) 0.6 % 1.5 % Neutrophils # (Auto) 8.4 TH/MM3 6.8 TH/MM3 Lymphocytes # (Auto) 0.8 TH/MM3 1.9 TH/MM3 Monocytes # (Auto) 3.0 TH/MM3 1.4 TH/MM3 Eosinophils # (Auto) 0.0 TH/MM3 0.1 TH/MM3 Basophils # (Auto) 0.1 TH/MM3 0.2 TH/MM3 CBC Comment AUTO DIFF AUTO DIFF Differential Total Cells Counted 100 100 Neutrophils % (Manual) 63 % 71 % Lymphocytes % 14 % 21 % Monocytes % 20 % 6 % Eosinophils % 1 % Basophils % 2 % Neutrophils # (Manual) 7.7 TH/MM3 7.6 TH/MM3 Nucleated Red Blood Cells 13 /100 WBC 6 /100 WBC Differential Comment FINAL DIFF MANUAL FINAL DIFF MANUAL Platelet Estimate NORMAL NORMAL Platelet Morphology Comment NORMAL NORMAL Basophilic Stippling FAINT Sickle Cells 2+ Target Cells 2+ 1+ Ovalocytes 1+ 1+ Stomatocytes 1+ Blood Urea Nitrogen 11 MG/DL Creatinine 0.65 MG/DL Random Glucose 91 MG/DL Total Protein 6.4 GM/DL Albumin 3.1 GM/DL Calcium Level 8.4 MG/DL Alkaline Phosphatase 161 U/L Aspartate Amino Transf (AST/SGOT) 41 U/L Alanine Aminotransferase (ALT/SGPT) 38 U/L Total Bilirubin 5.7 MG/DL Sodium Level 139 MEQ/L Potassium Level 3.6 MEQ/L Chloride Level 105 MEQ/L Carbon Dioxide Level 27.9 MEQ/L Anion Gap 6 MEQ/L Estimat Glomerular Filtration Rate 185 ML/MIN Vancomycin Level Trough 12.2 MCG/ML Band Neutrophils % 2 % Bee-Griswold Bodies PRESENT Red Cell Morphology Comment Culture Results Microbiology Date/Time Source Procedure Growth Status 08/23/17 21:50 Blood Peripheral Aerobic Blood Culture - Preliminary NO GROWTH IN 1 DAY Resulted 08/23/17 21:50 Blood Peripheral Anaerobic Blood Culture - Preliminary NO GROWTH IN 1 DAY Resulted 08/23/17 21:45 Blood Peripheral Aerobic Blood Culture - Preliminary NO GROWTH IN 1 DAY Resulted 08/23/17 21:45 Blood Peripheral Anaerobic Blood Culture - Preliminary NO GROWTH IN 1 DAY Resulted 08/22/17 14:50 Blood Peripheral Aerobic Blood Culture - Preliminary NO GROWTH IN 2 DAYS Resulted 08/22/17 14:50 Blood Peripheral Anaerobic Blood Culture - Preliminary NO GROWTH IN 2 DAYS Resulted 08/22/17 14:45 Blood Peripheral Aerobic Blood Culture - Preliminary Staph Sp Coagulase Negative Resulted 08/22/17 14:45 Blood Peripheral Anaerobic Blood Culture - Preliminary NO GROWTH IN 2 DAYS Resulted Administered Medications Medications (Trade) Dose Ordered Sig/Kerri Route PRN Reason Start Time Stop Time Status Last Admin Dose Admin Sodium Chloride (NS Flush) 2 ml UNSCH PRN IV FLUSH FLUSH AFTER USING IV ACCESS 08/21/17 04:45 08/22/17 15:09 Sodium Chloride (NS Flush) 2 ml BID IV FLUSH 08/21/17 09:00 08/25/17 08:15 Acetaminophen (Tylenol) 650 mg Q4H PRN PO TEMP > 100.4 08/21/17 04:45 08/24/17 16:59 Ondansetron HCl (Zofran Inj) 4 mg Q6H PRN IVP NAUSEA OR VOMITING 08/21/17 04:45 08/24/17 09:15 Senna/Docusate Sodium (Hayde-Colace) 1 tab BID PO 08/21/17 09:00 08/24/17 20:20 Heparin Sodium (Porcine) (Heparin Inj) 5,000 units Q8H SQ 08/21/17 16:00 08/25/17 08:12 Morphine Sulfate (Oramorph Sr) 30 mg Q12HR PO 08/21/17 21:00 08/25/17 09:08 Sodium Chloride 1,000 ml @ 125 mls/hr Q8H IV 08/21/17 18:30 08/24/17 19:07 Hypromellose (Genteal Severe Dry Eye Relief 0.3% Opth Gel) 2 drop Q6H PRN EACH EYE DRY EYE 08/23/17 20:00 08/23/17 22:39 Cefepime HCl 2000 mg/Sodium Chloride 100 ml @ 200 mls/hr Q8H IV 08/23/17 21:00 08/25/17 05:46 Hydromorphone HCl (Dilaudid Pf Inj) 2 mg Q2HR PRN IV PUSH PAIN GREATER THAN 5 08/24/17 08:45 08/25/17 08:14 Ciprofloxacin HCl (Ciloxan 0.3% Opth Soln) 1 drop Q4HR EACH EYE 08/24/17 12:00 08/25/17 08:18 Acetaminophen (Tylenol) 650 mg Q4H PRN PO SEE LABEL COMMENTS 08/24/17 16:00 08/24/17 23:38 Diphenhydramine HCl (Benadryl) 25 mg Q4H PRN PO SEE LABEL COMMENTS 08/24/17 16:00 08/24/17 23:38 Vancomycin HCl 1250 mg/Sodium Chloride 262.5 ml @ 262.5 mls/ hr Q6H IV 08/24/17 22:00 08/25/17 03:22 Objective Remarks GENERAL: Young man, sitting up in bed, anxious appearing. SKIN: Warm and dry. HEAD: Normocephalic. EYES: No injection or drainage. NECK: Supple, trachea midline. CARDIOVASCULAR: +S1/S2, tachy RESPIRATORY: Breath sounds equal bilaterally. No accessory muscle use. GASTROINTESTINAL: Abdomen soft, non-tender, nondistended. EXTREMITIES: No cyanosis NEUROLOGICAL: No obvious focal deficit. Awake, alert, and oriented x3. Assessment/Plan Assessment Mr. 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 In the past he has had several episodes of acute chest syndrome at least one of which has resulted in hypoxic respiratory failure requiring mechanical ventilation and emergency red cell exchange transfusion. His pain crises are often complicated by priapism. The patient is on outpatient disease modifying therapy with hydroxyurea 2000 mg once daily, dosing schedule he reportedly adheres to on an almost daily basis. He also has a history of iron overload secondary to multiple red cell transfusions over the course of his life and has been on oral iron chelating therapy with Jadenu. The patient presents to this hospital with a 24-hour history of uncontrolled skeletal pain involving his knees and lower extremities bilaterally. Plan 1. Sickle cell pain crisis: continue IVF. continue pain management. Patient receiving Dilaudid 2mg IV q 2 hours. He does not want me to increase the interval as he is very scared he will be in pain again. I discussed with the nurse, this patient has no hypoxia or somnolent with the pain medications. For now I will leave the Dilaudid as ordered until his pain improves. 2. anemia: hgb 6.2, as patient is symptomatic with light-headedness upon exertion I will transfuse 1 unit blood. we discussed the importance of continuing Jadenu outpatient for his iron overload. 3. continue antibiotics. Attending Statement The exam, history, and the medical decision-making described in the above note were completed with the assistance of the mid-level provider. I reviewed and agree with the findings presented. I attest that I had a [id number] encounter with the patient on the same day, and personally performed and documented my assessment and findings in the medical record. 21 yoM with hemoglobin SS disease who is admitted with sickle cell pain crisis. Continue supportive care including incentive spirometry, pain medication, VTE ppx, antibiotics, folic acid. continue to follow cultures. Patient symptomatic/ dizzy. Will transfuse one unit of PRBC. For iron overload he will need to continue with Jadenu at home. Kaila Garcia Aug 25, 2017 10:06 Brenda Sutherland MD Aug 25, 2017 15:20
--- NOTE | 2017-08-25 11:24 | HHI.PR ---
Subjective Remarks Follow-up sickle cell crisis August 23, 2017-patient seen and examined, complains of back pain however denies any chest pain. Currently afebrile. T-max 102.4 August 24, 2017-patient seen and examined, now complains of left anterior chest pain. Still spiking fevers with T-max 102 August 25, 2017-patient seen and examined, patient is requesting to stick to 2 mg Dilaudid every 12 hours. T-max 100.3 Objective Vitals Vital Signs Date Time Temp Pulse Resp B/P (MAP) Pulse Ox O2 Delivery O2 Flow Rate FiO2 08/25/17 10:53 17 08/25/17 10:21 2.00 08/25/17 10:08 17 08/25/17 07:17 99.8 78 18 105/47 (66) 94 08/25/17 03:15 99.6 81 18 114/43 96 08/25/17 01:15 99.4 97 18 109/53 98 08/25/17 00:52 99.5 90 18 108/50 98 08/25/17 00:10 100.3 105 18 110/46 94 08/25/17 00:00 0 08/24/17 20:55 Nasal Cannula 2.00 08/24/17 20:30 85 08/24/17 20:25 Room Air 08/24/17 19:51 100.6 77 18 114/49 (70) 96 08/24/17 16:00 102.3 100 18 105/51 (69) 93 08/24/17 14:06 100 Nasal Cannula 2.00 08/24/17 12:00 98.1 82 18 105/55 (72) 98 I/O 08/24/17 08/24/17 08/24/17 08/25/17 08/25/17 08/25/17 07:00 15:00 23:00 07:00 15:00 23:00 Intake Total 480 ml 1362.5 ml 1982.5 ml 995 ml Output Total 700 ml 1500 ml Balance -220 ml 1362.5 ml 1982.5 ml -505 ml Intake Oral 480 ml 720 ml 480 ml IV Total 1362.5 ml 1262.5 ml Packed Cells 400 ml Blood Product IV Normal Saline Flush 115 ml Output Urine Total 700 ml 1500 ml # Voids 5 # Bowel Movements 0 0 0 Result Diagram: 08/25/17 0532 08/24/17 1421 Imaging Last Impressions Chest X-Ray 08/23/17 0000 Signed Impressions: Service Date/Time: July 20:00 - CONCLUSION: Mild airspace disease on the left. Twan Avila MD Objective Remarks GENERAL: NAD SKIN: Warm and dry. HEAD: Normocephalic. EYES: No scleral icterus. No injection or drainage. NECK: Supple, trachea midline. No JVD or lymphadenopathy. CARDIOVASCULAR: Regular rate and rhythm without murmurs, gallops, or rubs. RESPIRATORY: Breath sounds equal bilaterally. No accessory muscle use. GASTROINTESTINAL: Abdomen soft, non-tender, nondistended. MUSCULOSKELETAL: No cyanosis, or edema. BACK: Nontender without obvious deformity. No CVA tenderness. A/P Problem List: (1) Sickle cell pain crisis ICD Code: D57.00 - Sickle cell pain crisis Status: Acute (2) Asthma, chronic ICD Code: J45.909 - Asthma, chronic Status: Chronic (3) Leukocytosis ICD Code: D72.829 - Leukocytosis Status: Acute (4) Sickle cell anemia ICD Code: D57.1 - Sickle-cell disease without crisis Status: Chronic Assessment and Plan 21-year-old man with Sickle cell pain crisis -Appreciate input from hematology - Continue supplemental oxygen 2LNC. -Continue IV Dilaudid 2 mg every 2H as needed and PO morphine for pain management - Continue IVF. - Heparin sq. - incentive spirometry. Sickle cell anemia -s/p1 unit packed red blood cells on 08/24/17 however H/H still low therefore will transfuse 1 more unit today 08/25/17 Asthma -No exacerbation - nebs as needed. Priapism The patient developed priapism. He was treated with Sudafed. Now resolved. - supportive care. Bacteremia -Repeat blood culture-NTD x 2 days -Currently on vancomycin IV and Cefepime -Appreciate infectious disease specialist -Patient still spiking fevers, will check Chest CT and consider Abdomen/pelvis CT PPx: Israel Chatterjee MD Aug 25, 2017 11:24
[2017-08-25 12:39] LABS: ALBUMIN 3.1 GM/DL (3.4-5.0); DIRECT BILIRUBIN ADULT 1.3 MG/DL (0.0-0.2); INDIRECT BILIRUBIN 4.1 MG/DL (0.0-0.8); TOTAL BILIRUBIN ADULT 5.4 MG/DL (0.2-1.0); TOTAL PROTEIN 6.9 GM/DL (6.4-8.2); VANCOMYCIN TROUGH 13.2 MCG/ML (5.0-10.0)
[2017-08-25] MEDS: ACETAMINOPHEN 325 MG TAB PO PRN ×2 (15:42→21:23)
[2017-08-25] MEDS: diphenhydrAMINE HCL 25 MG CAP PO PRN (15:42)
[2017-08-26] VITALS: BP 121/70; PULSE 79; RESP 18; TEMP 99.7; O2SAT 97
[2017-08-26] MEDS: HYDROmorphone HCL PF 4 MG/ML VIAL IV PUSH PRN ×3 (01:33→06:32)
[2017-08-26] MEDS: CIPROFLOXACIN 0.3% OPTH SOLN 2.5 ML BTL EACH EYE SCH ×6 (04:00→21:24)
[2017-08-26] MEDS: VANCOMYCIN INJ 1,250 MG in SODIUM CHLOR 0.9% 250 ML INJ 250 ML IV SCH ×3 (06:31)
[2017-08-26] MEDS: CEFEPIME INJ 2,000 MG in SODIUM CHLORIDE 0.9% INJ 100 ML IV SCH ×3 (06:31→20:39)
[2017-08-26 06:38] VITALS: BP 104/54; PULSE 72; RESP 18; TEMP 99.6; O2SAT 95
[2017-08-26 08:00] VITALS: BP 114/53; PULSE 68; RESP 18; TEMP 99.8; O2SAT 97
[2017-08-26] MEDS: SODIUM CHLORIDE 0.9% FLUSH 10 ML FLUSH IV FLUSH SCH ×2 (09:00→19:49)
[2017-08-26] MEDS: HEPARIN SODIUM - SQ 10,000 UNITS/ML VIAL SQ SCH ×2 (09:06→16:09)
[2017-08-26] MEDS: DOCUSATE SODIUM 50 MG/SENNA 8.6 MG TAB PO SCH ×2 (09:07→20:31)
[2017-08-26] MEDS: FOLIC ACID 1 MG TAB PO SCH (09:07)
[2017-08-26] MEDS: MORPHINE SULFATE 30 MG CONTROLLED RELEASE TAB PO SCH ×2 (09:07→20:31)
--- NOTE | 2017-08-26 09:20 | PD.ONC.PN ---
Subjective Subjective Remarks Tmax 101.6 overnight. Patient reports some improvement in symptoms of pain in his legs and back. He no longer endorses symptoms of dizziness. States he had too much going on yesterday and too many visitors to get out of bed. States he will try to move around a bit more today. Objective Data Date Time Temp Pulse Resp B/P (MAP) Pulse Ox O2 Delivery O2 Flow Rate FiO2 08/26/17 08:00 99.8 68 18 114/53 (73) 97 08/26/17 07:34 17 08/26/17 06:38 99.6 72 18 104/54 (71) 95 08/26/17 00:00 99.7 79 18 121/70 (87) 97 08/25/17 20:35 98 Nasal Cannula 2.00 08/25/17 20:00 101.6 78 20 117/56 (76) 99 08/25/17 16:42 18 08/25/17 16:18 101.1 89 18 118/56 98 08/25/17 16:16 101.1 89 18 118/56 98 08/25/17 15:53 99.7 86 18 112/55 08/25/17 11:39 99.7 87 18 115/56 (75) 96 08/25/17 10:21 2.00 08/25/17 10:08 17 08/26/17 08/26/17 08/26/17 07:00 15:00 23:00 Intake Total 840 ml Output Total 1200 ml Balance -360 ml Result Diagram: 08/25/17 0532 08/24/17 1421 Laboratory Results Laboratory Tests Test 08/25/17 10:15 Ferritin 9248 NG/ML Total Bilirubin 5.4 MG/DL Direct Bilirubin 1.3 MG/DL Indirect Bilirubin 4.1 MG/DL Aspartate Amino Transf (AST/SGOT) 83 U/L Alanine Aminotransferase (ALT/SGPT) 53 U/L Alkaline Phosphatase 202 U/L Lactate Dehydrogenase 805 U/L Total Protein 6.9 GM/DL Albumin 3.1 GM/DL Vancomycin Level Trough 13.2 MCG/ML Culture Results Microbiology Date/Time Source Procedure Growth Status 08/23/17 21:50 Blood Peripheral Aerobic Blood Culture - Preliminary NO GROWTH IN 2 DAYS Resulted 08/23/17 21:50 Blood Peripheral Anaerobic Blood Culture - Preliminary NO GROWTH IN 2 DAYS Resulted 08/23/17 21:45 Blood Peripheral Aerobic Blood Culture - Preliminary NO GROWTH IN 2 DAYS Resulted 08/23/17 21:45 Blood Peripheral Anaerobic Blood Culture - Preliminary NO GROWTH IN 2 DAYS Resulted Administered Medications Medications (Trade) Dose Ordered Sig/Kerri Route PRN Reason Start Time Stop Time Status Last Admin Dose Admin Sodium Chloride (NS Flush) 2 ml UNSCH PRN IV FLUSH FLUSH AFTER USING IV ACCESS 08/21/17 04:45 08/22/17 15:09 Sodium Chloride (NS Flush) 2 ml BID IV FLUSH 08/21/17 09:00 08/25/17 21:00 Acetaminophen (Tylenol) 650 mg Q4H PRN PO TEMP > 100.4 08/21/17 04:45 08/25/17 21:23 Ondansetron HCl (Zofran Inj) 4 mg Q6H PRN IVP NAUSEA OR VOMITING 08/21/17 04:45 08/24/17 09:15 Senna/Docusate Sodium (Hayde-Colace) 1 tab BID PO 08/21/17 09:00 08/25/17 21:22 Heparin Sodium (Porcine) (Heparin Inj) 5,000 units Q8H SQ 08/21/17 16:00 08/25/17 23:57 Morphine Sulfate (Oramorph Sr) 30 mg Q12HR PO 08/21/17 21:00 08/25/17 21:23 Sodium Chloride 1,000 ml @ 125 mls/hr Q8H IV 08/21/17 18:30 Future Hold 08/25/17 10:24 Hypromellose (Genteal Severe Dry Eye Relief 0.3% Opth Gel) 2 drop Q6H PRN EACH EYE DRY EYE 08/23/17 20:00 08/23/17 22:39 Cefepime HCl 2000 mg/Sodium Chloride 100 ml @ 200 mls/hr Q8H IV 08/23/17 21:00 08/26/17 06:31 Ciprofloxacin HCl (Ciloxan 0.3% Opth Soln) 1 drop Q4HR EACH EYE 08/24/17 12:00 08/26/17 04:00 Acetaminophen (Tylenol) 650 mg Q4H PRN PO SEE LABEL COMMENTS 08/24/17 16:00 08/24/17 23:38 Vancomycin HCl 1250 mg/Sodium Chloride 262.5 ml @ 262.5 mls/ hr Q6H IV 08/26/17 00:00 08/26/17 06:31 Objective Remarks GENERAL: Young man, sitting up in bed in nad. SKIN: Warm and dry. HEAD: Normocephalic. EYES: No injection or drainage. NECK: Supple, trachea midline. CARDIOVASCULAR: Regular rate and rhythm RESPIRATORY: Breath sounds equal bilaterally. No accessory muscle use. GASTROINTESTINAL: Abdomen soft, non-tender, nondistended. EXTREMITIES: No cyanosis NEUROLOGICAL: No obvious focal deficit. Assessment/Plan Assessment Mr. 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 In the past he has had several episodes of acute chest syndrome at least one of which has resulted in hypoxic respiratory failure requiring mechanical ventilation and emergency red cell exchange transfusion. His pain crises are often complicated by priapism. The patient is on outpatient disease modifying therapy with hydroxyurea 2000 mg once daily, dosing schedule he reportedly adheres to on an almost daily basis. He also has a history of iron overload secondary to multiple red cell transfusions over the course of his life and has been on oral iron chelating therapy with Jadenu. The patient presents to this hospital with a 24-hour history of uncontrolled skeletal pain involving his knees and lower extremities bilaterally. Plan 1. Sickle cell pain crisis: continue IVF. reduce dilaudid to 1mg IV q 2 hours-- this was discussed at length with the patient, he is comfortable decreasing the amount of dilaudid but would not like to decrease the time interval when he can receive it. 2. anemia: CBC pending today, s/p 1 unit pRBC yesterday and 1 unit the day prior 3. febrile syndrome: I have asked the nurse to call infectious disease to ask if he can be switched to PO antibiotics as his repeat blood cultures are negative. will order repeat chest x-ray 4. iron overload: encouraged patient to take his Jadenu on return home. Patient had multiple excuses for why he has not been able to take the jadenu. I gently encouraged the patient to take ownership of his healthcare needs and discussed that iron overload can overtime cause serious health problems and eventually organ failure. Attending Statement The exam, history, and the medical decision-making described in the above note were completed with the assistance of the mid-level provider. I reviewed and agree with the findings presented. I attest that I had a [id number] encounter with the patient on the same day, and personally performed and documented my assessment and findings in the medical record. 21 yoM with hemoglobin SS disease admitted with sickle cell pain crisis. ID team following for positive blood cultures; febrile overnight. He is currently on antibiotic therapy. He reports that his pain is improving. Walking in the hallway today. Decrease pain medication. Hemoglobin improved. Continue to follow. Kaila Garcia Aug 26, 2017 09:20 Brenda Sutherland MD Aug 26, 2017 14:55
--- NOTE | 2017-08-26 10:07 | RADRPT ---
EXAM DATE/TIME: 08/26/2017 09:55 [facility] COMPARISON: CHEST PA & LAT, March 11, 2016, 10:25. INDICATIONS : Chest pain. MEDICAL HISTORY : Sickle Cell disease. Asthma. SURGICAL HISTORY : None. ENCOUNTER: Subsequent ACUITY: 4 - 6 days PAIN SCORE: 4/10 LOCATION: Left chest FINDINGS: PA and lateral views of the chest demonstrate the lungs to be symmetrically aerated without evidence of mass, infiltrate or effusion. The cardiomediastinal contours are unremarkable. Osseous structure s are intact. CONCLUSION: Normal examination. Dimas Yoon MD on August 26, 2017 at 10:04 Board Certified Radiologist. This report was verified electronically.
[2017-08-26 10:46] LABS: AUTOMATED NEUTROPHIL # 6.4 TH/MM3 (1.8-7.7); BASOPHIL # 0.1 TH/MM3 (0-0.2); BASOPHIL % 0.7 % (0.0-2.0); EOSINOPHIL # 0.1 TH/MM3 (0-0.4); EOSINOPHIL % 0.8 % (0.0-4.0); HEMATOCRIT 22.5 % (39.0-51.0); HEMOGLOBIN 7.8 GM/DL (13.0-17.0); LYMPH % 18.1 % (9.0-44.0); LYMPHOCYTE # 1.7 TH/MM3 (1.0-4.8); MEAN CELL VOLUME 86.5 FL (80.0-100.0); MEAN CORPUSCULAR HEMOGLOBIN 29.9 PG (27.0-34.0); MEAN CORPUSCULAR HGB CONC 34.5 % (32.0-36.0); MEAN PLATELET VOLUME 7.5 FL (7.0-11.0); MONO % 14.1 % (0.0-8.0); MONOCYTE # 1.3 TH/MM3 (0-0.9); NEUT % 66.3 % (16.0-70.0); PLATELET COUNT 318 TH/MM3 (150-450); RED CELL DISTRIBUTION WIDTH 19.4 % (11.6-17.2); WHITE BLOOD COUNT 9.6 TH/MM3 (4.0-11.0)
[2017-08-26 10:54] LABS: ALBUMIN 3.2 GM/DL (3.4-5.0); BICARBONATE 25.5 MEQ/L (21.0-32.0); CREATININE 0.71 MG/DL (0.60-1.30); DIRECT BILIRUBIN ADULT 1.8 MG/DL (0.0-0.2)
[2017-08-26] MEDS: HYDROmorphone HCL PF 2 MG/ML VIAL IV PUSH PRN ×6 (10:55→22:07)
[2017-08-26 10:57] LABS: INDIRECT BILIRUBIN 2.6 MG/DL (0.0-0.8); TOTAL BILIRUBIN ADULT 4.4 MG/DL (0.2-1.0); TOTAL PROTEIN 7.4 GM/DL (6.4-8.2)
[2017-08-26 11:38] LABS: KERATOCYTES OCC (NORMAL); SICKLE CELLS 1+ (NORMAL); TARGET CELLS 1+ (NORMAL)
[2017-08-26] MEDS ORDERED: PHARMACY ORDERED LAB ONE (11:45)
[2017-08-26 11:54] VITALS: BP 116/55; PULSE 80; RESP 18; TEMP 98.7; O2SAT 97
--- NOTE | 2017-08-26 12:45 | HHI.PR ---
Subjective Remarks Follow-up sickle cell crisis August 23, 2017-patient seen and examined, complains of back pain however denies any chest pain. Currently afebrile. T-max 102.4 August 24, 2017-patient seen and examined, now complains of left anterior chest pain. Still spiking fevers with T-max 102 August 25, 2017-patient seen and examined, patient is requesting to stick to 2 mg Dilaudid every 12 hours. T-max 100.3 August 26, 2017-patient seen and examined, reports some improvement of pain. Still spiking fevers Objective Vitals Vital Signs Date Time Temp Pulse Resp B/P (MAP) Pulse Ox O2 Delivery O2 Flow Rate FiO2 08/26/17 11:54 98.7 80 18 116/55 (75) 97 08/26/17 11:25 16 08/26/17 08:00 99.8 68 18 114/53 (73) 97 08/26/17 07:34 17 08/26/17 06:38 99.6 72 18 104/54 (71) 95 08/26/17 00:00 99.7 79 18 121/70 (87) 97 08/25/17 20:35 98 Nasal Cannula 2.00 08/25/17 20:00 101.6 78 20 117/56 (76) 99 08/25/17 16:42 18 08/25/17 16:18 101.1 89 18 118/56 98 08/25/17 16:16 101.1 89 18 118/56 98 08/25/17 15:53 99.7 86 18 112/55 I/O 08/25/17 08/25/17 08/25/17 08/26/17 08/26/17 08/26/17 07:00 15:00 23:00 07:00 15:00 23:00 Intake Total 995 ml 1600 ml 840 ml Output Total 1500 ml 1200 ml Balance -505 ml 1600 ml -360 ml Intake Oral 480 ml 1200 ml 840 ml Packed Cells 400 ml 400 ml Blood Product IV Normal Saline Flush 115 ml Output Urine Total 1500 ml 1200 ml # Voids 5 # Bowel Movements 0 0 0 Result Diagram: 08/26/17 1030 08/26/17 0000 Imaging Last Impressions Chest X-Ray 08/26/17 0000 Signed Impressions: Service Date/Time: Saturday, August 26, 2017 09:55 - CONCLUSION: Normal examination. Dimas Yoon MD Objective Remarks GENERAL: NAD SKIN: Warm and dry. HEAD: Normocephalic. EYES: No scleral icterus. No injection or drainage. NECK: Supple, trachea midline. No JVD or lymphadenopathy. CARDIOVASCULAR: Regular rate and rhythm without murmurs, gallops, or rubs. RESPIRATORY: Breath sounds equal bilaterally. No accessory muscle use. GASTROINTESTINAL: Abdomen soft, non-tender, nondistended. MUSCULOSKELETAL: No cyanosis, or edema. BACK: Nontender without obvious deformity. No CVA tenderness. A/P Problem List: (1) Sickle cell pain crisis ICD Code: D57.00 - Sickle cell pain crisis Status: Acute (2) Asthma, chronic ICD Code: J45.909 - Asthma, chronic Status: Chronic (3) Leukocytosis ICD Code: D72.829 - Leukocytosis Status: Acute (4) Sickle cell anemia ICD Code: D57.1 - Sickle-cell disease without crisis Status: Chronic Assessment and Plan 21-year-old man with Sickle cell pain crisis -Appreciate input from hematology - Continue supplemental oxygen 2LNC. -Continue IV Dilaudid 1 mg every 2H as needed and PO morphine for pain management - Continue IVF. - Heparin sq. - incentive spirometry. Sickle cell anemia -s/p2 unit packed red blood cells since admission Asthma -No exacerbation - nebs as needed. Priapism The patient developed priapism. He was treated with Sudafed. Now resolved. - supportive care. Bacteremia -Repeat blood culture-NTD x 2 days -Currently on vancomycin IV and Cefepime -Appreciate infectious disease specialist -CXR without any CPD -Patient still spiking fevers, will check Chest CT and consider Abdomen/pelvis CT PPx: Israel Chatterjee MD Aug 26, 2017 12:45
[2017-08-26 16:00] VITALS: BP 124/54; PULSE 79; RESP 18; TEMP 99; O2SAT 98
[2017-08-26] MEDS: VANCOMYCIN INJ 1,500 MG in SODIUM CHLORID 0.9% 500 ML INJ 500 ML IV SCH (16:09)
[2017-08-26] MEDS: SODIUM CHLOR 0.45% 1000 ML INJ 1,000 ML IV SCH (18:24)
[2017-08-26 20:23] VITALS: BP 121/56; PULSE 70; RESP 18; TEMP 100.5
[2017-08-26] MEDS: ACETAMINOPHEN 325 MG TAB PO PRN (20:31)
--- NOTE | 2017-08-26 22:55 | HHI.IDPN ---
Subjective Subjective Remarks ID X cover delayed entry pt wa seen earlier today 21 yo male with sickle cell crisis + low grade Staph epi kait termia + CP but CXR negative c/o RLE pain Fever nted every night up to 101.6 in the last 3 days Antibiotics cefepime vancomycin Allergies: Coded Allergies: No Known Allergies (Verified Allergy, Unknown, 08/21/17) Objective . Vital Signs Date Time Temp Pulse Resp B/P (MAP) Pulse Ox O2 Delivery O2 Flow Rate FiO2 08/26/17 21:27 Nasal Cannula 2.00 08/26/17 20:23 100.5 70 18 121/56 (77) 08/26/17 18:44 2.00 08/26/17 18:07 18 08/26/17 16:00 99.0 79 18 124/54 (77) 98 08/26/17 11:54 98.7 80 18 116/55 (75) 97 08/26/17 08:00 99.8 68 18 114/53 (73) 97 08/26/17 07:34 17 08/26/17 06:38 99.6 72 18 104/54 (71) 95 08/26/17 00:00 99.7 79 18 121/70 (87) 97 08/26/17 08/26/17 08/27/17 15:00 23:00 07:00 Intake Total 960 ml Balance 960 ml Intake Oral 960 ml # Voids 5 # Bowel Movements 0 . Laboratory Tests Test 08/25/17 05:32 08/26/17 10:30 White Blood Count 10.4 TH/MM3 9.6 TH/MM3 Red Blood Count 1.99 MIL/MM3 2.60 MIL/MM3 Hemoglobin 6.2 GM/DL 7.8 GM/DL Hematocrit 17.4 % 22.5 % Mean Corpuscular Volume 87.4 FL 86.5 FL Mean Corpuscular Hemoglobin 31.3 PG 29.9 PG Mean Corpuscular Hemoglobin Concent 35.8 % 34.5 % Red Cell Distribution Width 18.1 % 19.4 % Platelet Count 223 TH/MM3 318 TH/MM3 Mean Platelet Volume 7.5 FL 7.5 FL Neutrophils (%) (Auto) 65.7 % 66.3 % Lymphocytes (%) (Auto) 18.1 % 18.1 % Monocytes (%) (Auto) 13.8 % 14.1 % Eosinophils (%) (Auto) 0.9 % 0.8 % Basophils (%) (Auto) 1.5 % 0.7 % Neutrophils # (Auto) 6.8 TH/MM3 6.4 TH/MM3 Lymphocytes # (Auto) 1.9 TH/MM3 1.7 TH/MM3 Monocytes # (Auto) 1.4 TH/MM3 1.3 TH/MM3 Eosinophils # (Auto) 0.1 TH/MM3 0.1 TH/MM3 Basophils # (Auto) 0.2 TH/MM3 0.1 TH/MM3 CBC Comment AUTO DIFF AUTO DIFF Differential Total Cells Counted 100 Neutrophils % (Manual) 71 % Band Neutrophils % 2 % Lymphocytes % 21 % Monocytes % 6 % Neutrophils # (Manual) 7.6 TH/MM3 Nucleated Red Blood Cells 6 /100 WBC Differential Comment FINAL DIFF MANUAL AUTO DIFF CONFIRMED Platelet Estimate NORMAL Platelet Morphology Comment NORMAL GIANT Target Cells 1+ 1+ Ovalocytes 1+ Bee-Moca Bodies PRESENT Red Cell Morphology Comment Sickle Cells 1+ Keratocytes OCC Laboratory Tests Test 08/25/17 10:15 08/26/17 00:00 Ferritin 9248 NG/ML Total Bilirubin 5.4 MG/DL 4.4 MG/DL Direct Bilirubin 1.3 MG/DL 1.8 MG/DL Indirect Bilirubin 4.1 MG/DL 2.6 MG/DL Aspartate Amino Transf (AST/SGOT) 83 U/L 72 U/L Alanine Aminotransferase (ALT/SGPT) 53 U/L 83 U/L Alkaline Phosphatase 202 U/L 251 U/L Lactate Dehydrogenase 805 U/L 623 U/L Total Protein 6.9 GM/DL 7.4 GM/DL Albumin 3.1 GM/DL 3.2 GM/DL Blood Urea Nitrogen 9 MG/DL Creatinine 0.71 MG/DL Random Glucose 113 MG/DL Calcium Level 9.0 MG/DL Sodium Level 140 MEQ/L Potassium Level 3.8 MEQ/L Chloride Level 106 MEQ/L Carbon Dioxide Level 25.5 MEQ/L Anion Gap 9 MEQ/L Estimat Glomerular Filtration Rate 167 ML/MIN Microbiology Date/Time Source Procedure Growth Status 08/26/17 13:25 Blood Peripheral Aerobic Blood Culture Pending Received 08/26/17 13:25 Blood Peripheral Anaerobic Blood Culture Pending Received 08/26/17 13:25 Blood Peripheral Aerobic Blood Culture Pending Received 08/26/17 13:25 Blood Peripheral Anaerobic Blood Culture Pending Received Imaging Last Impressions Chest X-Ray 08/26/17 0000 Signed Impressions: Service Date/Time: Saturday, August 26, 2017 09:55 - CONCLUSION: Normal examination. Dimas Yoon MD Physical Exam GENERAL: This is a well-nourished, well-developed patient, in distress secondary to pain. SKIN: No rashes, ecchymoses or lesions. Cool and dry. HEAD: Atraumatic. Normocephalic. No temporal or scalp tenderness. EYES: Pupils equal round and reactive. Extraocular motions intact. No scleral icterus. No injection or drainage. ENT: Nose without bleeding, purulent drainage or septal hematoma. Throat without erythema, tonsillar hypertrophy or exudate. Uvula midline. Airway patent. NECK: Trachea midline. Supple, nontender, no meningeal signs. CARDIOVASCULAR: Regular rate and rhythm without murmurs, gallops, or rubs. RESPIRATORY: Clear to auscultation. Breath sounds equal bilaterally. No wheezes , rales, or rhonchi. GASTROINTESTINAL: Abdomen soft, non-tender, nondistended. MUSCULOSKELETAL: Extremities without clubbing, cyanosis, or edema. No joint effusion, or edema noted. No calf tenderness. Negative Homans sign bilaterally. NEUROLOGICAL: Awake and alert. Cranial nerves II through XII intact. Motor and sensory grossly within normal limits. Five out of 5 muscle strength in all muscle groups. Normal speech. psych anxious IV line sites ok. Assessment & Plan Remarks Gram positive bacteremia , low grade staph hemolyticus - doubt clin significance ? Pneumonia. Sickle cell crisis back pain and LE pain ? sickle cell disease related ? avascular necrosis of hip. Persistent fever Recs: Supportive care for SS disease. Continue Vanco IV cont Cefepime IV CXR now (post hydration may show infiltrate) repeat cultures dc abx if repeat clx remain negative MRI R hip Juju Soto MD Aug 26, 2017 22:55
[2017-08-27] VITALS (16 sets, daily range): BP systolic 111–131; BP diastolic 55–73; PULSE 62–85; RESP 17–19; TEMP 98.6–99.8; O2SAT 96–99
[2017-08-27] MEDS: VANCOMYCIN INJ 1,500 MG in SODIUM CHLORID 0.9% 500 ML INJ 500 ML IV SCH ×3 (00:09→18:31)
[2017-08-27] MEDS: HEPARIN SODIUM - SQ 10,000 UNITS/ML VIAL SQ SCH ×4 (00:09→23:13)
[2017-08-27] MEDS: CIPROFLOXACIN 0.3% OPTH SOLN 2.5 ML BTL EACH EYE SCH ×7 (00:09→23:13)
[2017-08-27] MEDS: HYDROmorphone HCL PF 2 MG/ML VIAL IV PUSH PRN ×10 (00:11→23:14)
[2017-08-27] MEDS: CEFEPIME INJ 2,000 MG in SODIUM CHLORIDE 0.9% INJ 100 ML IV SCH ×3 (05:00→20:56)
[2017-08-27] MEDS: MORPHINE SULFATE 30 MG CONTROLLED RELEASE TAB PO SCH ×2 (08:42→20:57)
[2017-08-27] MEDS: SODIUM CHLORIDE 0.9% FLUSH 10 ML FLUSH IV FLUSH SCH ×2 (08:43→20:56)
[2017-08-27] MEDS: DOCUSATE SODIUM 50 MG/SENNA 8.6 MG TAB PO SCH ×2 (08:43→20:56)
[2017-08-27] MEDS: FOLIC ACID 1 MG TAB PO SCH (08:43)
[2017-08-27] MEDS: SODIUM CHLOR 0.45% 1000 ML INJ 1,000 ML IV SCH (08:44)
--- NOTE | 2017-08-27 09:48 | HHI.PR ---
Subjective Remarks Follow-up sickle cell crisis August 23, 2017-patient seen and examined, complains of back pain however denies any chest pain. Currently afebrile. T-max 102.4 August 24, 2017-patient seen and examined, now complains of left anterior chest pain. Still spiking fevers with T-max 102 August 25, 2017-patient seen and examined, patient is requesting to stick to 2 mg Dilaudid every 12 hours. T-max 100.3 August 26, 2017-patient seen and examined, reports some improvement of pain. Still spiking fevers August 27, 2017-patient seen and examined, patient still complains of moderate back pain as well as right hip pain. Currently afebrile however 99.8@Midnight Objective Vitals Vital Signs Date Time Temp Pulse Resp B/P (MAP) Pulse Ox O2 Delivery O2 Flow Rate FiO2 08/27/17 09:14 96 21 08/27/17 09:00 72 08/27/17 08:01 75 08/27/17 08:00 99.0 65 19 131/56 (81) 99 08/27/17 04:00 71 08/27/17 00:05 99.8 77 18 117/55 (75) 96 08/27/17 00:00 85 08/26/17 21:27 Nasal Cannula 2.00 08/26/17 20:23 100.5 70 18 121/56 (77) 08/26/17 18:44 2.00 08/26/17 18:07 18 08/26/17 16:00 99.0 79 18 124/54 (77) 98 08/26/17 11:54 98.7 80 18 116/55 (75) 97 I/O 08/26/17 08/26/17 08/26/17 08/27/17 08/27/17 08/27/17 07:00 15:00 23:00 07:00 15:00 23:00 Intake Total 840 ml 960 ml Output Total 1200 ml Balance -360 ml 960 ml Intake Oral 840 ml 960 ml Output Urine Total 1200 ml # Voids 5 # Bowel Movements 0 0 Result Diagram: 08/26/17 1030 08/26/17 0000 Imaging Last Impressions Chest X-Ray 08/26/17 0000 Signed Impressions: Service Date/Time: Saturday, August 26, 2017 09:55 - CONCLUSION: Normal examination. Dimas Yoon MD Objective Remarks GENERAL: NAD SKIN: Warm and dry. HEAD: Normocephalic. EYES: No scleral icterus. No injection or drainage. NECK: Supple, trachea midline. No JVD or lymphadenopathy. CARDIOVASCULAR: Regular rate and rhythm without murmurs, gallops, or rubs. RESPIRATORY: Breath sounds equal bilaterally. No accessory muscle use. GASTROINTESTINAL: Abdomen soft, non-tender, nondistended. MUSCULOSKELETAL: No cyanosis, or edema. TTP Right hip BACK: Nontender without obvious deformity. No CVA tenderness. A/P Problem List: (1) Sickle cell pain crisis ICD Code: D57.00 - Sickle cell pain crisis Status: Acute (2) Asthma, chronic ICD Code: J45.909 - Asthma, chronic Status: Chronic (3) Leukocytosis ICD Code: D72.829 - Leukocytosis Status: Acute (4) Sickle cell anemia ICD Code: D57.1 - Sickle-cell disease without crisis Status: Chronic Assessment and Plan 21-year-old man with Sickle cell pain crisis -Appreciate input from hematology - Continue supplemental oxygen 2LNC. -Continue IV Dilaudid 1 mg every 2H as needed and PO morphine for pain management - Continue IVF. - Heparin sq. - incentive spirometry. - MRI right hip pain pending to rule out avascular necrosis Sickle cell anemia -s/p2 unit packed red blood cells since admission Asthma -No exacerbation - nebs as needed. Priapism The patient developed priapism. He was treated with Sudafed. Now resolved. - supportive care. Bacteremia- -Repeat blood culture-NTD -Currently on vancomycin IV and Cefepime, and will discontinue antibiotics if the repeat blood culture negative -Appreciate infectious disease specialist -CXR without any CPD PPx: Israel Chatterjee MD Aug 27, 2017 09:48
[2017-08-27] MEDS: SODIUM CHLORIDE 0.9% FLUSH 10 ML FLUSH IV FLUSH PRN ×3 (15:32→23:14)
[2017-08-27] MEDS ORDERED: GADODIAMIDE PF 287 MG/ML 5 ML VIAL (for RAD MRI) IVCONTRAST ONE (17:02)
--- NOTE | 2017-08-27 18:32 | RADRPT ---
EXAM DATE/TIME: 08/27/2017 16:32 [facility] COMPARISON: No previous studies available for comparison. INDICATIONS : Right hip avascular necrosis. CONTRAST: 15 cc Omniscan (gadodiamide) IV MEDICAL HISTORY : Asthma and sickle cell. SURGICAL HISTORY : Cholecystectomy. Tonsillectomy. Splenectomy. ENCOUNTER: Initial ACUITY: 1 day PAIN SCORE: 0/10 LOCATION: Right Hip. TECHNIQUE: Multiplanar, multisequence MRI examination was performed without contrast and after the intravenous a dministration of gadolinium. FINDINGS: There is serpiginous signal abnormality in the right femoral head characteristic of avascular necrosi s. There is also avascular necrosis of the left femoral head and multiple marrow infarcts throughout the bony pelvis and proximal femora. There is no significant hip joint effusion. No abnormal fluid co llections in the soft tissues. CONCLUSION: 1. Avascular necrosis of both femoral heads. 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 No abnormal fluid collections. No significant joint effusion. No abnormal enhancing masses. Chepe Bird MD on August 27, 2017 at 18:26 Board Certified Radiologist. This report was verified electronically.
[2017-08-28 00:01] VITALS: BP 130/60; PULSE 66; RESP 18; TEMP 98.7; O2SAT 99
[2017-08-28] MEDS: HYDROmorphone HCL PF 2 MG/ML VIAL IV PUSH PRN ×6 (01:44→14:50)
[2017-08-28] MEDS: SODIUM CHLORIDE 0.9% FLUSH 10 ML FLUSH IV FLUSH PRN ×2 (01:44→05:03)
[2017-08-28] MEDS: SODIUM CHLOR 0.45% 1000 ML INJ 1,000 ML IV SCH ×2 (01:44→15:03)
[2017-08-28 04:00] VITALS: BP 103/62; PULSE 63; RESP 18; TEMP 98.8; O2SAT 98
[2017-08-28] MEDS: CEFEPIME INJ 2,000 MG in SODIUM CHLORIDE 0.9% INJ 100 ML IV SCH ×2 (04:57→12:28)
[2017-08-28] MEDS: CIPROFLOXACIN 0.3% OPTH SOLN 2.5 ML BTL EACH EYE SCH ×3 (04:58→12:28)
[2017-08-28] MEDS ORDERED: VANCOMYCIN INJ 1,500 MG in SODIUM CHLORID 0.9% 500 ML INJ 500 ML IV SCH (06:00)
[2017-08-28 07:46] VITALS: BP 118/67; PULSE 58; RESP 18; TEMP 98.2; O2SAT 98
[2017-08-28] MEDS: HEPARIN SODIUM - SQ 10,000 UNITS/ML VIAL SQ SCH (08:05)
[2017-08-28] MEDS: DOCUSATE SODIUM 50 MG/SENNA 8.6 MG TAB PO SCH (08:05)
[2017-08-28] MEDS: FOLIC ACID 1 MG TAB PO SCH (08:05)
[2017-08-28] MEDS: SODIUM CHLORIDE 0.9% FLUSH 10 ML FLUSH IV FLUSH SCH (08:05)
[2017-08-28] MEDS: MORPHINE SULFATE 30 MG CONTROLLED RELEASE TAB PO SCH (08:06)
[2017-08-28 08:19] LABS: AUTOMATED NEUTROPHIL # 6.1 TH/MM3 (1.8-7.7); BASOPHIL # 0.1 TH/MM3 (0-0.2); BASOPHIL % 0.7 % (0.0-2.0); EOSINOPHIL # 0.4 TH/MM3 (0-0.4); EOSINOPHIL % 3.2 % (0.0-4.0); HEMATOCRIT 22.6 % (39.0-51.0); HEMOGLOBIN 7.7 GM/DL (13.0-17.0); LYMPH % 28.7 % (9.0-44.0); LYMPHOCYTE # 3.2 TH/MM3 (1.0-4.8); MEAN CELL VOLUME 87.1 FL (80.0-100.0); MEAN CORPUSCULAR HEMOGLOBIN 29.7 PG (27.0-34.0); MEAN CORPUSCULAR HGB CONC 34.1 % (32.0-36.0); MEAN PLATELET VOLUME 8.3 FL (7.0-11.0); MONO % 13.1 % (0.0-8.0); MONOCYTE # 1.5 TH/MM3 (0-0.9); NEUT % 54.3 % (16.0-70.0); PLATELET COUNT 475 TH/MM3 (150-450); RED CELL DISTRIBUTION WIDTH 19.8 % (11.6-17.2); WHITE BLOOD COUNT 11.3 TH/MM3 (4.0-11.0)
--- NOTE | 2017-08-28 08:40 | PD.ONC.PN ---
Subjective Subjective Remarks Patient seen and examined, vital signs, labs, medications and MRI scans reviewed. Subjectively; he reports his pain is improved, his breathing is improved as well. He tells me his hips feel stiff and that he is unable to bend his hip and lift up his knee (right and left hip). Patient tells me he feels his pain is controlled but does not feel he can manage with his outpatient hydrocodone tablets alone. Objective Data Date Time Temp Pulse Resp B/P (MAP) Pulse Ox O2 Delivery O2 Flow Rate FiO2 08/28/17 07:46 98.2 58 18 118/67 (84) 98 08/28/17 04:00 98.8 63 18 103/62 (76) 98 08/28/17 00:01 98.7 66 18 130/60 (83) 99 08/27/17 20:00 70 08/27/17 20:00 99.4 70 18 116/71 (86) 99 08/27/17 20:00 Room Air 21 08/27/17 18:55 70 08/27/17 17:27 85 08/27/17 16:12 98.8 62 17 113/58 (76) 98 08/27/17 14:03 73 08/27/17 13:01 77 08/27/17 12:00 98.6 68 19 111/73 (86) 99 08/27/17 11:15 82 08/27/17 09:35 74 08/27/17 09:14 96 21 08/27/17 09:00 72 08/28/17 08/28/17 08/28/17 07:00 15:00 23:00 Intake Total 700 ml Balance 700 ml Result Diagram: 08/28/17 0750 08/26/17 0000 Laboratory Results Laboratory Tests Test 08/28/17 07:50 White Blood Count 11.3 TH/MM3 Red Blood Count 2.60 MIL/MM3 Hemoglobin 7.7 GM/DL Hematocrit 22.6 % Mean Corpuscular Volume 87.1 FL Mean Corpuscular Hemoglobin 29.7 PG Mean Corpuscular Hemoglobin Concent 34.1 % Red Cell Distribution Width 19.8 % Platelet Count 475 TH/MM3 Mean Platelet Volume 8.3 FL Neutrophils (%) (Auto) 54.3 % Lymphocytes (%) (Auto) 28.7 % Monocytes (%) (Auto) 13.1 % Eosinophils (%) (Auto) 3.2 % Basophils (%) (Auto) 0.7 % Neutrophils # (Auto) 6.1 TH/MM3 Lymphocytes # (Auto) 3.2 TH/MM3 Monocytes # (Auto) 1.5 TH/MM3 Eosinophils # (Auto) 0.4 TH/MM3 Basophils # (Auto) 0.1 TH/MM3 CBC Comment AUTO DIFF Culture Results Microbiology Date/Time Source Procedure Growth Status 08/26/17 13:25 Blood Peripheral Aerobic Blood Culture - Preliminary NO GROWTH IN 1 DAY Resulted 08/26/17 13:25 Blood Peripheral Anaerobic Blood Culture - Final QNS - SEE AEROBE REPORT Resulted 08/26/17 13:25 Blood Peripheral Aerobic Blood Culture - Preliminary NO GROWTH IN 1 DAY Resulted 08/26/17 13:25 Blood Peripheral Anaerobic Blood Culture - Final QNS - SEE AEROBE REPORT Resulted Administered Medications Medications (Trade) Dose Ordered Sig/Kerri Route PRN Reason Start Time Stop Time Status Last Admin Dose Admin Sodium Chloride (NS Flush) 2 ml UNSCH PRN IV FLUSH FLUSH AFTER USING IV ACCESS 08/21/17 04:45 08/28/17 05:03 Sodium Chloride (NS Flush) 2 ml BID IV FLUSH 08/21/17 09:00 08/28/17 08:05 Acetaminophen (Tylenol) 650 mg Q4H PRN PO TEMP > 100.4 08/21/17 04:45 08/26/17 20:31 Ondansetron HCl (Zofran Inj) 4 mg Q6H PRN IVP NAUSEA OR VOMITING 08/21/17 04:45 08/24/17 09:15 Senna/Docusate Sodium (Hayde-Colace) 1 tab BID PO 08/21/17 09:00 08/28/17 08:05 Sennosides (Senokot) 17.2 mg Q12H PRN PO Moderate constipation 08/21/17 04:45 08/27/17 08:43 Heparin Sodium (Porcine) (Heparin Inj) 5,000 units Q8H SQ 08/21/17 16:00 08/28/17 08:05 Morphine Sulfate (Oramorph Sr) 30 mg Q12HR PO 08/21/17 21:00 08/28/17 08:06 Sodium Chloride 1,000 ml @ 75 mls/hr [id number] IV 08/21/17 18:30 Future hold 08/28/17 01:44 Hypromellose (Genteal Severe Dry Eye Relief 0.3% Opth Gel) 2 drop Q6H PRN EACH EYE DRY EYE 08/23/17 20:00 08/23/17 22:39 Cefepime HCl 2000 mg/Sodium Chloride 100 ml @ 200 mls/hr Q8H IV 08/23/17 21:00 08/28/17 04:57 Ciprofloxacin HCl (Ciloxan 0.3% Opth Soln) 1 drop Q4HR EACH EYE 08/24/17 12:00 08/28/17 08:04 Folic Acid (Folate) 1 mg DAILY PO 08/26/17 09:00 08/28/17 08:05 Hydromorphone HCl (Dilaudid Pf Inj) 1 mg Q2HR PRN IV PUSH PAIN GREATER THAN 5 08/26/17 08:45 08/28/17 08:07 Vancomycin HCl 1500 mg/Sodium Chloride 515 ml @ 250 mls/hr Q8H IV 08/28/17 06:00 08/28/17 06:30 Objective Remarks General appearance: Young male laying in bed, he appears more comfortable this morning but is still in obvious pain, he speaks to me in full sentences. SKIN: Skin is wet and warm. He appears to have just broken out in a sweat. HEAD: Atraumatic. Normocephalic. No temporal or scalp tenderness. EYES: Pupils equal round and reactive. Extraocular motions intact. No scleral icterus. No injection or drainage. ENT: Nose without bleeding, purulent drainage or septal hematoma. Throat without erythema, tonsillar hypertrophy or exudate. Uvula midline. Airway patent. NECK: Trachea midline. No JVD or lymphadenopathy. Supple, nontender, no meningeal signs. CARDIOVASCULAR: Tachycardic, regular, S1-S2 no obvious murmurs rubs or gallops. RESPIRATORY: Clear to auscultation. Breath sounds equal bilaterally. No wheezes , rales, or rhonchi. GASTROINTESTINAL: Abdomen with voluntary guarding, no obvious organ MUSCULOSKELETAL: Extremities without clubbing, cyanosis, or edema. No joint tenderness, effusion, or edema noted. No calf tenderness. Negative Homans sign bilaterally. NEUROLOGICAL: Awake and alert. Cranial nerves II through XII intact. Motor and sensory grossly within normal limits. Five out of 5 muscle strength in all muscle groups. Normal speech. Psychiatric: Alert and oriented 3, mildly anxious. Assessment/Plan Assessment Mr. 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 In the past he has had several episodes of acute chest syndrome at least one of which has resulted in hypoxic respiratory failure requiring mechanical ventilation and emergency red cell exchange transfusion. His pain crises are often complicated by priapism. The patient is on outpatient disease modifying therapy with hydroxyurea 2000 mg once daily, dosing schedule he reportedly adheres to on an almost daily basis. He also has a history of iron overload secondary to multiple red cell transfusions over the course of his life and has been on oral iron chelating therapy with Jadenu. The patient presents to this hospital with a 24-hour history of uncontrolled skeletal pain involving his knees and lower extremities bilaterally. Plan 1. Sickle cell pain crisis: Pain is somewhat improved, I would recommend he be discharged home on short acting and long-acting opioids, he will benefit from morphine sulfate extended release 30 mg p.o. every 12 hours. A 2 week supply should be sufficient at this point. 2. Anemia: Exacerbated by sickle cell crisis, status post red cell transfusion with improvement in hemoglobin hematocrit. 3. febrile syndrome: He is on empiric antibiotics. I suspect the fever may be related to avascular necrosis/bone infarcts. MRI of the hip was reviewed. 4. iron overload: encouraged patient to take his Jadenu on return home. This morning he is very worried about his ferritin levels being elevated. I have advised him to take his Jadenu as advised and as prescribed in the past and multiple occasions. 5. Avascular necrosis of the hips: Likely chronic, he tells me the only new symptom is pain when he bends his hip to lift his knee. I have explained to the patient that we can certainly have this evaluated in the outpatient setting with orthopedics. Given his relatively young age and baseline good performance status I would err on the side of conservative management given his young age and overall reasonably well-controlled symptoms and reasonably well-preserved function. Disposition: I would use my best clinical judgment to determine when his pain is improved and consider discharge on long and short acting opioids. He may benefit from oral antibiotics at time of discharge, I will defer to infectious diseases. I suspect that his fevers may in part be related to avascular necrosis and bone infarct. Marco A Bell MD August 28, 2017 08:40
[2017-08-28 09:37] LABS: TARGET CELLS 1+ (NORMAL)
[2017-08-28 09:39] LABS: HOWELL-JOLLY BODIES PRESENT (NONE SEEN); SICKLE CELLS 1+ (NORMAL)
[2017-08-28 10:05] VITALS: O2SAT 98
[2017-08-28 11:34] VITALS: BP 131/60; PULSE 64; RESP 18; TEMP 98.1; O2SAT 96
[2017-08-28 12:59] VITALS: RESP 22
--- NOTE | 2017-08-28 14:11 | HHI.IDPN ---
Subjective Subjective Remarks 21 yo male with sickle cell crisis + low grade Staph epi bacteremia 1 out of 4 bottles. + CP but CXR negative c/o RLE pain No fevers No rash No diarrhea Antibiotics cefepime vancomycin Lines Lines ok Past Medical History Sickle cell disease Prior port infection Allergies: Coded Allergies: No Known Allergies (Verified Allergy, Unknown, 08/21/17) Objective . Vital Signs Date Time Temp Pulse Resp B/P (MAP) Pulse Ox O2 Delivery O2 Flow Rate FiO2 08/28/17 12:59 22 08/28/17 11:34 98.1 64 18 131/60 (83) 96 08/28/17 10:05 98 21 08/28/17 09:25 98 Room Air 08/28/17 09:23 22 08/28/17 07:46 98.2 58 18 118/67 (84) 98 08/28/17 04:00 98.8 63 18 103/62 (76) 98 08/28/17 00:01 98.7 66 18 130/60 (83) 99 08/27/17 20:00 70 08/27/17 20:00 99.4 70 18 116/71 (86) 99 08/27/17 20:00 Room Air 21 08/27/17 18:55 70 08/27/17 17:27 85 08/27/17 16:12 98.8 62 17 113/58 (76) 98 . Laboratory Tests Test 08/28/17 07:50 White Blood Count 11.3 TH/MM3 Red Blood Count 2.60 MIL/MM3 Hemoglobin 7.7 GM/DL Hematocrit 22.6 % Mean Corpuscular Volume 87.1 FL Mean Corpuscular Hemoglobin 29.7 PG Mean Corpuscular Hemoglobin Concent 34.1 % Red Cell Distribution Width 19.8 % Platelet Count 475 TH/MM3 Mean Platelet Volume 8.3 FL Neutrophils (%) (Auto) 54.3 % Lymphocytes (%) (Auto) 28.7 % Monocytes (%) (Auto) 13.1 % Eosinophils (%) (Auto) 3.2 % Basophils (%) (Auto) 0.7 % Neutrophils # (Auto) 6.1 TH/MM3 Lymphocytes # (Auto) 3.2 TH/MM3 Monocytes # (Auto) 1.5 TH/MM3 Eosinophils # (Auto) 0.4 TH/MM3 Basophils # (Auto) 0.1 TH/MM3 CBC Comment AUTO DIFF Differential Comment AUTO DIFF CONFIRMED Platelet Estimate HIGH Platelet Morphology Comment NORMAL Polychromasia 2.0 % Sickle Cells 1+ Target Cells 1+ Bee-Castella Bodies PRESENT Microbiology Date/Time Source Procedure Growth Status 08/26/17 13:25 Blood Peripheral Aerobic Blood Culture - Preliminary NO GROWTH IN 2 DAYS Resulted 08/26/17 13:25 Blood Peripheral Anaerobic Blood Culture - Final QNS - SEE AEROBE REPORT Resulted 08/26/17 13:25 Blood Peripheral Aerobic Blood Culture - Preliminary NO GROWTH IN 2 DAYS Resulted 08/26/17 13:25 Blood Peripheral Anaerobic Blood Culture - Final QNS - SEE AEROBE REPORT Resulted Imaging Last Impressions Chest X-Ray 08/26/17 0000 Signed Impressions: Service Date/Time: Saturday, August 26, 2017 09:55 - CONCLUSION: Normal examination. Dimas Yoon MD Physical Exam GENERAL: This is a well-nourished, well-developed patient, in distress secondary to pain. SKIN: No rashes, ecchymoses or lesions. Cool and dry. HEAD: Atraumatic. Normocephalic. No temporal or scalp tenderness. EYES: Pupils equal round and reactive. Extraocular motions intact. No scleral icterus. No injection or drainage. ENT: Nose without bleeding, purulent drainage or septal hematoma. Throat without erythema, tonsillar hypertrophy or exudate. Uvula midline. Airway patent. NECK: Trachea midline. Supple, nontender, no meningeal signs. CARDIOVASCULAR: Regular rate and rhythm without murmurs, gallops, or rubs. RESPIRATORY: Clear to auscultation. Breath sounds equal bilaterally. No wheezes , rales, or rhonchi. GASTROINTESTINAL: Abdomen soft, non-tender, nondistended. MUSCULOSKELETAL: Extremities without clubbing, cyanosis, or edema. No joint effusion, or edema noted. No calf tenderness. Negative Homans sign bilaterally. NEUROLOGICAL: Awake and alert. Cranial nerves II through XII intact. Motor and sensory grossly within normal limits. Five out of 5 muscle strength in all muscle groups. Normal speech. psych anxious IV line sites ok. Assessment & Plan Remarks Gram positive bacteremia , low grade staph hemolyticus - doubt clin significance ? Pneumonia. Sickle cell crisis back pain and LE pain ? sickle cell disease related ? avascular necrosis of hip. Persistent fever Recs: Supportive care for SS disease. DC Vanco IV DC Cefepime IV dw : agree fevers could have been from SCC and avascular necrosis. Will sign off please call back if any change in clinical condition or questions. Tessa Deal MD August 28, 2017 14:11
--- NOTE | 2017-08-28 14:31 | HHI.PR ---
Subjective Remarks Follow-up sickle cell crisis August 23, 2017-patient seen and examined, complains of back pain however denies any chest pain. Currently afebrile. T-max 102.4 August 24, 2017-patient seen and examined, now complains of left anterior chest pain. Still spiking fevers with T-max 102 August 25, 2017-patient seen and examined, patient is requesting to stick to 2 mg Dilaudid every 12 hours. T-max 100.3 August 26, 2017-patient seen and examined, reports some improvement of pain. Still spiking fevers August 27, 2017-patient seen and examined, patient still complains of moderate back pain as well as right hip pain. Currently afebrile however 99.8@Midnight August 28, 2017-patient seen and examined; minimal pain to back and hip; discussed MRI finding with patient of Avascular necrosis of the hips Objective Vitals Vital Signs Date Time Temp Pulse Resp B/P (MAP) Pulse Ox O2 Delivery O2 Flow Rate FiO2 08/28/17 12:59 22 08/28/17 11:34 98.1 64 18 131/60 (83) 96 08/28/17 10:05 98 21 08/28/17 09:25 98 Room Air 08/28/17 09:23 22 08/28/17 07:46 98.2 58 18 118/67 (84) 98 08/28/17 04:00 98.8 63 18 103/62 (76) 98 08/28/17 00:01 98.7 66 18 130/60 (83) 99 08/27/17 20:00 70 08/27/17 20:00 99.4 70 18 116/71 (86) 99 08/27/17 20:00 Room Air 21 08/27/17 18:55 70 08/27/17 17:27 85 08/27/17 16:12 98.8 62 17 113/58 (76) 98 I/O 08/27/17 08/27/17 08/27/17 08/28/17 08/28/17 08/28/17 07:00 15:00 23:00 07:00 15:00 23:00 Intake Total 1324 ml 700 ml Output Total 950 ml Balance 374 ml 700 ml Intake Oral 720 ml 600 ml IV Total 604 ml 100 ml Output Urine Total 950 ml # Voids 3 # Bowel Movements 0 Result Diagram: 08/28/17 0750 08/26/17 0000 Imaging Last Impressions Hip MRI 08/27/17 0000 Signed Impressions: Service Date/Time: Sunday, August 27, 2017 16:32 - CONCLUSION: 1. Avascular necrosis of both femoral heads. 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 No abnormal fluid collections. No significant joint effusion. No abnormal enhancing masses. Chepe Bird MD Chest X-Ray 08/26/17 0000 Signed Impressions: Service Date/Time: Saturday, August 26, 2017 09:55 - CONCLUSION: Normal examination. Dimas Yoon MD Objective Remarks GENERAL: NAD SKIN: Warm and dry. HEAD: Normocephalic. EYES: No scleral icterus. No injection or drainage. NECK: Supple, trachea midline. No JVD or lymphadenopathy. CARDIOVASCULAR: Regular rate and rhythm without murmurs, gallops, or rubs. RESPIRATORY: Breath sounds equal bilaterally. No accessory muscle use. GASTROINTESTINAL: Abdomen soft, non-tender, nondistended. MUSCULOSKELETAL: No cyanosis, or edema. TTP Right hip BACK: Nontender without obvious deformity. No CVA tenderness. Procedures None A/P Problem List: (1) Sickle cell pain crisis ICD Code: D57.00 - Sickle cell pain crisis Status: Acute (2) Asthma, chronic ICD Code: J45.909 - Asthma, chronic Status: Chronic (3) Leukocytosis ICD Code: D72.829 - Leukocytosis Status: Acute (4) Sickle cell anemia ICD Code: D57.1 - Sickle-cell disease without crisis Status: Chronic Assessment and Plan 21-year-old man with Sickle cell pain crisis -Appreciate input from hematology - Continue supplemental oxygen 2LNC. -Continue IV Dilaudid 1 mg every 2H as needed and PO morphine for pain management - Continue IVF. - Heparin sq. - incentive spirometry. - MRI hip with finding of avascular necrosis, which is chronic Sickle cell anemia -s/p2 unit packed red blood cells since admission Asthma -No exacerbation - nebs as needed. Priapism The patient developed priapism. He was treated with Sudafed. Now resolved. - supportive care. Bacteremia- -Repeat blood culture-NTD -Off vancomycin IV and Cefepime per ID -Appreciate infectious disease specialist -CXR without any CPD PPx: Heparin Israel Gonzales MD August 28, 2017 14:30
[2017-08-28] MEDS ORDERED: HYDR-3366 PO (14:34)
[2017-08-28] MEDS ORDERED: MORP1TAB25 PO (14:34)
--- NOTE | 2017-08-28 14:36 | HHI.DS ---
Discharge Summary Admission Date Aug 21, 2017 at 05:36 Discharge Date: August 28, 2017 Admitting Diagnosis Sickle Cell Pain Crisis (1) Sickle cell pain crisis ICD Code: D57.00 - Sickle cell pain crisis Status: Acute (2) Asthma, chronic ICD Code: J45.909 - Asthma, chronic Status: Chronic (3) Leukocytosis ICD Code: D72.829 - Leukocytosis Status: Acute (4) Sickle cell anemia ICD Code: D57.1 - Sickle-cell disease without crisis Status: Chronic Procedures None Brief History - From Admission 21-year-old male with past medical history significant for asthma and sickle cell disease presents the emergency department for evaluation of a pain crisis. The patient reports he has pain in his bilateral knees and right lower extremity. He states the pain is typical all of his pain crises. He denies any chest pain or shortness of breath. No fevers/chills. No abdominal pain. No nausea/vomiting/diarrhea. No weakness. CBC/BMP: 08/28/17 0750 08/26/17 0000 Significant Findings Laboratory Tests Test 08/26/17 00:00 08/26/17 10:30 08/28/17 07:50 Random Glucose 113 MG/DL (74-106) Albumin 3.2 GM/DL (3.4-5.0) Alkaline Phosphatase 251 U/L (45-117) Aspartate Amino Transf (AST/SGOT) 72 U/L (15-37) Alanine Aminotransferase (ALT/SGPT) 83 U/L (12-78) Lactate Dehydrogenase 623 U/L (87-241) Total Bilirubin 4.4 MG/DL (0.2-1.0) Direct Bilirubin 1.8 MG/DL (0.0-0.2) Indirect Bilirubin 2.6 MG/DL (0.0-0.8) Red Blood Count 2.60 MIL/MM3 (4.50-5.90) 2.60 MIL/MM3 (4.50-5.90) Hemoglobin 7.8 GM/DL (13.0-17.0) 7.7 GM/DL (13.0-17.0) Hematocrit 22.5 % (39.0-51.0) 22.6 % (39.0-51.0) Red Cell Distribution Width 19.4 % (11.6-17.2) 19.8 % (11.6-17.2) Monocytes (%) (Auto) 14.1 % (0.0-8.0) 13.1 % (0.0-8.0) Monocytes # (Auto) 1.3 TH/MM3 (0-0.9) 1.5 TH/MM3 (0-0.9) Platelet Morphology Comment GIANT (NORMAL) Sickle Cells 1+ (NORMAL) 1+ (NORMAL) Target Cells 1+ (NORMAL) 1+ (NORMAL) Vancomycin Level Trough 27.5 MCG/ML (5.0-10.0) White Blood Count 11.3 TH/MM3 (4.0-11.0) Platelet Count 475 TH/MM3 (150-450) Platelet Estimate HIGH (NORMAL) Polychromasia 2.0 % (0.0-1.9) Imaging Last Impressions Hip MRI 08/27/17 0000 Signed Impressions: Service Date/Time: Sunday, August 27, 2017 16:32 - CONCLUSION: 1. Avascular necrosis of both femoral heads. 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 No abnormal fluid collections. No significant joint effusion. No abnormal enhancing masses. Chepe Bird MD Chest X-Ray 08/26/17 0000 Signed Impressions: Service Date/Time: Saturday, August 26, 2017 09:55 - CONCLUSION: Normal examination. Dimas Yoon MD PE at Discharge GENERAL: NAD SKIN: Warm and dry. HEAD: Normocephalic. EYES: No scleral icterus. No injection or drainage. NECK: Supple, trachea midline. No JVD or lymphadenopathy. CARDIOVASCULAR: Regular rate and rhythm without murmurs, gallops, or rubs. RESPIRATORY: Breath sounds equal bilaterally. No accessory muscle use. GASTROINTESTINAL: Abdomen soft, non-tender, nondistended. MUSCULOSKELETAL: No cyanosis, or edema. TTP Right hip BACK: Nontender without obvious deformity. No CVA tenderness. Hospital Course While in the hospital, patient was treated for: Sickle cell pain crisis -Appreciate input from hematology - Continue supplemental oxygen 2LNC. -Continue IV Dilaudid 1 mg every 2H as needed and PO morphine for pain management - Continue IVF. - Heparin sq. - incentive spirometry. - MRI hip with finding of avascular necrosis, which is chronic Sickle cell anemia -s/p2 unit packed red blood cells since admission Asthma -No exacerbation - nebs as needed. Priapism The patient developed priapism. He was treated with Sudafed. Now resolved. - supportive care. Bacteremia- -Repeat blood culture-NTD -Off vancomycin IV and Cefepime per ID -Appreciate infectious disease specialist -CXR without any CPD PPx: Heparin Pt Condition on Discharge: Good Discharge Disposition: Discharge Home Discharge Instructions DIET: Follow Instructions for: As Tolerated, No Restrictions Activities you can perform: Regular-No Restrictions Follow up Referrals: Oncology/Hematology PCP Follow-up - 1 Week New Medications: Hydrocodone-Acetaminophen ([place]) 10-325 Mg Tab 1 TAB PO Q6H PRN for PAIN, #20 TAB 0 Refills Morphine ER (Morphine ER) 30 Mg Tab 30 MG PO Q12HR for Pain Management, #10 TAB Continued Medications: Albuterol 18 GM Inh (Ventolin Hfa 18 GM Inh) 90 Mcg/Act Aer 2 PUFF INH Q6H PRN for SHORTNESS OF BREATH, #1 INHALER 6 Refills Albuterol Neb (Albuterol Neb) 2.5 Mg/3 Ml Neb 2.5 MG NEB TID NEB PRN for SHORTNESS OF BREATH, #25 ML 6 Refills Cyclobenzaprine (Flexeril) 10 Mg Tab 10 MG PO TID for Muscle Spasm, #90 TAB 0 Refills Fluticasone-Salmeterol Inh (Advair Diskus Inh) 250-50 Mcg/Blist Aer 1 PUFF INH BID, #1 INHALER 5 Refills Rinse mouth after use. Folic Acid (Folic Acid) 0.8 Mg Tab 800 MCG PO DAILY for Nutritional Supplement, #90 TAB 0 Refills Hydrocodone-Acetaminophen (Lortab) 10-325 Mg Tab 1 TAB PO Q4H PRN for PAIN, #90 TAB 0 Refills Hydroxyurea (Hydrea) 500 Mg Cap 1500 MG PO DAILY, #60 CAP 3 Refills Lidocaine Patch 12 HR (Lidocaine Patch 12 HR) 5 % Patch 1 PATCH TOPICAL DAILY for Pain Management, #1 BOX 5 Refills Remove patch after 12 hours Lorazepam (Ativan) 1 Mg Tab 1 MG PO DAILY PRN for ANXIETY AND/OR AGITATION, #30 TAB 2 Refills Propylene Glycol-Glycerin Opth Drops (Artificial Tears Opth Drops) 1-0.3% Drops 1-2 DROP EACH EYE PRN PRN for DRY EYE, #15 ML 0 Refills Israel Gonzales MD August 28, 2017 14:36
[2017-08-29] MEDS ORDERED: PHARMACY ORDERED LAB ONE (05:45)
== END 2017-08-28 15:48 | disposition home or self-care (01) | DRG 812 ==
LOC: NEPE 02:21 → NEDA 04:35 → NEPFCDU 05:16 → OBSVTOIN 05:36 → N06B 08-22 16:50
PROVIDERS: ADMIT Hospitalist; ATTEND Hospitalist
PROC: 30233N1 Transfusion of Nonautologous Red Blood Cells into Peripheral Vein, Percutaneous Approach (ICD-10-PCS; principal; 2017-08-25)
DX: D57.00 Hb-SS disease with crisis, unspecified (principal); R78.81 Bacteremia; M87.9 Osteonecrosis, unspecified; N48.30 Priapism, unspecified; D72.829 Elevated white blood cell count, unspecified; B95.7 Other staphylococcus as the cause of diseases classified elsewhere; F90.9 Attention-deficit hyperactivity disorder, unspecified type; E83.111 Hemochromatosis due to repeated red blood cell transfusions; J45.909 Unspecified asthma, uncomplicated; Z79.899 Other long term (current) drug therapy; Z79.891 Long term (current) use of opiate analgesic; Z79.51 Long term (current) use of inhaled steroids
CPT/HCPCS: 36430; 71045; 71046; 73723; 76937; 80048; 80053; 80076; 80202; 81001; 82728; 83615; 85007; 85014; 85018; 85025; 85027; 85044; 85660; 86140; 86403; 86850; 86900; 86901; 86920; 87040; 87077; 87186; 87205; 94150; 96361; 96374; 96375; 96376; A9579; J0692; J1170; J1644; J1885; J2405; J3370; J7030; J7040; J7050; P9016

== ENCOUNTER 2017-11-29 18:18 | Inpatient (IN) ==
[2017-11-29] MEDS ORDERED: Morphine Sulfate Inj 8 MG/ML Vial IV.PUSH ONE (21:01)
[2017-11-29] MEDS ORDERED: HYDROmorphone PF Inj 0.5 MG/0.5 ML Syringe IV.PUSH ONE (21:07)
[2017-11-29] MEDS ORDERED: HYDROmorphone PF Inj 2 MG/ML Vial IV.PUSH ONE ×2 (21:13→22:27)
[2017-11-29] MEDS ORDERED: Sod Chloride 0.9% Inj 1,000 ML IV.SIG SCH (21:15)
--- NOTE | 2017-11-29 21:17 | ED ---
HPI General Chief complaint: Sickle Cell Stated complaint: chest pain/right leg pain Time Seen by Provider: 11/29/17 21:01 Source: patient Mode of arrival: ambulatory Limitations: no limitations History of Present Illness HPI narrative: Patient is a 22-year-old male presenting to the emergency department for evaluation sickle cell crisis. Patient states it started at 9 AM this morning. He went to his snorkelling instructor office at 4 PM and was given IV fluids and pain medicine, when this did not work he was advised to come to the emergency department for evaluation on the advice of his snorkelling instructor. Patient reports pain in his right leg and lower back. He reports the pain is 9 out of 10, cramping and sharp in nature. There are no alleviating factors. Patient also reported feeling slightly short of breath earlier but that has resolved. Symptom onset was fairly sudden, symptoms are moderate in nature. There are no alleviating factors. Related Data Home Medications Medication Instructions Recorded Confirmed deferasirox 11/30/17 hydrocodone-acetaminophen 1 tab PO Q4H PRN 11/30/17 11/30/17 hydroxyurea 500 mg PO DAILY 11/30/17 11/30/17 Allergies Allergy/AdvReac Type Severity Reaction Status Date / Time No Known Allergies Allergy Unverified 11/29/17 19:42 Review of Systems Except as stated in HPI: all other systems reviewed are negative PMFSH Medical History Medical History Asthma (Acute) Osteonecrosis (Acute) Sickle cell anemia with pain (Acute) Surgical History Surgical History History of cholecystectomy (Acute) History of splenectomy (Acute) History of tonsillectomy (Acute) Family History Family History Mother Asthma Sickle cell trait Father Sickle cell trait Social History Social History Substance History: No History of Abuse Second Hand Smoke Exposure: No Smoking Status: Never smoker How Often Do You Have a Drink Containing Alcohol: Never Recent Travel in [place] within the Last 8 Weeks: No Recent Out of Country Travel within the Last 8 Weeks: No Immunization History Tetanus Immunization: <5 Years Hx Influenza Vaccine This Season: Yes Exam Narrative Exam Narrative: GENERAL: Well-developed, well-nourished, alert -[place] male. Presenting in no acute distress. SKIN: Focused skin assessment warm/dry. HEAD: Atraumatic. Normocephalic. EYES: Pupils equal and round. No scleral icterus. No injection or drainage. ENT: No nasal bleeding or discharge. Mucous membranes pink and moist. NECK: Trachea midline. No JVD. CARDIOVASCULAR: Regular rate and rhythm. No murmur appreciated. 2+ dorsalis pedal pulses bilaterally. RESPIRATORY: No accessory muscle use. Clear to auscultation. Breath sounds equal bilaterally. GASTROINTESTINAL: Abdomen soft, non-tender, nondistended. Hepatic and splenic margins not palpable. MUSCULOSKELETAL: No obvious deformities. No clubbing. No cyanosis. No edema. NEUROLOGICAL: Awake and alert. No obvious cranial nerve deficits. Motor grossly within normal limits. Normal speech. PSYCHIATRIC: Appropriate mood and affect; insight and judgment normal. Course Initial Documented Vital Signs Temperature 99.1 F 11/29/17 19:42 Pulse Rate 66 11/29/17 19:42 Respiratory Rate 18 11/29/17 19:42 Blood Pressure 131/60 11/29/17 19:42 Pulse Oximetry 94 L 11/29/17 19:42 Last Documented Vital Signs Temperature 98.5 F 11/30/17 12:00 Pulse Rate 73 11/30/17 12:00 Respiratory Rate 18 11/30/17 12:00 Blood Pressure 124/60 11/30/17 12:00 Pulse Oximetry 92 L 11/30/17 12:00 Medical Decision Making MDM Narrative Medical decision making narrative: Patient is 22-year-old male presented to the emergency department for evaluation for sickle cell crisis. Patient's vital signs are stable, labs imaging ordered and pending. Patient be given IV fluids and Dilaudid for pain. Will reevaluate. IV access established, patient was placed on telemetry monitoring continuous pulse oximetry. Labs reviewed ferritin level is elevated 1999, reticulocyte count 7.7, hemoglobin is stable when compared to prior. Ferritin level was assessed because patient was concerned for iron overload which she has had in the past. The value today is significantly decreased from July when it was over 9000. Patient is on Jadenu for this according to previous notes from hematology. Patient was reassessed at 2220 and reported that he continued to have 7 out of 10 pain in his leg and lower back. An additional dose of Dilaudid was ordered, patient was given additional 2 L of IV fluids. Care of patient will be transferred to my attending physician who will determine patient's disposition. Accepted in transfer of care for patient admission for sickle cell crisis with intractable pain; sent by snorkelling instructor for ongoing management and intervention. Discussed with and accepted by Dr Castellanos, [facility] service MD. Differential Diagnosis Differential Diagnosis: Sickle cell crisis versus metabolic abnormality versus cardiac arrhythmia versus other Medical Records Medical records reviewed: Yes I reviewed the patient's medical records. Lab Data Lab results reviewed: Yes I reviewed the patient's lab results. Result diagrams: 11/30/17 09:55 11/30/17 09:55 Lab Results 11/29/17 11/29/17 11/29/17 Range/Units 21:25 21:25 21:25 WBC 13.0 H (4.0-11.0) th/mm3 RBC 2.44 L (4.50-5.90) mil/mm3 Hgb 7.6 L (13.0-17.0) gm/dL Hct 21.3 L (39.0-51.0) % MCV 87.4 (80.0-100.0) fL MCH 31.0 (27.0-34.0) pg MCHC 35.5 (32.0-36.0) % RDW 23.2 H (11.6-17.2) % Plt Count 394 (150-450) th/mm3 MPV 7.1 (7.0-11.0) fL Prelim Diff (Auto) Slide review pending Neut % (Auto) 59.6 (16.0-70.0) % Lymph % (Auto) 28.8 (9.0-44.0) % [place] % (Auto) 8.5 H (0.0-8.0) % Eos % (Auto) 1.7 (0.0-4.0) % Baso % (Auto) 1.4 (0.0-2.0) % Neut # (Auto) 7.7 (1.8-7.7) th/mm3 Lymph # (Auto) 3.7 (1.0-4.8) th/mm3 [place] # (Auto) 1.1 H (0.0-0.9) th/mm3 Eos # (Auto) 0.2 (0.0-0.4) th/mm3 Baso # (Auto) 0.2 (0.0-0.2) th/mm3 WBC Differential Manual diff final Seg Neuts % (Manual) 65 (16-70) % Lymphocytes % (Manual) 23 (9-44) % Monocytes % (Manual) 9 H (0-8) % Eosinophils % (Manual) 1 (0-4) % Basophils % (Manual) 2 (0-2) % Metamyelocytes % (Man) (0-1) % Abs Neuts (Manual) 8.5 H (1.8-7.7) th/mm3 Nucleated RBCs/100 WBC 4 H (0-0) /100 WBC Differential Comment . Platelet Estimate Normal (Normal) Platelet Morphology Normal (Normal) Pappenheimer Bodies (None) Sickle Cells 2+ H (None) Target Cells (None) Ovalocytes 1+ H (None) Retic Count 7.7 H (0.4-3.0) % Absolute Retic 188.9 H (20.0-150.0) mil/L Sodium 141 (136-145) meq/L Potassium 4.0 (3.5-5.1) meq/L Chloride 109 H (98-107) meq/L Carbon Dioxide 24.9 (21.0-32.0) meq/L Anion Gap 7 (5-15) meq/L BUN 8 (7-18) mg/dL Creatinine 0.71 (0.60-1.30) mg/dL Estimated GFR Greater than 89 (>89) mL/min Random Glucose 102 (74-106) mg/dL Calcium 8.6 (8.5-10.1) mg/dL Ferritin 2000 H (26-388) ng/mL Total Bilirubin 4.5 H (0.2-1.0) mg/dL AST 30 (15-37) U/L ALT 31 (12-78) U/L Alkaline Phosphatase 114 (45-117) U/L Total Protein 6.7 (6.4-8.2) g/dL Albumin 4.0 (3.4-5.0) g/dL 11/30/17 11/30/17 Range/Units 09:55 09:55 WBC 12.1 H (4.0-11.0) th/mm3 RBC 2.27 L (4.50-5.90) mil/mm3 Hgb 7.1 L (13.0-17.0) gm/dL Hct 19.8 L* (39.0-51.0) % MCV 87.4 (80.0-100.0) fL MCH 31.4 (27.0-34.0) pg MCHC 35.9 (32.0-36.0) % RDW 23.3 H (11.6-17.2) % Plt Count 383 (150-450) th/mm3 MPV 7.3 (7.0-11.0) fL Prelim Diff (Auto) Slide review pending Neut % (Auto) 69.6 (16.0-70.0) % Lymph % (Auto) 19.3 (9.0-44.0) % [place] % (Auto) 9.3 H (0.0-8.0) % Eos % (Auto) 1.0 (0.0-4.0) % Baso % (Auto) 0.8 (0.0-2.0) % Neut # (Auto) 8.4 H (1.8-7.7) th/mm3 Lymph # (Auto) 2.3 (1.0-4.8) th/mm3 [place] # (Auto) 1.1 H (0.0-0.9) th/mm3 Eos # (Auto) 0.1 (0.0-0.4) th/mm3 Baso # (Auto) 0.1 (0.0-0.2) th/mm3 WBC Differential Manual diff final Seg Neuts % (Manual) 79 H (16-70) % Lymphocytes % (Manual) 14 (9-44) % Monocytes % (Manual) 6 (0-8) % Eosinophils % (Manual) (0-4) % Basophils % (Manual) (0-2) % Metamyelocytes % (Man) 1 (0-1) % Abs Neuts (Manual) 9.7 H (1.8-7.7) th/mm3 Nucleated RBCs/100 WBC 9 H (0-0) /100 WBC Differential Comment . Platelet Estimate Normal (Normal) Platelet Morphology Normal (Normal) Pappenheimer Bodies Present H (None) Sickle Cells 2+ H (None) Target Cells 1+ H (None) Ovalocytes (None) Retic Count (0.4-3.0) % Absolute Retic (20.0-150.0) mil/L Sodium 143 (136-145) meq/L Potassium 4.2 (3.5-5.1) meq/L Chloride 111 H (98-107) meq/L Carbon Dioxide 25.4 (21.0-32.0) meq/L Anion Gap 7 (5-15) meq/L BUN 9 (7-18) mg/dL Creatinine 0.82 (0.60-1.30) mg/dL Estimated GFR Greater than 89 (>89) mL/min Random Glucose 90 (74-106) mg/dL Calcium 8.2 L (8.5-10.1) mg/dL Ferritin (26-388) ng/mL Total Bilirubin (0.2-1.0) mg/dL AST (15-37) U/L ALT (12-78) U/L Alkaline Phosphatase (45-117) U/L Total Protein (6.4-8.2) g/dL Albumin (3.4-5.0) g/dL Imaging Data Radiologist's impression: Chest X-Ray 11/29/17 21:01 CONCLUSION: Cardiomegaly. No acute findings. Sclerotic bony changes characteristic of reported history of sickle cell anemia. Reviewed. Discharge Plan Discharge Disposition Patient Disposition: 30 Still Patient Discharge Condition Condition: Stable Discharge Details Diagnosis: Acute sickle cell crisis, Intractable pain Physicians Team ED Provider: Yadira Davis ED Midlevel Provider: Laurie Elaine Primary Care Provider: Primary Care Ellen Alcala Attending Provider: Bo Castellanos Status ED Status: Left Department Discharge Information Discharge Date/Time: 11/30/17 00:36
--- NOTE | 2017-11-29 21:37 | XR ---
EXAM DATE: 11/29/2017 9:33 PM EDT AGE/SEX: 22 years / Male INDICATIONS: Sickle cell attack. Chest pain and shortness of breath. CLINICAL DATA: This is the patient's initial encounter. Patient reports that signs and symptoms have been present for 1 day and indicates a pain score of 1/10. MEDICAL/SURGICAL HISTORY: . Sickle Cell disease. Asthma. TIA. None. COMPARISON: [facility] [place], CHEST PA & LAT, 08/26/2017. . FINDINGS: Cardiomegaly present. No effusion or pneumothorax. No focal consolidation. No acute bony abnormality. CONCLUSION: Cardiomegaly. No acute findings. Sclerotic bony changes characteristic of reported history of sickle cell anemia. Electronically signed by: Chepe Bird MD 11/29/2017 9:35 PM EDT
[2017-11-29 21:46] LABS: Baso # (Auto) 0.2 th/mm3 (0.0-0.2); Baso % (Auto) 1.4 % (0.0-2.0); Eos # (Auto) 0.2 th/mm3 (0.0-0.4); Eos % (Auto) 1.7 % (0.0-4.0); Hematocrit 21.3 % (39.0-51.0); Hemoglobin 7.6 gm/dL (13.0-17.0); Lymph # (Auto) 3.7 th/mm3 (1.0-4.8); Lymph % (Auto) 28.8 % (9.0-44.0); Mean Corpuscular HGB Conc 35.5 % (32.0-36.0); Mean Corpuscular Volume 87.4 fL (80.0-100.0); Mean Platelet Volume 7.1 fL (7.0-11.0); Mono # (Auto) 1.1 th/mm3 (0.0-0.9); Mono % (Auto) 8.5 % (0.0-8.0); Neut # (Auto) 7.7 th/mm3 (1.8-7.7); Neut % (Auto) 59.6 % (16.0-70.0); Platelet Count 394 th/mm3 (150-450); Red Blood Count 2.44 mil/mm3 (4.50-5.90); Red Cell Distribution Width 23.2 % (11.6-17.2); Reticulocyte Percent 7.7 % (0.4-3.0)
[2017-11-29 21:59] LABS: Anion Gap 7 meq/L (5-15); Aspartate Aminotransferase 30 U/L (15-37); Blood Urea Nitrogen 8 mg/dL (7-18); Calcium 8.6 mg/dL (8.5-10.1); Carbon Dioxide 24.9 meq/L (21.0-32.0); Chloride 109 meq/L (98-107); Glomerular Filtration Rate Greater Than 89 mL/min (>89); Glucose,Random 102 mg/dL (74-106); Sodium 141 meq/L (136-145)
[2017-11-29 22:00] LABS: Alanine Aminotransferase 31 U/L (12-78)
[2017-11-29 22:02] LABS: Alkaline Phosphatase 114 U/L (45-117); Total Protein 6.7 g/dL (6.4-8.2)
[2017-11-29] MEDS ORDERED: Sod Chloride 0.9% Inj 2,000 ML IV.SIG ONE (22:02)
[2017-11-29 22:19] LABS: Eosinophils 1 % (0-4); Lymphocytes 23 % (9-44); Monocytes 9 % (0-8); Tallied Nucleated RBC 4 (0-0)
[2017-11-29 22:20] LABS: Ovalocytes 1+; Platelet Estimate Normal (Normal); Platelet Morphology Normal (Normal); Sickle Cells 2+
[2017-11-29] MEDS ORDERED: Ketorolac Inj 30 MG/ML (IVP) Vial IV.PUSH ONE (22:34)
[2017-11-29] MEDS ORDERED: Acetaminophen 325 MG Tablet PO PRN (23:10)
[2017-11-29] MEDS ORDERED: HYDROmorphone PF Inj 2 MG/ML Vial IV.PUSH PRN (23:34)
[2017-11-29] MEDS ORDERED: oxyCODONE/Acetaminophen 10/325 Tablet PO PRN (23:34)
[2017-11-29] MEDS ORDERED: Naloxone Inj 0.4 MG/ML Vial IV.PUSH PRN (23:34)
[2017-11-29] MEDS ORDERED: Morphine Inj 4 MG/ML Vial IV.PUSH PRN (23:34)
--- NOTE | 2017-11-29 23:54 | P.HPIM ---
History of Present Illness Primary Care Physician: No Primary Care Physician History of Present Illness: 22-year-old male with a history of sickle cell anemia who presents with a 12 hour history of severe constant sharp pain in low back, as well as right knee, consistent with previous episodes of sickle cell pain crisis. Patient went to his hematologists clinic today and received IV fluids and Dilaudid which did not control the pain, and as such she was instructed to present to the ER. Patient says he did have some chest tightness earlier which resolved. Denies any current chest pain or shortness of breath. Denies nausea or vomiting. Denies fevers or chills. He does report itching secondary to narcotics and is requesting Benadryl. Inpatient Certification: I certify that the inpatient services were ordered in accordance with Medicare regulations governing the order. This includes certification that hospital inpatient services are reasonable and necessary and in the case of services not specified as inpatient-only under 42 CFR 419.22(n), that they are appropriately provided as inpatient services in accordance to with the 2-midnight benchmark under 43 CFR 412.3(e) Estimated Total Length of Stay (Days): 2 Plans for Post Hospital Care: Home Review of Systems All other systems reviewed negative except as stated in HPI PMFSH - History History Provided By: Patient - Medical History Medical History: Medical History (Last Reviewed 11/29/17 @ 21:27 by LUCÍA Tan) Asthma Osteonecrosis Sickle cell anemia with pain - Surgical History Surgical History: Surgical History (Last Reviewed 11/29/17 @ 21:27 by LUCÍA Tan) History of cholecystectomy History of splenectomy History of tonsillectomy - Family History Family History: Family History (Last Updated 11/29/17 @ 23:50 by Bo Castellanos MD) Mother Asthma Sickle cell trait Father Sickle cell trait - Tobacco History Second Hand Smoke Exposure: No Smoking Status: Never smoker - Alcohol History How Often Do You Have a Drink Containing Alcohol: Never - Substance Use History Substance History: No History of Abuse - Travel History Recent Travel in the [place] Within the Last 8 Weeks: No Recent Travel Out of the Country Within the Last 8 Weeks: No - Immunization History Tetanus Immunization: <5 Years Hx Influenza Vaccine This Season: Yes Medications and Allergies Active Medications: Active Medications Acetaminophen (Tylenol) 650 mg PO Q4H PRN PRN Reason: Temp > 100.4 Diphenhydramine HCl (Benadryl Inj) 25 mg IV.PUSH Q3HR PRN PRN Reason: ITCHING Hydromorphone HCl (Dilaudid Pf Inj) 2 mg IV.PUSH Q4H PRN PRN Reason: PAIN SCALE 1 TO 10 Hydromorphone HCl (Dilaudid Pf Inj) 1 mg IV.PUSH Q3H PRN PRN Reason: BREAKTHROUGH PAIN Sodium Chloride (Ns Inj) 1,000 mls @ 100 mls/hr IV.CONT .Q10H DAVID Morphine Sulfate (Morphine Inj) 4 mg IV.PUSH Q1H PRN PRN Reason: Pain Scale 7-10 (Intractable) Naloxone HCl (Narcan Inj) 0.4 mg IV.PUSH UNSCH PRN PRN Reason: SEE LABEL COMMENTS Ondansetron HCl (Zofran Inj) 4 mg IV.PUSH Q6H PRN PRN Reason: NAUSEA OR VOMITING Oxycodone HCl (Roxicodone) 5 mg PO Q4H PRN PRN Reason: PAIN SCALE 3 TO 5 Oxycodone/Acetaminophen (Percocet 10/325 Mg) 1 tab PO Q6H PRN PRN Reason: PAIN SCALE 6 TO 10 Sodium Chloride (Ns Flush) 2 ml IV.FLUSH PRN PRN PRN Reason: FLUSH AFTER USING IV ACCESS Temazepam (Restoril) 15 mg PO HS PRN PRN Reason: INSOMNIA Allergies Allergy/AdvReac Type Severity Reaction Status Date / Time No Known Allergies Allergy Unverified 11/29/17 19:42 Exam Vital signs: Vital Signs 11/29/17 19:42 11/29/17 20:54 11/29/17 21:56 Temperature 99.1 F Pulse Rate 66 67 57 L Respiratory Rate 18 16 Blood Pressure 131/60 115/51 L Pulse Oximetry 94 L 93 L 98 11/29/17 23:33 11/29/17 23:34 Temperature Pulse Rate Respiratory Rate 18 16 Blood Pressure Pulse Oximetry Intake & Output 11/29/17 11/29/17 11/30/17 06:59 18:59 06:59 Weight 70.307 kg Narrative: GENERAL: Patient appears uncomfortable. Alert and oriented 3. SKIN: Warm and dry. HEAD: Atraumatic. Normocephalic. EYES: Pupils equal and round. No scleral icterus. No injection or drainage. ENT: No nasal bleeding or discharge. Mucous membranes pink and moist. NECK: Trachea midline. No JVD. CARDIOVASCULAR: Regular rate and rhythm. RESPIRATORY: No accessory muscle use. Clear to auscultation. Breath sounds equal bilaterally. GASTROINTESTINAL: Abdomen soft, non-tender, nondistended. Hepatic and splenic margins not palpable. MUSCULOSKELETAL: Extremities without clubbing, cyanosis, or edema. No obvious deformities. Entire spine tender to palpation. Right knee tender to palpation without significant effusion. NEUROLOGICAL: Awake and alert. No obvious cranial nerve deficits. Motor grossly within normal limits. Five out of 5 muscle strength in the arms and legs. Normal speech. PSYCHIATRIC: Appropriate mood and affect; insight and judgment normal. Results - Labs CBC & Chem 7: 11/29/17 21:25 11/29/17 21:25 Labs: Short CBC 11/29/17 Range/Units 21:25 WBC 13.0 H (4.0-11.0) th/mm3 Hgb 7.6 L (13.0-17.0) gm/dL Hct 21.3 L (39.0-51.0) % Plt Count 394 (150-450) th/mm3 BMP 11/29/17 21:25 Sodium 141 Potassium 4.0 Chloride 109 H Carbon Dioxide 24.9 BUN 8 Creatinine 0.71 Calcium 8.6 Liver Function 11/29/17 Range/Units 21:25 Total Bilirubin 4.5 H (0.2-1.0) mg/dL AST 30 (15-37) U/L ALT 31 (12-78) U/L Alkaline Phosphatase 114 (45-117) U/L Albumin 4.0 (3.4-5.0) g/dL - Imaging Impressions Chest X-Ray 11/29/17 21:01 CONCLUSION: Cardiomegaly. No acute findings. Sclerotic bony changes characteristic of reported history of sickle cell anemia. Caprini VTE Risk Assessment Caprini VTE Risk Assessment: No/Low Risk (score <= 1) Caprini Risk Assessment Model: Point Value = 1 Point Value = 2 Point Value = 3 Point Value = 5 Age 41-60 Minor surgery BMI > 25 kg/m2 Swollen legs Varicose veins or History of unexplained or recurrent spontaneous Oral contraceptives or hormone replacement Sepsis (< 1 month) Serious lung disease, including pneumonia (< 1 month) Abnormal pulmonary function Acute myocardial infarction Congestive heart failure (< 1 month) History of inflammatory bowel disease Medical patient at bed rest Age 61-74 Arthroscopic surgery Major open surgery (> 45 min) Laparoscopic surgery (> 45 min) Malignancy Confined to bed (> 72 hours) Immobilizing plaster cast Central venous access Age >= 75 History of VTE Family history of VTE Factor V Leiden Prothrombin [id number] Lupus anticoagulant Anticardiolipin antibodies Elevated serum homocysteine Heparin-induced thrombocytopenia Other congenital or acquired thrombophilia Stroke (< 1 month) Elective arthroplasty Hip, pelvis, or leg fracture Acute spinal cord injury (< 1 month) Prophylaxis Regimen: Total Risk Factor Score Risk Level Prophylaxis Regimen 0-1 Low Early ambulation 2 Moderate Order ONE of the following: *Sequential Compression Device (SCD) *Heparin 5000 units SQ BID 3-4 Higher Order ONE of the following medications: *Heparin 5000 units SQ TID *Enoxaparin/Lovenox 40 mg SQ daily (WT < 150 kg, CrCl > 30 mL/min) *Enoxaparin/Lovenox 30 mg SQ daily (WT < 150 kg, CrCl > 10-29 mL/min) *Enoxaparin/Lovenox 30 mg SQ BID (WT < 150 kg, CrCl > 30 mL/min) AND/OR *Sequential Compression Device (SCD) 5 or more Highest Order ONE of the following medications: *Heparin 5000 units SQ TID (Preferred with Epidurals) *Enoxaparin/Lovenox 40 mg SQ daily (WT < 150 kg, CrCl > 30 mL/min) *Enoxaparin/Lovenox 30 mg SQ daily (WT < 150 kg, CrCl > 10-29 mL/min) *Enoxaparin/Lovenox 30 mg SQ BID (WT < 150 kg, CrCl > 30 mL/min) AND *Sequential Compression Device (SCD) Assessment and Plan - Plan ///Sickle cell pain crisis. Chest x-ray with no acute findings. White blood cell count mildly elevated at 13. No signs of infection. Hemoglobin 7.6 near baseline. = Administer oxygen, narcotics for pain control. = Awaiting med list. = Consider hematology consult if no improvement. patient follows with Dr. Bell Discussed Condition With: patient, Nurse, ED physician.
[2017-11-30] MEDS: Sod Chloride 0.9% Inj 1,000 ML IV.CONT SCH ×3 (00:38→19:54)
[2017-11-30] MEDS: HYDROmorphone PF Inj 2 MG/ML Vial IV.PUSH PRN ×7 (03:06→23:14)
--- NOTE | 2017-11-30 04:33 | P.PNIM ---
Subjective Interval history: Patient reports that pain is not controlled on current regimen. Would like IV Dilaudid instead of by mouth Lortab for as needed pain control. Denies any chest pain or shortness of breath. I discussed with nursing who will place patient on nasal cannula.. Physical Exam Vital signs: Vital Signs 11/29/17 19:42 11/29/17 20:54 11/29/17 21:56 Temperature 99.1 F Pulse Rate 66 67 57 L Respiratory Rate 18 16 Blood Pressure 131/60 115/51 L Pulse Oximetry 94 L 93 L 98 11/29/17 23:33 11/29/17 23:34 11/30/17 00:00 Temperature 98.5 F Pulse Rate 77 Respiratory Rate 18 16 18 Blood Pressure 97/49 L Pulse Oximetry 94 L Intake & Output 11/29/17 11/29/17 11/30/17 06:59 18:59 06:59 Intake Total 3000 / 3000 Balance 3000 / 3000 Weight 70.632 kg Intake: IV 3000 / 3000 NS Inj 2,000 ML @ Wide Open IV. 3000 / 3000 SIG BOLUS ONE Rx#:[id number] Other: Weight On Admission 70.632 kg Narrative: GENERAL: Patient sitting up in bed. Appears uncomfortable. SKIN: Warm and dry. HEAD: Normocephalic. EYES: No scleral icterus. No injection or drainage. NECK: Supple, trachea midline. No JVD . CARDIOVASCULAR: Regular rate and rhythm without murmurs, gallops, or rubs. RESPIRATORY: Breath sounds equal bilaterally. No accessory muscle use. GASTROINTESTINAL: Abdomen soft, non-tender, nondistended. MUSCULOSKELETAL: No cyanosis, or edema. BACK: Nontender without obvious deformity. No CVA tenderness. Results - Labs CBC & Chem 7: 11/29/17 21:25 11/29/17 21:25 Laboratory Results - last 24 hr 11/29/17 11/29/17 11/29/17 21:25 21:25 21:25 WBC 13.0 H RBC 2.44 L Hgb 7.6 L Hct 21.3 L MCV 87.4 MCH 31.0 MCHC 35.5 RDW 23.2 H Plt Count 394 MPV 7.1 Prelim Diff (Auto) Slide review pending Neut % (Auto) 59.6 Lymph % (Auto) 28.8 [place] % (Auto) 8.5 H Eos % (Auto) 1.7 Baso % (Auto) 1.4 Neut # (Auto) 7.7 Lymph # (Auto) 3.7 [place] # (Auto) 1.1 H Eos # (Auto) 0.2 Baso # (Auto) 0.2 WBC Differential Manual diff final Seg Neuts % (Manual) 65 Lymphocytes % (Manual) 23 Monocytes % (Manual) 9 H Eosinophils % (Manual) 1 Basophils % (Manual) 2 Abs Neuts (Manual) 8.5 H Nucleated RBCs/100 WBC 4 H Differential Comment . Platelet Estimate Normal Platelet Morphology Normal Sickle Cells 2+ H Ovalocytes 1+ H Retic Count 7.7 H Absolute Retic 188.9 H Sodium 141 Potassium 4.0 Chloride 109 H Carbon Dioxide 24.9 Anion Gap 7 BUN 8 Creatinine 0.71 Estimated GFR Greater than 89 Random Glucose 102 Calcium 8.6 Ferritin 2000 H Total Bilirubin 4.5 H AST 30 ALT 31 Alkaline Phosphatase 114 Total Protein 6.7 Albumin 4.0 - Imaging Impressions Chest X-Ray 11/29/17 21:01 CONCLUSION: Cardiomegaly. No acute findings. Sclerotic bony changes characteristic of reported history of sickle cell anemia. Assessment and Plan - Plan ///Sickle cell pain crisis. Chest x-ray with no acute findings. White blood cell count mildly elevated at 13. No signs of infection. Hemoglobin 7.6 near baseline. = Administer oxygen, narcotics for pain control. = Awaiting med list. = Consider hematology consult if no improvement. patient follows with Dr. Bell = 11/30. Pain not controlled on current regimen. Will schedule Dilaudid every 3 hours as needed. Discharge Planning: Pending improvement in pain.
[2017-11-30] MEDS ORDERED: Naloxone Inj 0.4 MG/ML Vial IV.PUSH PRN (04:35)
[2017-11-30] MEDS ORDERED: HYDROmorphone PF Inj 2 MG/ML Vial IV.PUSH PRN ×2 (04:35)
[2017-11-30] MEDS ORDERED: DEFERASIROX 360 MG PO SCH (09:00)
[2017-11-30] MEDS: Hydroxyurea 500 MG Capsule PO SCH (09:15)
[2017-11-30 10:43] LABS: Baso # (Auto) 0.1 th/mm3 (0.0-0.2); Baso % (Auto) 0.8 % (0.0-2.0); Eos # (Auto) 0.1 th/mm3 (0.0-0.4); Lymph # (Auto) 2.3 th/mm3 (1.0-4.8); Lymph % (Auto) 19.3 % (9.0-44.0); Mean Corpuscular HGB Conc 35.9 % (32.0-36.0); Mean Corpuscular Hemoglobin 31.4 pg (27.0-34.0); Mean Corpuscular Volume 87.4 fL (80.0-100.0); Mean Platelet Volume 7.3 fL (7.0-11.0); Mono # (Auto) 1.1 th/mm3 (0.0-0.9); Mono % (Auto) 9.3 % (0.0-8.0); Neut # (Auto) 8.4 th/mm3 (1.8-7.7); Neut % (Auto) 69.6 % (16.0-70.0); Platelet Count 383 th/mm3 (150-450); Red Blood Count 2.27 mil/mm3 (4.50-5.90); Red Cell Distribution Width 23.3 % (11.6-17.2); White Blood Count 12.1 th/mm3 (4.0-11.0)
[2017-11-30 10:57] LABS: Hematocrit 19.8 % (39.0-51.0); Hemoglobin 7.1 gm/dL (13.0-17.0)
[2017-11-30 11:00] LABS: Anion Gap 7 meq/L (5-15); Blood Urea Nitrogen 9 mg/dL (7-18); Calcium 8.2 mg/dL (8.5-10.1); Carbon Dioxide 25.4 meq/L (21.0-32.0); Chloride 111 meq/L (98-107); Glomerular Filtration Rate Greater Than 89 mL/min (>89); Glucose,Random 90 mg/dL (74-106); Potassium 4.2 meq/L (3.5-5.1); Sodium 143 meq/L (136-145)
[2017-11-30 11:39] LABS: Lymphocytes 14 % (9-44); Metamyelocytes 1 % (0-1); Monocytes 6 % (0-8); Sickle Cells 2+; Tallied Nucleated RBC 9 (0-0); Target Cells 1+
[2017-11-30 11:40] LABS: Pappenheimer Bodies Present
[2017-11-30 11:41] LABS: Platelet Estimate Normal (Normal); Platelet Morphology Normal (Normal)
[2017-12-01] MEDS: HYDROmorphone PF Inj 2 MG/ML Vial IV.PUSH PRN ×5 (01:59→18:26)
[2017-12-01] MEDS: Sod Chloride 0.9% Inj 1,000 ML IV.CONT SCH ×2 (05:22→14:24)
[2017-12-01] MEDS: Hydroxyurea 500 MG Capsule PO SCH (08:31)
--- NOTE | 2017-12-01 09:07 | P.PN ---
Physical Exam Vital signs: Vital Signs 11/30/17 11:06 11/30/17 12:00 11/30/17 16:00 Temperature 98.5 F 98.4 F Pulse Rate 73 60 Respiratory Rate 18 16 Blood Pressure 124/60 107/53 L Pulse Oximetry 96 92 L 95 11/30/17 20:00 11/30/17 23:48 12/01/17 00:00 Temperature 98.4 F 97.4 F L Pulse Rate 67 71 Respiratory Rate 21 18 20 Blood Pressure 118/57 L 128/60 Pulse Oximetry 91 L 92 L 12/01/17 04:00 12/01/17 04:18 12/01/17 08:12 Temperature 98.6 F Pulse Rate 93 H Respiratory Rate 18 16 Blood Pressure 118/53 L Pulse Oximetry 91 L 93 L Intake & Output 11/30/17 12/01/17 12/01/17 18:59 06:59 18:59 Intake Total 1000 / 1000 1999 Output Total 1200 / 1200 Balance -200 / -200 1999 Intake: IV 1000 / 1000 1999 NS Inj 1,000 ML @ 100 mls/hr IV 1000 / 1000 1999 .CONT .Q10H DAVID Rx#:[id number] Output: Urine 1200 / 1200 Other: Date of Last Bowel Movement 11/30/17 Narrative: Subjective Patient in bed, complaints of right knee pain. No fever or chills.No cough. No n /v/d/c. With dry lips. Wants Gatorade Physical Exam GENERAL: Patient sitting up in bed. Appears uncomfortable. CARDIOVASCULAR: Regular rate and rhythm without murmurs, gallops, or rubs. RESPIRATORY: Breath sounds equal bilaterally. No accessory muscle use. GASTROINTESTINAL: Abdomen soft, non-tender, nondistended. MUSCULOSKELETAL: No cyanosis, or edema. BACK: Nontender without obvious deformity. No CVA tenderness. Assessment and Plan Sickle cell pain crisis. Chest x-ray with no acute findings. White blood cell count mildly elevated at 13. No signs of infection. Hemoglobin 7.6 on admission, near baseline. HGB trending down retic count elevated Ferritin elevated Administer oxygen, narcotics for pain control. Consider hematology consult if no improvement. patient follows with Dr. Bell, patient would like to see Dr Bell Pain not controlled on current regimen. IV Dilaudid every 3 hours as needed. Wants toradol prn , will add Dry lips. Balmex Discharge Planning: Pending improvement. Results - Labs CBC & Chem 7: 11/30/17 09:55 11/30/17 09:55 Laboratory Results - last 24 hr 11/30/17 11/30/17 09:55 09:55 WBC 12.1 H RBC 2.27 L Hgb 7.1 L Hct 19.8 L* MCV 87.4 MCH 31.4 MCHC 35.9 RDW 23.3 H Plt Count 383 MPV 7.3 Prelim Diff (Auto) Slide review pending Neut % (Auto) 69.6 Lymph % (Auto) 19.3 [place] % (Auto) 9.3 H Eos % (Auto) 1.0 Baso % (Auto) 0.8 Neut # (Auto) 8.4 H Lymph # (Auto) 2.3 [place] # (Auto) 1.1 H Eos # (Auto) 0.1 Baso # (Auto) 0.1 WBC Differential Manual diff final Seg Neuts % (Manual) 79 H Lymphocytes % (Manual) 14 Monocytes % (Manual) 6 Metamyelocytes % (Man) 1 Abs Neuts (Manual) 9.7 H Nucleated RBCs/100 WBC 9 H Differential Comment . Platelet Estimate Normal Platelet Morphology Normal Pappenheimer Bodies Present H Sickle Cells 2+ H Target Cells 1+ H Sodium 143 Potassium 4.2 Chloride 111 H Carbon Dioxide 25.4 Anion Gap 7 BUN 9 Creatinine 0.82 Estimated GFR Greater than 89 Random Glucose 90 Calcium 8.2 L - Imaging Impressions Chest X-Ray 11/29/17 21:01 CONCLUSION: Cardiomegaly. No acute findings. Sclerotic bony changes characteristic of reported history of sickle cell anemia.
[2017-12-01] MEDS ORDERED: Dimethicone/Oxybenzone-Padimate Lip Balm 4.25 GM Tube TOPICAL PRN (15:29)
[2017-12-01] MEDS: HYDROmorphone PF Inj 4 MG/ML Ampul IV.PUSH PRN (21:56)
[2017-12-02] MEDS: Sod Chloride 0.9% Inj 1,000 ML IV.CONT SCH ×3 (01:23→23:22)
[2017-12-02] MEDS: HYDROmorphone PF Inj 4 MG/ML Ampul IV.PUSH PRN ×7 (01:25→23:23)
--- NOTE | 2017-12-02 03:39 | MB ---
cc: Abhi Shaw MD DATE: 12/01/2017 REASON FOR CONSULTATION: Consult requested by Dr. Toth for followup of sickle cell disease in a patient who is admitted for painful crisis. HISTORY OF PRESENT ILLNESS: Carmine is a 22-year-old male. He is under the care of my associate, Dr. Marco A Bell. The patient has a history of severe sickle cell disease with multiple painful crisis. He has a history of acute chest pain syndrome requiring ventilator support in 2011. He also has a history of ischemic stroke from sickle cell at the age of 4 and also in 2011. The patient had received multiple blood transfusions and due to that, he has now hemosiderosis. He is on Jadenu for the hemosiderosis. The patient got admitted to the hospital 2 days ago for pain in the legs and the back. This is one of the typical sickle cell crisis admission, according to the patient. He has been getting Dilaudid 1-2 mg every 3-6 hours. His pain is not under control. He requested the hospitalist to ask Dr. Bell to see him while he is in the hospital. A consult was placed in for Dr. Bell, who is off for this weekend. I have been asked to see him for further evaluation. The patient's grandmother was present at the time of the interview. The patient states that he has been having back pain and both lower leg pain. It is more or less the same since he has been in the hospital. He states that he was getting 1 mg of Dilaudid, which was increased to 2 mg and he is getting it every 3 hours p.r.n. He does not think that is enough to control his pain and he wanted a chief engineer production to see him. The patient denies any chest pains or shortness of breath. He does not have any clinical evidence of acute chest pain syndrome. He denies any fevers. He denies any nausea, vomiting, diarrhea. The rest of the review of systems is negative. PAST MEDICAL HISTORY: Sickle cell disease with multiple painful crisis. 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 History of ischemic stroke twice, the first was at the age of 4 and the second one was in 2011. 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 PAST SURGICAL HISTORY: AV fistula in the right groin, cholecystectomy, splenectomy, tonsillectomy. ALLERGIES: NONE. MEDICATIONS: 1. Hydrea 1500 mg daily. 2. Jadenu 1080 mg daily. 3. Lortab. 4. Lisinopril. 5. Folic acid as an outpatient. FAMILY HISTORY: His parents are alive and well. He has 3 brothers and 3 sisters, all alive and well. SOCIAL HISTORY: The patient is single. He does not smoke cigarettes and drink alcohol actively. 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 PHYSICAL EXAMINATION: GENERAL: A well-developed, well-nourished -[place] male in no apparent distress. VITAL SIGNS: Temperature 98.9, heart rate 65, blood pressure is 123/59, O2 saturation 95% on room air. HEENT: PERRLA. EOMI, anicteric. No oral lesions noted. NECK: Supple. There is no cervical, supraclavicular or axillary lymphadenopathy noted. LUNGS: Clear. No wheezing, rhonchi or rales. HEART: Regular rate and rhythm. ABDOMEN: Soft, nontender. No hepatosplenomegaly. EXTREMITIES: No pedal edema. NEUROLOGIC: Awake, alert and oriented x3. SKIN: No significant lesions noted. ASSESSMENT: 1. Sickle cell painful crisis. 2. History of sickle cell disease with history of acute chest pain syndrome, ischemic strokes and priapism. 3. 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 PLAN: I have reviewed his available records and I had an extensive discussion with the patient and his grandmother regarding the sickle cell painful crisis management. His CBC yesterday showed that the hemoglobin was 7.1. White count is 12.1, platelet count is 383. The comprehensive metabolic profile is normal except the total bilirubin is high at 4.5, which is consistent with hemolysis. Chloride is 109. His serum ferritin is 2000. The patient has been getting hydration, folic acid, and Hydrea. The order is only for 500 mg daily, but according to Dr. Bell's note, it should be 1500 mg daily and I will change that. Regarding the pain management, I recommended that he should be on scheduled doses of Dilaudid and he can also have p.r.n. doses for breakthrough pain; however, the patient declined to be on schedule IV Dilaudid. He wants to keep the same interval of every 3 hours since he stated that when he gets the shot, it lasts for only 3 hours. I reviewed his Dilaudid injection history. He has been getting either 1 mg or 2 mg; therefore, I will change the Dilaudid to 3 mg every 3 hours p.r.n. We will reevaluate tomorrow and adjust the Dilaudid as needed. Further recommendations based on his hospital stay. Thank you for asking my opinion. MD DAIJA Bishop/alejandro , 01:42 AM , 01:59 AM RICCI
[2017-12-02] MEDS: Hydroxyurea 500 MG Capsule PO SCH (08:03)
[2017-12-02] MEDS: Folic Acid 1 MG Tablet PO SCH (08:03)
--- NOTE | 2017-12-02 09:43 | P.PN ---
Physical Exam Vital signs: Vital Signs 12/01/17 12:00 12/01/17 12:14 12/01/17 12:53 Temperature 98.3 F Pulse Rate 62 89 Respiratory Rate 20 16 Blood Pressure 110/53 L Pulse Oximetry 96 12/01/17 16:00 12/01/17 19:33 12/01/17 20:00 Temperature 98.9 F 98.1 F Pulse Rate 65 76 Respiratory Rate 20 16 16 Blood Pressure 123/59 L 119/61 Pulse Oximetry 95 94 L 12/02/17 00:00 12/02/17 00:30 12/02/17 04:00 Temperature 98.4 F 98.5 F Pulse Rate 78 92 H 75 Respiratory Rate 16 16 Blood Pressure 115/58 L 114/57 L Pulse Oximetry 96 92 L 12/02/17 05:05 12/02/17 08:00 Temperature 98 F Pulse Rate 82 Respiratory Rate 18 20 Blood Pressure 112/54 L Pulse Oximetry 92 L Intake & Output 12/01/17 12/02/17 12/02/17 18:59 06:59 18:59 Intake Total 1720 / 1720 1000 / 1000 Output Total 1400 / 1400 Balance 320 / 320 1000 / 1000 Weight 72 kg Intake: IV 1000 / 1000 1000 / 1000 NS Inj 1,000 ML @ 100 mls/hr IV 1000 / 1000 1000 / 1000 .CONT .Q10H DAVID Rx#:[id number] Oral 720 / 720 Output: Urine 1400 / 1400 Other: # Voids 1 Narrative: Subjective + right knee pain. Dilaudid increased yesterday. No fever, feels chills. No cough. No problems with urination. No v/d/c. With nausea , zofran helps , will add compazine. Patient is in nad. Physical Exam GENERAL: Patient sitting up in bed. Appears uncomfortable. CARDIOVASCULAR: Regular rate and rhythm without murmurs, gallops, or rubs. RESPIRATORY: Breath sounds equal bilaterally. No accessory muscle use. GASTROINTESTINAL: Abdomen soft, non-tender, nondistended. MUSCULOSKELETAL: No cyanosis, or edema. BACK: Nontender without obvious deformity. No CVA tenderness. Assessment and Plan Sickle cell pain crisis. Chest x-ray with no acute findings. White blood cell count mildly elevated at 13. No signs of infection. Hemoglobin 7.6 on admission, near baseline. HGB trending down retic count elevated Ferritin elevated Administer oxygen, narcotics for pain control. Consider hematology consult if no improvement. patient follows with Dr. Bell. Seen by Dr Shaw appreciate recommendations. Pain not controlled on current regimen. IV Dilaudid increased. Dry lips. Balmex Discharge Planning: Pending improvement. Discussed with the patient, nurse, Dr Shaw hem onc Results - Labs CBC & Chem 7: 12/02/17 08:52 12/02/17 08:52
[2017-12-02 09:58] LABS: Baso # (Auto) 0.1 th/mm3 (0.0-0.2); Baso % (Auto) 0.8 % (0.0-2.0); Eos # (Auto) 0.3 th/mm3 (0.0-0.4); Eos % (Auto) 2.2 % (0.0-4.0); Lymph # (Auto) 2.8 th/mm3 (1.0-4.8); Lymph % (Auto) 22.2 % (9.0-44.0); Mean Corpuscular HGB Conc 35.3 % (32.0-36.0); Mean Corpuscular Hemoglobin 30.6 pg (27.0-34.0); Mean Corpuscular Volume 86.8 fL (80.0-100.0); Mean Platelet Volume 7.4 fL (7.0-11.0); Mono % (Auto) 8.2 % (0.0-8.0); Neut # (Auto) 8.5 th/mm3 (1.8-7.7); Neut % (Auto) 66.6 % (16.0-70.0); Platelet Count 343 th/mm3 (150-450); Red Blood Count 2.39 mil/mm3 (4.50-5.90); Red Cell Distribution Width 23.1 % (11.6-17.2); White Blood Count 12.8 th/mm3 (4.0-11.0)
[2017-12-02 10:00] LABS: Anion Gap 8 meq/L (5-15); Blood Urea Nitrogen 8 mg/dL (7-18); Calcium 8.4 mg/dL (8.5-10.1); Chloride 108 meq/L (98-107); Glomerular Filtration Rate Greater Than 89 mL/min (>89); Glucose,Random 95 mg/dL (74-106); Potassium 3.9 meq/L (3.5-5.1); Sodium 142 meq/L (136-145)
[2017-12-02 10:01] LABS: Lactate Dehydrogenase 485 U/L (87-241)
[2017-12-02 10:02] LABS: Hematocrit 20.7 % (39.0-51.0); Hemoglobin 7.3 gm/dL (13.0-17.0)
[2017-12-02 10:03] LABS: Reticulocyte Percent 7.4 % (0.4-3.0)
[2017-12-02 10:30] LABS: Eosinophils 5 % (0-4); Lymphocytes 20 % (9-44); Monocytes 10 % (0-8)
[2017-12-02 10:31] LABS: Platelet Morphology Normal (Normal); Polychromasia 3.5 % (0.0-1.9); Tallied Nucleated RBC 7 (0-0)
[2017-12-02 10:32] LABS: Howell-Jolly Bodies Present; Pappenheimer Bodies Present; Platelet Estimate Normal (Normal); Sickle Cells 1+; Target Cells 2+
--- NOTE | 2017-12-02 13:34 | P.PNONC ---
Subjective Interval history: Afebrile. Patient resting comfortably in bed. He reports that his pain is adequately controlled with the current pain medication regimen. He does report vomiting every morning since admission. He states on Sunday he vomited approximately 4-5 times and then yesterday only 2-3 times. He is unsure of the color stating "it is hard to tell in those green bags, I think it might have been yellow", however he does deny any coffee grounds substance or it being dark. He has no other complaints at this time. Objective Vital Signs/Intake & Output: Vital Signs 12/01/17 16:00 12/01/17 19:33 12/01/17 20:00 Temperature 98.9 F 98.1 F Pulse Rate 65 76 Respiratory Rate 20 16 16 Blood Pressure 123/59 L 119/61 Pulse Oximetry 95 94 L 12/02/17 00:00 12/02/17 00:30 12/02/17 04:00 Temperature 98.4 F 98.5 F Pulse Rate 78 92 H 75 Respiratory Rate 16 16 Blood Pressure 115/58 L 114/57 L Pulse Oximetry 96 92 L 12/02/17 05:05 12/02/17 08:00 Temperature 98 F Pulse Rate 82 Respiratory Rate 18 20 Blood Pressure 112/54 L Pulse Oximetry 92 L Intake & Output 12/01/17 12/02/17 12/02/17 18:59 06:59 18:59 Intake Total 1720 / 1720 1000 / 1000 1000 / 1000 Output Total 1400 / 1400 950 / 950 Balance 320 / 320 1000 / 1000 50 / 50 Weight 72 kg Intake: IV 1000 / 1000 1000 / 1000 1000 / 1000 NS Inj 1,000 ML @ 100 mls/hr IV 1000 / 1000 1000 / 1000 1000 / 1000 .CONT .Q10H DAVID Rx#:[id number] Oral 720 / 720 Output: Urine 1400 / 1400 950 / 950 Other: # Voids 1 # Emeses 1 Result Diagrams: 12/02/17 08:52 12/02/17 08:52 Laboratory Results: Laboratory Results - last 24 hr 12/02/17 12/02/17 12/02/17 08:52 08:52 08:52 WBC 12.8 H RBC 2.39 L Hgb 7.3 L Hct 20.7 L* MCV 86.8 MCH 30.6 MCHC 35.3 RDW 23.1 H Plt Count 343 MPV 7.4 Prelim Diff (Auto) Slide review pending Neut % (Auto) 66.6 Lymph % (Auto) 22.2 [place] % (Auto) 8.2 H Eos % (Auto) 2.2 Baso % (Auto) 0.8 Neut # (Auto) 8.5 H Lymph # (Auto) 2.8 [place] # (Auto) 1.0 H Eos # (Auto) 0.3 Baso # (Auto) 0.1 WBC Differential Manual diff final Seg Neuts % (Manual) 65 Lymphocytes % (Manual) 20 Monocytes % (Manual) 10 H Eosinophils % (Manual) 5 H Abs Neuts (Manual) 8.3 H Nucleated RBCs/100 WBC 7 H Differential Comment . Platelet Estimate Normal Platelet Morphology Normal Polychromasia 3.5 H Pappenheimer Bodies Present H Sickle Cells 1+ H Target Cells 2+ H Bee-[place] Bodies Present H Retic Count 7.4 H Absolute Retic 176.3 H Hematology Comments Sodium 142 Potassium 3.9 Chloride 108 H Carbon Dioxide 26.0 Anion Gap 8 BUN 8 Creatinine 0.76 Estimated GFR Greater than 89 Random Glucose 95 Calcium 8.4 L Lactate Dehydrogenase 485 H Medications: Active Medications Generic Name Dose Route Start Last Admin Trade Name Freq PRN Reason Stop Dose Admin Diphenhydramine HCl 25 mg 11/29/17 23:35 12/02/17 12:55 Benadryl Inj IV.PUSH 25 mg Q3HR PRN Administration ITCHING Folic Acid 1 mg 12/02/17 09:00 12/02/17 08:03 Folic Acid PO 1 mg DAILY DAVID Administration Hydromorphone HCl 3 mg 12/01/17 21:30 12/02/17 12:55 Dilaudid Pf Inj IV.PUSH 12/04/17 21:29 3 mg Q3H PRN Administration PAIN 1-10 AND/OR FEVER >101F Hydroxyurea 1,500 mg 12/02/17 09:00 12/02/17 08:03 Hydrea PO 1,500 mg DAILY DAVID Administration Sodium Chloride 1,000 mls @ 100 mls/hr 11/29/17 23:15 12/02/17 12:20 Ns Inj IV.CONT 100 mls/hr .Q10H DAVID Administration Multi-Ingredient Ointment 1 applic 12/01/17 15:29 12/01/17 18:26 Blistex Lip [place] TOPICAL 1 applic UNSCH PRN Administration lip balm Ondansetron HCl 4 mg 11/29/17 23:10 12/02/17 09:32 Zofran Inj IV.PUSH 4 mg Q6H PRN Administration NAUSEA OR VOMITING Objective Remarks: GENERAL: Well-nourished, well-developed young male patient, in no acute distress. SKIN: Warm and dry. HEAD: Normocephalic. EYES: No scleral icterus. No injection or drainage. NECK: Supple, trachea midline. CARDIOVASCULAR: Regular rate and rhythm without murmurs. RESPIRATORY: Breath sounds equal bilaterally. No accessory muscle use. GASTROINTESTINAL: Abdomen soft, non-tender, nondistended. EXTREMITIES: No cyanosis, or edema. MUSCULOSKELETAL: Adequate muscle tone. NEUROLOGICAL: No obvious focal deficit. Awake, alert, and oriented x3. PSYCHIATRIC: Appropriate mood and affect; insight and judgment normal. Assessment/Plan - Plan This is a pleasant 22-year-old male patient, with history of sickle cell. He was admitted for sickle cell pain crisis. The majority of his pain was in his legs and lower back. Plan: 1. Sickle cell pain crisis. The patient reports his pain is adequately controlled on the current pain medication regimen. 2. Vomiting. Continue to administer antiemetic medications. 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 He requests Gatorade with his food trays, I will add this to his dietary order. 3. Continue hydration, folic acid and Hydrea. 4. We will check a CBC, LDH and ferritin level in the a.m. - Attending Statement The exam, history, and the medical decision-making described in the above note were completed with the assistance of the mid-level provider. I reviewed and agree with the findings presented. I attest that I had a [id number] encounter with the patient on the same day, and personally performed and documented my assessment and findings in the medical record. Patient stated that his pain has improved with the change of the Dilaudid to 3 mg every 3 hours IV. He has been complaining of intractable nausea for the last 3 days or so. I have discussed with the admitting physician Dr. man dougherty to put him on Compazine 10 mg 4 times a day scheduled Patient family to bring Jadenu to resume it while he is in the hospital. It is nonformulary. Discussed with patient and grandmother. Discussed with patient's RN. Discussed with Dr. Toth admitting physician.
[2017-12-03] MEDS: HYDROmorphone PF Inj 4 MG/ML Ampul IV.PUSH PRN ×6 (02:55→21:33)
[2017-12-03 07:20] LABS: Reticulocyte Percent 9.9 % (0.4-3.0)
[2017-12-03 07:39] LABS: Albumin 3.5 g/dL (3.4-5.0); Anion Gap 7 meq/L (5-15); Blood Urea Nitrogen 10 mg/dL (7-18); Calcium 8.3 mg/dL (8.5-10.1); Carbon Dioxide 27.2 meq/L (21.0-32.0); Chloride 109 meq/L (98-107); Glucose,Random 100 mg/dL (74-106); Potassium 3.9 meq/L (3.5-5.1); Sodium 143 meq/L (136-145)
[2017-12-03 07:42] LABS: Alanine Aminotransferase 79 U/L (12-78); Alkaline Phosphatase 134 U/L (45-117); Aspartate Aminotransferase 79 U/L (15-37); Glomerular Filtration Rate Greater Than 89 mL/min (>89); Lactate Dehydrogenase 445 U/L (87-241); Total Protein 5.8 g/dL (6.4-8.2)
[2017-12-03] MEDS: Hydroxyurea 500 MG Capsule PO SCH (09:05)
[2017-12-03] MEDS: Sod Chloride 0.9% Inj 1,000 ML IV.CONT SCH ×2 (09:05→19:10)
--- NOTE | 2017-12-03 09:05 | P.PN ---
Physical Exam Vital signs: Vital Signs 12/02/17 12:00 12/02/17 14:48 12/02/17 16:42 Temperature 98 F 98.6 F Pulse Rate 78 65 95 H Respiratory Rate 20 16 Blood Pressure 121/80 130/75 Pulse Oximetry 98 94 L 12/02/17 17:31 12/02/17 20:00 12/03/17 00:00 Temperature 99.2 F 99.5 F Pulse Rate 79 93 H Respiratory Rate 16 18 18 Blood Pressure 128/62 122/67 Pulse Oximetry 95 95 12/03/17 04:00 12/03/17 05:04 12/03/17 08:00 Temperature 99.5 F 99.4 F Pulse Rate 88 108 H Respiratory Rate 18 18 18 Blood Pressure 132/62 123/58 L Pulse Oximetry 95 95 Intake & Output 12/02/17 12/03/17 12/03/17 18:59 06:59 18:59 Intake Total 1000 / 1000 1000 / 1000 Output Total 1550 / 1550 800 / 800 Balance -550 / -550 200 / 200 Intake: IV 1000 / 1000 1000 / 1000 NS Inj 1,000 ML @ 100 mls/hr IV 1000 / 1000 1000 / 1000 .CONT .Q10H DAVID Rx#:[id number] Output: Urine 1550 / 1550 800 / 800 Other: # Emeses 1 Narrative: Subjective Still with right knee pain. Also nausea. No fever, feels chills. No cough. No problems with urination. No v/d/c. Hemoglobin dropped significantly, discuss with hematology oncology plan to transfuse 1 unit of blood. Physical Exam GENERAL: Patient sitting up in bed. Appears uncomfortable. CARDIOVASCULAR: Regular rate and rhythm without murmurs, gallops, or rubs. RESPIRATORY: Breath sounds equal bilaterally. No accessory muscle use. GASTROINTESTINAL: Abdomen soft, non-tender, nondistended. MUSCULOSKELETAL: No cyanosis, or edema. BACK: Nontender without obvious deformity. No CVA tenderness. Assessment and Plan Sickle cell pain crisis. Chest x-ray with no acute findings. White blood cell count mildly elevated at 13. No signs of infection. Hemoglobin 7.6 on admission, near baseline. HGB trending down. Hemoglobin noted on 12/03 at 5.5. Discussed with hematology oncology, transfuse 1 unit of blood retic count elevated Ferritin elevated Administer oxygen, narcotics for pain control. Consider hematology consult if no improvement. patient follows with Dr. Bell. Seen by Dr Shaw appreciate recommendations. Pain not controlled on current regimen. IV Dilaudid increased. Dry lips. [place] Discharge Planning: Pending improvement. Discussed with the patient, nurse, Dr Shaw hem onc, Dorothea LLANOS from hematology oncology Results - Labs CBC & Chem 7: 12/03/17 09:43 12/03/17 06:16 Laboratory Results - last 24 hr 12/02/17 12/02/17 12/02/17 08:52 08:52 08:52 WBC 12.8 H RBC 2.39 L Hgb 7.3 L Hct 20.7 L* MCV 86.8 MCH 30.6 MCHC 35.3 RDW 23.1 H Plt Count 343 MPV 7.4 Prelim Diff (Auto) Slide review pending Neut % (Auto) 66.6 Lymph % (Auto) 22.2 [place] % (Auto) 8.2 H Eos % (Auto) 2.2 Baso % (Auto) 0.8 Neut # (Auto) 8.5 H Lymph # (Auto) 2.8 [place] # (Auto) 1.0 H Eos # (Auto) 0.3 Baso # (Auto) 0.1 WBC Differential Manual diff final Seg Neuts % (Manual) 65 Lymphocytes % (Manual) 20 Monocytes % (Manual) 10 H Eosinophils % (Manual) 5 H Abs Neuts (Manual) 8.3 H Nucleated RBCs/100 WBC 7 H Differential Comment . Platelet Estimate Normal Platelet Morphology Normal Polychromasia 3.5 H Pappenheimer Bodies Present H Sickle Cells 1+ H Target Cells 2+ H Bee-[place] Bodies Present H Retic Count 7.4 H Absolute Retic 176.3 H Hematology Comments Sodium 142 Potassium 3.9 Chloride 108 H Carbon Dioxide 26.0 Anion Gap 8 BUN 8 Creatinine 0.76 Estimated GFR Greater than 89 Random Glucose 95 Calcium 8.4 L Total Bilirubin AST ALT Alkaline Phosphatase Lactate Dehydrogenase 485 H Total Protein Albumin 12/03/17 12/03/17 06:16 06:16 WBC RBC Hgb Hct MCV MCH MCHC RDW Plt Count MPV Prelim Diff (Auto) Neut % (Auto) Lymph % (Auto) [place] % (Auto) Eos % (Auto) Baso % (Auto) Neut # (Auto) Lymph # (Auto) [place] # (Auto) Eos # (Auto) Baso # (Auto) WBC Differential Seg Neuts % (Manual) Lymphocytes % (Manual) Monocytes % (Manual) Eosinophils % (Manual) Abs Neuts (Manual) Nucleated RBCs/100 WBC Differential Comment Platelet Estimate Platelet Morphology Polychromasia Pappenheimer Bodies Sickle Cells Target Cells [place] Bodies Retic Count 9.9 H Absolute Retic 161.4 H Hematology Comments Sodium 143 Potassium 3.9 Chloride 109 H Carbon Dioxide 27.2 Anion Gap 7 BUN 10 Creatinine 0.86 Estimated GFR Greater than 89 Random Glucose 100 Calcium 8.3 L Total Bilirubin 13.4 H AST 79 H ALT 79 H Alkaline Phosphatase 134 H Lactate Dehydrogenase 445 H Total Protein 5.8 L D Albumin 3.5
[2017-12-03] MEDS: Folic Acid 1 MG Tablet PO SCH (09:06)
[2017-12-03] MEDS: DEFERASIROX 360 MG PO SCH (09:08)
[2017-12-03 10:34] LABS: Baso # (Auto) 0.1 th/mm3 (0.0-0.2); Baso % (Auto) 0.9 % (0.0-2.0); Eos # (Auto) 0.1 th/mm3 (0.0-0.4); Eos % (Auto) 0.5 % (0.0-4.0); Lymph # (Auto) 1.6 th/mm3 (1.0-4.8); Lymph % (Auto) 13.3 % (9.0-44.0); Mean Corpuscular Hemoglobin 32.4 pg (27.0-34.0); Mean Corpuscular Volume 86.4 fL (80.0-100.0); Mean Platelet Volume 7.1 fL (7.0-11.0); Mono % (Auto) 8.2 % (0.0-8.0); Neut # (Auto) 9.4 th/mm3 (1.8-7.7); Neut % (Auto) 77.1 % (16.0-70.0); Platelet Count 278 th/mm3 (150-450); Red Blood Count 1.71 mil/mm3 (4.50-5.90); Red Cell Distribution Width 26.4 % (11.6-17.2); White Blood Count 12.2 th/mm3 (4.0-11.0)
[2017-12-03 10:40] LABS: Mean Corpuscular HGB Conc 37.4 % (32.0-36.0)
[2017-12-03 10:43] LABS: Hematocrit 14.8 % (39.0-51.0); Hemoglobin 5.5 gm/dL (13.0-17.0)
[2017-12-03 11:30] LABS: Lymphocytes 12 % (9-44); Monocytes 7 % (0-8); Tallied Nucleated RBC 7 (0-0)
[2017-12-03 11:31] LABS: Howell-Jolly Bodies Present; Pappenheimer Bodies Present; Target Cells 2+
[2017-12-03 11:32] LABS: Platelet Estimate Normal (Normal); Platelet Morphology Normal (Normal); Polychromasia 3.1 % (0.0-1.9); Sickle Cells 2+
[2017-12-03] MEDS ORDERED: Sodium Chlor 0.9% Inj 250 ML IV.SIG SCH (14:00)
[2017-12-03] MEDS ORDERED: Hypromellose 0.3% Opth Gel 10 GM Bottle EACH EYE PRN (15:06)
--- NOTE | 2017-12-03 15:27 | P.PNONC ---
Subjective Interval history: Afebrile Patient reports he is feeling somewhat weaker today Asking if he can have occasional Toradol in addition to Dilaudid Reports eye irritation; asking for eyedrops He continues to have pain in his right knee Denies shortness of breath Objective Vital Signs/Intake & Output: Vital Signs 12/02/17 16:42 12/02/17 17:31 12/02/17 20:00 Temperature 98.6 F 99.2 F Pulse Rate 95 H 79 Respiratory Rate 16 16 18 Blood Pressure 130/75 128/62 Pulse Oximetry 94 L 95 12/03/17 00:00 12/03/17 04:00 12/03/17 05:04 Temperature 99.5 F 99.5 F Pulse Rate 93 H 88 Respiratory Rate 18 18 18 Blood Pressure 122/67 132/62 Pulse Oximetry 95 95 12/03/17 08:00 12/03/17 09:19 12/03/17 12:00 Temperature 99.4 F 99.4 F Pulse Rate 108 H 100 H 79 Respiratory Rate 18 21 Blood Pressure 123/58 L 124/60 Pulse Oximetry 95 92 L 12/03/17 14:32 Temperature Pulse Rate Respiratory Rate Blood Pressure Pulse Oximetry 92 L Intake & Output 12/02/17 12/03/17 12/03/17 18:59 06:59 18:59 Intake Total 1000 / 1000 1000 / 1000 1000 / 1000 Output Total 1550 / 1550 800 / 800 Balance -550 / -550 200 / 200 1000 / 1000 Intake: IV 1000 / 1000 1000 / 1000 1000 / 1000 NS Inj 1,000 ML @ 100 mls/hr IV 1000 / 1000 1000 / 1000 1000 / 1000 .CONT .Q10H DAVID Rx#:[id number] Output: Urine 1550 / 1550 800 / 800 Other: # Emeses 1 Result Diagrams: 12/03/17 09:43 12/03/17 06:16 Laboratory Results: Laboratory Results - last 24 hr 12/03/17 12/03/17 12/03/17 06:16 06:16 09:43 WBC 12.2 H RBC 1.71 L Hgb 5.5 L* Hct 14.8 L* MCV 86.4 MCH 32.4 MCHC 37.4 H RDW 26.4 H D Plt Count 278 MPV 7.1 Prelim Diff (Auto) Slide review pending Neut % (Auto) 77.1 H Lymph % (Auto) 13.3 [place] % (Auto) 8.2 H Eos % (Auto) 0.5 Baso % (Auto) 0.9 Neut # (Auto) 9.4 H Lymph # (Auto) 1.6 [place] # (Auto) 1.0 H Eos # (Auto) 0.1 Baso # (Auto) 0.1 WBC Differential Manual diff final Seg Neuts % (Manual) 80 H Lymphocytes % (Manual) 12 Monocytes % (Manual) 7 Basophils % (Manual) 1 Abs Neuts (Manual) 9.8 H Nucleated RBCs/100 WBC 7 H Differential Comment . Platelet Estimate Normal Platelet Morphology Normal Polychromasia 3.1 H Pappenheimer Bodies Present H Sickle Cells 2+ H Target Cells 2+ H Bee-[place] Bodies Present H Retic Count 9.9 H Absolute Retic 161.4 H Sodium 143 Potassium 3.9 Chloride 109 H Carbon Dioxide 27.2 Anion Gap 7 BUN 10 Creatinine 0.86 Estimated GFR Greater than 89 Random Glucose 100 Calcium 8.3 L Total Bilirubin 13.4 H AST 79 H ALT 79 H Alkaline Phosphatase 134 H Lactate Dehydrogenase 445 H Total Protein 5.8 L D Albumin 3.5 Medications: Active Medications Generic Name Dose Route Start Last Admin Trade Name Freq PRN Reason Stop Dose Admin Diphenhydramine HCl 25 mg 11/29/17 23:35 12/03/17 14:41 Benadryl Inj IV.PUSH 25 mg Q3HR PRN Administration ITCHING Folic Acid 1 mg 12/02/17 09:00 12/03/17 09:06 Folic Acid PO 1 mg DAILY DAVID Administration Hydromorphone HCl 3 mg 12/01/17 21:30 12/03/17 14:39 Dilaudid Pf Inj IV.PUSH 12/04/17 21:29 3 mg Q3H PRN Administration PAIN 1-10 AND/OR FEVER >101F Hydroxyurea 1,500 mg 12/02/17 09:00 12/03/17 09:05 Hydrea PO 1,500 mg DAILY DAVID Administration Sodium Chloride 1,000 mls @ 100 mls/hr 11/29/17 23:15 12/03/17 09:05 Ns Inj IV.CONT 100 mls/hr .Q10H DAVID Administration Multi-Ingredient Ointment 1 applic 12/01/17 15:29 12/01/17 18:26 Blistex Lip [place] TOPICAL 1 applic UNSCH PRN Administration lip balm Ondansetron HCl 4 mg 11/29/17 23:10 12/03/17 13:27 Zofran Inj IV.PUSH 4 mg Q6H PRN Administration NAUSEA OR VOMITING Pt Own Med: [place] 1 each 12/03/17 09:00 12/03/17 09:08 360mg Po Daily PO 1 each DAILY DAVID Administration Prochlorperazine Maleate 10 mg 12/02/17 17:00 12/03/17 11:26 Compazine PO 10 mg Q6H DAVID Administration Objective Remarks: GENERAL: Young male resting in bed. He appears comfortable and is smiling throughout exam. SKIN: Warm and dry. HEAD: Normocephalic. EYES: Mild scleral icterus. NECK: No JVD or lymphadenopathy. CARDIOVASCULAR: Regular rate and rhythm without murmurs. RESPIRATORY: Breath sounds equal bilaterally. No accessory muscle use. GASTROINTESTINAL: Abdomen soft, non-tender, nondistended. EXTREMITIES: No cyanosis, or edema. MUSCULOSKELETAL: Adequate muscle tone. NEUROLOGICAL: No obvious focal deficit. Awake, alert, and oriented x3. 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 He was admitted for sickle cell pain crisis. The majority of his pain was in his legs and lower back. Plan: 1. Sickle cell pain crisis. Patient reports pain overall well controlled with Dilaudid 3 mg every 3 hours. I will add on Toradol to the regimen. I anticipate that after he receives packed red blood cell transfusion today that we will be able to decrease the Dilaudid tomorrow. 2. Transfuse 1 unit packed red blood cells today for hemoglobin of 5.5. 3. Continue hydration, folic acid and Hydrea. 4. Supportive care.
[2017-12-03] MEDS: Acetaminophen 325 MG Tablet PO PRN (23:33)
[2017-12-04] MEDS: HYDROmorphone PF Inj 4 MG/ML Ampul IV.PUSH PRN ×7 (01:02→23:09)
[2017-12-04] MEDS: Sod Chloride 0.9% Inj 1,000 ML IV.CONT SCH ×5 (05:24→23:32)
[2017-12-04] MEDS: Hydroxyurea 500 MG Capsule PO SCH (08:38)
[2017-12-04] MEDS: DEFERASIROX 360 MG PO SCH (08:39)
[2017-12-04] MEDS: Folic Acid 1 MG Tablet PO SCH (08:39)
--- NOTE | 2017-12-04 10:37 | P.PNONC ---
Subjective Interval history: Afebrile Patient resting in bed talking on the phone. He reports he had significantly increased pain in his back and legs overnight Had an episode of diaphoresis with vomiting earlier this morning Oxygen via nasal cannula increased from 2 L to 4 L overnight as well Respiratory therapy in room at the time of my exam who checks his O2 sats and is 84%. After some deep breathing O2 sats increased to 92%. Pt denies cough Reports the clinical laboratory technologist was unable to find a good vein; awaiting return educational technician Pt asking about a midline catheter Objective Vital Signs/Intake & Output: Vital Signs 12/03/17 12:00 12/03/17 14:32 12/03/17 16:00 Temperature 99.4 F 98.6 F Pulse Rate 79 74 Respiratory Rate 21 18 Blood Pressure 124/60 122/62 Pulse Oximetry 92 L 92 L 94 L 12/03/17 20:00 12/03/17 23:51 12/04/17 00:00 Temperature 97.9 F 98.4 F Pulse Rate 75 77 82 Respiratory Rate 18 18 Blood Pressure 121/69 131/77 Pulse Oximetry 96 94 L 12/04/17 00:08 12/04/17 02:59 12/04/17 04:00 Temperature 98.6 F 98.2 F Pulse Rate 114 H Respiratory Rate 18 16 18 Blood Pressure 127/73 130/72 Pulse Oximetry 96 93 L 12/04/17 08:00 12/04/17 08:45 Temperature 98.5 F Pulse Rate 97 H Respiratory Rate 17 Blood Pressure 146/80 H Pulse Oximetry 92 L 92 L Intake & Output 12/03/17 12/04/17 12/04/17 18:59 06:59 18:59 Intake Total 1720 / 1720 1425 / 1425 Output Total 825 / 825 800 / 800 Balance 1720 / 1720 600 / 600 -800 / -800 Weight 155 lb 10.342 oz Intake: IV 1000 / 1000 1075 / 1075 NS Inj 1,000 ML @ 100 mls/hr IV 1000 / 1000 1000 / 1000 .CONT .Q10H DAVID Rx#:[id number] NS Inj 250 ML @ 15 mls/hr IV. 75 / 75 SIG ONCE DAVID Rx#:[id number] Oral 720 / 720 Intake (Blood Product) Amt 350 / 350 Rbc As-3 Leukoreduced Unit 350 / 350 [id number] Output: Urine 825 / 825 800 / 800 Other: # Voids 3 Result Diagrams: 12/03/17 09:43 12/03/17 06:16 Laboratory Results: Laboratory Results - last 24 hr 12/03/17 12/03/17 09:43 19:25 WBC 12.2 H RBC 1.71 L Hgb 5.5 L* Hct 14.8 L* MCV 86.4 MCH 32.4 MCHC 37.4 H RDW 26.4 H D Plt Count 278 MPV 7.1 Prelim Diff (Auto) Slide review pending Neut % (Auto) 77.1 H Lymph % (Auto) 13.3 [place] % (Auto) 8.2 H Eos % (Auto) 0.5 Baso % (Auto) 0.9 Neut # (Auto) 9.4 H Lymph # (Auto) 1.6 [place] # (Auto) 1.0 H Eos # (Auto) 0.1 Baso # (Auto) 0.1 WBC Differential Manual diff final Seg Neuts % (Manual) 80 H Lymphocytes % (Manual) 12 Monocytes % (Manual) 7 Basophils % (Manual) 1 Abs Neuts (Manual) 9.8 H Nucleated RBCs/100 WBC 7 H Differential Comment . Platelet Estimate Normal Platelet Morphology Normal Polychromasia 3.1 H Pappenheimer Bodies Present H Sickle Cells 2+ H Target Cells 2+ H Bee-[place] Bodies Present H Blood Type O Negative Antibody Screen Negative MTS Gel Crossmatch See Detail Medications: Active Medications Generic Name Dose Route Start Last Admin Trade Name Freq PRN Reason Stop Dose Admin Acetaminophen 650 mg 12/03/17 13:13 12/03/17 23:33 Tylenol PO 650 mg Q4H PRN Administration SEE LABEL COMMENTS Artificial Tears 2 drops 12/03/17 15:06 12/03/17 18:00 [place] Severe Dry Eye Relief 0.3% Opth Gel EACH EYE 2 drops Q6H PRN Administration EYE REDNESS Diphenhydramine HCl 25 mg 11/29/17 23:35 12/04/17 08:43 Benadryl Inj IV.PUSH 25 mg Q3HR PRN Administration ITCHING Diphenhydramine HCl 25 mg 12/03/17 13:13 12/03/17 23:32 Benadryl PO 25 mg Q4H PRN Administration SEE LABEL COMMENTS Folic Acid 1 mg 12/02/17 09:00 12/04/17 08:39 Folic Acid PO 1 mg DAILY DAVID Administration Hydromorphone HCl 3 mg 12/01/17 21:30 12/04/17 08:40 Dilaudid Pf Inj IV.PUSH 12/04/17 21:29 3 mg Q3H PRN Administration PAIN 1-10 AND/OR FEVER >101F Hydroxyurea 1,500 mg 12/02/17 09:00 12/04/17 08:38 Hydrea PO 1,500 mg DAILY DAVID Administration Sodium Chloride 1,000 mls @ 100 mls/hr 11/29/17 23:15 12/04/17 08:41 Ns Inj IV.CONT 100 mls/hr .Q10H DAVID Administration Multi-Ingredient Ointment 1 applic 12/01/17 15:29 12/01/17 18:26 Blistex Lip [place] TOPICAL 1 applic UNSCH PRN Administration lip balm Ondansetron HCl 4 mg 11/29/17 23:10 12/04/17 05:20 Zofran Inj IV.PUSH 4 mg Q6H PRN Administration NAUSEA OR VOMITING Pt Own Med: [place] 1 each 12/03/17 09:00 12/04/17 08:39 360mg Po Daily PO 1 each DAILY DAVID Administration Prochlorperazine Maleate 10 mg 12/02/17 17:00 12/04/17 05:32 Compazine PO Not Given Q6H DAVID Objective Remarks: GENERAL: Young male resting in bed. He is talking on cell phone with his grandmother on approach. He appears uncomfortable. SKIN: Warm and dry. HEAD: Normocephalic. EYES: Mild scleral icterus. NECK: No JVD or lymphadenopathy. CARDIOVASCULAR: Regular rate and rhythm without murmurs. RESPIRATORY: Clear anteriorly. Scant crackles to bilateral bases posteriorly. On 4 L nasal cannula. GASTROINTESTINAL: Abdomen soft, non-tender, nondistended. EXTREMITIES: No cyanosis, or edema. MUSCULOSKELETAL: Adequate muscle tone. NEUROLOGICAL: No obvious focal deficit. Awake, alert, and oriented x3. 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 He was admitted for sickle cell pain crisis. The majority of his pain was in his legs and lower back. Plan: 1. Patient having significantly increased pain overnight after receiving 1 unit packed red blood cells yesterday. Furthermore his O2 demands have increased and he is now on 4 L nasal cannula. I have ordered a repeat chest x- ray to reevaluate. 2. Await CBC results today. We will also monitor LDH, reticulocyte count and bilirubin. His bilirubin was increased yesterday to a level that is not usually seen with typical sickle cell crisis. Continue to monitor. 3. Continue IV fluids, supportive care. Addendum: Chest x-ray shows perihilar and airspace disease. Previous chest x- ray on November 29 was clear. The concern is for acute chest syndrome. CT the chest without IV contrast has been ordered. Transfuse 2 units packed red blood cells.
[2017-12-04] MEDS: Ketorolac Inj 30 MG/ML (IVP) Vial IV.PUSH PRN ×2 (10:56→17:41)
--- NOTE | 2017-12-04 11:04 | XR ---
EXAM DATE: 12/04/2017 10:51 AM EDT AGE/SEX: 22 years / Male INDICATIONS: Shortness of breath and chest tightness. CLINICAL DATA: This is the patient's subsequent encounter. Patient reports that signs and symptoms h ave been present for 4 - 6 days and indicates a pain score of 0/10. MEDICAL/SURGICAL HISTORY: . Asthma. Sickle cell. . Cholecystectomy. Tonsillectomy. Splenectomy . [place] [facility] [place]. . FINDINGS: Heart size is enlarged. There is some new ill-defined basilar and perihilar airspace disease. Differe ntial diagnosis includes mild edema or bronchopneumonia. No significant effusion. No pneumothorax. Sc lerotic bone changes characteristic of sickle cell disease. CONCLUSION: Development of ill-defined airspace disease and some interstitial prominence in the perihilar and bas ilar regions. Differential diagnosis includes edema and bronchopneumonia. Electronically signed by: Chepe Bird MD 12/04/2017 11:03 AM EDT
[2017-12-04] MEDS: Piperacil/Tazo 3.375 GM Premix 50 ML IV.SIG SCH ×2 (14:33→22:10)
[2017-12-04] MEDS ORDERED: Acetaminophen 325 MG Tablet PO PRN (14:46)
[2017-12-04] MEDS ORDERED: Sodium Chlor 0.9% Inj 250 ML IV.SIG SCH (15:00)
[2017-12-04 15:34] LABS: Reticulocyte Percent 12.3 % (0.4-3.0)
[2017-12-04 16:03] LABS: Alanine Aminotransferase 93 U/L (12-78); Albumin 3.3 g/dL (3.4-5.0); Alkaline Phosphatase 146 U/L (45-117); Anion Gap 13 meq/L (5-15); Aspartate Aminotransferase 85 U/L (15-37); Blood Urea Nitrogen 10 mg/dL (7-18); Calcium 7.7 mg/dL (8.5-10.1); Carbon Dioxide 26.6 meq/L (21.0-32.0); Chloride 100 meq/L (98-107); Glomerular Filtration Rate Greater Than 89 mL/min (>89); Glucose,Random 115 mg/dL (74-106); Potassium 3.7 meq/L (3.5-5.1); Sodium 140 meq/L (136-145); Total Protein 6.2 g/dL (6.4-8.2)
[2017-12-04 16:05] LABS: Baso # (Auto) 0.1 th/mm3 (0.0-0.2); Baso % (Auto) 0.8 % (0.0-2.0); Eos # (Auto) 0.1 th/mm3 (0.0-0.4); Eos % (Auto) 0.5 % (0.0-4.0); Lymph # (Auto) 3.4 th/mm3 (1.0-4.8); Lymph % (Auto) 23.5 % (9.0-44.0); Mean Corpuscular Hemoglobin 32.3 pg (27.0-34.0); Mean Corpuscular Volume 88.2 fL (80.0-100.0); Mean Platelet Volume 7.1 fL (7.0-11.0); Mono # (Auto) 1.4 th/mm3 (0.0-0.9); Mono % (Auto) 9.3 % (0.0-8.0); Neut # (Auto) 9.6 th/mm3 (1.8-7.7); Neut % (Auto) 65.9 % (16.0-70.0); Platelet Count 293 th/mm3 (150-450); Red Blood Count 1.91 mil/mm3 (4.50-5.90); Red Cell Distribution Width 23.3 % (11.6-17.2); White Blood Count 14.6 th/mm3 (4.0-11.0)
[2017-12-04 16:07] LABS: Mean Corpuscular HGB Conc 36.6 % (32.0-36.0)
[2017-12-04 16:11] LABS: Hematocrit 16.8 % (39.0-51.0); Hemoglobin 6.2 gm/dL (13.0-17.0)
[2017-12-04 16:28] LABS: Pappenheimer Bodies Present; Platelet Estimate Normal (Normal); Platelet Morphology Normal (Normal); Sickle Cells 2+; Target Cells 1+
--- NOTE | 2017-12-04 16:43 | CT ---
EXAM DATE: 12/04/2017 4:34 PM EDT AGE/SEX: 22 years / Male INDICATIONS: Chest pain. CLINICAL DATA: This is the patient's initial encounter. Patient reports that signs and symptoms have been present for 1 day and indicates a pain score of 3/10. MEDICAL/SURGICAL HISTORY: Sickle Cell disease. Cholecystectomy. Splenectomy. RADIATION DOSE: 9.55 CTDI (mGy) COMPARISON: [facility] – [place] PULMONARY ANGIOGRAM, 01/25/2016. . TECHNIQUE: Multiple contiguous axial images were obtained through the chest without contrast. Image s were obtained in suspended respiration using multiple row detector helical technique. Using automa carolyn exposure control and adjustment of the mA and/or kV according to patient size, radiation dose was kept as low as reasonably achievable to obtain optimal diagnostic quality images. DICOM format imag e data is available electronically for review and comparison. FINDINGS: Comparison is January 25, 2016. There is fairly extensive groundglass opacity in both lungs with moreno bsegmental dependent consolidation at the lung bases. Small bilateral pleural effusions. Heart size is enlarged. There are diffuse sclerotic changes in the bones characteristic of sickle ramses l disease. No acute findings in the upper abdomen. Autosplenectomy. CONCLUSION: 1. Diffuse groundglass opacity in both lungs. This finding is generally nonspecific but could repres ent a bronchopneumonia or mild pulmonary edema. Dependent opacity in the lungs is probably atelectasi s associated with trace bilateral pleural effusions. No pneumothorax. Electronically signed by: Chepe Bird MD 12/04/2017 4:42 PM EDT
[2017-12-04 16:54] LABS: Polychromasia 3.6 % (0.0-1.9)
[2017-12-04 17:01] LABS: Eosinophils 2 % (0-4); Lymphocytes 25 % (9-44); Metamyelocytes 1 % (0-1); Monocytes 10 % (0-8); Myelocytes 1 % (0-0); Tallied Nucleated RBC 27 (0-0)
--- NOTE | 2017-12-04 17:17 | P.PN ---
Physical Exam Vital signs: Vital Signs 12/03/17 20:00 12/03/17 23:51 12/04/17 00:00 Temperature 97.9 F 98.4 F Pulse Rate 75 77 82 Respiratory Rate 18 18 Blood Pressure 121/69 131/77 Pulse Oximetry 96 94 L 12/04/17 00:08 12/04/17 02:59 12/04/17 04:00 Temperature 98.6 F 98.2 F Pulse Rate 114 H Respiratory Rate 18 16 18 Blood Pressure 127/73 130/72 Pulse Oximetry 96 93 L 12/04/17 08:00 12/04/17 08:45 12/04/17 11:12 Temperature 98.5 F Pulse Rate 97 H Respiratory Rate 17 Blood Pressure 146/80 H Pulse Oximetry 92 L 92 L 94 L 12/04/17 12:00 12/04/17 16:00 Temperature 98.5 F 98.5 F Pulse Rate 74 73 Respiratory Rate 17 20 Blood Pressure 134/68 130/78 Pulse Oximetry 92 L 95 Intake & Output 12/03/17 12/04/17 12/04/17 18:59 06:59 18:59 Intake Total 1720 / 1720 1425 / 1425 50 / 50 Output Total 825 / 825 800 / 800 Balance 1720 / 1720 600 / 600 -750 / -750 Weight 70.6 kg Intake: IV 1000 / 1000 1075 / 1075 50 / 50 NS Inj 1,000 ML @ 100 mls/hr IV 1000 / 1000 1000 / 1000 .CONT .Q10H DAVID Rx#:[id number] Zosyn 3.375 GM Premix 50 ML @ 50 / 50 100 mls/hr IV.SIG Q6H DAVID Rx#: [id number] NS Inj 250 ML @ 15 mls/hr IV. 75 / 75 SIG ONCE DAVID Rx#:[id number] Oral 720 / 720 Intake (Blood Product) Amt 350 / 350 Rbc As-3 Leukoreduced Unit 350 / 350 [id number] Output: Urine 825 / 825 800 / 800 Other: # Voids 3 Narrative: Subjective Still with right knee pain. Also nausea in the morning and yet. Patient says he was not able to give blood is difficult to obtain blood. Hemoglobin repeat is pending. No fever, feels chills. No cough. No problems with urination. No v /d/c. The patient was transfused 1 unit of blood last night. However today repeat hemoglobin is still low ordered 2 more units of blood. I consider midline however might benefit from long-term port placement Physical Exam GENERAL: Patient sitting up in bed. Appears uncomfortable. CARDIOVASCULAR: Regular rate and rhythm without murmurs, gallops, or rubs. RESPIRATORY: Breath sounds equal bilaterally. No accessory muscle use. GASTROINTESTINAL: Abdomen soft, non-tender, nondistended. MUSCULOSKELETAL: No cyanosis, or edema. BACK: Nontender without obvious deformity. No CVA tenderness. Assessment and Plan Sickle cell pain crisis. Chest x-ray with no acute findings. White blood cell count mildly elevated at 13. No signs of infection. Hemoglobin 7.6 on admission, near baseline. HGB trending down. Hemoglobin noted on 12/03 at 5.5. Discussed with hematology oncology, transfused 1 unit of blood on 12/03 Repeat hemoglobin 12/04 still low, transfuse 2 units of blood retic count elevated Ferritin elevated Administer oxygen, narcotics for pain control. Consider hematology consult if no improvement. patient follows with Dr. Bell. Seen by Dr Shaw appreciate recommendations. Pain not controlled on current regimen. IV Dilaudid increased. Might consider Dry lips. Balmex Discharge Planning: Pending improvement. Discussed with the patient, nurse Results - Labs CBC & Chem 7: 12/04/17 14:56 12/04/17 14:56 Laboratory Results - last 24 hr 12/03/17 12/04/17 12/04/17 19:25 14:46 14:56 WBC RBC Hgb Hct MCV MCH MCHC RDW Plt Count MPV Prelim Diff (Auto) Neut % (Auto) Lymph % (Auto) [place] % (Auto) Eos % (Auto) Baso % (Auto) Neut # (Auto) Lymph # (Auto) [place] # (Auto) Eos # (Auto) Baso # (Auto) WBC Differential Seg Neuts % (Manual) Band Neuts % (Manual) Lymphocytes % (Manual) Monocytes % (Manual) Eosinophils % (Manual) Metamyelocytes % (Man) Myelocytes % (Man) Abs Neuts (Manual) Nucleated RBCs/100 WBC Differential Comment Platelet Estimate Platelet Morphology Polychromasia Pappenheimer Bodies Sickle Cells Target Cells Retic Count 12.3 H Absolute Retic 227.2 H Sodium Potassium Chloride Carbon Dioxide Anion Gap BUN Creatinine Estimated GFR Random Glucose Calcium Total Bilirubin AST ALT Alkaline Phosphatase Lactate Dehydrogenase Total Protein Albumin Blood Type O Negative Antibody Screen Negative MTS Gel Crossmatch See Detail See Detail Bld Prod Order Comment 12/04/17 12/04/17 12/04/17 14:56 14:56 14:56 WBC 14.6 H RBC 1.91 L Hgb 6.2 L* Hct 16.8 L* MCV 88.2 MCH 32.3 MCHC 36.6 H RDW 23.3 H D Plt Count 293 MPV 7.1 Prelim Diff (Auto) Slide review pending Neut % (Auto) 65.9 Lymph % (Auto) 23.5 [place] % (Auto) 9.3 H Eos % (Auto) 0.5 Baso % (Auto) 0.8 Neut # (Auto) 9.6 H Lymph # (Auto) 3.4 [place] # (Auto) 1.4 H Eos # (Auto) 0.1 Baso # (Auto) 0.1 WBC Differential Manual diff final Seg Neuts % (Manual) 60 Band Neuts % (Manual) 1 Lymphocytes % (Manual) 25 Monocytes % (Manual) 10 H Eosinophils % (Manual) 2 Metamyelocytes % (Man) 1 Myelocytes % (Man) 1 H Abs Neuts (Manual) 9.2 H Nucleated RBCs/100 WBC 27 H Differential Comment . Platelet Estimate Normal Platelet Morphology Normal Polychromasia 3.6 H Pappenheimer Bodies Present H Sickle Cells 2+ H Target Cells 1+ H Retic Count Absolute Retic Sodium 140 Potassium 3.7 Chloride 100 D Carbon Dioxide 26.6 Anion Gap 13 BUN 10 Creatinine 1.02 Estimated GFR Greater than 89 Random Glucose 115 H Calcium 7.7 L Total Bilirubin 17.4 H AST 85 H ALT 93 H Alkaline Phosphatase 146 H Lactate Dehydrogenase 533 H Total Protein 6.2 L Albumin 3.3 L Blood Type Antibody Screen MTS Gel Crossmatch Bld Prod Order Comment - Imaging Impressions Chest CT 12/04/17 00:00 CONCLUSION: 1. Diffuse groundglass opacity in both lungs. This finding is generally nonspecific but could represent a bronchopneumonia or mild pulmonary edema. Dependent opacity in the lungs is probably atelectasis associated with trace bilateral pleural effusions. No pneumothorax. Chest X-Ray 12/04/17 00:00 CONCLUSION: Development of ill-defined airspace disease and some interstitial prominence in the perihilar and basilar regions. Differential diagnosis includes edema and bronchopneumonia.
[2017-12-04] MEDS: Acetaminophen 325 MG Tablet PO PRN (17:34)
[2017-12-05] MEDS: Ketorolac Inj 30 MG/ML (IVP) Vial IV.PUSH PRN ×3 (01:10→18:22)
[2017-12-05] MEDS: Piperacil/Tazo 3.375 GM Premix 50 ML IV.SIG SCH ×4 (02:06→20:13)
[2017-12-05] MEDS: HYDROmorphone PF Inj 4 MG/ML Ampul IV.PUSH PRN ×3 (02:06→08:14)
[2017-12-05 05:43] LABS: Baso # (Auto) 0.1 th/mm3 (0.0-0.2); Baso % (Auto) 0.8 % (0.0-2.0); Eos # (Auto) 0.2 th/mm3 (0.0-0.4); Eos % (Auto) 1.5 % (0.0-4.0); Hemoglobin 7.1 gm/dL (13.0-17.0); Lymph # (Auto) 2.5 th/mm3 (1.0-4.8); Lymph % (Auto) 17.7 % (9.0-44.0); Mean Corpuscular Hemoglobin 32.4 pg (27.0-34.0); Mean Corpuscular Volume 88.2 fL (80.0-100.0); Mono # (Auto) 1.1 th/mm3 (0.0-0.9); Mono % (Auto) 7.6 % (0.0-8.0); Neut # (Auto) 10.1 th/mm3 (1.8-7.7); Neut % (Auto) 72.4 % (16.0-70.0); Platelet Count 252 th/mm3 (150-450); Red Cell Distribution Width 20.8 % (11.6-17.2); White Blood Count 13.9 th/mm3 (4.0-11.0)
[2017-12-05 05:59] LABS: Mean Corpuscular HGB Conc 36.7 % (32.0-36.0)
[2017-12-05 06:00] LABS: Hematocrit 19.4 % (39.0-51.0)
[2017-12-05 06:09] LABS: Alanine Aminotransferase 82 U/L (12-78)
[2017-12-05 06:33] LABS: Albumin 3.1 g/dL (3.4-5.0); Alkaline Phosphatase 142 U/L (45-117); Anion Gap 13 meq/L (5-15); Aspartate Aminotransferase 85 U/L (15-37); Blood Urea Nitrogen 9 mg/dL (7-18); Calcium 7.7 mg/dL (8.5-10.1); Carbon Dioxide 23.2 meq/L (21.0-32.0); Chloride 106 meq/L (98-107); Glomerular Filtration Rate Greater Than 89 mL/min (>89); Glucose,Random 89 mg/dL (74-106); Lactate Dehydrogenase 610 U/L (87-241); Sodium 142 meq/L (136-145); Total Protein 5.5 g/dL (6.4-8.2)
[2017-12-05 06:37] LABS: Potassium 3.5 meq/L (3.5-5.1)
[2017-12-05] MEDS: DEFERASIROX 360 MG PO SCH (08:18)
[2017-12-05] MEDS: Folic Acid 1 MG Tablet PO SCH (08:18)
[2017-12-05] MEDS: Hydroxyurea 500 MG Capsule PO SCH (08:18)
[2017-12-05 08:36] LABS: Lymphocytes 13 % (9-44); Monocytes 3 % (0-8); Myelocytes 1 % (0-0); Platelet Estimate Normal (Normal); Platelet Morphology Normal (Normal); Tallied Nucleated RBC 71 (0-0)
[2017-12-05 08:37] LABS: Howell-Jolly Bodies Present; Sickle Cells 2+
--- NOTE | 2017-12-05 09:12 | P.PN ---
Physical Exam Vital signs: Vital Signs 12/04/17 11:12 12/04/17 12:00 12/04/17 16:00 Temperature 98.5 F 98.5 F Pulse Rate 74 73 Respiratory Rate 17 20 Blood Pressure 134/68 130/78 Pulse Oximetry 94 L 92 L 95 12/04/17 18:16 12/04/17 18:38 12/04/17 18:56 Temperature 98.2 F 98.3 F 98.7 F Pulse Rate 75 80 83 Respiratory Rate 17 17 16 Blood Pressure 124/76 131/77 134/74 Pulse Oximetry 96 93 L 12/04/17 20:00 12/04/17 23:03 12/04/17 23:23 Temperature 98.4 F 98.2 F Pulse Rate 78 81 Respiratory Rate 1 L 18 Blood Pressure 129/80 128/77 Pulse Oximetry 91 L 93 L 12/04/17 23:36 12/05/17 00:00 12/05/17 00:17 Temperature 98.2 F 98 F Pulse Rate 95 H 76 Respiratory Rate 18 18 18 Blood Pressure 121/69 128/80 Pulse Oximetry 94 L 92 L 12/05/17 03:34 12/05/17 04:00 Temperature 98 F Pulse Rate 97 H Respiratory Rate 18 18 Blood Pressure 130/74 Pulse Oximetry 92 L Intake & Output 12/04/17 12/05/17 12/05/17 18:59 06:59 18:59 Intake Total 1650 / 1650 100 / 100 600 / 600 Output Total 800 / 800 900 / 900 250 / 250 Balance 850 / 850 -800 / -800 350 / 350 Weight 70.6 kg Intake: IV 1050 / 1050 100 / 100 NS Inj 1,000 ML @ 100 mls/hr IV 1000 / 1000 .CONT .Q10H DAVID Rx#:[id number] Zosyn 3.375 GM Premix 50 ML @ 50 / 50 100 / 100 100 mls/hr IV.SIG Q6H DAVID Rx#: [id number] Oral 600 / 600 600 / 600 Intake (Blood Product) Amt 0 / 0 0 / 0 Rbc As-3 Leukoreduced Unit 0 / 0 0 / 0 [id number] Rbc As-3 Leukoreduced Unit 0 / 0 [id number] Output: Urine 800 / 800 900 / 900 250 / 250 Other: Date of Last Bowel Movement 12/04/17 # Bowel Movements 1 Narrative: Subjective F/up Sickle cell crisis Still with right knee pain. + nausea. Hemoglobin repeat after he received total 3 U PRBCs is at 7.1. Plan to transfuse today. No fever, feels chills. No cough. No problems with urination. No v/d/c. Physical Exam GENERAL: Patient sitting up in bed. Appears uncomfortable. CARDIOVASCULAR: Regular rate and rhythm without murmurs, gallops, or rubs. RESPIRATORY: Breath sounds equal bilaterally. No accessory muscle use. GASTROINTESTINAL: Abdomen soft, non-tender, nondistended. MUSCULOSKELETAL: No cyanosis, or edema. BACK: Nontender without obvious deformity. No CVA tenderness. Assessment and Plan Sickle cell pain crisis. Chest x-ray with no acute findings. White blood cell count mildly elevated at 13. No signs of infection. Hemoglobin 7.6 on admission, near baseline. HGB trending down. Hemoglobin noted on 12/03 at 5.5. Discussed with hematology oncology, transfused 1 unit of blood on 12/03 Repeat hemoglobin on 12/04 still low, transfused 2 units of blood HGB at 7.1 on 12/05 . Plan to transfuse today retic count elevated Ferritin elevated CXR reviewed . CTA reviewed no PE, o infiltrates , likely atelectasis and congestion. Add IS, duonebs. Start presnisone 40 mg po daily for 5 days Administer oxygen Narcotics for pain control. Hematology consult. patient follows with Dr. Bell. Seen by Dr Shaw appreciate recommendations. Might consider port placement Dry lips. Balmex Discharge Planning: Pending improvement. Discussed with the patient, nurse Results - Labs CBC & Chem 7: 12/05/17 11:30 12/05/17 05:00 Laboratory Results - last 24 hr 12/03/17 12/04/17 12/04/17 19:25 14:46 14:56 WBC RBC Hgb Hct MCV MCH MCHC RDW Plt Count MPV Prelim Diff (Auto) Neut % (Auto) Lymph % (Auto) [place] % (Auto) Eos % (Auto) Baso % (Auto) Neut # (Auto) Lymph # (Auto) [place] # (Auto) Eos # (Auto) Baso # (Auto) WBC Differential Seg Neuts % (Manual) Band Neuts % (Manual) Lymphocytes % (Manual) Monocytes % (Manual) Eosinophils % (Manual) Basophils % (Manual) Metamyelocytes % (Man) Myelocytes % (Man) Abs Neuts (Manual) Nucleated RBCs/100 WBC Differential Comment Platelet Estimate Platelet Morphology Polychromasia Pappenheimer Bodies Sickle Cells Target Cells [place] Bodies Retic Count 12.3 H Absolute Retic 227.2 H Sodium Potassium Chloride Carbon Dioxide Anion Gap BUN Creatinine Estimated GFR Random Glucose Calcium Total Bilirubin AST ALT Alkaline Phosphatase Lactate Dehydrogenase Total Protein Albumin MTS Gel Crossmatch See Detail See Detail Bld Prod Order Comment 12/04/17 12/04/17 12/04/17 14:56 14:56 14:56 WBC 14.6 H RBC 1.91 L Hgb 6.2 L* Hct 16.8 L* MCV 88.2 MCH 32.3 MCHC 36.6 H RDW 23.3 H D Plt Count 293 MPV 7.1 Prelim Diff (Auto) Slide review pending Neut % (Auto) 65.9 Lymph % (Auto) 23.5 [place] % (Auto) 9.3 H Eos % (Auto) 0.5 Baso % (Auto) 0.8 Neut # (Auto) 9.6 H Lymph # (Auto) 3.4 [place] # (Auto) 1.4 H Eos # (Auto) 0.1 Baso # (Auto) 0.1 WBC Differential Manual diff final Seg Neuts % (Manual) 60 Band Neuts % (Manual) 1 Lymphocytes % (Manual) 25 Monocytes % (Manual) 10 H Eosinophils % (Manual) 2 Basophils % (Manual) Metamyelocytes % (Man) 1 Myelocytes % (Man) 1 H Abs Neuts (Manual) 9.2 H Nucleated RBCs/100 WBC 27 H Differential Comment . Platelet Estimate Normal Platelet Morphology Normal Polychromasia 3.6 H Pappenheimer Bodies Present H Sickle Cells 2+ H Target Cells 1+ H [place] Bodies Retic Count Absolute Retic Sodium 140 Potassium 3.7 Chloride 100 D Carbon Dioxide 26.6 Anion Gap 13 BUN 10 Creatinine 1.02 Estimated GFR Greater than 89 Random Glucose 115 H Calcium 7.7 L Total Bilirubin 17.4 H AST 85 H ALT 93 H Alkaline Phosphatase 146 H Lactate Dehydrogenase 533 H Total Protein 6.2 L Albumin 3.3 L MTS Gel Crossmatch Bld Prod Order Comment 12/05/17 12/05/17 12/05/17 05:00 05:00 05:00 WBC 13.9 H RBC 2.20 L Hgb 7.1 L Hct 19.4 L* MCV 88.2 MCH 32.4 MCHC 36.7 H RDW 20.8 H D Plt Count 252 MPV 7.0 Prelim Diff (Auto) Slide review pending Neut % (Auto) 72.4 H Lymph % (Auto) 17.7 [place] % (Auto) 7.6 Eos % (Auto) 1.5 Baso % (Auto) 0.8 Neut # (Auto) 10.1 H Lymph # (Auto) 2.5 [place] # (Auto) 1.1 H Eos # (Auto) 0.2 Baso # (Auto) 0.1 WBC Differential Manual diff final Seg Neuts % (Manual) 79 H Band Neuts % (Manual) 3 Lymphocytes % (Manual) 13 Monocytes % (Manual) 3 Eosinophils % (Manual) Basophils % (Manual) 1 Metamyelocytes % (Man) Myelocytes % (Man) 1 H Abs Neuts (Manual) 11.5 H Nucleated RBCs/100 WBC 71 H Differential Comment . Platelet Estimate Normal Platelet Morphology Normal Polychromasia 4.0 H Pappenheimer Bodies Sickle Cells 2+ H Target Cells [place] Bodies Present H Retic Count 12.0 H Absolute Retic 254.5 H Sodium 142 Potassium 3.5 Chloride 106 Carbon Dioxide 23.2 Anion Gap 13 BUN 9 Creatinine 0.97 Estimated GFR Greater than 89 Random Glucose 89 Calcium 7.7 L Total Bilirubin 20.3 H AST 85 H ALT 82 H Alkaline Phosphatase 142 H Lactate Dehydrogenase 610 H Total Protein 5.5 L D Albumin 3.1 L MTS Gel Crossmatch Bld Prod Order Comment - Imaging Impressions Chest CT 12/04/17 00:00 CONCLUSION: 1. Diffuse groundglass opacity in both lungs. This finding is generally nonspecific but could represent a bronchopneumonia or mild pulmonary edema. Dependent opacity in the lungs is probably atelectasis associated with trace bilateral pleural effusions. No pneumothorax. Chest X-Ray 12/04/17 00:00 CONCLUSION: Development of ill-defined airspace disease and some interstitial prominence in the perihilar and basilar regions. Differential diagnosis includes edema and bronchopneumonia.
[2017-12-05] MEDS ORDERED: HYDROmorphone PF Inj 2 MG/ML Vial IV.PUSH PRN (11:27)
[2017-12-05 12:48] LABS: Baso # (Auto) 0.1 th/mm3 (0.0-0.2); Baso % (Auto) 0.7 % (0.0-2.0); Eos # (Auto) 0.2 th/mm3 (0.0-0.4); Eos % (Auto) 1.3 % (0.0-4.0); Hematocrit 22.5 % (39.0-51.0); Mean Corpuscular HGB Conc 35.7 % (32.0-36.0); Mean Corpuscular Hemoglobin 32.4 pg (27.0-34.0); Mean Corpuscular Volume 90.7 fL (80.0-100.0); Mean Platelet Volume 7.3 fL (7.0-11.0); Mono # (Auto) 1.3 th/mm3 (0.0-0.9); Mono % (Auto) 8.3 % (0.0-8.0); Neut # (Auto) 11.7 th/mm3 (1.8-7.7); Neut % (Auto) 76.7 % (16.0-70.0); Platelet Count 293 th/mm3 (150-450); Red Blood Count 2.47 mil/mm3 (4.50-5.90); White Blood Count 15.3 th/mm3 (4.0-11.0)
[2017-12-05] MEDS: Sod Chloride 0.9% Inj 1,000 ML IV.CONT SCH (13:10)
[2017-12-05] MEDS ORDERED: Acetaminophen 325 MG Tablet PO PRN (13:23)
--- NOTE | 2017-12-05 13:35 | P.PNONC ---
Subjective Interval history: Patient remains afebrile Sitting up in bed on 4 L nasal cannula Reports he feels better today than yesterday but still feels generally achy States he no longer has pain in his chest but now has pain across the lower portion of his back as well as in his right knee Feels comfortable to decrease Dilaudid from 3 mg to 2 mg as long as he is still able to have Toradol as needed every 6 hours Denies shortness of breath but states it is difficult to take a deep breath Objective Vital Signs/Intake & Output: Vital Signs 12/04/17 16:00 12/04/17 18:16 12/04/17 18:38 Temperature 98.5 F 98.2 F 98.3 F Pulse Rate 73 75 80 Respiratory Rate 20 17 17 Blood Pressure 130/78 124/76 131/77 Pulse Oximetry 95 96 12/04/17 18:56 12/04/17 20:00 12/04/17 23:03 Temperature 98.7 F 98.4 F Pulse Rate 83 78 Respiratory Rate 16 1 L Blood Pressure 134/74 129/80 Pulse Oximetry 93 L 91 L 93 L 12/04/17 23:23 12/04/17 23:36 12/05/17 00:00 Temperature 98.2 F 98.2 F 98 F Pulse Rate 81 95 H 76 Respiratory Rate 18 18 18 Blood Pressure 128/77 121/69 128/80 Pulse Oximetry 94 L 92 L 12/05/17 00:17 12/05/17 03:34 12/05/17 04:00 Temperature 98 F Pulse Rate 97 H Respiratory Rate 18 18 18 Blood Pressure 130/74 Pulse Oximetry 92 L 12/05/17 08:00 12/05/17 09:53 12/05/17 12:52 Temperature 98.5 F Pulse Rate 83 78 71 Respiratory Rate 21 18 Blood Pressure 144/85 H Pulse Oximetry 94 L 94 L Intake & Output 12/04/17 12/05/17 12/05/17 18:59 06:59 18:59 Intake Total 1650 / 1650 100 / 100 1650 / 1650 Output Total 800 / 800 900 / 900 250 / 250 Balance 850 / 850 -800 / -800 1400 / 1400 Weight 155 lb 10.342 oz Intake: IV 1050 / 1050 100 / 100 1050 / 1050 NS Inj 1,000 ML @ 100 mls/hr IV 1000 / 1000 1000 / 1000 .CONT .Q10H COUNTS INCLUDE 234 BEDS AT THE [facility] Rx#:[id number] Zosyn 3.375 GM Premix 50 ML @ 50 / 50 100 / 100 50 / 50 100 mls/hr IV.SIG Q6H COUNTS INCLUDE 234 BEDS AT THE [facility] Rx#: [id number] Oral 600 / 600 600 / 600 Intake (Blood Product) Amt 0 / 0 0 / 0 Rbc As-3 Leukoreduced Unit 0 / 0 0 / 0 [id number] Rbc As-3 Leukoreduced Unit 0 / 0 [id number] Output: Urine 800 / 800 900 / 900 250 / 250 Other: Date of Last Bowel Movement 12/04/17 # Bowel Movements 1 Result Diagrams: 12/05/17 11:30 12/05/17 05:00 Laboratory Results: Laboratory Results - last 24 hr 12/03/17 12/04/17 12/04/17 19:25 14:46 14:56 WBC RBC Hgb Hct MCV MCH MCHC RDW Plt Count MPV Prelim Diff (Auto) Neut % (Auto) Lymph % (Auto) [place] % (Auto) Eos % (Auto) Baso % (Auto) Neut # (Auto) Lymph # (Auto) [place] # (Auto) Eos # (Auto) Baso # (Auto) WBC Differential Seg Neuts % (Manual) Band Neuts % (Manual) Lymphocytes % (Manual) Monocytes % (Manual) Eosinophils % (Manual) Basophils % (Manual) Metamyelocytes % (Man) Myelocytes % (Man) Abs Neuts (Manual) Nucleated RBCs/100 WBC Differential Comment Platelet Estimate Platelet Morphology Polychromasia Pappenheimer Bodies Sickle Cells Target Cells [place] Bodies Retic Count 12.3 H Absolute Retic 227.2 H Sodium Potassium Chloride Carbon Dioxide Anion Gap BUN Creatinine Estimated GFR Random Glucose Calcium Total Bilirubin AST ALT Alkaline Phosphatase Lactate Dehydrogenase Total Protein Albumin MTS Gel Crossmatch See Detail See Detail Bld Prod Order Comment 12/04/17 12/04/17 12/04/17 14:56 14:56 14:56 WBC 14.6 H RBC 1.91 L Hgb 6.2 L* Hct 16.8 L* MCV 88.2 MCH 32.3 MCHC 36.6 H RDW 23.3 H D Plt Count 293 MPV 7.1 Prelim Diff (Auto) Slide review pending Neut % (Auto) 65.9 Lymph % (Auto) 23.5 [place] % (Auto) 9.3 H Eos % (Auto) 0.5 Baso % (Auto) 0.8 Neut # (Auto) 9.6 H Lymph # (Auto) 3.4 [place] # (Auto) 1.4 H Eos # (Auto) 0.1 Baso # (Auto) 0.1 WBC Differential Manual diff final Seg Neuts % (Manual) 60 Band Neuts % (Manual) 1 Lymphocytes % (Manual) 25 Monocytes % (Manual) 10 H Eosinophils % (Manual) 2 Basophils % (Manual) Metamyelocytes % (Man) 1 Myelocytes % (Man) 1 H Abs Neuts (Manual) 9.2 H Nucleated RBCs/100 WBC 27 H Differential Comment . Platelet Estimate Normal Platelet Morphology Normal Polychromasia 3.6 H Pappenheimer Bodies Present H Sickle Cells 2+ H Target Cells 1+ H [place] Bodies Retic Count Absolute Retic Sodium 140 Potassium 3.7 Chloride 100 D Carbon Dioxide 26.6 Anion Gap 13 BUN 10 Creatinine 1.02 Estimated GFR Greater than 89 Random Glucose 115 H Calcium 7.7 L Total Bilirubin 17.4 H AST 85 H ALT 93 H Alkaline Phosphatase 146 H Lactate Dehydrogenase 533 H Total Protein 6.2 L Albumin 3.3 L MTS Gel Crossmatch Bld Prod Order Comment 12/05/17 12/05/17 12/05/17 05:00 05:00 05:00 WBC 13.9 H RBC 2.20 L Hgb 7.1 L Hct 19.4 L* MCV 88.2 MCH 32.4 MCHC 36.7 H RDW 20.8 H D Plt Count 252 MPV 7.0 Prelim Diff (Auto) Slide review pending Neut % (Auto) 72.4 H Lymph % (Auto) 17.7 [place] % (Auto) 7.6 Eos % (Auto) 1.5 Baso % (Auto) 0.8 Neut # (Auto) 10.1 H Lymph # (Auto) 2.5 [place] # (Auto) 1.1 H Eos # (Auto) 0.2 Baso # (Auto) 0.1 WBC Differential Manual diff final Seg Neuts % (Manual) 79 H Band Neuts % (Manual) 3 Lymphocytes % (Manual) 13 Monocytes % (Manual) 3 Eosinophils % (Manual) Basophils % (Manual) 1 Metamyelocytes % (Man) Myelocytes % (Man) 1 H Abs Neuts (Manual) 11.5 H Nucleated RBCs/100 WBC 71 H Differential Comment . Platelet Estimate Normal Platelet Morphology Normal Polychromasia 4.0 H Pappenheimer Bodies Sickle Cells 2+ H Target Cells [place] Bodies Present H Retic Count 12.0 H Absolute Retic 254.5 H Sodium 142 Potassium 3.5 Chloride 106 Carbon Dioxide 23.2 Anion Gap 13 BUN 9 Creatinine 0.97 Estimated GFR Greater than 89 Random Glucose 89 Calcium 7.7 L Total Bilirubin 20.3 H AST 85 H ALT 82 H Alkaline Phosphatase 142 H Lactate Dehydrogenase 610 H Total Protein 5.5 L D Albumin 3.1 L MTS Gel Crossmatch Bld Prod Order Comment 12/05/17 11:30 WBC 15.3 H RBC 2.47 L Hgb 8.0 L Hct 22.5 L MCV 90.7 MCH 32.4 MCHC 35.7 RDW 21.0 H Plt Count 293 MPV 7.3 Prelim Diff (Auto) Slide review pending Neut % (Auto) 76.7 H Lymph % (Auto) 13.0 [place] % (Auto) 8.3 H Eos % (Auto) 1.3 Baso % (Auto) 0.7 Neut # (Auto) 11.7 H Lymph # (Auto) 2.0 [place] # (Auto) 1.3 H Eos # (Auto) 0.2 Baso # (Auto) 0.1 WBC Differential Seg Neuts % (Manual) Band Neuts % (Manual) Lymphocytes % (Manual) Monocytes % (Manual) Eosinophils % (Manual) Basophils % (Manual) Metamyelocytes % (Man) Myelocytes % (Man) Abs Neuts (Manual) Nucleated RBCs/100 WBC Differential Comment . Platelet Estimate Platelet Morphology Polychromasia Pappenheimer Bodies Sickle Cells Target Cells [place] Bodies Retic Count Absolute Retic Sodium Potassium Chloride Carbon Dioxide Anion Gap BUN Creatinine Estimated GFR Random Glucose Calcium Total Bilirubin AST ALT Alkaline Phosphatase Lactate Dehydrogenase Total Protein Albumin MTS Gel Crossmatch Bld Prod Order Comment Imaging Studies: Impressions Chest CT 12/04/17 00:00 CONCLUSION: 1. Diffuse groundglass opacity in both lungs. This finding is generally nonspecific but could represent a bronchopneumonia or mild pulmonary edema. Dependent opacity in the lungs is probably atelectasis associated with trace bilateral pleural effusions. No pneumothorax. Medications: Active Medications Generic Name Dose Route Start Last Admin Trade Name Freq PRN Reason Stop Dose Admin Albuterol 1 ampul 12/05/17 14:00 12/05/17 12:48 Duoneb Neb (Kerri) NEB 1 ampul Q6HR WHILE AWAKE NEB KERRI Administration Artificial Tears 2 drops 12/03/17 15:06 12/03/17 18:00 [place] Severe Dry Eye Relief 0.3% Opth Gel EACH EYE 2 drops Q6H PRN Administration EYE REDNESS Diphenhydramine HCl 25 mg 11/29/17 23:35 12/05/17 08:14 Benadryl Inj IV.PUSH 25 mg Q3HR PRN Administration ITCHING Folic Acid 1 mg 12/02/17 09:00 12/05/17 08:18 Folic Acid PO 1 mg DAILY KERRI Administration Hydroxyurea 1,500 mg 12/02/17 09:00 12/05/17 08:18 Hydrea PO 1,500 mg DAILY KERRI Administration Sodium Chloride 1,000 mls @ 100 mls/hr 11/29/17 23:15 12/05/17 13:10 Ns Inj IV.CONT 100 mls/hr .Q10H KERRI Administration Piperacillin/Tazobactam/Dextrose 50 mls @ 100 mls/hr 12/04/17 14:00 12/05/17 13:10 Zosyn 3.375 Gm Premix IV.SIG 100 mls/hr Q6H KERRI Administration Ketorolac Tromethamine 30 mg 12/03/17 15:02 12/05/17 10:59 Toradol Inj IV.PUSH 12/08/17 15:01 30 mg Q6H PRN Administration pain uncontrolled by dilaudid Multi-Ingredient Ointment 1 applic 12/01/17 15:29 12/01/17 18:26 Blistex Lip [place] TOPICAL 1 applic UNSCH PRN Administration lip balm Ondansetron HCl 4 mg 11/29/17 23:10 12/05/17 08:12 Zofran Inj IV.PUSH 4 mg Q6H PRN Administration NAUSEA OR VOMITING Pt Own Med: [place]ikidenu 1 each 12/03/17 09:00 12/05/17 08:18 360mg Po Daily PO 1 each DAILY KERRI Administration Prochlorperazine Maleate 10 mg 12/02/17 17:00 12/05/17 10:59 Compazine PO 10 mg Q6H KERRI Administration Objective Remarks: GENERAL: Young male resting in bed. He appears to be much more comfortable today than seen yesterday. SKIN: Warm and dry. HEAD: Normocephalic. EYES: Mild scleral icterus. NECK: No JVD or lymphadenopathy. CARDIOVASCULAR: Regular rate and rhythm without murmurs. RESPIRATORY: Clear anteriorly. Coarse lung sounds posteriorly. Remains on 4 L nasal cannula. GASTROINTESTINAL: Abdomen soft, non-tender, nondistended. EXTREMITIES: No cyanosis, or edema. MUSCULOSKELETAL: Adequate muscle tone. NEUROLOGICAL: No obvious focal deficit. Awake, alert, and oriented x3. 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 He was admitted for sickle cell pain crisis. The majority of his pain was in his legs and lower back. Plan: 1. CT scan of the chest yesterday showed diffuse ground glass opacity in both lungs. In a sickle cell patient it is difficult to decipher between early pneumonia versus mild acute chest syndrome. The treatment for mild ACS is to give packed red blood cells to achieve circulating hemoglobin S percentage close to 30%. His hemoglobin today is 7.1. While his oxygen demands remain increased to keep his O2 sats greater than 90% I have ordered 1 more unit of packed red blood cells today. 2. Continue Zosyn as pneumonia cannot be reliably distinguished from ACS. Monitor for fevers. 3. Continue IV fluids, supportive care. The patient reports he is more comfortable in terms of his pain and feels ready to have his Dilaudid decreased. I will change this to 2 mg IV every 3 hours as needed. 4. CBC in a.m.
[2017-12-05 13:53] LABS: Howell-Jolly Bodies Present; Lymphocytes 8 % (9-44); Monocytes 6 % (0-8); Myelocytes 1 % (0-0); Platelet Estimate Normal (Normal); Platelet Morphology Normal (Normal); Sickle Cells 2+; Tallied Nucleated RBC 76 (0-0); Target Cells 1+
[2017-12-05 13:54] LABS: Polychromasia 3.3 % (0.0-1.9)
[2017-12-05 13:55] LABS: Pappenheimer Bodies Present
[2017-12-05] MEDS ORDERED: Sodium Chlor 0.9% Inj 250 ML IV.SIG SCH (14:00)
[2017-12-05] MEDS: HYDROmorphone PF Inj 2 MG/ML Vial IV.PUSH PRN ×3 (17:01→23:08)
[2017-12-06] MEDS: HYDROmorphone PF Inj 2 MG/ML Vial IV.PUSH PRN ×6 (01:49→21:32)
[2017-12-06] MEDS: Piperacil/Tazo 3.375 GM Premix 50 ML IV.SIG SCH ×4 (01:50→21:27)
[2017-12-06] MEDS: Ketorolac Inj 30 MG/ML (IVP) Vial IV.PUSH PRN ×3 (02:37→23:39)
[2017-12-06] MEDS: Sod Chloride 0.9% Inj 1,000 ML IV.CONT SCH ×3 (05:00→16:46)
--- NOTE | 2017-12-06 08:14 | P.PN ---
Physical Exam Vital signs: Vital Signs 12/05/17 09:53 12/05/17 12:00 12/05/17 12:52 Temperature 98.6 F Pulse Rate 78 77 71 Respiratory Rate 20 18 Blood Pressure 141/87 H Pulse Oximetry 93 L 94 L 12/05/17 16:00 12/05/17 16:52 12/05/17 17:14 Temperature 98.5 F 98.3 F 98.4 F Pulse Rate 81 88 84 Respiratory Rate 20 24 22 Blood Pressure 145/90 H 129/75 138/80 Pulse Oximetry 94 L 100 92 L 12/05/17 17:15 12/05/17 18:27 12/05/17 20:00 Temperature 98.4 F 99.6 F Pulse Rate 83 82 79 Respiratory Rate 22 20 18 Blood Pressure 141/84 H 141/90 H 135/79 Pulse Oximetry 12/05/17 20:04 12/06/17 00:00 12/06/17 00:30 Temperature 99.6 F Pulse Rate 88 Respiratory Rate 20 16 Blood Pressure 143/86 H Pulse Oximetry 92 L 94 L 12/06/17 00:32 12/06/17 04:00 Temperature 99.7 F H Pulse Rate 86 Respiratory Rate 16 20 Blood Pressure 152/79 H Pulse Oximetry 94 L Intake & Output 12/05/17 12/06/17 12/06/17 18:59 06:59 18:59 Intake Total 2720 / 2720 1050 / 1050 Output Total 250 / 250 Balance 2470 / 2470 1050 / 1050 Intake: IV 1100 / 1100 1050 / 1050 NS Inj 1,000 ML @ 100 mls/hr IV 1000 / 1000 1000 / 1000 .CONT .Q10H DAVID Rx#:[id number] Zosyn 3.375 GM Premix 50 ML @ 100 / 100 50 / 50 100 mls/hr IV.SIG Q6H DAVID Rx#: [id number] Oral 1620 / 1620 Intake (Blood Product) Amt 0 / 0 Rbc As-3 Leukoreduced Unit 0 / 0 [id number] Output: Urine 250 / 250 Other: # Voids 2 Date of Last Bowel Movement 12/04/17 # Bowel Movements 0 Narrative: Subjective F/up Sickle cell crisis Still with right knee pain. + nausea. With severe pain, Dilaudid changed to Q3 hrs. Hemoglobin repeat improved. With sob sattign 89 while on 4L , placed on high flow O2 Plan for vas cath and plasma exchange No fever, feels chills. No cough. No problems with urination. Physical Exam GENERAL: Patient sitting in bed. Appears uncomfortable. With sob. CARDIOVASCULAR: Regular rate and rhythm without murmurs, gallops, or rubs. RESPIRATORY: Breath sounds equal bilaterally. No accessory muscle use. GASTROINTESTINAL: Abdomen soft, non-tender, nondistended. MUSCULOSKELETAL: No cyanosis, or edema. BACK: Nontender without obvious deformity. No CVA tenderness. Assessment and Plan Sickle cell pain crisis. Chest x-ray with no acute findings. White blood cell count mildly elevated at 13. No signs of infection. Hemoglobin 7.6 on admission, near baseline. HGB trending down. Hemoglobin noted on 12/03 at 5.5. Discussed with hematology oncology, transfused 1 unit of blood on 12/03 Repeat hemoglobin on 12/04 still low, transfused 2 units of blood HGB at 7.1 on 12/05 . Plan to transfuse today retic count elevated Ferritin elevated CXR reviewed . CTA reviewed no PE, o infiltrates , likely atelectasis and congestion. Add IS, duonebs. Start presnisone 40 mg po daily for 5 days Administer oxygen Narcotics for pain control. Hematology consult. patient follows with Dr. Bell. Might consider port placement for [facility] care Vas cath placement 01/05/18 plan for plasma exchange Dry lips. [place] Discharge Planning: Pending improvement. plan for plasma exchange Discussed with the patient, nurse Results - Labs CBC & Chem 7: 12/06/17 07:40 12/06/17 07:40 Laboratory Results - last 24 hr 12/04/17 12/05/17 12/05/17 14:46 05:00 11:30 WBC 15.3 H RBC 2.47 L Hgb 8.0 L Hct 22.5 L MCV 90.7 MCH 32.4 MCHC 35.7 RDW 21.0 H Plt Count 293 MPV 7.3 Prelim Diff (Auto) Slide review pending Neut % (Auto) 76.7 H Lymph % (Auto) 13.0 [place] % (Auto) 8.3 H Eos % (Auto) 1.3 Baso % (Auto) 0.7 Neut # (Auto) 11.7 H Lymph # (Auto) 2.0 [place] # (Auto) 1.3 H Eos # (Auto) 0.2 Baso # (Auto) 0.1 WBC Differential Manual diff final Manual diff final Seg Neuts % (Manual) 79 H 84 H Band Neuts % (Manual) 3 1 Lymphocytes % (Manual) 13 8 L Monocytes % (Manual) 3 6 Basophils % (Manual) 1 Myelocytes % (Man) 1 H 1 H Abs Neuts (Manual) 11.5 H 13.2 H Nucleated RBCs/100 WBC 71 H 76 H Differential Comment . Platelet Estimate Normal Normal Platelet Morphology Normal Normal Polychromasia 4.0 H 3.3 H Pappenheimer Bodies Present H Sickle Cells 2+ H 2+ H Target Cells 1+ H [place] Bodies Present H Present H MTS Gel Crossmatch See Detail 12/05/17 14:08 WBC RBC Hgb Hct MCV MCH MCHC RDW Plt Count MPV Prelim Diff (Auto) Neut % (Auto) Lymph % (Auto) [place] % (Auto) Eos % (Auto) Baso % (Auto) Neut # (Auto) Lymph # (Auto) [place] # (Auto) Eos # (Auto) Baso # (Auto) WBC Differential Seg Neuts % (Manual) Band Neuts % (Manual) Lymphocytes % (Manual) Monocytes % (Manual) Basophils % (Manual) Myelocytes % (Man) Abs Neuts (Manual) Nucleated RBCs/100 WBC Differential Comment Platelet Estimate Platelet Morphology Polychromasia Pappenheimer Bodies Sickle Cells Target Cells [place] Bodies MTS Gel Crossmatch See Detail
[2017-12-06 08:35] LABS: Baso # (Auto) 0.1 th/mm3 (0.0-0.2); Baso % (Auto) 0.5 % (0.0-2.0); Eos # (Auto) 0.1 th/mm3 (0.0-0.4); Eos % (Auto) 0.6 % (0.0-4.0); Hematocrit 23.6 % (39.0-51.0); Hemoglobin 8.8 gm/dL (13.0-17.0); Lymph # (Auto) 2.5 th/mm3 (1.0-4.8); Lymph % (Auto) 13.7 % (9.0-44.0); Mean Corpuscular Hemoglobin 33.1 pg (27.0-34.0); Mean Corpuscular Volume 88.3 fL (80.0-100.0); Mean Platelet Volume 7.2 fL (7.0-11.0); Mono # (Auto) 1.7 th/mm3 (0.0-0.9); Mono % (Auto) 9.1 % (0.0-8.0); Neut # (Auto) 14.1 th/mm3 (1.8-7.7); Neut % (Auto) 76.1 % (16.0-70.0); Platelet Count 314 th/mm3 (150-450); Red Blood Count 2.67 mil/mm3 (4.50-5.90); Red Cell Distribution Width 21.4 % (11.6-17.2); White Blood Count 18.5 th/mm3 (4.0-11.0)
[2017-12-06 08:36] LABS: Mean Corpuscular HGB Conc 37.5 % (32.0-36.0)
[2017-12-06] MEDS: predniSONE 20 MG Tablet PO SCH (09:00)
[2017-12-06] MEDS: DEFERASIROX 360 MG PO SCH (09:00)
[2017-12-06] MEDS: Hydroxyurea 500 MG Capsule PO SCH (09:00)
[2017-12-06] MEDS: Folic Acid 1 MG Tablet PO SCH (09:00)
[2017-12-06 09:08] LABS: Alanine Aminotransferase 65 U/L (12-78)
[2017-12-06 09:09] LABS: Eosinophils 2 % (0-4); Lymphocytes 6 % (9-44); Monocytes 4 % (0-8); Tallied Nucleated RBC 78 (0-0)
[2017-12-06 09:10] LABS: Howell-Jolly Bodies Present; Sickle Cells 2+; Target Cells 1+
[2017-12-06 09:11] LABS: Platelet Estimate Normal (Normal); Platelet Morphology Normal (Normal); Polychromasia 3.2 % (0.0-1.9)
[2017-12-06 09:12] LABS: Alkaline Phosphatase 145 U/L (45-117); Anion Gap 10 meq/L (5-15); Aspartate Aminotransferase 48 U/L (15-37); Blood Urea Nitrogen 8 mg/dL (7-18); Calcium 8.4 mg/dL (8.5-10.1); Carbon Dioxide 24.4 meq/L (21.0-32.0); Chloride 105 meq/L (98-107); Glomerular Filtration Rate Greater Than 89 mL/min (>89); Glucose,Random 81 mg/dL (74-106); Potassium 3.5 meq/L (3.5-5.1); Sodium 139 meq/L (136-145); Total Protein 5.9 g/dL (6.4-8.2)
--- NOTE | 2017-12-06 09:36 | P.PNONC ---
Subjective Interval history: Tmax 99.7 overnight Patient reports he is more achy today than yesterday Asking to have Dilaudid increased RT at bedside, O2 sats 89% on 4 L Objective Vital Signs/Intake & Output: Vital Signs 12/05/17 09:53 12/05/17 12:00 12/05/17 12:52 Temperature 98.6 F Pulse Rate 78 77 71 Respiratory Rate 20 18 Blood Pressure 141/87 H Pulse Oximetry 93 L 94 L 12/05/17 16:00 12/05/17 16:52 12/05/17 17:14 Temperature 98.5 F 98.3 F 98.4 F Pulse Rate 81 88 84 Respiratory Rate 20 24 22 Blood Pressure 145/90 H 129/75 138/80 Pulse Oximetry 94 L 100 92 L 12/05/17 17:15 12/05/17 18:27 12/05/17 20:00 Temperature 98.4 F 99.6 F Pulse Rate 83 82 79 Respiratory Rate 22 20 18 Blood Pressure 141/84 H 141/90 H 135/79 Pulse Oximetry 12/05/17 20:04 12/06/17 00:00 12/06/17 00:30 Temperature 99.6 F Pulse Rate 88 Respiratory Rate 20 16 Blood Pressure 143/86 H Pulse Oximetry 92 L 94 L 12/06/17 00:32 12/06/17 04:00 12/06/17 08:31 Temperature 99.7 F H Pulse Rate 86 89 Respiratory Rate 16 20 16 Blood Pressure 152/79 H Pulse Oximetry 94 L 90 L 12/06/17 08:43 Temperature Pulse Rate Respiratory Rate Blood Pressure Pulse Oximetry 96 Intake & Output 12/05/17 12/06/17 12/06/17 18:59 06:59 18:59 Intake Total 2720 / 2720 1100 / 1100 Output Total 250 / 250 Balance 2470 / 2470 1100 / 1100 Intake: IV 1100 / 1100 1100 / 1100 NS Inj 1,000 ML @ 100 mls/hr IV 1000 / 1000 1000 / 1000 .CONT .Q10H KERRI Rx#:[id number] Zosyn 3.375 GM Premix 50 ML @ 100 / 100 100 / 100 100 mls/hr IV.SIG Q6H KERRI Rx#: [id number] Oral 1620 / 1620 Intake (Blood Product) Amt 0 / 0 Rbc As-3 Leukoreduced Unit 0 / 0 [id number] Output: Urine 250 / 250 Other: # Voids 2 Date of Last Bowel Movement 12/04/17 # Bowel Movements 0 Result Diagrams: 12/06/17 07:40 12/06/17 07:40 Laboratory Results: Laboratory Results - last 24 hr 12/04/17 12/05/17 12/05/17 14:46 11:30 14:08 WBC 15.3 H RBC 2.47 L Hgb 8.0 L Hct 22.5 L MCV 90.7 MCH 32.4 MCHC 35.7 RDW 21.0 H Plt Count 293 MPV 7.3 Prelim Diff (Auto) Slide review pending Neut % (Auto) 76.7 H Lymph % (Auto) 13.0 [place] % (Auto) 8.3 H Eos % (Auto) 1.3 Baso % (Auto) 0.7 Neut # (Auto) 11.7 H Lymph # (Auto) 2.0 [place] # (Auto) 1.3 H Eos # (Auto) 0.2 Baso # (Auto) 0.1 WBC Differential Manual diff final Seg Neuts % (Manual) 84 H Band Neuts % (Manual) 1 Lymphocytes % (Manual) 8 L Monocytes % (Manual) 6 Eosinophils % (Manual) Myelocytes % (Man) 1 H Abs Neuts (Manual) 13.2 H Nucleated RBCs/100 WBC 76 H Differential Comment . Platelet Estimate Normal Platelet Morphology Normal Polychromasia 3.3 H Basophilic Stippling Pappenheimer Bodies Present H Sickle Cells 2+ H Target Cells 1+ H [place] Bodies Present H Sodium Potassium Chloride Carbon Dioxide Anion Gap BUN Creatinine Estimated GFR Random Glucose Calcium Total Bilirubin AST ALT Alkaline Phosphatase Total Protein Albumin MTS Gel Crossmatch See Detail See Detail 12/06/17 12/06/17 07:40 07:40 WBC 18.5 H RBC 2.67 L Hgb 8.8 L Hct 23.6 L MCV 88.3 MCH 33.1 MCHC 37.5 H RDW 21.4 H Plt Count 314 MPV 7.2 Prelim Diff (Auto) Slide review pending Neut % (Auto) 76.1 H Lymph % (Auto) 13.7 [place] % (Auto) 9.1 H Eos % (Auto) 0.6 Baso % (Auto) 0.5 Neut # (Auto) 14.1 H Lymph # (Auto) 2.5 [place] # (Auto) 1.7 H Eos # (Auto) 0.1 Baso # (Auto) 0.1 WBC Differential Manual diff final Seg Neuts % (Manual) 88 H Band Neuts % (Manual) Lymphocytes % (Manual) 6 L Monocytes % (Manual) 4 Eosinophils % (Manual) 2 Myelocytes % (Man) Abs Neuts (Manual) 16.3 H Nucleated RBCs/100 WBC 78 H Differential Comment . Platelet Estimate Normal Platelet Morphology Normal Polychromasia 3.2 H Basophilic Stippling Faint H Pappenheimer Bodies Sickle Cells 2+ H Target Cells 1+ H [place] Bodies Present H Sodium 139 Potassium 3.5 Chloride 105 Carbon Dioxide 24.4 Anion Gap 10 BUN 8 Creatinine 0.75 Estimated GFR Greater than 89 Random Glucose 81 Calcium 8.4 L Total Bilirubin 11.1 H AST 48 H ALT 65 Alkaline Phosphatase 145 H Total Protein 5.9 L Albumin 3.0 L MTS Gel Crossmatch Medications: Active Medications Generic Name Dose Route Start Last Admin Trade Name Freq PRN Reason Stop Dose Admin Albuterol 1 ampul 12/05/17 14:00 12/06/17 08:30 Duoneb Neb (Kerri) NEB 1 ampul Q6HR WHILE AWAKE NEB KERRI Administration Artificial Tears 2 drops 12/03/17 15:06 12/03/17 18:00 [place] Severe Dry Eye Relief 0.3% Opth Gel EACH EYE 2 drops Q6H PRN Administration EYE REDNESS Diphenhydramine HCl 25 mg 11/29/17 23:35 12/06/17 08:33 Benadryl Inj IV.PUSH 25 mg Q3HR PRN Administration ITCHING Folic Acid 1 mg 12/02/17 09:00 12/05/17 08:18 Folic Acid PO 1 mg DAILY KERRI Administration Hydroxyurea 1,500 mg 12/02/17 09:00 12/05/17 08:18 Hydrea PO 1,500 mg DAILY KERRI Administration Sodium Chloride 1,000 mls @ 100 mls/hr 11/29/17 23:15 12/06/17 06:23 Ns Inj IV.CONT Not Given .Q10H KERRI Piperacillin/Tazobactam/Dextrose 50 mls @ 100 mls/hr 12/04/17 14:00 12/06/17 08:29 Zosyn 3.375 Gm Premix IV.SIG 50 mls/hr Q6H KERRI Administration Ketorolac Tromethamine 30 mg 12/03/17 15:02 12/06/17 08:28 Toradol Inj IV.PUSH 12/08/17 15:01 30 mg Q6H PRN Administration pain uncontrolled by dilaudid Multi-Ingredient Ointment 1 applic 12/01/17 15:29 12/01/17 18:26 Blistex Lip [place] TOPICAL 1 applic UNSCH PRN Administration lip balm Ondansetron HCl 4 mg 11/29/17 23:10 12/05/17 23:14 Zofran Inj IV.PUSH 4 mg Q6H PRN Administration NAUSEA OR VOMITING Pt Own Med: Jadenu 1 each 12/03/17 09:00 12/05/17 08:18 360mg Po Daily PO 1 each DAILY KERRI Administration Prochlorperazine Maleate 10 mg 12/02/17 17:00 12/06/17 05:00 Compazine PO 10 mg Q6H KERRI Administration Objective Remarks: GENERAL: Young male resting in bed. He appears generally uncomfortable. SKIN: Warm and dry. HEAD: Normocephalic. EYES: Mild scleral icterus. NECK: No JVD or lymphadenopathy. CARDIOVASCULAR: Regular rate and rhythm without murmurs. RESPIRATORY: Rales to bilateral bases. Remains on 4 L nasal cannula. GASTROINTESTINAL: Abdomen soft, non-tender, nondistended. EXTREMITIES: No cyanosis, or edema. MUSCULOSKELETAL: Adequate muscle tone. NEUROLOGICAL: No obvious focal deficit. Awake, alert, and oriented x3. 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 He was admitted for sickle cell pain crisis. The majority of his pain was in his legs and lower back. Plan: 1. Patient not improving after simple transfusion. I have requested Vas-Cath placement for red blood cell exchange today. 2. I will increase his Dilaudid back to 3 mg every 3 hours as needed. 3. Continue Zosyn. 4. Continue IV fluids, supportive care. 5. CBC, CMP, retic count and LDH in a.m.
[2017-12-06] MEDS ORDERED: *Heparin 10,000 UNITS/10 ML Vial Periprocedural ONLY ONE (10:48)
--- NOTE | 2017-12-06 11:24 | P.RAD ---
Post Procedure Progress Note - Pre Procedure Diagnosis (1) Acute sickle cell crisis (2) Intractable pain - Post Procedure Diagnosis (1) Acute sickle cell crisis (2) Intractable pain - Procedure Information Procedure Date: 12/06/17 Supervising Radiologist: Leon Eisenberg MD Estimated blood loss (mL): 2 - Plan of Activity Patient to Unit: Nursing Unit Patient Condition: Good See PACS Report for procedural detail/treatment.
[2017-12-06] MEDS ORDERED: Thrombin Topical Soln 5,000 UNIT Vial TOPICAL ONE (12:03)
[2017-12-06] MEDS ORDERED: MethylPREDNISolone Sod Succinate Inj 125 MG/2 ML Vial IV.PUSH ONE (13:00)
[2017-12-06] MEDS ORDERED: Sod Chloride 0.9% Inj 1,000 ML IV.SIG SCH (13:00)
[2017-12-06] MEDS ORDERED: Anticoagulant Citrate Dextrose 1,000 ML Solution EXTRACORPO ONE (13:00)
[2017-12-06] MEDS ORDERED: Heparin 10,000 UNITS/10 ML Vial (for IV use) IV.FLUSH PRN (13:00)
[2017-12-06] MEDS ORDERED: Famotidine PF Inj 20 MG/2 ML Vial IV.PUSH ONE (13:00)
[2017-12-06] MEDS ORDERED: CALCIUM GLUCONATE IV.SIG ONE (15:00)
[2017-12-06] MEDS ORDERED: SODIUM CHLOR 0.9% IV.SIG ONE (15:00)
[2017-12-07] MEDS: Temazepam 15 MG Capsule PO PRN ×2 (00:57→23:43)
[2017-12-07] MEDS: Sod Chloride 0.9% Inj 1,000 ML IV.CONT SCH ×3 (01:16→20:27)
[2017-12-07] MEDS: HYDROmorphone PF Inj 2 MG/ML Vial IV.PUSH PRN ×7 (01:17→23:48)
[2017-12-07] MEDS: Piperacil/Tazo 3.375 GM Premix 50 ML IV.SIG SCH ×4 (01:19→20:24)
--- NOTE | 2017-12-07 07:57 | P.RAD ---
Radiology Note Called to nursing floor about right IJ Vascath placed about an hour earlier. Concern for bleeding at the access site. Moderate amount of blood underneath occlusive dressing. Dressing remove showing some oozing from the access site. Area treated with ~4000u of thrombin injected into sub-q tissues of the dermatotomy. Manual pressure maintained for ~10 minutes to hemostasis.
--- NOTE | 2017-12-07 07:59 | IR ---
EXAM DATE: 12/06/2017 11:55 AM EDT AGE/SEX: 22 years / Male INDICATIONS: Patient with history of Sickle Cell disease in need of temporary dialysis catheter plac ement for treatment. CLINICAL DATA: This is the patient's initial encounter. Patient reports that signs and symptoms have been present for 4 - 6 days and indicates a pain score of 2/10. MEDICAL/SURGICAL HISTORY: Sickle Cell disease. Asthma. Osteonecrosis. Cholecystectomy. Splen ectomy. Tonsillectomy. COMPARISON: No prior exams available for comparison. FLUORO TIME (min): 0.15 IMAGE SERIES: 4 ACCESS SITE: Right internal jugular vein DEVICE(S): 14 [place] double lumen 15cm Schon catheter . . PROCEDURE : 1. Ultrasound guided venipuncture. 2. Fluoroscopic guidance. 3. Central line placement. The risks, benefits and alternatives to the procedure were explained and verbal and written consent w as obtained. The site was prepped in sterile fashion. Full sterile technique was used, including ca p, mask, sterile gloves and gown and a large sterile sheet. Hand hygiene and 2% chlorhexidine prep w as utilized per protocol for cutaneous antisepsis with appropriate dry time for site. Sterile gel an d sterile probe cover were utilized for ultrasound guidance. The skin and subcutaneous tissues were infiltrated with local anesthetic solution. A suitable site a sonia the vein was selected with ultrasound and fluoroscopic guidance. A small incision was made. Th e vein was accessed under direct ultrasound visualization using the micropuncture technique. The lalo ropuncture set was exchanged for a 0.035 wire. The tract was dilated. The catheter was advanced int o position under direct fluoroscopic visualization, and was advanced with the tip at the junction of the superior vena cava and rt atrium. The catheter was fixed in place with suture and a sterile dres sing was applied. The patient tolerated the procedure well and there were no complications. CONCLUSION: 1. Uncomplicated line placement as above. Electronically signed by: Leon Eisenberg MD 12/07/2017 7:57 AM EDT
[2017-12-07 08:17] LABS: Baso % (Auto) 0.2 % (0.0-2.0); Eos # (Auto) 0.1 th/mm3 (0.0-0.4); Eos % (Auto) 0.6 % (0.0-4.0); Hematocrit 27.8 % (39.0-51.0); Hemoglobin 9.8 gm/dL (13.0-17.0); Lymph # (Auto) 1.8 th/mm3 (1.0-4.8); Lymph % (Auto) 13.3 % (9.0-44.0); Mean Corpuscular HGB Conc 35.2 % (32.0-36.0); Mean Corpuscular Hemoglobin 31.2 pg (27.0-34.0); Mean Corpuscular Volume 88.8 fL (80.0-100.0); Mean Platelet Volume 7.9 fL (7.0-11.0); Mono # (Auto) 1.5 th/mm3 (0.0-0.9); Mono % (Auto) 11.2 % (0.0-8.0); Neut % (Auto) 74.7 % (16.0-70.0); Platelet Count 183 th/mm3 (150-450); Red Blood Count 3.13 mil/mm3 (4.50-5.90); Red Cell Distribution Width 17.6 % (11.6-17.2); Reticulocyte Percent 9.3 % (0.4-3.0); White Blood Count 13.3 th/mm3 (4.0-11.0)
[2017-12-07 08:45] LABS: Alanine Aminotransferase 45 U/L (12-78); Albumin 2.7 g/dL (3.4-5.0); Alkaline Phosphatase 106 U/L (45-117); Anion Gap 7 meq/L (5-15); Aspartate Aminotransferase 28 U/L (15-37); Blood Urea Nitrogen 8 mg/dL (7-18); Calcium 8.1 mg/dL (8.5-10.1); Carbon Dioxide 27.6 meq/L (21.0-32.0); Chloride 106 meq/L (98-107); Glomerular Filtration Rate Greater Than 89 mL/min (>89); Glucose,Random 103 mg/dL (74-106); Lactate Dehydrogenase 622 U/L (87-241); Sodium 141 meq/L (136-145); Total Protein 5.6 g/dL (6.4-8.2)
[2017-12-07 09:28] LABS: Eosinophils 1 % (0-4); Lymphocytes 14 % (9-44); Monocytes 14 % (0-8); Tallied Nucleated RBC 31 (0-0)
[2017-12-07 09:31] LABS: Platelet Estimate Normal (Normal); Platelet Morphology Normal (Normal); Polychromasia 3.3 % (0.0-1.9)
[2017-12-07 09:32] LABS: Acanthocytes 1+; Sickle Cells 1+; Target Cells 1+
[2017-12-07 09:33] LABS: Pappenheimer Bodies Present
[2017-12-07] MEDS: Hydroxyurea 500 MG Capsule PO SCH (09:35)
[2017-12-07] MEDS: Folic Acid 1 MG Tablet PO SCH (09:36)
[2017-12-07] MEDS: predniSONE 20 MG Tablet PO SCH (09:36)
[2017-12-07] MEDS: DEFERASIROX 360 MG PO SCH (09:37)
--- NOTE | 2017-12-07 09:41 | P.PN ---
Physical Exam Vital signs: Vital Signs 12/06/17 12:00 12/06/17 14:00 12/06/17 16:00 Temperature 97 F L 97.2 F L 97.7 F Pulse Rate 68 80 89 Respiratory Rate 20 20 20 Blood Pressure 145/90 H 133/86 129/79 Pulse Oximetry 98 96 96 12/06/17 20:00 12/06/17 20:18 12/06/17 21:22 Temperature 98.5 F Pulse Rate 82 72 Respiratory Rate 18 16 18 Blood Pressure 148/94 H Pulse Oximetry 96 96 12/06/17 23:29 12/07/17 00:00 12/07/17 00:55 Temperature 99.2 F Pulse Rate 64 Respiratory Rate 18 18 18 Blood Pressure 137/81 Pulse Oximetry 97 12/07/17 01:51 12/07/17 04:00 12/07/17 08:56 Temperature 98.5 F Pulse Rate 68 62 Respiratory Rate 19 18 20 Blood Pressure 137/87 Pulse Oximetry 97 96 Intake & Output 12/06/17 12/07/17 12/07/17 18:59 06:59 18:59 Intake Total 410 / 410 1150 / 1150 442 / 442 Output Total 2400 / 2400 Balance 410 / 410 -1250 / -1250 442 / 442 Intake: IV 50 / 50 1150 / 1150 NS Inj 1,000 ML @ 100 mls/hr IV 1000 / 1000 .CONT .Q10H DAVID Rx#:[id number] Zosyn 3.375 GM Premix 50 ML @ 50 / 50 150 / 150 100 mls/hr IV.SIG Q6H DAVID Rx#: [id number] Oral 360 / 360 442 / 442 Output: Urine 2400 / 2400 Other: # Voids 2 Date of Last Bowel Movement 12/04/17 12/05/17 # Bowel Movements 0 # Em[place] 1 Narrative: Subjective F/up Sickle cell crisis Still with right knee pain. + nausea. Feels much better after plasma exchange yesterday. Breathing significantly improved now he is sattign wellon 2L O2. No fever, feels chills. No cough. No problems with urination. Was bleeding at the vas cath site, dressing was removed and changes by IR, the area was treated with ~4000u of thrombin injected into sub-q tissues of the dermatotomy, manual pressure, bleeding resolved afterwards. Dressing C/D/I Physical Exam GENERAL: Patient sitting in bed. Appears chronically ill however with some improvement. NECK: Vas cath in place no signs of bleeding. Dressing C/D/I CARDIOVASCULAR: Regular rate and rhythm without murmurs, gallops, or rubs. RESPIRATORY: Breath sounds equal bilaterally. No accessory muscle use. GASTROINTESTINAL: Abdomen soft, non-tender, nondistended. MUSCULOSKELETAL: No cyanosis, or edema. BACK: Nontender without obvious deformity. No CVA tenderness. Assessment and Plan Sickle cell pain crisis. Chest x-ray with no acute findings. White blood cell count mildly elevated at 13. No signs of infection. Hemoglobin 7.6 on admission, near baseline. HGB trending down. Hemoglobin noted on 12/03 at 5.5. Discussed with hematology oncology, transfused 1 unit of blood on 12/03 Repeat hemoglobin on 12/04 still low, transfused 2 units of blood HGB at 7.1 on 12/05 . Transfused again retic count elevated Ferritin elevated CXR reviewed . CTA reviewed no PE, o infiltrates , likely atelectasis and congestion. Add IS, duonebs. Start presnisone 40 mg po daily for 5 days Administer oxygen Narcotics for pain control. Hematology consult. patient follows with Dr. Bell. Might consider port placement for retirement care Vas cath placement 01/05/18 plan for plasma exchange. Was bleeding at the vas cath site, dressing was removed and changes by IR, the area was treated with ~ 4000u of thrombin injected into sub-q tissues of the dermatotomy, manual pressure, bellding resolved. Patient s/p plasma exchange on 12/06/17 with significant improvement , repeat HGB is 9.8 Dry lips. [place] Discharge Planning: Pending improvement and clearance by hem onc . s/p plasma exchange Patient will need pain meds , follows with Dr Bell hem onc Discussed with the patient, nurse Results - Labs CBC & Chem 7: 12/07/17 07:28 12/07/17 07:28 Laboratory Results - last 24 hr 12/06/17 12/07/17 12/07/17 12:45 07:28 07:28 WBC 13.3 H RBC 3.13 L Hgb 9.8 L Hct 27.8 L MCV 88.8 MCH 31.2 MCHC 35.2 RDW 17.6 H D Plt Count 183 D MPV 7.9 Prelim Diff (Auto) Slide review pending Neut % (Auto) 74.7 H Lymph % (Auto) 13.3 [place] % (Auto) 11.2 H Eos % (Auto) 0.6 Baso % (Auto) 0.2 Neut # (Auto) 10.0 H Lymph # (Auto) 1.8 [place] # (Auto) 1.5 H Eos # (Auto) 0.1 Baso # (Auto) 0.0 WBC Differential Manual diff final Seg Neuts % (Manual) 70 Band Neuts % (Manual) 1 Lymphocytes % (Manual) 14 Monocytes % (Manual) 14 H Eosinophils % (Manual) 1 Abs Neuts (Manual) 9.4 H Nucleated RBCs/100 WBC 31 H Differential Comment . Platelet Estimate Normal Platelet Morphology Normal Polychromasia 3.3 H Pappenheimer Bodies Present H Sickle Cells 1+ H Target Cells 1+ H Acanthocytes ([place]) 1+ H Retic Count 9.3 H Absolute Retic 289.8 H Sodium 141 Potassium 4.0 Chloride 106 Carbon Dioxide 27.6 Anion Gap 7 BUN 8 Creatinine 0.66 Estimated GFR Greater than 89 Random Glucose 103 Calcium 8.1 L Total Bilirubin 5.0 H AST 28 ALT 45 Alkaline Phosphatase 106 Lactate Dehydrogenase 622 H Total Protein 5.6 L Albumin 2.7 L Blood Type O Negative Antibody Screen Negative MTS Gel Crossmatch See Detail - Imaging Impressions Central Venous Line 12/06/17 00:00 CONCLUSION: 1. Uncomplicated line placement as above.
[2017-12-07] MEDS: Enoxaparin Inj 40 MG/0.4 ML Syringe SQ SCH (09:49)
[2017-12-07] MEDS: Ketorolac Inj 30 MG/ML (IVP) Vial IV.PUSH PRN ×2 (11:03→18:42)
--- NOTE | 2017-12-07 17:16 | P.PNONC ---
Subjective Interval history: Late entry, patient seen earlier today. Patient reports that his breathing is improved status post blood cell exchange yesterday. He reports that his pain is also improved. He is up walking around the room, in no distress. His oxygen saturation today has been recorded as 97% on 2 L O2 via nasal cannula. Objective Vital Signs/Intake & Output: Vital Signs 12/06/17 20:00 12/06/17 20:18 12/06/17 21:22 Temperature 98.5 F Pulse Rate 82 72 Respiratory Rate 18 16 18 Blood Pressure 148/94 H Pulse Oximetry 96 96 12/06/17 23:29 12/07/17 00:00 12/07/17 00:55 Temperature 99.2 F Pulse Rate 64 Respiratory Rate 18 18 18 Blood Pressure 137/81 Pulse Oximetry 97 12/07/17 01:51 12/07/17 04:00 12/07/17 08:56 Temperature 98.5 F Pulse Rate 68 62 Respiratory Rate 19 18 20 Blood Pressure 137/87 Pulse Oximetry 97 96 12/07/17 09:57 12/07/17 12:00 12/07/17 16:00 Temperature 98.2 F 98.3 F Pulse Rate 56 L 83 58 L Respiratory Rate 16 20 Blood Pressure 130/80 152/99 H Pulse Oximetry 95 97 Intake & Output 12/06/17 12/07/17 12/07/17 18:59 06:59 18:59 Intake Total 410 / 410 1150 / 1150 1542 / 1542 Output Total 2400 / 2400 Balance 410 / 410 -1250 / -1250 1542 / 1542 Intake: IV 50 / 50 1150 / 1150 1100 / 1100 NS Inj 1,000 ML @ 100 mls/hr IV 1000 / 1000 1000 / 1000 .CONT .Q10H KERRI Rx#:[id number] Zosyn 3.375 GM Premix 50 ML @ 50 / 50 150 / 150 100 / 100 100 mls/hr IV.SIG Q6H KERRI Rx#: [id number] Oral 360 / 360 442 / 442 Output: Urine 2400 / 2400 Other: # Voids 2 Date of Last Bowel Movement 12/04/17 12/06/17 # Bowel Movements 0 # Emeses 1 Result Diagrams: 12/07/17 07:28 12/07/17 07:28 Laboratory Results: Laboratory Results - last 24 hr 12/07/17 12/07/17 07:28 07:28 WBC 13.3 H RBC 3.13 L Hgb 9.8 L Hct 27.8 L MCV 88.8 MCH 31.2 MCHC 35.2 RDW 17.6 H D Plt Count 183 D MPV 7.9 Prelim Diff (Auto) Slide review pending Neut % (Auto) 74.7 H Lymph % (Auto) 13.3 Casey % (Auto) 11.2 H Eos % (Auto) 0.6 Baso % (Auto) 0.2 Neut # (Auto) 10.0 H Lymph # (Auto) 1.8 Casey # (Auto) 1.5 H Eos # (Auto) 0.1 Baso # (Auto) 0.0 WBC Differential Manual diff final Seg Neuts % (Manual) 70 Band Neuts % (Manual) 1 Lymphocytes % (Manual) 14 Monocytes % (Manual) 14 H Eosinophils % (Manual) 1 Abs Neuts (Manual) 9.4 H Nucleated RBCs/100 WBC 31 H Differential Comment . Platelet Estimate Normal Platelet Morphology Normal Polychromasia 3.3 H Pappenheimer Bodies Present H Sickle Cells 1+ H Target Cells 1+ H Acanthocytes (Spur) 1+ H Retic Count 9.3 H Absolute Retic 289.8 H Sodium 141 Potassium 4.0 Chloride 106 Carbon Dioxide 27.6 Anion Gap 7 BUN 8 Creatinine 0.66 Estimated GFR Greater than 89 Random Glucose 103 Calcium 8.1 L Total Bilirubin 5.0 H AST 28 ALT 45 Alkaline Phosphatase 106 Lactate Dehydrogenase 622 H Total Protein 5.6 L Albumin 2.7 L Imaging Studies: Impressions Central Venous Line 12/06/17 00:00 CONCLUSION: 1. Uncomplicated line placement as above. Medications: Active Medications Generic Name Dose Route Start Last Admin Trade Name Freq PRN Reason Stop Dose Admin Albuterol 1 ampul 12/05/17 14:00 12/07/17 13:25 Duoneb Neb (Kerri) NEB Not Given Q6HR WHILE AWAKE NEB KERRI Artificial Tears 2 drops 12/03/17 15:06 12/03/17 18:00 Genteal Severe Dry Eye Relief 0.3% Opth Gel EACH EYE 2 drops Q6H PRN Administration EYE REDNESS Diphenhydramine HCl 25 mg 11/29/17 23:35 12/07/17 16:42 Benadryl Inj IV.PUSH 25 mg Q3HR PRN Administration ITCHING Enoxaparin Sodium 40 mg 12/07/17 09:00 12/07/17 09:49 Lovenox Inj SQ 40 mg DAILY KRERI Administration Folic Acid 1 mg 12/02/17 09:00 12/07/17 09:36 Folic Acid PO 1 mg DAILY KERRI Administration Hydromorphone HCl 3 mg 12/06/17 08:38 12/07/17 16:44 Dilaudid Pf Inj IV.PUSH 3 mg Q3H PRN Administration pain 4-10 Hydroxyurea 1,500 mg 12/02/17 09:00 12/07/17 09:35 Hydrea PO 1,500 mg DAILY KERRI Administration Sodium Chloride 1,000 mls @ 100 mls/hr 11/29/17 23:15 12/07/17 11:02 Ns Inj IV.CONT 100 mls/hr .Q10H KERRI Administration Piperacillin/Tazobactam/Dextrose 50 mls @ 100 mls/hr 12/04/17 14:00 12/07/17 14:20 Zosyn 3.375 Gm Premix IV.SIG Infused Q6H KERRI Infusion Ketorolac Tromethamine 30 mg 12/03/17 15:02 12/07/17 11:03 Toradol Inj IV.PUSH 12/08/17 15:01 30 mg Q6H PRN Administration pain uncontrolled by dilaudid Multi-Ingredient Ointment 1 applic 12/01/17 15:29 12/01/17 18:26 Blistex Lip [place] TOPICAL 1 applic UNSCH PRN Administration lip balm Ondansetron HCl 4 mg 11/29/17 23:10 12/05/17 23:14 Zofran Inj IV.PUSH 4 mg Q6H PRN Administration NAUSEA OR VOMITING Pt Own Med: Jadenu 1 each 12/03/17 09:00 12/07/17 09:37 360mg Po Daily PO 1 each DAILY KERRI Administration Prednisone 40 mg 12/06/17 09:00 12/07/17 09:36 Deltasone PO 12/10/17 09:01 40 mg DAILY KERRI Administration Prochlorperazine Maleate 10 mg 12/02/17 17:00 12/07/17 16:45 Compazine PO 10 mg Q6H KERRI Administration Temazepam 15 mg 11/29/17 22:59 12/07/17 00:57 Restoril PO 15 mg HS PRN Administration INSOMNIA Objective Remarks: GENERAL: Well-nourished, well-developed young male patient, walking around room. In no acute distress. SKIN: Warm and dry. Vas-Cath to right supraclavicular, dressing dry/intact. HEAD: Normocephalic. EYES: Mild scleral icterus. NECK: Supple, trachea midline. No JVD or lymphadenopathy. CARDIOVASCULAR: Regular rate and rhythm without murmurs. RESPIRATORY: Posterior breath sounds clear, equal bilaterally. Nonlabored. GASTROINTESTINAL: Abdomen soft, non-tender, nondistended. EXTREMITIES: No cyanosis, or edema. MUSCULOSKELETAL: Adequate muscle tone. NEUROLOGICAL: No obvious focal deficit. Awake, alert, and oriented x3. 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 He was admitted for sickle cell pain crisis. The majority of his pain was in his legs and lower back. Plan: 1. Status post red blood cell exchange yesterday. Patient subjectively reporting breathing has improved. Documented oxygenation also appears improved. 2. Improvement in pain status post red blood cell exchange. Continue to monitor. 3. Continue Zosyn. 4. Hemoglobin 9.8, bilirubin has improved. 5. CBC, CMP, retic count and LDH in a.m.
[2017-12-07] MEDS: Famotidine 20 MG Tablet PO SCH (20:24)
[2017-12-08] MEDS: Ketorolac Inj 30 MG/ML (IVP) Vial IV.PUSH PRN ×2 (01:15→13:27)
[2017-12-08] MEDS: Piperacil/Tazo 3.375 GM Premix 50 ML IV.SIG SCH ×4 (02:17→20:44)
[2017-12-08] MEDS: HYDROmorphone PF Inj 2 MG/ML Vial IV.PUSH PRN ×7 (03:15→23:41)
[2017-12-08] MEDS: DEFERASIROX 360 MG PO SCH (10:54)
[2017-12-08] MEDS: Enoxaparin Inj 40 MG/0.4 ML Syringe SQ SCH (10:55)
[2017-12-08] MEDS: Folic Acid 1 MG Tablet PO SCH (11:01)
[2017-12-08] MEDS: predniSONE 20 MG Tablet PO SCH (11:03)
[2017-12-08] MEDS: Sod Chloride 0.9% Inj 1,000 ML IV.CONT SCH ×2 (11:03→17:39)
[2017-12-08] MEDS: Hydroxyurea 500 MG Capsule PO SCH (11:04)
--- NOTE | 2017-12-08 11:44 | P.PN ---
Physical Exam Vital signs: Vital Signs 12/07/17 12:00 12/07/17 16:00 12/07/17 20:00 Temperature 98.2 F 98.3 F 98.7 F Pulse Rate 83 58 L 77 Respiratory Rate 16 20 21 Blood Pressure 130/80 152/99 H 161/86 H Pulse Oximetry 95 97 95 12/07/17 20:10 12/07/17 20:16 12/07/17 22:27 Temperature Pulse Rate Respiratory Rate 20 20 Blood Pressure Pulse Oximetry 97 12/07/17 23:38 12/08/17 00:00 12/08/17 03:24 Temperature 98.6 F Pulse Rate 63 Respiratory Rate 21 20 Blood Pressure 148/90 H Pulse Oximetry 98 97 12/08/17 04:00 12/08/17 08:00 12/08/17 08:43 Temperature 98.6 F 97.8 F Pulse Rate 59 L 63 62 Respiratory Rate 21 20 14 Blood Pressure 143/84 H 156/91 H Pulse Oximetry 98 95 97 Intake & Output 12/07/17 12/08/17 12/08/17 18:59 06:59 18:59 Intake Total 1542 / 1542 5300 / 5300 Output Total 2400 / 2400 Balance 1542 / 1542 2900 / 2900 Weight 70.6 kg Intake: IV 1100 / 1100 2100 / 2100 NS Inj 1,000 ML @ 100 mls/hr IV 1000 / 1000 2000 / 2000 .CONT .Q10H DAVID Rx#:[id number] Zosyn 3.375 GM Premix 50 ML @ 100 / 100 100 / 100 100 mls/hr IV.SIG Q6H DAVID Rx#: [id number] Oral 442 / 442 3200 / 3200 Output: Urine 2400 / 2400 Other: # Voids 2 Date of Last Bowel Movement 12/06/17 12/06/17 # Bowel Movements 0 # Emeses 1 Narrative: Subjective F/up Sickle cell crisis Still with right knee pain. Less nausea. Less shortness of breath he is saturating well while on 2 L Feels much better after plasma exchange . Difficult blood draw, per hem/onc on Dr. Schafer can use Vas-Cath to obtain labs. He is not coughing. No fever, feels chills. No cough. No problems with urination. Physical Exam GENERAL: Patient sitting in bed. Appears chronically ill however with some improvement. NECK: Vas cath in place no signs of bleeding. Dressing C/D/I CARDIOVASCULAR: Regular rate and rhythm without murmurs, gallops, or rubs. RESPIRATORY: Breath sounds equal bilaterally. No accessory muscle use. GASTROINTESTINAL: Abdomen soft, non-tender, nondistended. MUSCULOSKELETAL: No cyanosis, or edema. BACK: Nontender without obvious deformity. No CVA tenderness. Assessment and Plan Sickle cell pain crisis. Chest x-ray with no acute findings. White blood cell count mildly elevated at 13. No signs of infection. Hemoglobin 7.6 on admission, near baseline. HGB trending down. Hemoglobin noted on 12/03 at 5.5. Discussed with hematology oncology, transfused 1 unit of blood on 12/03 Repeat hemoglobin on 12/04 still low, transfused 2 units of blood HGB at 7.1 on 12/05 . Transfused again retic count elevated Ferritin elevated CXR reviewed . CTA reviewed no PE, o infiltrates , likely atelectasis and congestion. Add IS, duonebs. Start presnisone 40 mg po daily for 5 days Administer oxygen Narcotics for pain control. Hematology consult. patient follows with Dr. Bell. 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 Was bleeding at the vas cath site, dressing was removed and changes by IR, the area was treated with ~ 4000u of thrombin injected into sub-q tissues of the dermatotomy, manual pressure, bellding resolved. Patient s/p plasma exchange on 12/06/17 with significant improvement , repeat HGB is 9.8 Difficult blood draw, per hematology oncology Dr. Schafer, Vas-Cath can be used to draw blood if needed Dry lips. [place] Discharge Planning: Pending improvement and clearance by hem onc . s/p plasma exchange Patient will need pain meds at [place] , follows with Dr Bell hem onc Discussed with the patient, nurse Results - Labs CBC & Chem 7: 12/07/17 07:28 12/07/17 07:28 Laboratory Results - last 24 hr 12/06/17 12:45 Blood Type O Negative Antibody Screen Negative MTS Gel Crossmatch See Detail
--- NOTE | 2017-12-08 13:13 | P.PNONC ---
Subjective Interval history: The patient is doing better. He is less short of breath. He still has pain in the lower back and in the legs. He is very frustrated when they try to draw blood. The peripheral veins are difficult to access. He has a Vas-Cath but was told that this could not be used. Objective Vital Signs/Intake & Output: Vital Signs 12/07/17 16:00 12/07/17 20:00 12/07/17 20:10 Temperature 98.3 F 98.7 F Pulse Rate 58 L 77 Respiratory Rate 20 21 Blood Pressure 152/99 H 161/86 H Pulse Oximetry 97 95 97 12/07/17 20:16 12/07/17 22:27 12/07/17 23:38 Temperature Pulse Rate Respiratory Rate 20 20 Blood Pressure Pulse Oximetry 98 12/08/17 00:00 12/08/17 03:24 12/08/17 04:00 Temperature 98.6 F 98.6 F Pulse Rate 63 59 L Respiratory Rate 21 20 21 Blood Pressure 148/90 H 143/84 H Pulse Oximetry 97 98 12/08/17 08:00 12/08/17 08:43 12/08/17 12:00 Temperature 97.8 F 99.4 F Pulse Rate 63 62 69 Respiratory Rate 20 14 20 Blood Pressure 156/91 H 152/108 H Pulse Oximetry 95 97 99 Intake & Output 12/07/17 12/08/17 12/08/17 18:59 06:59 18:59 Intake Total 1542 / 1542 5300 / 5300 Output Total 2400 / 2400 Balance 1542 / 1542 2900 / 2900 Weight 70.6 kg Intake: IV 1100 / 1100 2100 / 2100 NS Inj 1,000 ML @ 100 mls/hr IV 1000 / 1000 2000 / 2000 .CONT .Q10H KERRI Rx#:[id number] Zosyn 3.375 GM Premix 50 ML @ 100 / 100 100 / 100 100 mls/hr IV.SIG Q6H KERRI Rx#: [id number] Oral 442 / 442 3200 / 3200 Output: Urine 2400 / 2400 Other: # Voids 2 Date of Last Bowel Movement 12/06/17 12/06/17 # Bowel Movements 0 # Emeses 1 Result Diagrams: 12/07/17 07:28 12/07/17 07:28 Laboratory Results: Laboratory Results - last 24 hr 12/06/17 12:45 Blood Type O Negative Antibody Screen Negative MTS Gel Crossmatch See Detail Medications: Active Medications Generic Name Dose Route Start Last Admin Trade Name Jung PRN Reason Stop Dose Admin Albuterol 1 ampul 12/05/17 14:00 12/08/17 08:41 Duoneb Neb (Kerri) NEB 1 ampul Q6HR WHILE AWAKE NEB KERRI Administration Artificial Tears 2 drops 12/03/17 15:06 12/03/17 18:00 Genteal Severe Dry Eye Relief 0.3% Opth Gel EACH EYE 2 drops Q6H PRN Administration EYE REDNESS Diphenhydramine HCl 25 mg 11/29/17 23:35 12/08/17 10:56 Benadryl Inj IV.PUSH 25 mg Q3HR PRN Administration ITCHING Enoxaparin Sodium 40 mg 12/07/17 09:00 12/08/17 10:55 Lovenox Inj SQ 40 mg DAILY KERRI Administration Famotidine 20 mg 12/07/17 21:00 12/07/17 20:24 Pepcid PO 20 mg HS KERRI Administration Folic Acid 1 mg 12/02/17 09:00 12/08/17 11:01 Folic Acid PO 1 mg DAILY KERRI Administration Hydromorphone HCl 3 mg 12/06/17 08:38 12/08/17 10:58 Dilaudid Pf Inj IV.PUSH 3 mg Q3H PRN Administration pain 4-10 Hydroxyurea 1,500 mg 12/02/17 09:00 12/08/17 11:04 Hydrea PO 1,500 mg DAILY KERRI Administration Sodium Chloride 1,000 mls @ 100 mls/hr 11/29/17 23:15 12/08/17 11:03 Ns Inj IV.CONT 100 mls/hr .Q10H KERRI Administration Piperacillin/Tazobactam/Dextrose 50 mls @ 100 mls/hr 12/04/17 14:00 12/08/17 08:12 Zosyn 3.375 Gm Premix IV.SIG 100 mls/hr Q6H KERRI Administration Ketorolac Tromethamine 30 mg 12/03/17 15:02 12/08/17 01:15 Toradol Inj IV.PUSH 12/08/17 15:01 30 mg Q6H PRN Administration pain uncontrolled by dilaudid Multi-Ingredient Ointment 1 applic 12/01/17 15:29 08/04/18 18:26 Blistex Lip [place] TOPICAL 1 applic UNSCH PRN Administration lip balm Ondansetron HCl 4 mg 11/29/17 23:10 12/05/17 23:14 Zofran Inj IV.PUSH 4 mg Q6H PRN Administration NAUSEA OR VOMITING Pt Own Med: [place] 1 each 12/03/17 09:00 12/08/17 10:54 360mg Po Daily PO 1 each DAILY KERRI Administration Prednisone 40 mg 12/06/17 09:00 12/08/17 11:03 Deltasone PO 12/10/17 09:01 40 mg DAILY KERRI Administration Prochlorperazine Maleate 10 mg 12/02/17 17:00 12/08/17 11:02 Compazine PO 10 mg Q6H KERRI Administration Temazepam 15 mg 11/29/17 22:59 12/07/17 23:43 Restoril PO 15 mg HS PRN Administration INSOMNIA Objective Remarks: GENERAL: Well-nourished, well-developed patient. SKIN: Warm and dry. HEAD: Normocephalic. EYES: No scleral icterus. No injection or drainage. NECK: Supple, trachea midline. No JVD or lymphadenopathy. LYMPHATIC: No adenopathy. CARDIOVASCULAR: Regular rate and rhythm without murmurs. RESPIRATORY: A few dry basilar rales GASTROINTESTINAL: Abdomen soft, non-tender, nondistended. EXTREMITIES: No cyanosis, or edema. MUSCULOSKELETAL: No tenderness NEUROLOGICAL: No obvious focal deficit. Awake, alert, and oriented x3. PSYCHIATRIC: Appropriate mood and affect; insight and judgment normal. 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 Respiratory status has improved and he is now using only 2 L. He does not require any additional transfusions. Drawing blood is been a problem and I will request that the blood be drawn from the Vas- Cath if possible. Will temporarily continue antibiotics although I doubt that he has pneumonia. On discharge I believe he will probably not require any antibiotics and hopefully he will be able to go home in several days. He will require renewal of a number of his medicines before discharge including narcotics, hydroxyurea, and the oral iron chelating agent. Tomorrow if he is doing well we will plan on decreasing the IV Dilaudid and beginning conversion to oral medications.
[2017-12-08 20:27] LABS: Hematocrit 29.8 % (39.0-51.0); Hemoglobin 10.6 gm/dL (13.0-17.0); Mean Corpuscular HGB Conc 35.7 % (32.0-36.0); Mean Corpuscular Volume 89.7 fL (80.0-100.0); Mean Platelet Volume 8.1 fL (7.0-11.0); Platelet Count 238 th/mm3 (150-450); Red Blood Count 3.32 mil/mm3 (4.50-5.90); Red Cell Distribution Width 18.3 % (11.6-17.2); Reticulocyte Percent 14.6 % (0.4-3.0); White Blood Count 7.9 th/mm3 (4.0-11.0)
[2017-12-08] MEDS: Famotidine 20 MG Tablet PO SCH (20:44)
[2017-12-08 20:56] LABS: Alanine Aminotransferase 83 U/L (12-78); Albumin 3.3 g/dL (3.4-5.0); Alkaline Phosphatase 141 U/L (45-117); Anion Gap 8 meq/L (5-15); Aspartate Aminotransferase 69 U/L (15-37); Blood Urea Nitrogen 12 mg/dL (7-18); Calcium 8.7 mg/dL (8.5-10.1); Carbon Dioxide 27.8 meq/L (21.0-32.0); Chloride 104 meq/L (98-107); Glomerular Filtration Rate Greater Than 89 mL/min (>89); Glucose,Random 125 mg/dL (74-106); Lactate Dehydrogenase 465 U/L (87-241); Potassium 4.6 meq/L (3.5-5.1); Sodium 140 meq/L (136-145); Total Protein 6.5 g/dL (6.4-8.2)
[2017-12-08 20:58] LABS: Lymphocytes 5 % (9-44); Monocytes 2 % (0-8); Tallied Nucleated RBC 57 (0-0)
[2017-12-08 21:00] LABS: Pappenheimer Bodies Present; Sickle Cells 1+; Target Cells 1+
[2017-12-08 21:01] LABS: Platelet Estimate Normal (Normal); Platelet Morphology Normal (Normal); Toxic Vacuolation Present
[2017-12-09] MEDS: Temazepam 15 MG Capsule PO PRN ×2 (00:47→22:02)
[2017-12-09] MEDS: Piperacil/Tazo 3.375 GM Premix 50 ML IV.SIG SCH ×2 (02:36→10:36)
[2017-12-09] MEDS: HYDROmorphone PF Inj 2 MG/ML Vial IV.PUSH PRN ×6 (02:37→23:36)
[2017-12-09] MEDS: Sod Chloride 0.9% Inj 1,000 ML IV.CONT SCH ×3 (03:24→13:20)
--- NOTE | 2017-12-09 08:36 | P.PN ---
Physical Exam Vital signs: Vital Signs 12/08/17 08:43 12/08/17 12:00 12/08/17 16:00 Temperature 99.4 F 98 F Pulse Rate 62 69 69 Respiratory Rate 14 20 21 Blood Pressure 152/108 H 148/96 H Pulse Oximetry 97 99 98 12/08/17 19:58 12/08/17 20:00 12/09/17 00:00 Temperature 98.7 F 98.6 F Pulse Rate 63 78 77 Respiratory Rate 15 16 16 Blood Pressure 165/93 H 149/76 H Pulse Oximetry 95 95 12/09/17 04:00 Temperature 98.7 F Pulse Rate 64 Respiratory Rate 16 Blood Pressure 151/83 H Pulse Oximetry 95 Intake & Output 12/08/17 12/09/17 12/09/17 18:59 06:59 18:59 Intake Total 2210 / 2210 1100 / 1100 360 / 360 Output Total 700 / 700 800 / 800 Balance 2210 / 2210 400 / 400 -440 / -440 Weight 70.7 kg Intake: IV 1100 / 1100 1100 / 1100 NS Inj 1,000 ML @ 100 mls/hr IV 1000 / 1000 1000 / 1000 .CONT .Q10H DAVID Rx#:[id number] Zosyn 3.375 GM Premix 50 ML @ 100 / 100 100 / 100 100 mls/hr IV.SIG Q6H DAVID Rx#: [id number] Oral 1110 / 1110 360 / 360 Output: Urine 700 / 700 800 / 800 Other: # Voids 6 3 Date of Last Bowel Movement 12/08/17 # Bowel Movements 1 Narrative: Subjective F/up Sickle cell crisis Still with right knee pain. No nausea or vomiting. She is eating better. He is saturating well on room air at this time. He is ambulating without any problems. Feels much better after plasma exchange . He is not coughing. Discontinue antibiotics No fever, feels chills. No cough. No problems with urination. Physical Exam GENERAL: Patient sitting in bed. Appears chronically ill however with some improvement. NECK: Vas cath in place no signs of bleeding. Dressing C/D/I CARDIOVASCULAR: Regular rate and rhythm without murmurs, gallops, or rubs. RESPIRATORY: Breath sounds equal bilaterally. No accessory muscle use. GASTROINTESTINAL: Abdomen soft, non-tender, nondistended. MUSCULOSKELETAL: No cyanosis, or edema. BACK: Nontender without obvious deformity. No CVA tenderness. Assessment and Plan Sickle cell pain crisis. Acute chest pain syndrome chest x-ray with no acute findings. White blood cell count mildly elevated at 13. No signs of infection. Hemoglobin 7.6 on admission, near baseline. HGB trending down. Hemoglobin noted on 12/03 at 5.5. Discussed with hematology oncology, transfused 1 unit of blood on 12/03 Repeat hemoglobin on 12/04 still low, transfused 2 units of blood HGB at 7.1 on 12/05 . Transfused again. Patient was transfused 5 units of blood. Still with low hemoglobin. He required plasma exchange. retic count elevated Ferritin elevated CXR reviewed . CTA reviewed no PE, o infiltrates , likely atelectasis and congestion. Add IS, duonebs. Start presnisone 40 mg po daily for 5 days Administer oxygen Narcotics for pain control. Hematology consult. patient follows with Dr. Bell. 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 Was bleeding at the vas cath site, dressing was removed and changes by IR, the area was treated with ~ 4000u of thrombin injected into sub-q tissues of the dermatotomy, manual pressure, bellding resolved. Patient s/p plasma exchange on 12/06/17 with significant improvement , repeat HGB is 9.8 Difficult blood draw, per hematology oncology Dr. Shcafer, Vas-Cath can be used to draw blood if needed Discontinue antibiotics Dry lips. [place] Discharge Planning: Pending improvement and clearance by hem onc . s/p plasma exchange Patient will need pain meds at [place] , follows with Dr Bell hem onc Discussed with the patient, nurse Results - Labs CBC & Chem 7: 12/09/17 11:15 12/09/17 11:15 Laboratory Results - last 24 hr 12/08/17 12/08/17 20:02 20:02 WBC 7.9 RBC 3.32 L Hgb 10.6 L Hct 29.8 L MCV 89.7 MCH 32.0 MCHC 35.7 RDW 18.3 H Plt Count 238 D MPV 8.1 Prelim Diff (Auto) Slide review pending WBC Differential Manual diff final Seg Neuts % (Manual) 93 H Lymphocytes % (Manual) 5 L Monocytes % (Manual) 2 Abs Neuts (Manual) 7.3 Nucleated RBCs/100 WBC 57 H Differential Comment . Toxic Vacuolation Present H Platelet Estimate Normal Platelet Morphology Normal Pappenheimer Bodies Present H Sickle Cells 1+ H Target Cells 1+ H Retic Count 14.6 H Absolute Retic 485.7 H Sodium 140 Potassium 4.6 Chloride 104 Carbon Dioxide 27.8 Anion Gap 8 BUN 12 Creatinine 0.91 Estimated GFR Greater than 89 Random Glucose 125 H Calcium 8.7 Total Bilirubin 3.8 H AST 69 H ALT 83 H Alkaline Phosphatase 141 H Lactate Dehydrogenase 465 H Total Protein 6.5 D Albumin 3.3 L D
[2017-12-09] MEDS: Enoxaparin Inj 40 MG/0.4 ML Syringe SQ SCH (10:35)
[2017-12-09] MEDS: predniSONE 20 MG Tablet PO SCH (10:35)
[2017-12-09] MEDS: Folic Acid 1 MG Tablet PO SCH (10:38)
[2017-12-09] MEDS: DEFERASIROX 360 MG PO SCH (10:38)
[2017-12-09] MEDS: Hydroxyurea 500 MG Capsule PO SCH (11:04)
[2017-12-09 11:38] LABS: Baso % (Auto) 0.4 % (0.0-2.0); Eos # (Auto) 0.2 th/mm3 (0.0-0.4); Eos % (Auto) 1.6 % (0.0-4.0); Hematocrit 31.3 % (39.0-51.0); Hemoglobin 10.6 gm/dL (13.0-17.0); Lymph # (Auto) 3.1 th/mm3 (1.0-4.8); Lymph % (Auto) 28.9 % (9.0-44.0); Mean Corpuscular Hemoglobin 31.4 pg (27.0-34.0); Mean Corpuscular Volume 92.4 fL (80.0-100.0); Mean Platelet Volume 7.8 fL (7.0-11.0); Mono # (Auto) 1.1 th/mm3 (0.0-0.9); Mono % (Auto) 9.9 % (0.0-8.0); Neut # (Auto) 6.3 th/mm3 (1.8-7.7); Neut % (Auto) 59.2 % (16.0-70.0); Platelet Count 251 th/mm3 (150-450); Red Blood Count 3.39 mil/mm3 (4.50-5.90); Red Cell Distribution Width 18.4 % (11.6-17.2); Reticulocyte Percent 16.3 % (0.4-3.0); White Blood Count 10.7 th/mm3 (4.0-11.0)
--- NOTE | 2017-12-09 11:39 | P.PNONC ---
Subjective Interval history: Afebrile Patient upset as lab kept coming to stick him yesterday after labs were canceled Currently on room air, states his breathing is much improved Pain mostly well controlled. Reports he is ready to decrease IV Dilaudid He normally takes Lortab 10 at home Asking to have a sleeping pill once he goes home as well Objective Vital Signs/Intake & Output: Vital Signs 12/08/17 12:00 12/08/17 16:00 12/08/17 19:58 Temperature 99.4 F 98 F Pulse Rate 69 69 63 Respiratory Rate 20 21 15 Blood Pressure 152/108 H 148/96 H Pulse Oximetry 99 98 12/08/17 20:00 12/09/17 00:00 12/09/17 04:00 Temperature 98.7 F 98.6 F 98.7 F Pulse Rate 78 77 64 Respiratory Rate 16 16 16 Blood Pressure 165/93 H 149/76 H 151/83 H Pulse Oximetry 95 95 95 12/09/17 08:00 12/09/17 09:15 Temperature 98.6 F Pulse Rate 64 65 Respiratory Rate 21 15 Blood Pressure 170/106 H Pulse Oximetry 96 95 Intake & Output 12/08/17 12/09/17 12/09/17 18:59 06:59 18:59 Intake Total 2210 / 2210 1100 / 1100 360 / 360 Output Total 700 / 700 800 / 800 Balance 2210 / 2210 400 / 400 -440 / -440 Weight 155 lb 13.869 oz Intake: IV 1100 / 1100 1100 / 1100 NS Inj 1,000 ML @ 100 mls/hr IV 1000 / 1000 1000 / 1000 .CONT .Q10H [facility] Rx#:[id number] Zosyn 3.375 GM Premix 50 ML @ 100 / 100 100 / 100 100 mls/hr IV.SIG Q6H [facility] Rx#: [id number] Oral 1110 / 1110 360 / 360 Output: Urine 700 / 700 800 / 800 Other: # Voids 6 3 Date of Last Bowel Movement 12/08/17 # Bowel Movements 1 Result Diagrams: 12/09/17 11:15 12/09/17 11:15 Laboratory Results: Laboratory Results - last 24 hr 12/08/17 12/08/17 20:02 20:02 WBC 7.9 RBC 3.32 L Hgb 10.6 L Hct 29.8 L MCV 89.7 MCH 32.0 MCHC 35.7 RDW 18.3 H Plt Count 238 D MPV 8.1 Prelim Diff (Auto) Slide review pending WBC Differential Manual diff final Seg Neuts % (Manual) 93 H Lymphocytes % (Manual) 5 L Monocytes % (Manual) 2 Abs Neuts (Manual) 7.3 Nucleated RBCs/100 WBC 57 H Differential Comment . Toxic Vacuolation Present H Platelet Estimate Normal Platelet Morphology Normal Pappenheimer Bodies Present H Sickle Cells 1+ H Target Cells 1+ H Retic Count 14.6 H Absolute Retic 485.7 H Sodium 140 Potassium 4.6 Chloride 104 Carbon Dioxide 27.8 Anion Gap 8 BUN 12 Creatinine 0.91 Estimated GFR Greater than 89 Random Glucose 125 H Calcium 8.7 Total Bilirubin 3.8 H AST 69 H ALT 83 H Alkaline Phosphatase 141 H Lactate Dehydrogenase 465 H Total Protein 6.5 D Albumin 3.3 L D Medications: Active Medications Generic Name Dose Route Start Last Admin Trade Name Freq PRN Reason Stop Dose Admin Albuterol 1 ampul 12/05/17 14:00 12/09/17 09:13 Duoneb Neb (Kerri) NEB 1 ampul Q6HR WHILE AWAKE NEB KERRI Administration Artificial Tears 2 drops 12/03/17 15:06 12/03/17 18:00 Genteal Severe Dry Eye Relief 0.3% Opth Gel EACH EYE 2 drops Q6H PRN Administration EYE REDNESS Diphenhydramine HCl 25 mg 11/29/17 23:35 12/09/17 06:46 Benadryl Inj IV.PUSH 25 mg Q3HR PRN Administration ITCHING Enoxaparin Sodium 40 mg 12/07/17 09:00 12/09/17 10:35 Lovenox Inj SQ 40 mg DAILY KERRI Administration Famotidine 20 mg 12/07/17 21:00 12/08/17 20:44 Pepcid PO 20 mg HS KERRI Administration Folic Acid 1 mg 12/02/17 09:00 12/09/17 10:38 Folic Acid PO 1 mg DAILY KERRI Administration Hydroxyurea 1,500 mg 12/02/17 09:00 12/09/17 11:04 Hydrea PO 1,500 mg DAILY KERRI Administration Sodium Chloride 1,000 mls @ 100 mls/hr 11/29/17 23:15 12/09/17 06:52 Ns Inj IV.CONT 100 mls/hr .Q10H KERRI Administration Piperacillin/Tazobactam/Dextrose 50 mls @ 100 mls/hr 12/04/17 14:00 12/09/17 10:36 Zosyn 3.375 Gm Premix IV.SIG 100 mls/hr Q6H KERRI Administration Multi-Ingredient Ointment 1 applic 12/01/17 15:29 12/01/17 18:26 Blistex Lip [place] TOPICAL 1 applic UNSCH PRN Administration lip balm Ondansetron HCl 4 mg 11/29/17 23:10 12/09/17 10:27 Zofran Inj IV.PUSH 4 mg Q6H PRN Administration NAUSEA OR VOMITING Pt Own Med: Jadenu 1 each 12/03/17 09:00 12/09/17 10:38 360mg Po Daily PO 1 each DAILY KERRI Administration Prednisone 40 mg 12/06/17 09:00 12/09/17 10:35 Deltasone PO 12/10/17 09:01 40 mg DAILY KERRI Administration Prochlorperazine Maleate 10 mg 12/02/17 17:00 12/09/17 10:38 Compazine PO 10 mg Q6H KERRI Administration Temazepam 15 mg 11/29/17 22:59 12/09/17 00:47 Restoril PO 15 mg HS PRN Administration INSOMNIA Objective Remarks: GENERAL: Young male resting in bed in no obvious distress SKIN: Warm and dry. Vas-Cath to right neck. No oozing. HEAD: Normocephalic. EYES: No scleral icterus. No injection or drainage. NECK: Supple, trachea midline. No JVD or lymphadenopathy. CARDIOVASCULAR: Regular rate and rhythm without murmurs. RESPIRATORY: Clear posteriorly. On room air. O2 sats 95% GASTROINTESTINAL: Abdomen soft, non-tender, nondistended. EXTREMITIES: No cyanosis, or edema. MUSCULOSKELETAL: Adequate muscle tone. NEUROLOGICAL: No obvious focal deficit. Awake, alert, and oriented x3. 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 O2 sats are normal at 95%. Anticipate his Vas-Cath will likely be removed tomorrow. I will stop antibiotics as he has not had any fevers. He has no cough. He likely had acute chest syndrome that was reversed with the red blood cell exchange. I a.m. weaning down his IV pain medications. I will start Lortab 10 every 4 hours as needed that he takes at home. I am decreasing the IV Dilaudid to 2 mg every 4 hours. Continue supportive care. - Attending Statement The exam, history, and the medical decision-making described in the above note were completed with the assistance of the mid-level provider. I reviewed and agree with the findings presented. I attest that I had a [id number] encounter with the patient on the same day, and personally performed and documented my assessment and findings in the medical record. The patient is definitely doing better. Pain is less. He is not short of breath. He is going to try to take oral medicines for pain relief and avoid the IV Dilaudid. If this is successful he may be able to go home tomorrow. Even if he does not it is likely that we will be able to remove the Vas-Cath tomorrow.
[2017-12-09 12:14] LABS: Alanine Aminotransferase 82 U/L (12-78); Albumin 3.3 g/dL (3.4-5.0); Alkaline Phosphatase 136 U/L (45-117); Anion Gap 7 meq/L (5-15); Aspartate Aminotransferase 49 U/L (15-37); Blood Urea Nitrogen 10 mg/dL (7-18); Calcium 8.6 mg/dL (8.5-10.1); Carbon Dioxide 29.2 meq/L (21.0-32.0); Chloride 103 meq/L (98-107); Glomerular Filtration Rate Greater Than 89 mL/min (>89); Glucose,Random 92 mg/dL (74-106); Lactate Dehydrogenase 432 U/L (87-241); Potassium 3.4 meq/L (3.5-5.1); Sodium 139 meq/L (136-145); Total Protein 6.4 g/dL (6.4-8.2)
[2017-12-09 12:18] LABS: Eosinophils 2 % (0-4); Lymphocytes 29 % (9-44); Monocytes 6 % (0-8); Platelet Estimate Normal (Normal); Platelet Morphology Normal (Normal); Tallied Nucleated RBC 35 (0-0)
[2017-12-09 12:19] LABS: Pappenheimer Bodies Present; Target Cells 1+
[2017-12-09 12:20] LABS: Howell-Jolly Bodies Present
[2017-12-09] MEDS: Famotidine 20 MG Tablet PO SCH (22:02)
[2017-12-10] MEDS: Sod Chloride 0.9% Inj 1,000 ML IV.CONT SCH ×2 (00:26→08:27)
[2017-12-10] MEDS: HYDROmorphone PF Inj 2 MG/ML Vial IV.PUSH PRN ×2 (03:42→08:37)
[2017-12-10] MEDS: predniSONE 20 MG Tablet PO SCH (08:25)
[2017-12-10] MEDS: Folic Acid 1 MG Tablet PO SCH (08:25)
[2017-12-10] MEDS: Enoxaparin Inj 40 MG/0.4 ML Syringe SQ SCH (08:26)
[2017-12-10] MEDS: Hydroxyurea 500 MG Capsule PO SCH (08:26)
[2017-12-10] MEDS: DEFERASIROX 360 MG PO SCH (08:26)
--- NOTE | 2017-12-10 09:00 | P.PNONC ---
Subjective Interval history: Afebrile. Patient denies any shortness of breath or chest pain. He states his pain has been well controlled with the oral pain medications. He is ready to go home. Objective Vital Signs/Intake & Output: Vital Signs 12/09/17 09:15 12/09/17 12:00 12/09/17 12:11 Temperature 98.8 F Pulse Rate 65 65 66 Respiratory Rate 15 20 Blood Pressure 155/91 H Pulse Oximetry 95 96 12/09/17 12:47 12/09/17 16:00 12/09/17 20:00 Temperature 98.9 F 98.3 F Pulse Rate 73 61 72 Respiratory Rate 20 17 Blood Pressure 129/91 H 127/72 Pulse Oximetry 100 97 12/10/17 00:00 12/10/17 04:00 Temperature 98.5 F 98.2 F Pulse Rate 66 58 L Respiratory Rate 16 16 Blood Pressure 157/94 H 149/82 H Pulse Oximetry 98 97 Intake & Output 12/09/17 12/10/17 12/10/17 18:59 06:59 18:59 Intake Total 3760 / 3760 790 / 790 1000 / 1000 Output Total 3000 / 3000 1850 / 1850 Balance 760 / 760 -1060 / -1060 1000 / 1000 Intake: IV 1000 / 1000 50 / 50 1000 / 1000 NS Inj 1,000 ML @ 100 mls/hr IV 1000 / 1000 1000 / 1000 .CONT .Q10H [facility] Rx#:[id number] Oral 2760 / 2760 740 / 740 Output: Urine 3000 / 3000 1850 / 1850 Other: # Voids 3 Date of Last Bowel Movement 12/09/17 Result Diagrams: 12/09/17 11:15 12/09/17 11:15 Laboratory Results: Laboratory Results - last 24 hr 12/09/17 12/09/17 11:15 11:15 WBC 10.7 RBC 3.39 L Hgb 10.6 L Hct 31.3 L MCV 92.4 MCH 31.4 MCHC 34.0 RDW 18.4 H Plt Count 251 MPV 7.8 Prelim Diff (Auto) Slide review pending Neut % (Auto) 59.2 Lymph % (Auto) 28.9 [place] % (Auto) 9.9 H Eos % (Auto) 1.6 Baso % (Auto) 0.4 Neut # (Auto) 6.3 Lymph # (Auto) 3.1 [place] # (Auto) 1.1 H Eos # (Auto) 0.2 Baso # (Auto) 0.0 WBC Differential Manual diff final Seg Neuts % (Manual) 63 Lymphocytes % (Manual) 29 Monocytes % (Manual) 6 Eosinophils % (Manual) 2 Abs Neuts (Manual) 6.7 Nucleated RBCs/100 WBC 35 H Differential Comment . Platelet Estimate Normal Platelet Morphology Normal Polychromasia 2.0 H Pappenheimer Bodies Present H Target Cells 1+ H [place] Bodies Present H Retic Count 16.3 H Absolute Retic 552.7 H Sodium 139 Potassium 3.4 L D Chloride 103 Carbon Dioxide 29.2 Anion Gap 7 BUN 10 Creatinine 0.75 Estimated GFR Greater than 89 Random Glucose 92 Calcium 8.6 Total Bilirubin 4.1 H AST 49 H ALT 82 H Alkaline Phosphatase 136 H Lactate Dehydrogenase 432 H Total Protein 6.4 Albumin 3.3 L Medications: Active Medications Generic Name Dose Route Start Last Admin Trade Name Freq PRN Reason Stop Dose Admin Hydrocodone Bitart/Acetaminophen 1 tab 12/09/17 11:33 12/10/17 06:39 [place] 10/325 PO 1 tab Q4H PRN Administration pain 4-10 Artificial Tears 2 drops 12/03/17 15:06 12/03/17 18:00 [place]enteal Severe Dry Eye Relief 0.3% Opth Gel EACH EYE 2 drops Q6H PRN Administration EYE REDNESS Diphenhydramine HCl 25 mg 11/29/17 23:35 12/10/17 08:36 Benadryl Inj IV.PUSH 25 mg Q3HR PRN Administration ITCHING Enoxaparin Sodium 40 mg 12/07/17 09:00 12/10/17 08:26 Lovenox Inj SQ 40 mg DAILY DAVID Administration Famotidine 20 mg 12/07/17 21:00 12/09/17 22:02 Pepcid PO 20 mg HS DAVID Administration Folic Acid 1 mg 12/02/17 09:00 12/10/17 08:25 Folic Acid PO 1 mg DAILY DAVID Administration Hydromorphone HCl 2 mg 12/09/17 11:34 12/10/17 08:37 Dilaudid Pf Inj IV.PUSH 2 mg Q4H PRN Administration BREAKTHROUGH PAIN Hydroxyurea 1,500 mg 12/02/17 09:00 12/10/17 08:26 Hydrea PO 1,500 mg DAILY DAVID Administration Sodium Chloride 1,000 mls @ 100 mls/hr 11/29/17 23:15 12/10/17 08:27 Ns Inj IV.CONT 100 mls/hr .Q10H DAVID Administration Multi-Ingredient Ointment 1 applic 12/01/17 15:29 12/01/17 18:26 Blistex Lip [place] TOPICAL 1 applic UNSCH PRN Administration lip balm Ondansetron HCl 4 mg 11/29/17 23:10 12/09/17 10:27 Zofran Inj IV.PUSH 4 mg Q6H PRN Administration NAUSEA OR VOMITING Pt Own Med: Jadenu 1 each 12/03/17 09:00 12/10/17 08:26 360mg Po Daily PO 1 each DAILY DAVID Administration Prednisone 40 mg 12/06/17 09:00 12/10/17 08:25 Deltasone PO 12/10/17 09:01 40 mg DAILY DAVID Administration Prochlorperazine Maleate 10 mg 12/02/17 17:00 12/10/17 06:39 Compazine PO 10 mg Q6H DAVID Administration Temazepam 15 mg 11/29/17 22:59 12/09/17 22:02 Restoril PO 15 mg HS PRN Administration INSOMNIA Objective Remarks: GENERAL: Well-nourished, well-developed young male patient, sitting in bed. In no acute distress. SKIN: Warm and dry. Vas-Cath to right supraclavicular, dressing dry/intact. HEAD: Normocephalic. EYES: Mild scleral icterus. NECK: Supple, trachea midline. CARDIOVASCULAR: Regular rate and rhythm without murmurs. RESPIRATORY: Posterior breath sounds clear, equal bilaterally. Nonlabored. GASTROINTESTINAL: Abdomen soft, non-tender, nondistended. EXTREMITIES: No cyanosis, or edema. MUSCULOSKELETAL: Adequate muscle tone. NEUROLOGICAL: No obvious focal deficit. Awake, alert, and oriented x3. 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 O2 sat improved at 100% on room air. Subjectively denies any shortness of breath. 2. Pain currently controlled on p.o. pain medications. 3. Okay to remove Vas-Cath. 4. Patient cleared for discharge home from a hematologic standpoint. He will follow-up with Dr. Bell within 1 week's time.
[2017-12-10 11:55] VITALS: PULSE 58
[2017-12-10 13:49] VITALS: BP 141/91; RESP 18; TEMP 98.1; O2SAT 96
--- NOTE | 2017-12-10 13:53 | P.DS ---
Date of admission: 11/29/17 22:59 Primary care physician: No Primary Care Physician Attending physician on discharge: Thao Araya Anticipated date of discharge: 12/10/17 Brief History from admission: 22-year-old male with a history of sickle cell anemia who presents with a 12 hour history of severe constant sharp pain in low back, as well as right knee, consistent with previous episodes of sickle cell pain crisis. Patient went to his hematologists clinic today and received IV fluids and Dilaudid which did not control the pain, and as such she was instructed to present to the ER. Patient says he did have some chest tightness earlier which resolved. Denies any current chest pain or shortness of breath. Denies nausea or vomiting. Denies fevers or chills. He does report itching secondary to narcotics and is requesting Benadryl. DS: Diagnosis - Discharge Diagnosis (1) Anemia requiring transfusions Status: Acute (2) Acute sickle cell crisis Status: Acute (3) Intractable pain Status: Acute DS: Medications - Discharge Medications Prescriptions: folic acid 1 mg PO DAILY #30 tab hydrocodone-acetaminophen 1 tab PO Q4H PRN #18 tab PRN Reason: Pain hydroxyurea 1,500 mg PO DAILY 30 Days #90 cap DS: Summary Hospital Course: Sickle cell pain crisis. Acute chest pain syndrome chest x-ray with no acute findings. White blood cell count mildly elevated at 13. No signs of infection. Hemoglobin 7.6 on admission, near baseline. HGB trending down. Hemoglobin noted on 12/03 at 5.5. Discussed with hematology oncology, transfused 1 unit of blood on 12/03 Repeat hemoglobin on 12/04 still low, transfused 2 units of blood HGB at 7.1 on 12/05 . Transfused again. Patient was transfused 5 units of blood. Still with low hemoglobin. He required plasma exchange. retic count elevated Ferritin elevated CXR reviewed . CTA reviewed no PE, no infiltrates , likely atelectasis and congestion. Add IS, duonebs. Start prednisone 40 mg po daily for 5 days Administer oxygen Narcotics for pain control. Hematology consult. patient follows with Dr. Bell. Might consider port placement for senior care care Vas cath placement 01/05/18 plan for plasma exchange. Was bleeding at the vas cath site, dressing was removed and changed by IR, the area was treated with ~ 4000u of thrombin injected into sub-q tissues of the dermatotomy, manual pressure, bleeding resolved. Patient s/p plasma exchange on 12/06/17 with significant improvement , repeat HGB is 9.8 Vas cath was removed. Patient was cleared for discharge from hematology standpoint and was instructed to followup with Dr. Bell in one week. Patient required pain medication at discharge. EForsce was utilized for review of patients narcotic history. Patient was given a prescription for 3 days of [place]. - Time Spent with Patient Total time spent providing and/or coordinating discharge services: Greater than 30 minutes - Quality: VTE Deep Vein Thrombosis/Pulmonary Embolism Present on Admission: No Exam Vital signs: Vital Signs 12/09/17 16:00 12/09/17 20:00 12/10/17 00:00 Temperature 98.9 F 98.3 F 98.5 F Pulse Rate 61 72 66 Respiratory Rate 20 17 16 Blood Pressure 129/91 H 127/72 157/94 H Pulse Oximetry 100 97 98 12/10/17 04:00 12/10/17 08:00 12/10/17 11:54 Temperature 98.2 F 98.0 F Pulse Rate 58 L 80 58 L Respiratory Rate 16 16 Blood Pressure 149/82 H 159/88 H Pulse Oximetry 97 98 12/10/17 12:00 Temperature 98.1 F Pulse Rate 58 L Respiratory Rate 18 Blood Pressure 141/91 H Pulse Oximetry 96 Intake & Output 12/09/17 12/10/17 12/10/17 18:59 06:59 18:59 Intake Total 3760 / 3760 790 / 790 1000 / 1000 Output Total 3000 / 3000 1850 / 1850 240 / 240 Balance 760 / 760 -1060 / -1060 760 / 760 Intake: IV 1000 / 1000 50 / 50 1000 / 1000 NS Inj 1,000 ML @ 100 mls/hr IV 1000 / 1000 1000 / 1000 .CONT .Q10H [facility] Rx#:[id number] Oral 2760 / 2760 740 / 740 Output: Urine 3000 / 3000 1850 / 1850 240 / 240 Other: # Voids 3 Date of Last Bowel Movement 12/09/17 Narrative: GENERAL: WDWN young male patient, not in any distress. Awake and alert. SKIN: Warm and dry. HEAD: Atraumatic. Normocephalic. EYES: Pupils equal and round. No scleral icterus. No injection or drainage. ENT: No nasal bleeding or discharge. Mucous membranes pink and moist. NECK: Trachea midline. CARDIOVASCULAR: Regular rate and rhythm. RESPIRATORY: No accessory muscle use. Clear to auscultation. Breath sounds equal bilaterally. GASTROINTESTINAL: Abdomen soft, non-tender, nondistended. +BS MUSCULOSKELETAL: Extremities without clubbing, cyanosis, or edema. No obvious deformities. NEUROLOGICAL: Awake and alert. No obvious cranial nerve deficits. Motor grossly within normal limits. Five out of 5 muscle strength in the arms and legs. Normal speech. PSYCHIATRIC: Appropriate mood and affect; insight and judgment normal. Results Procedures completed during hospitalization: RADIOLOGY CONSULTATION REPORT Continued Ordered By: Patient Name: Dorothea Morales [place] Cleve MR#: Loc: [id number] 1522-A : Age: 07 1995 22 Order #: [id number] Page 2 of 2 Signed Report #:[id number] Provider [facility] DEPARTMENT OF RADIOLOGY [address] [place], [place] [id number] [address] [place] [id number] [place] [address] RADIOLOGY CONSULTATION REPORT Ordered By: Dorothea Morales MR#: Loc: [id number] [id number] 1522-A : Age: 07 1995 22 Order #: [id number] Page 1 of 2 Signed Report #:[id number] Provider EXAM DATE: 12/06/2017 11:55 AM EDT AGE/SEX: 22 years / Male INDICATIONS: Patient with history of Sickle Cell disease in need of temporary dialysis catheter placement for treatment. CLINICAL DATA: This is the patient's initial encounter. Patient reports that signs and symptoms have been present for 4 - 6 days and indicates a pain score of 2/10. MEDICAL/SURGICAL HISTORY: Sickle Cell disease. Asthma. Osteonecrosis. Cholecystectomy. Splenectomy. Tonsillectomy. COMPARISON: No prior exams available for comparison. FLUORO TIME (min): 0.15 IMAGE SERIES: 4 ACCESS SITE: Right internal jugular vein DEVICE(S): 14 [place] double lumen 15cm Schon catheter . . PROCEDURE : 1. Ultrasound guided venipuncture. 2. Fluoroscopic guidance. 3. Central line placement. The risks, benefits and alternatives to the procedure were explained and verbal and written consent was obtained. The site was prepped in sterile fashion. Full sterile technique was used, including cap, mask, sterile gloves and gown and a large sterile sheet. Hand hygiene and 2% chlorhexidine prep was utilized per protocol for cutaneous antisepsis with appropriate dry time for site. Sterile gel and sterile probe cover were utilized for ultrasound guidance. The skin and subcutaneous tissues were infiltrated with local anesthetic solution. A suitable site above the vein was selected with ultrasound and fluoroscopic guidance. A small incision was made. The vein was accessed under direct ultrasound visualization using the micropuncture technique. The micropuncture set was exchanged for a 0.035 wire. The tract was dilated. The catheter was advanced into position under direct fluoroscopic visualization, and was advanced with the tip at the junction of the superior vena cava and rt atrium. The catheter was fixed in place with suture and a sterile dressing was applied. The patient tolerated the procedure well and there were no complications. CONCLUSION: 1. Uncomplicated line placement as above. Electronically signed by: Leon Eisenberg MD 12/07/2017 7:57 AM EDT - Impressions ITS Impressions Chest CT 12/04/17 00:00 CONCLUSION: 1. Diffuse groundglass opacity in both lungs. This finding is generally nonspecific but could represent a bronchopneumonia or mild pulmonary edema. Dependent opacity in the lungs is probably atelectasis associated with trace bilateral pleural effusions. No pneumothorax. Chest X-Ray 12/04/17 00:00 CONCLUSION: Development of ill-defined airspace disease and some interstitial prominence in the perihilar and basilar regions. Differential diagnosis includes edema and bronchopneumonia. Central Venous Line 12/06/17 00:00 CONCLUSION: 1. Uncomplicated line placement as above. Discharge Plan - Discharge Disposition Patient Disposition: Discharge Home - Discharge Condition Condition: Stable - Discharge Order Discharge Orders: Discharge Order (Routine); Ordered 12/10/17 Ordered By: Stacy Albarado Oncology Clear for Discharge (Routine); Ordered 12/10/17 Ordered By: Kamilah Olmedo - Discharge Details Anticipated Discharge Date: 12/10/17 - Physicians Team Primary Care Provider: Primary Care Ellen Alcala Attending Provider: Thao Araya Other Providers: Marco A Bell MD
== END 2017-12-10 15:52 | disposition home or self-care (01) ==
LOC: NEDA 18:18 → NEPC 18:18 → N05 11-30 00:19
PROVIDERS: ADMIT Family Medicine; ATTEND Family Medicine